=== PATIENT | male | born 1985 | race Caucasian/White ===

== ENCOUNTER 2020-08-07 00:49 | Emergency (ER) | payer OTHER, SELFPAY ==
[2020-08-07 00:51] VITALS: BP 209/116; PULSE 84; RESP 18; TEMP 36.6; O2SAT 99; BMI 42.1
--- NOTE | 2020-08-07 00:53 | EDS_ITS ---
ED.HPI.GONZALES History of Present Illness Chief Complaint: Headache Informant: patient Onset/Context/Timing Onset: Days (2) Context: Gradual Timing: Continuous Quality -Headache: Positive for Similar Prior Headaches, Sharp and Dull Location: Bilateral frontal Worsened by: Light Associated Symptoms/Injury Associated Symptoms: Positive for Nausea, Sinus Pressure, Blurred Vision and Photophobia; Negative for Fever, Vomiting, Sore Throat, Numbness, Tingling, Preceding Aura and Visual Loss Narrative Narrative: Patient presents with headache that has been getting worse over the p ast 2 days. Patient states the pain is over the frontal area and bilateral temporal area. Patient states the pain feels similar to prior headaches. Patient states the pain is sharp at times but aching at times. Patient admits to some photophobia. Patient admits to some mild sinus pressure. Patient admits to some nausea but denies any vomiting. Patient admits to some blurred vision but denies any scotoma. [facility] Medical History Gastroparesis Hypertension Migraines Home Medications amlodipine 10 mg PO DAILY 08/07/20 [History Last Taken Unknown] cholecalciferol (vitamin D3) [Vitamin D3] 10 mcg PO DAILY 08/07/20 [History Last Taken Unknown] coenzyme Q10 [CoQ-10] 100 mg PO DAILY 08/07/20 [History Last Taken Unknown] garlic extract 1,000 mg PO DAILY 08/07/20 [History Last Taken Unknown] levocarnitine tartrate [L-Carnitine] 500 mg PO DAILY 08/07/20 [History Last Taken Unknown] lisinopril 40 mg PO DAILY 08/07/20 [History Last Taken Unknown] Allergy/AdvReac Type Severity Reaction Status Date / Time Penicillins Allergy Hives Verified 08/07/20 00:54 Surgical History History of tonsillectomy Social History Smoking Status: Never smoker ROS ROS ED Constitutional Constitutional ED: Denies chills or fever(s) Eyes Eyes: Reports blurry vision; Denies diplopia ENT ENT ED: Denies rhinorrhea or sore throat Cardiovascular Cardiovascular: Denies chest pain or palpitations Respiratory/Chest Respiratory/Chest: Denies cough or dyspnea Gastrointestinal Gastrointestinal: Reports nausea; Denies vomiting Genitourinary Genitourinary ED: Denies dysuria or hematuria Musculoskeletal Musculoskeletal: Reports back pain; Denies neck pain Integumentary Denies abscess or rash Neurologic Neurologic: Reports headache(s); Denies paresthesias or weakness Allergic/Immunologic Allergic/Immunologic ED: Denies mouth swelling or urticaria EXAM Physical Exam Const Vital Signs: 08/07/20 00:51 08/07/20 00:54 08/07/20 01:35 Temperature 97.8 F Temperature Source Oral Pulse Rate 84 72 Respiratory Rate 18 16 Blood Pressure 209/116 H 186/100 H 171/99 H Blood Pressure Mean 147 128 123 Pulse Ox 99 98 Oxygen Delivery Method Room Air Room Air Positive well nourished, well developed and obese General Appearance ED: well developed Nutritional Appearance: obese HEENT Reports normocephalic atraumatic Neck supple and no JVD Resp normal respiratory effort and clear to auscultation bilaterally Cardio regular rate and regular rhythm GI non-tender and non-distended Auscultation: normoactive bowel sounds Palpation: soft Neuro oriented x3 and CN's II-XII intact bilaterally Sensorium / Orientation: awake and alert Speech: speech normal Motor Exam: strength 5/5 throughout Psych mental status grossly normal MDM MDM MDM Narrative Medical decision making narrative: Patient was given IV fluids, Reglan, Benadryl, and Toradol. Patient was feeling better on reevaluation. Patient states he feels well enough to go home. Patient was instructed to rest in a dark quiet room. Patient was instructed to follow-up with his primary care physician in 5 to 7 days. Patient understood and was agreeable with the plan. All questions were answered. Discharge Plan Triage Chief Complaint: Headache ED Provider: Cosmo Cotton Dx/Rx/DC Orders Clinical Impression: Migraine headache Instructions: ED, Migraine (Classical) Prescriptions: No Action amlodipine 10 mg Tablet 10 mg PO DAILY RF: 0 lisinopril 40 mg Tablet 40 mg PO DAILY RF: 0 cholecalciferol (vitamin D3) [Vitamin D3] 10 mcg (400 unit) Capsule 10 mcg PO DAILY RF: 0 coenzyme Q10 [CoQ-10] 100 mg Capsule 100 mg PO DAILY RF: 0 garlic extract 500 mg Capsule 1,000 mg PO DAILY RF: 0 levocarnitine tartrate [L-Carnitine] 500 mg Capsule 500 mg PO DAILY RF: 0 Primary Care Provider: Care Physician,No Primary Referrals: Kenia Foy MD [STAFF PHYSICIAN] - 5-7 Days Care Physician,No Primary [Primary Care Provider] - Disposition Disposition: Home, self care
[2020-08-07 00:54] VITALS: BP 186/100
[2020-08-07] MEDS: 0.9% Normal Saline 1,000 ML 999 ML IV (01:14)
[2020-08-07] MEDS: Ketorolac 30 MG/ML Syringe IV (01:15)
[2020-08-07] MEDS: DiphenhydrAMINE 50 MG/ML Syringe 25 MG IV (01:15)
[2020-08-07] MEDS: Metoclopramide 10 MG/2 ML Vial IV (01:15)
[2020-08-07 01:35] VITALS: BP 171/99; PULSE 72; RESP 16; O2SAT 98
[2020-08-07 02:30] VITALS: BP 161/103; PULSE 67; RESP 16; TEMP 36.6; O2SAT 93
[2020-08-07 03:01] VITALS: BP 180/101; PULSE 62; RESP 16; O2SAT 96
--- NOTE | 2020-08-07 03:07 | ED.RN ---
Bp still high and is aware Dr Cotton will look at it and still waiting orders/plan
[2020-08-07] MEDS: cloNIDine HCl 0.1 MG Tablet PO (03:24)
--- NOTE | 2020-08-07 03:26 | ED.RN ---
patient states headache better than has been in two days. Took catapres/clonidine and aware will recheck blood pressure shortly and aware to give time for med to work and monitor at home, return if stays high
[2020-08-07 04:01] VITALS: BP 168/94; PULSE 69; RESP 16; TEMP 36.6; O2SAT 96
== END 2020-08-07 04:07 | disposition home or self-care (01) ==
PROVIDERS: Emergency Provider Emergency Medicine
DX: G43.909 Migraine, unspecified, not intractable, without status migrainosus (principal); I10 Essential (primary) hypertension; E66.9 Obesity, unspecified; Z68.41 Body mass index [BMI] 40.0-44.9, adult; Z79.899 Other long term (current) drug therapy
CPT/HCPCS: 96361; 96374; 96375; 99283; J7030; A4216

== ENCOUNTER → 2022-09-09 | Outpatient (CLI) | payer OTHER, SELFPAY ==
--- NOTE | 2022-09-09 14:30 | PR.ITP_ITS ---
General Information2 - General Information Admitting Diagnosis: Asthma, mild COPD Secondary Diagnosis: HTN, Type II DM, HLD, Obesity, CATHY Gold Classification:: GOLD 1: Mild - Personal Learning Style/Barriers Personal Learning Style:: Audio/Visual, Written Barriers to Learning: None Stage of change r/t lifestyle modifications: Action Educational Classes [place]: Breathing Retraining: Initial Assessment, Exercise: Initial Assessment, Energy Conservation: Initial Assessment, Emotion Social Well Being: Initial Assessment - Education/Goals Individual Counseling: Initial Assessment: Diabetes - Nutritional Services Consult, Overweight/Obesity - Nutritional Services Consult [place] Patient Goals: Increase muscle strength: Initial Assessment, Experience less dyspnea: Initial Assessment, Improve energy level: Initial Assessment, Improve knowledge of lung disease: Initial Assessment, Increase knowledge of oxygen use: Initial Assessment, Improve diet and nutrition: Initial Assessment, Improve my quality of life: Initial Assessment Exercise - Initial Assessment - Visit Date of Eval: 09/09/22 Session Number:: 0 - Pre-[place] Evaluation - Problem/Goals Problems: Deconditioning, No regular exercise Goals:: Aerobic exercise 30-60 mins x 12 weeks [36 sessions] - Physician Prescribed Exercise Modalities: Treadmill, Airdyne, NuStep Frequency (days/week): 3 Duration (Minutes):: 30-45 Intensity: 60-80% of age predicted maximum heart rate reserve Current METSs:: 3.0 Target HR:: 136 - THRR 118-136 Resting Blood Pressure: 140/90 - Elevated EKG Type: Sinus Rhythm - Plan Plan and Plan to Review:: Benefits of exercise, Core components of exercise, How to measure dyspnea level, How to monitor dyspnea level, Exercise intensity, Exercise safety guideline, Home exercise guidelines, Vidal: 3-4/11-13 Home Exercise Mode: Walking Nutrition/Wt Mgmt - Initial - Visit Date of Eval: 09/09/22 Session Number:: 0 - Pre-[place] Evaluation - Problems/Goals Problems: Overweight - Weight Management Knowledge Deficit Management of:: Overweight, Role of exercise in weight control Admit Height:: 6 ft 2 in Admit Weight:: 320 lb Admit BMI:: 41.1 - Intervention Referral to dietitian:: Yes Will attend diet classes:: Yes Intervention/Plan: Instruct on ideal BMI & set weight loss goal w/patient, Assist pt to ID & incorporate diet changes for weight loss by S9, Refer to Structured Weight Loss program as appropriate, Encourage goal of using 250- 300dcal per session for weight loss - Plan Nutrition Plan: Yes Review BMI or WC & identify target wt & strategies for wt control, Yes Nutrition education class:, Yes Weight control education class: Psychosocial - Initial Assess - Visit Date of Eval: 09/09/22 Session Number:: 0 - Pre-[place] Evaluation - Problems/Goals History of Emotional Disorders: Anxious - Psychosocial Test Tool Used:: Pulmonary QOL, PHQ-9 Questionnaire - Referral to Behavioral Health PS - Interventions: Yes Attend Stress Management Classes - Intervention/Plan: See List Interventions/Plan:: Assess stressors,coping strategies & signs of derpression on admission, Instruct/assist pt to develop coping & personal stress Mgt strategies, Instruct patient to recognize signs & symptoms of depression, Instruct patient to recog Oxygen & Oxygen Titration Init - Visit Date of Eval: 09/09/22 Session Number:: 0 - Pre-[place] Evaluation - Initial Assessment Oxygen on Admission: None - Plans Plan: Monitor SpO2 rest & with exercise Reviewed prescribed medications:: Purpose, Schedule, Importance of compliance Instruct correct technique/timing & care:: MDI, DPI, Nebulizer, Return demo use of inhaler Bronchial Hygiene Plan: Vibratory PEP device, Hydration Core Components - Initial - Visit Date of Eval: 09/09/22 Session Number:: 0 - PRe-[place] Evaluation - Hypertension Hypertension Diagnosis:: Hypertension ICD-10 I10 BP: 140/90 [place] [employer] Hypertension Guidelines: [place] [employer] Hypertension Guidelines. Normal BP Less than 120/80. Elevated BP 120/80. Hypertension Stage 1: BP 130-139/80-89. Hypertesnion Stage 2: BP 140 or higher/90 or higher. Hypertension Crisis: BP higher than 180/120 Blood Pressure: 140/90 Outcomes/Goals: Able to verbalize/achieve optimal blood pressure <130/80, Incorporates diet changes & exercise for blood pressure control by DC - Exacerbation Mgmt & Airway Clearance Problems:: No home O2 Hypoxemia Goals:: Hypoxemia managed Plan: Monitor SpO2 rest & with licensed practical nurse clinic nurse correct technique/timing & care:: MDI, DPI, Nebulizer, Return demo use of inhaler Bronchial Hygiene Plan: Vibratory PEP device, Hydration - Medication Interventions/plans: Instruct on medication effects & side effects, Review medication list w/patient every two weeks, Instruct importance of taking meds as ordered & assist problem solving Medication Goals: Adherence to prescribed medications, Correct technique/timing & care of MDI, DPI, nebulizer, and spacer. Does pt report taking home meds as prescribed?: Yes Medications: Yes MDI, Yes DPI, Yes NEB Reviewed prescribed medications:: Side effects, Importance of compliance - Diabetes Diabetes:: Yes Fasting blood glucose:: 0 - Labs unavailable Insulin: Yes Do you monitor your blood sugar at home?: Yes BMI:: 41 Refer to Nutritional Services: DSMNT & MNT Referral to dietitian:: Yes Referral to Diabetic Clinic:: Yes Will attend diet classes:: Yes Core Components - 30 DAYS Core Components - 60 DAYS Core Components - 90 DAYS Core Components - Final Patient Health Questionnaire Initial Assessment 1. Little interest or pleasure in doing things: More than half the days 2. Feeling down, depressed, or hopeless: More than half the days 3. Trouble falling or staying asleep, or sleeping too much: More than half the days 4. Feeling tired or having little energy: Nearly every day 5. Poor appetite or overeating: More than half the days 6. Feeling bad about yourself -- or that you are a failure or have let yourself or your family down: Several days 7. Trouble concentrating on things, such as reading the newspaper or watching television: Several days 8. Moving or speaking so slowly that other people could have noticed. Or the opposite - being so fidgety or restless that you have been moving around a lot more than usual: Several days 9. Thoughts that you would be better off , or of hurting yourself in some way: Not at all How difficult have these problems made it for you to do your work, take care of things at home, or get along with other people?: Somewhat difficult Total Score: 14 Knowledge Questionaire (BCKQ) - Information Information: [place] COPD Knowledge Questionnaire (BCKQ) This questionnaire is designed to find out what you know about your lung problem. It should be completed without help form anyone else. This usually takes between 10 and 20 minutes. Your answers will help us to find out what information you need to help you to understand and manage your lung condition. Sergey the [place] which you think is the correct answer. - Questions b. COPD can only be confirmed by breathing tests: False c. In COPD ther is usually gradual worsening over time: True d. In COPD oxygen levels in the blood are always low: Don't know e. COPD is usually in people less than 40 years old: Don't know Aubrie than 80% of COPD cases are caused by cigarette smoking: Don't know b. COPD can be caused by occupational dust exposure: Don't know c. Longstanding asthma can develop into COPD: Don't know d. COPD is commonly an inherited disease: Don't know e. Women are less vunerable to the effects of cigarette than men: False a. Swelling of the ankles is common in COPD:: Don't know b. Fatigue [tiredness] is common in COPD: True c. Wheezing is common in COPD: True d. Crushing chest pain is common in COPD: Don't know e. Rapid weight loss is common in COPD: Don't know a. Severe breathlessness prevents travel by air: Don't know b. Breathlessness can be worsened by eating large meals: True c. Breathlessness means that your oxygen levels are low: False d. Breathlessness is a normal response to exercise: True e. Breathlessness is primarily caused by a narrowing of the bronchial tubes: False a. Coughing phlegm is a common symptom in COPD: Don't know b. Clearing phlegm is more difficult if you get dehydrated: Don't know c. Bronchodilator inhalers can help clear phlegm: True d. Phlegm causes harm if swallowed: False e. Clearing phlegm can be assisted by breathing exercises: True a. Chest infections often cause coughing of blood: True b. Chest infection phlegm usually becomes coloured (ylw/grn): True cExerbations (episodes of worsening) can occur in the absence of chest infection: True d. Chest infections are always accompanied by a high temperature: False e. Steroid tablets should be taken whenever there is an exacerbation: False aWalking excercises better than breathing to improve fitness: Don't know b. Exercise should be avoided as it strains the lungs: False c. Exercise can help maintain your bone density: Don't know d. Exercise helps relieve depression: True e. Exercise should be stopped if it makes you breathless: True a. Stopping smoking will reduce the risk of heart disease: True b. Stopping smoking will slow down further lung damage: True c. Stopping smoking is pointless as the damage is done: False d.Stopping smoking usually results in improved lung function: True eNicotine replacement therapy only available on prescription: False a. A flu jab is recommended every year: True b. You can get flu from having a flu jab: False c. You can only have a flu jab if you are 65 or over: False d. A pneumonia jab protects against all forms of pneumonia: False e.You can have a pneumonia jab and a flu job on the same day: Don't know a. Bronchodilators act quickly (within 10 minutes): False b. Both short & long acting bronchodilators can be taken on the same day: True c. Spacers (volumatic,nebuhaler,serochamber)should be dried w/atowel after washing: True d. A spacer device increases the medication to the lungs: True e. Tremor may be a side effect of bronchodilators: True a. To be effective, the course should last at least 10 days: False b. Excessive use of antibiotics can cause resistant bacteria (germs): True c. Antibiotics will clear all chest infections: True d. Antibiotic treatment is necessary for an exacerbation (worsening) however mild: False e. Seek advice if antibiotics cause severe diarrhoea: True a. Steroid tablets help strengthen muscles: False b. Steroid tablets should be avoided if there is a chest infection: False c. The risk of long-term side effects due to steroids is less w/short courses then w/continous treatment: True dIndigestion is common side effect from using steroid tablet: True e. Steroid tablets can increase your appetite: True a. Inhaled steroids should be stopped if you are given steroid tablets: Don't know bSteroid inhalers can be used for rapid relief breathlessnes: True c. Spacer devices reduce the risk of getting thrush in the mouth: Don't know d.Steroid inhaler should be taken before your bronchodilator: Don't know e. Inhaled steroids improve lung function in COPD: Don't know COPD Assessment Test [CAT] - Questions Never cough = 0, Cough all the time = 5: 2 No phlegm = 0, Chest full of phlegm = 5: 1 No chest tightness = 0, Chest very tight = 5: 4 No breathless w/exertion = 0, Very breathless w/exertion = 5: 5 No limitations w/activity = 0, Very limited w/activity = 5: 4 Confident leaving home = 0, Not at all confident = 5: 1 Sleep soundly = 0, Don't sleep soundly = 5: 3 Lots of energy = 0, No energy at all = 5: 3 Total CAT score:: 23 Self-Efficacy Initial Assessment We would like to know how confident you are in doing certain activities. Please select your confidence level for:: Select your confidence level for the following using the scale 1-10 where 1 is not at all confident and 10 is totally confident. Your score is the average of all 6 responses. Fatigue: How confident are you that you can keep the fatigue caused by your disease from interfering with the things you want to do? Select Number: 3 Physical Discomfort or Pain: How confident are you that you can keep the physical discomfort or pain of your disease from interfering with the things you want to do? Select Number: 2 Emotional Distress: How confident are you that you can keep the emotional distress caused by your disease from interfering with the things you want to do? Select Number: 3 Other Symptoms or Health Problems: How confident are you that you can keep other symptoms or health problems from interfering with the things you want to do? Select Number: 5 Different Tasks and Activities: How confident are you that you can do the different tasks and activities needed to manage your health condition so as to reduce your need to see a doctor? Select Number: 4 Medication: How confident are you that you can do things other than just taking medication to reduce how much your illness affects your everyday life? Select Number: 6 Total Score:: 3 Nutrition Survey - Nutrition Survey Initial Have you lost >10 lbs over the past 2 months without trying?: No Are you following a special diet at home for diabetes, low fat, or low salt?: No Are you interested in meeting with a dietitian for help understanding your diet?: Yes Do you eat less than 3 meals a day?: Yes Do you eat fatty meats ([place], sausage, ribs, etc), fried foods, desserts, large amounts of salad dressings, margarine, butter, or cheese most days?: Yes Do you have food allergies? [Enter types in comment field]: Yes Do you eat in restaurants more than 3 times a week?: No Do you season food with salt, seasoning salt, or garlic salt?: Yes Do you used canned, boxed, frozen meals, or soups, seasoning packets?: Yes Total Score:: 6
--- NOTE | 2022-09-09 14:30 | PCM.PR.HP ---
History of Present Illness Arrival date:: 09/09/22 Arrival time:: 14:15 Date of Referral:: 09/02/22 Date of Evaluation: 09/09/22 Referring Physician: Dr. Rankin @ [facility] Primary Diagnosis: [place] mMR Breathless Scale: When is the patient short of breath? Y/N Grade: Description of Breathlessness: 0 I only get breathless with strenuous exercise. 1 I get short of breath when hurrying on level ground or walking up a slight hill. 2 On level ground, I walk slower than people of the same age because of breathless, or have to stop for breath when walking at my own pace. 3 I stop for breath after walking 100 yards or after a few minutes on level ground. 4 I am too breathless to leave the house or I am breathless when dressing. Respiratory Problems: Yes: Retain Secretions, Fatigue, Wheezing, Able to Speak in Full Sentences, Dizziness, Anxiety, Panic, Dyspnea with Activity, Dyspnea Lying Down Flat No: Cough with Secretions Hx of Sleep Apnea: Yes Do you snore loudly (louder than talking or can be heard through closed doors)?: Yes Do you often feel tired/ fatigued/ sleepy during daytime?: Yes Has anyone observed you stop breathing during sleep?: Yes History of Hypertension (for STOP score): Yes - Difficult time readjusting to CPAP machine; going back to sleep lab for refitting STOP Results: Positive Home Medications: Home Medications amlodipine 10 mg tablet 10 mg PO DAILY 08/07/20 cholecalciferol (vitamin D3) 10 mcg (400 unit) capsule (Vitamin D3) 10 mcg PO DAILY 08/07/20 coenzyme Q10 100 mg capsule (CoQ-10) 100 mg PO DAILY 08/07/20 garlic extract 500 mg capsule 1,000 mg PO DAILY 08/07/20 levocarnitine tartrate 500 mg capsule 500 mg PO DAILY 08/07/20 lisinopril 40 mg tablet 40 mg PO DAILY 08/07/20 Lactobacillus acidophilus-Bifidobac.animalis 2.5 billion cell capsule (Daily Probiotic) cap PO 09/09/22 albuterol sulfate 2.5 mg/3 mL (0.083 %) solution for nebulization 2.5 mg inhalation Q4H PRN Shortness Of Breath Or Wheezing 09/09/22 albuterol sulfate 90 mcg/actuation aerosol inhaler 2 puff inhalation Q2H PRN Shortness Of Breath Or Wheezing 09/09/22 atorvastatin 20 mg tablet (Lipitor) 20 mg PO DAILY 09/09/22 fluticasone fur. 100 mcg-umeclid 62.5 mcg-vilant 25 mcg inhalat.powder (Trelegy Ellipta) 1 inh inhalation Q24H 09/09/22 krill 500 mg-omega-3 150 mg-dha 45 mg-epa 75 [id number] capsule (krill oil) 1 cap PO DAILY 09/09/22 loperamide 2 mg capsule 2 mg PO DAILY 09/09/22 metoprolol succinate 50 mg tablet,extended release 24 hr 50 mg PO DAILY 09/09/22 ondansetron HCl 4 mg tablet 4 mg PO Q8H PRN Nausea 09/09/22 sitagliptin phosphate 50 mg tablet (Januvia) 50 mg PO DAILY 09/09/22 Allergies/Adverse Reactions: Allergies mustard Allergy (Verified 09/09/22 14:42) Other Penicillins Allergy (Verified 08/07/20 00:54) Hives Medical Utilization Do you use a peak flow meter at home?: No Do you use a spacer device with your inhalers?: No Number of hospital visits in the last year?: 1 Number of emergency room visits in the last year?: 5 - 3-4 since May Do you see your physician on a regular schedule?: Yes How often?: Pulmonanry [id number]; PCP Q 3months Advanced Directives - Advanced Directives 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 Living Will: No Advance Directives Information Provided: Yes Advance Directives on File: No DNR Order?:: No - MOLST See MOLST form: No Past Medical History - Covid-19 Screening Fever: No Unexplained muscle aches: No Current respiratory symptoms: Yes - Chronic Rhinitis Upper respiratory infections symptoms: No Gastro-intestinal symptoms: Yes - Gastroparesis Gvq-Zvxx-Qvzhcr symptoms: No Has tested positive for COVID-19 in last 30 days: No Date of testin09/09/22 - not vaccinated Had contact w/person w/symptoms or Covid-19 (+) last 14 days: No Has High Risk Exposures ID'd by Health dept/Inf Control team: No 65 years or older:: No Lives in Assisted Living facility:: No Has a chronic lung disease or moderate to severe asthma:: Yes Has a serious heart condition:: No Immunocompromised:: No Severely obese (Body Mass Index of 40 or higher):: Yes Diabetic:: Yes Has chronic kidney disease undergoing dialysis:: No Has liver disease:: No Medical History: Past Medical History (Last Updated 09/09/22 @ 14:57 by Omar Reese, MARY, WAREHOUSE PACKER, BS) Allergic rhinitis J30.9 Anxiety F41.9 Asthma J45.909 COPD mixed type J44.9 COVID-19 long hauler manifesting chronic decreased mobility and endurance Z74.09, U09.9 Gastroparesis K31.84 H/O nasal polyp Z87.09 Hypertension I10 Migraines G43.909 Mixed hyperlipidemia E78.2 Morbid obesity with BMI of 40.0-44.9, adult E66.01, Z68.41 Obstructive sleep apnea of adult G47.33 Type 2 diabetes mellitus without complications E11.9 Surgical History: Past Surgical History (Last Updated 09/09/22 @ 14:57 by Omar Reese, MARY, [employer]AREHOUSE P[employer]ER, BS) H/O colonoscopy Z98.890 H/O myringotomy Z98.890 H/O nasal septoplasty Z98.890 H/O tympanostomy Z98.890 History of cholecystectomy Z90.49 History of tonsillectomy Z90.89 Status post biopsy of skin Z98.890 - Current/ Previous Services Pulmonary Rehab:: No Social History - Smoking History Smoking Status: Never smoker Hx Tobacco Use: No Hx Smoking Exposure: No - Alcohol Use Alcohol Usage: Yes - socially special occasions - Substance Abuse Hx Substance Use: No - Occupation Occupation (List type of work in comments):: Employed, Unemployed - Short Term Disability w/employer - Hobbies, Recreation, Social Activities Hobbies: Sports - hunting/fishing, Other - camping/bird watching Recreational Activities: I am able to engage in a few activities Functioning ADL/IADL - Current Ability Current Ability: Independent Self-Care (e.g.,grooming, dressing, & bathing), Independent Ambulation, Independent Transfer, Independent Household tasks (e.g., light meal prep, laundry, shopping) - Pt Functioning Prior to Problem Prior Functioning: Self-Care (e.g.,grooming, dressing, & bathing): Independent, Ambulation: Independent, Transfer: Independent, Household tasks (e.g., light meal prep, laundry, shopping): Independent Social Environment - Status Marital Status: - Current Living Arrangements Living Environment:: Spouse - Children How many children do you have?: 0 Do any of your children live nearby?: No - Safety Do you feel safe in your surroundings?: Yes - Assistance Do you need any assistance at home?: no Review of Systems Review of Systems: Right click = Denies ([place]). Left click = Reports ([place]) Respiratory: Reports: SOB upon Exertion, Wheezing, Appetite, Normal, Dizziness/Lightheadedness, Fatigue, Sleep, Normal. Denies: Sputum production - Feels at times something is caught but unable to clear, Sexual changes Is Patient Pain Free?: No Pain Location: chest - midsternal Pain Level: 05/10 Risk Factor Assessment - Vital Signs Temperature: 98.7 F Pulse Rate: 86 Pulse Rhythm: Regular Respiratory Rate: 16 Pulse Ox: 96 Blood Pressure: 140/90 - Diabetes Diabetic History: Type II Nutrition Referral for Diabetes: Yes - Obesity Height: 6 ft 2 in Weight:: 320 lb Weight in Pounds: 320.0 lbs Weight Source: [facility] ([facility] Body Mass Index (BMI): 41.1 Nutritional Referral for Obesity: Yes - Risk Stratification Risk Guidelines: Lowest Risk: Risk Factor for Dyslipidemia, Risk Factor for Diabetes, Risk Factor for Obesity, Risk Factor for Hypertension Motivation - Motivation to Participate On a scale of 1 to 10, how prepared are you to commit to attending program?: 10 What do you see as barriers to successfully being able to complete the program?: cost with insurance What do you see as the benefits of succesfully completing the program? In other words, what do you hope to get out of participating in the program?: Being able to rteturn to work, enjoy life again Are there issues you are dealing with that will interfere with completing the program?: no Do you have a spouse or signficant other, family or friends who will help support you to complete the program?: Yes Diagnostic Data Review - Pulmonary Function Test FEV1:: 3.42 - 71% FVC:: 4.33 - 72% FEV1/FVC%:: 79 - 99%
[2022-09-09 15:12] VITALS: BP 140/90; PULSE 86; RESP 16; TEMP 37.1; O2SAT 96; BMI 41.1
[2022-09-09 15:43] VITALS: BP 140/90; BMI 41.0; BMI 41.1
== END | disposition home or self-care (01) ==
DX: K31.84 Gastroparesis (principal); E66.01 Morbid (severe) obesity due to excess calories; E11.9 Type 2 diabetes mellitus without complications; I10 Essential (primary) hypertension

== ENCOUNTER 2022-09-27 13:00 | Outpatient (RCR) | payer OTHER, SELFPAY | END 2022-09-27 23:59 | LOC: PR 13:00 | PROVIDERS: Referring Provider Family Medicine; Visit Provider Family Medicine | DX: R06.02 Shortness of breath (principal); R53.81 Other malaise; J45.40 Moderate persistent asthma, uncomplicated | CPT/HCPCS: 97150; 94626 ==

== ENCOUNTER 2022-10-28 13:00 | Outpatient (RCR) | payer OTHER, SELFPAY | END 2022-10-28 23:59 | LOC: PR 13:00 | PROVIDERS: Referring Provider Family Medicine; Visit Provider Family Medicine | DX: R06.02 Shortness of breath (principal); R53.81 Other malaise; J45.40 Moderate persistent asthma, uncomplicated | CPT/HCPCS: 97150; 94626 ==

== ENCOUNTER 2022-10-30 09:22 | Outpatient (RCR) | payer OTHER, SELFPAY ==
--- NOTE | 2022-11-08 08:24 | PR.ITP_ITS ---
Exercise - Initial Assessment Visit Session Number:: 20 Physician Prescribed Exercise Current RPD:: 13-14 Maximum Exercise HR:: 122 Resting Blood Pressure: 130/72 Maximum Exercise Blood Pressure: 156/88 EKG Type: NSR to ST Nutrition/Wt Mgmt - Initial Visit Session Number:: 20 Weight Management Admit Height:: 6 ft 2 in Admit Weight:: 316 lb 8 oz Admit BMI:: 40.6 Nutrition/Wt Mgmt - 30-Day Visit Date of Eval: 11/08/22 Session Number:: 20 Weight Management Height: 6 ft 2 in Weight:: 316 lb 8 oz BMI: 40.6 Nutrition/Wt Mgmt - 60-Day Visit Date of Eval: 11/08/22 Session Number:: 20 Weight Management Height: 6 ft 2 in Weight:: 316 lb 8 oz BMI: 40.6 Nutrition/Wt Mgmt - 90-Day Visit Session Number:: 20 Weight Management Height: 6 ft 2 in Weight:: 316 lb 8 oz BMI: 40.6 Nutrition/Wt Mgmt - Final Visit Session Number:: 20 Weight Management Height: 6 ft 2 in Weight:: 316 lb 8 oz BMI: 40.6 Psychosocial - Initial Assess Visit Session Number:: 20 Psychosocial - 30-Day Visit Date of Eval: 11/08/22 Session Number:: 20 Psychosocial - 60-Day Visit Date of Eval: 11/08/22 Session Number:: 20 Psychosocial - 90-Day Visit Session Number:: 20 Psychosocial - Final Assess Visit Session Number:: 20 Oxygen & Oxygen Titration Init Visit Session Number:: 20 Oxygen & Oxygen Titration 30D Visit Date of Eval: 11/08/22 Session Number:: 20 Oxygen & Oxygen Titration 60D Visit Date of Eval: 11/08/22 Session Number:: 20 Oxygen & Oxygen Titration 90D Visit Date of Eval: 11/08/22 Session Number:: 20 Oxygen & Oxygen Titration ELDON Visit Date of Eval: 11/08/22 Session Number:: 20 Core Components - Initial Visit Session Number:: 20 Hypertension Hypertension Diagnosis:: Hypertension ICD-10 I10 BP: 130/72 [place] [employer] Hypertension Guidelines Blood Pressure: 156/88 Core Components - 30 DAYS Visit Date of Eval: 11/08/22 Session Number:: 20 Hypertension Hypertension Diagnosis:: Hypertension ICD-10 I10 Resting Blood Pressure:: 130/72 [place] [employer] Hypertension Guidelines Peak Exercise Blood Pressure:: 156/88 Core Components - 60 DAYS Visit Date of Eval: 11/08/22 Session Number:: 20 Hypertension Hypertension Diagnosis:: Hypertension ICD-10 I10 Resting Blood Pressure:: 130/72 [place] [employer] Hypertension Guidelines Peak Exercise Blood Pressure:: 156/88 Core Components - 90 DAYS Visit Session Number:: 20 Hypertension Hypertension Diagnosis:: Hypertension ICD-10 I10 Resting Blood Pressure:: 130/72 [place] [employer] Hypertension Guidelines Peak Exercise Blood Pressure:: 156/88 Core Components - Final Visit Session Number:: 20 Hypertension Hypertension Diagnosis:: Hypertension ICD-10 I10 Resting Blood Pressure:: 130/72 [place] [employer] Hypertension Guidelines Peak Exercise Blood Pressure:: 156/88 Patient Health Questionnaire PHQ-9 Screening 60-Day Re-eval Assessment: 1. Little interest or pleasure in doing things: More than half the days 2. Feeling down, depressed, or hopeless: More than half the days 3. Trouble falling or staying asleep, or sleeping too much: More than half the days 4. Feeling tired or having little energy: Nearly every day 5. Poor appetite or overeating: More than half the days 6. Feeling bad about yourself -- or that you are a failure or have let yourself or your family down: Several days 7. Trouble concentrating on things, such as reading the newspaper or watching television: Several days 8. Moving or speaking so slowly that other people could have noticed. Or the opposite - being so fidgety or restless that you have been moving around a lot more than usual: Several days 9. Thoughts that you would be better off , or of hurting yourself in some way: Not at all How difficult have these problems made it for you to do your work, take care of things at home, or get along with other people?: Somewhat difficult Total Score: 14 Knowledge Questionaire (BCKQ) Information Information: [place] COPD Knowledge Questionnaire (BCKQ) This questionnaire is designed to find out what you know about your lung problem. It should be completed without help form anyone else. This usually takes between 10 and 20 minutes. Your answers will help us to find out what information you need to help you to understand and manage your lung condition. [place] which you think is the correct answer. Self-Efficacy 6-Item Scale 60-Day Re-eval Assessment: We would like to know how confident you are in doing certain activities. Please select your confidence level for: Fatigue Select Number: 3 Physical Discomfort or Pain Select Number: 2 Emotional Distress Select Number: 3 Other Symptoms or Health Problems Select Number: 5 Different Tasks and Activities Select Number: 4 Medication Select Number: 6 Total Score:: 3 Nutrition Survey Nutrition Survey Instructions Scoring Instructions
[2022-11-08 08:32] VITALS: BP 130/72; BP 156/88; BMI 40.6
== END 2022-11-28 23:59 ==
LOC: PR 09:22
PROVIDERS: Referring Provider Family Medicine; Visit Provider Family Medicine
DX: R06.02 Shortness of breath (principal); R53.81 Other malaise; J45.40 Moderate persistent asthma, uncomplicated
CPT/HCPCS: 97150; 94626

== ENCOUNTER 2023-05-05 19:12 | Emergency (ER) | payer SELFPAY ==
[2022-11-08 08:32] VITALS: BMI 40.6
[2023-05-05 19:15] VITALS: BP 140/97; PULSE 93; RESP 18; TEMP 36.4; O2SAT 98; BMI 40.9
--- OUTSIDE RECORDS SUMMARY | 2023-05-05 20:33 | XMS RPT_ITS | CCD ---
Author Name Unknown Address [address] [place] [address] Organization [facility] Care Team Providers Care Manual Winder Name Role Phone Leonides Sibley DO Primary Care Provider Unavailable Primary Care Provider UnavailLeonides Guillory DO Primary Care Provider RENE TENORIO Attending Unavailable Leonides Sibley Attending Unavailable PROVIDER, UNKNOWN Referring Unavailable Leonides Sibley Primary Care Unavailable Leonides Sibley Attending Unavailable PROVIDER, UNKNOWN Referring Unavailable Leonides Sibley Primary Care Unavailable Leonides Sibley DO Primary Care Provider Leonides Sibley DO Primary Care Provider Enedina Truong PA-C Primary Care Provider Tereso Hernadez DO Primary Care Provider Tereso Hernadez DO Primary Care Provider [phone] Maricarmen LUTZ [facility] LEONIDES SIBLEY Primary Care Unavailable LUZ JENKINS Attending Unavailable YOUNG ROBBINS Attending Unavailable TERESO HERNADEZ Primary Care Unavailable CARLOS VILLAR Attending Unavailable LEONIDES SIBLEY Primary Care Unavailable ENEDINA TRUONG Referring Unavailable LEONIDES SIBLEY Primary Care Unavailable ENEDINA TRUONG Attending Unavailable LEONIDES SIBLEY Primary Care Unavailable AMI STANTON Attending Unavailable AMI STANTON Admitting Unavailable BOB SHETH Consulting Unavailable LEONIDES SIBLEY Primary Care Unavailable GRETEL RETANA Attending Unavailable ANGELA JUDGE Attending Unavailable LEONIDES SIBLEY Primary Care Unavailable FRACASSO, LEONIDES Primary Care Unavailable BULLOCK, SHANICE Attending Unavailable SAMAD, CARLOS Attending Unavailable BULLOCK, SHANICE Referring Unavailable PETRILLA, TERESO Primary Care Unavailable SAMAD, CARLOS Referring Unavailable TRUONG, ENEDINA Primary Care Unavailable YOUNG ROBBINS Attending Unavailable NICOLASA PERERA Referring Unavailable FRACASSO, LEONIDES Primary Care Unavailable FRACASSO, LEONIDES Primary Care Unavailable ALLIE REEDER Referring Unavailable SAMAD, CARLOS Referring Unavailable SAMAD, CARLOS Attending Unavailable TRUONG, ENEDINA Primary Care Unavailable JAMIL CUMMINS Attending Unavailable CUMMINSJAMIL Referring Unavailable PETRILLA, TERESO Primary Care Unavailable OCHOAPELON Referring Unavailable PETRILLA, TERESO Primary Care Unavailable PELON OCHOA Attending Unavailable FRACASSO, LEONIDES Primary Care Unavailable TRUONG, ENEDINA Referring Unavailable TRUONG, ENEDINA Primary Care Unavailable TRUONG, ENEDINA Attending Unavailable PETRILLA, TERESO Primary Care Unavailable KATIUSKA GUERRIER Attending Unavailable ROBBINS, YOUNG Attending Unavailable PETRILLA, TERESO Primary Care Unavailable CHENOWITH, LEONIDES Referring Unavailable FRACASSO, LEONIDES Primary Care Unavailable PETRILLA, TERESO Primary Care Unavailable EB CORREA Attending Unavailable FRACASSO, LEONIDES Primary Care Unavailable JAVIER MARION Attending Unavailable RAMON ELIZALDE Attending Unavailable PETRILLA, TERESO Primary Care Unavailable CUMMINSJAMIL Attending Unavailable PETRILLA, TERESO Primary Care Unavailable PETRILLA, TERESO Primary Care Unavailable MARLENEAD, CARLOS Attending Unavailable ABEL CONTRERAS Attending Unavailable FRACASSO, LEONIDES Primary Care Unavailable ENEDINA TRUONG Attending Unavailable PETRILLA, TERESO Primary Care Unavailable SAMADCARLOS Attending Unavailable PETRILLA, TERESO Primary Care Unavailable PETRILLA, TERESO Primary Care Unavailable ZORAN VALDOVINOS Attending Unavailable ENEDINA TRUONG Attending Unavailable FRACASSO, LEONIDES Primary Care Unavailable FRACASSO, LEONIDES Primary Care Unavailable NIRAJ, LEONIDES Attending Unavailable ENEDINA TRUONG Attending Unavailable FRACASSO, LEONIDES Primary Care Unavailable ENEDINA TRUONG Attending Unavailable PETRILLA, TERESO Primary Care Unavailable ABEL CONTRERAS Attending Unavailable PETRILLA, TERESO Primary Care Unavailable ABEL CONTRERAS Admitting Unavailable Allergies Allergy Classification Reported Allergen(s) Allergy Type Date of Onset Reaction(s) Facility Penicillins (antibiotic) (2 sources) Penicillins Drug Allergy 06-09-2012 formerly [facility] (3 sources) mustard seed allergenic extract Drug Allergy 07-16-2021 Anaphylaxis [facility] (20 sources) Penicillins Propensity to adverse reactions to drug 06-09-2012 Hives [facility] Work Phone: (20 sources) Mustard seed Propensity to adverse reactions 07-16-2021 Anaphylaxis [facility] Medications Current Medications Medication Drug Class(es) Dates Sig (Normalized) Sig (Original) acetaminophen 325 mg / oxyCODONE hydrochloride 5 mg oral tablet (1 source) Opioid Agonist Start: 08-14-2021 End: 08-19-2021 take 1 tablet by mouth every six hours as needed for pain oxyCODONE-acetami nophen (PERCOCET) 5-325 MG per tablet Indications: Biliary colic Take 1 tablet by mouth every 6 hours as needed for Pain for up to 5 days. 10 tablet 0 08/14/2021 08/19/2021 Active [id number] 200 actuat albuterol 0.09 mg/actuat metered dose inhaler (20 sources) beta2-Adrenergic Agonist Start: 04-23-2023 take 2 puff(s) by inhalation every six hours as needed albuterol 108 (90 Base) MCG/ACT inhaler Indications: COVID Inhale 2 puffs every 6 hours as needed for shortness of breath. 18 g 3 04/23/2023 Active Completed/Discontinued Medications Medication Drug Class(es) Dates Sig (Normalized) Sig (Original) acetaminophen 500 mg oral tablet (2 sources) Start: 06-20-2022 End: 06-20-2022 acetaminophen (Tylenol) tablet 1,000 mg Problems Active Problems Problem Classification Problem Date Documented Date Episodic/Chronic Abdominal pain (1 source) Abdominal pain; Translations: [Unspecified abdominal pain] Episodic Anxiety disorders (20 sources) Anxiety; Translations: [Anxiety disorder, unspecified] Onset: 3 Chronic Asthma (20 sources) Exacerbation of asthma; Translations: [Unspecified asthma with (acute) exacerbation] Onset: 4 Chronic Biliary tract disease (1 source) Biliary sludge; Translations: [Other specified diseases of biliary tract] Chronic Diabetes mellitus with complications (20 sources) Type 2 diabetes mellitus; Translations: [Type 2 diabetes mellitus with hyperglycemia] Onset: 1 08-22-2020 Chronic Diabetes mellitus without complication (20 sources) Type 2 diabetes mellitus without complication; Translations: [Type 2 diabetes mellitus without complications] Onset: 1 Chronic Diabetes mellitus without complication (4 sources) Steroid-induced hyperglycemia; Translations: [Hyperglycemia, unspecified] Onset: 4 04-27-2023 Episodic Disorders of lipid metabolism (20 sources) Mixed hyperlipidemia; Translations: [Mixed hyperlipidemia] Onset: 1 08-22-2020 Chronic E Codes: Adverse effects of medical drugs (2 sources) Adverse effect of glucocorticoids and synthetic analogues, initial encounter; Translations: [Adverse effect of glucocorticoids and synthetic analogues, initial encounter] Onset: 4 Episodic Essential hypertension (20 sources) Essential hypertension; Translations: [Essential (primary) hypertension] Onset: 1 Chronic Fluid and electrolyte disorders (2 sources) Dehydration; Translations: [Dehydration] Onset: 4 Episodic Headache; including migraine (3 sources) Refractory migraine; Translations: [Other migraine, intractable, without status migrainosus] Onset: 3 Chronic Headache; including migraine (1 source) Headache; Translations: [Blinding headache] Episodic Mood disorders (1 source) Depressive disorder; Translations: [Depression] Onset: 3 04-29-2023 Chronic Nausea and vomiting (6 sources) Nausea; Translations: [Nausea] Onset: 4 04-29-2023 Episodic Noninfectious gastroenteritis (1 source) Lymphocytic colitis; Translations: [Other and unspecified noninfectious gastroenteritis and colitis] Onset: 4 04-29-2023 Chronic Other and ill-defined heart disease (2 sources) Cardiomegaly; Translations: [Cardiomegaly] Onset: 2 Chronic Other lower respiratory disease (3 sources) Shortness of breath; Translations: [Shortness of breath] Onset: 3 Episodic Other nutritional; endocrine; and metabolic disorders (20 sources) Body mass index 40+ - severely obese; Translations: [Morbid (severe) obesity due to excess calories] Onset: 3 Chronic Other nutritional; endocrine; and metabolic disorders (2 sources) Morbid (severe) obesity due to excess calories; Translations: [Morbid (severe) obesity due to excess calories (HCC)] Onset: 3 Chronic Other nutritional; endocrine; and metabolic disorders (2 sources) Body mass index (BMI) 40.0-44.9, adult; Translations: [Body mass index (BMI) 40.0-44.9, adult ([facility])] Onset: 3 Chronic Other screening for suspected conditions (not mental disorders or infectious disease) (2 sources) Abnormal electrocardiogram [ECG] [EKG]; Translations: [Abnormal electrocardiogram [ECG] [EKG]] Onset: 2 Episodic Residual codes; unclassified (20 sources) Obstructive sleep apnea syndrome; Translations: [Obstructive sleep apnea (adult) (pediatric)] Onset: 3 Chronic Residual codes; unclassified (2 sources) Obstructive sleep apnea (adult) (pediatric); Translations: [Obstructive sleep apnea (adult) (pediatric)] Onset: 3 Chronic Residual codes; unclassified (1 source) Transient alteration of awareness; Translations: [Transient alteration of awareness] 04-29-2023 Episodic Viral infection (20 sources) Disease caused by 2019-nCoV; Translations: [COVID-19] Onset: 3 05-29-2022 Episodic Viral infection (2 sources) COVID-19; Translations: [COVID-19] Onset: 3 Past or Other Problems Problem Classification Problem Date Documented Da te Episodic/Chronic Allergic reactions (3 sources) Inflammatory dermatosis; Translations: [Dermatitis, unspecified] Onset: 09-26-2022 09-26-2022 Episodic Bacterial infection; unspecified site (2 sources) Other specified bacterial agents as the cause of diseases classified elsewhere; Translations: [Other specified bacterial agents as the cause of diseases classified elsewhere] Onset: 06-27-2022 Episodic Biliary tract disease (20 sources) Biliary colic; Translations: [Calculus of bile duct without cholangitis or cholecystitis without obstruction] Onset: 08-06-2021 08-06-2021 Episodic Cardiac dysrhythmias (20 sources) Palpitations; Translations: [Palpitations] Onset: 10-14-2022 10-14-2022 Episodic Chronic obstructive pulmonary disease and bronchiectasis (3 sources) Bronchitis; Translations: [Bronchitis, not specified as acute or chronic] Onset: 06-27-2022 Episodic Malaise and fatigue (2 sources) Other malaise; Translations: [Other malaise] Onset: 08-19-2022 Episodic Nonspecific chest pain (8 sources) Chest pain; Translations: [Chest pain, unspecified] Onset: 06-20-2022 Episodic Other connective tissue disease (1 source) Paraparesis; Translations: [Other symptoms and signs involving the musculoskeletal system] Onset: 10-08-2018 04-29-2023 Episodic Other disorders of stomach and duodenum (1 source) Gastroparesis syndrome; Translations: [Gastroparesis] Onset: 03-02-2014 04-29-2023 Episodic Other gastrointestinal disorders (4 sources) Altered bowel function; Translations: [Change in bowel habit] Onset: 07-22-2022 Episodic Other gastrointestinal disorders (4 sources) Diarrhea; Translations: [Diarrhea, unspecified] Onset: 07-22-2022 Episodic Other gastrointestinal disorders (1 source) Change in bowel habit; Translations: [Change in bowel habit] Onset: 07-22-2022 Episodic Other gastrointestinal disorders (1 source) Diarrhea, unspecified; Translations: [Diarrhea, unspecified] Onset: 07-22-2022 Episodic Other lower respiratory disease (20 sources) Dyspnea; Translations: [Dyspnea, unspecified] Onset: 08-06-2022 Resolved: 09-26-2022 Episodic Other lower respiratory disease (1 source) Shortness of breath; Translations: [Shortness of breath] Onset: 08-19-2022 Episodic Other lower respiratory disease (2 sources) Dyspnea, unspecified; Translations: [Dyspnea, unspecified] Onset: 07-07-2022 Episodic Other skin disorders (1 source) Skin finding; Translations: [Unspecified skin changes] Onset: 01-07-2020 04-29-2023 Episodic Other upper respiratory infections (9 sources) Acute bacterial sinusitis; Translations: [Acute sinusitis, unspecified] Onset: 05-27-2022 Episodic Residual codes; unclassified (2 sources) Pain, unspecified; Translations: [Pain, unspecified] Onset: 05-27-2022 Episodic Spondylosis; intervertebral disc disorders; other back problems (1 source) Chronic low back pain; Translations: [Lumbago with sciatica, left side] Onset: 10-08-2018 04-29-2023 Episodic Syncope (4 sources) Near syncope; Translations: [Syncope and collapse] Onset: 09-04-2022 09-04-2022 Episodic Unclassified (1 source) PREEMPLOYMENT PX AND UDS [employer] Onset: 12-11-2021 Results Test Name Value Interpretation Reference Range Facil ity Vital Signs Date Time Vital Sign Value Performing Clinician Faci lity 04-29-2023 11:11-0500 Diastolic blood pressure 88 mm[Hg] Zoran Valdovinos MD Work Phone: [facility] 04-29-2023 11:11-0500 Heart rate 72 /min Zoran Valdovinos MD Work Phone: [facility] 04-29-2023 11:11-0500 Systolic blood pressure 129 mm[Hg] Zoran Valdovinos MD Work Phone: [facility] 04-29-2023 10:51-0500 Body height 188 cm Zoran Valdovinos MD Work Phone: [facility] 04-29-2023 10:51-0500 Body mass index (BMI) [Ratio] 41.73 kg/m2 Zoran Valdovinos MD Work Phone: [facility] 04-29-2023 10:51-0500 Body temperature 97.11 [degF] Zoran Valdovinos MD Work Phone: [facility] 04-29-2023 10:51-0500 Body weight 147.42 kg Zoran Valdovinos MD Work Phone: [facility] 04-29-2023 10:51-0500 Respiratory rate 18 /min Zoran Valdovinos MD Work Phone: [facility] 04-29-2023 10:51-0500 SaO2% (BldA) [Mass fraction] 97 % Zoran Valdovinos MD Work Phone: [facility] 04-27-2023 03:09-0500 Diastolic blood pressure 91 mm[Hg] Katiuska Nesheim DO Work Phone: [facility] 04-27-2023 03:09-0500 Heart rate 73 /min Katiuska Nesheim DO Work Phone: [facility] 04-27-2023 03:09-0500 Respiratory rate 24 /min Katiuska Nesheim DO Work Phone: [facility] 04-27-2023 03:09-0500 SaO2% (BldA) [Mass fraction] 97 % Katiuska Nesheim DO Work Phone: [facility] 04-27-2023 03:09-0500 Systolic blood pressure 152 mm[Hg] Katiuska Nesheim DO Work Phone: [facility] 04-27-2023 00:17-0500 Body temperature 97.2 [degF] Katiuska Nesheim DO Work Phone: [facility] 04-27-2023 00:12-0500 Body height 188 cm Katiuska Nesheim DO Work Phone: [facility] 04-27-2023 00:12-0500 Body mass index (BMI) [Ratio] 41.73 kg/m2 Katiuska Nesheim DO Work Phone: [facility] 04-27-2023 00:12-0500 Body weight 147.42 kg Katiuska Nesheim DO Work Phone: [facility] 11-20-2022 08:09-0400 Diastolic blood pressure 77 mm[Hg] Abel Contreras MD Work Phone: [facility] 11-20-2022 08:09-0400 Heart rate 99 /min Abel Contreras MD Work Phone: [facility] 11-20-2022 08:09-0400 Respiratory rate 16 /min Abel Contreras MD Work Phone: [facility] 11-20-2022 08:09-0400 SaO2% (BldA) [Mass fraction] 96 % Abel Contreras MD Work Phone: [facility] 11-20-2022 08:09-0400 Systolic blood pressure 129 mm[Hg] Abel Contreras MD Work Phone: [facility] 11-20-2022 07:48-0400 Body temperature 97 [degF] Abel Contreras MD Work Phone: [facility] 11-20-2022 07:02-0400 Body height 188 cm Abel Contreras MD Work Phone: [facility] 11-20-2022 07:02-0400 Body mass index (BMI) [Ratio] 40.44 kg/m2 Abel Contreras MD Work Phone: [facility] 11-20-2022 07:02-0400 Body weight 142.88 kg Abel Contreras MD Work Phone: [facility] 10-17-2022 12:04-0400 Body height 188 cm Young Robbins MD Work Phone: [facility] 10-17-2022 12:04-0400 Body mass index (BMI) [Ratio] 39.98 kg/m2 Young Robbins MD Work Phone: [facility] 10-17-2022 12:04-0400 Body temperature 97.81 [degF] Young Robbins MD Work Phone: [facility] 10-17-2022 12:04-0400 Body weight 141.25 kg Young Robbins MD Work Phone: [facility] 10-17-2022 12:04-0400 Diastolic blood pressure 82 mm[Hg] Young Robbins MD Work Phone: [facility] 10-17-2022 12:04-0400 Heart rate 74 /min Young Robbins MD Work Phone: [facility] 10-17-2022 12:04-0400 SaO2% (BldA) [Mass fraction] 94 % Young Robbins MD Work Phone: [facility] 10-17-2022 12:04-0400 Systolic blood pressure 122 mm[Hg] Young Robbins MD Work Phone: [facility] 10-14-2022 15:04-0400 Body height 188 cm Eb Oquendo CNP Work Phone: [facility] 10-14-2022 15:04-0400 Body mass index (BMI) [Ratio] 40.47 kg/m2 Eb Correa PLATFORM ENGINEER - SAFETY ADMINISTRATOR Work Phone: [facility] 10-14-2022 15:04-0400 Body weight 142.97 kg Eb Correa PLATFORM ENGINEER - SAFETY ADMINISTRATOR Work Phone: [facility] 10-14-2022 15:04-0400 Diastolic blood pressure 82 mm[Hg] Eb Correa PLATFORM ENGINEER - SAFETY ADMINISTRATOR Work Phone: [facility] 10-14-2022 15:04-0400 Heart rate 90 /min Eb Agrawalick PLATFORM ENGINEER - SAFETY ADMINISTRATOR Work Phone: [facility] 10-14-2022 15:04-0400 SaO2% (BldA) [Mass fraction] 98 % Eb Correa PLATFORM ENGINEER - SAFETY ADMINISTRATOR Work Phone: [facility] 10-14-2022 15:04-0400 Systolic blood pressure 116 mm[Hg] Eb Correa PLATFORM ENGINEER - SAFETY ADMINISTRATOR Work Phone: [facility] 10-02-2022 14:56-0400 Diastolic blood pressure 100 mm[Hg] Carlos Villar MD Work Phone: [facility] 10-02-2022 14:56-0400 Systolic blood pressure 210 mm[Hg] Carlos Villar MD Work Phone: [facility] 10-02-2022 14:51-0400 Body height 188 cm Carlos Villar MD Work Phone: [facility] 10-02-2022 14:51-0400 Body mass index (BMI) [Ratio] 40.32 kg/m2 Carlos Villar MD Work Phone: [facility] 10-02-2022 14:51-0400 Body weight 142.43 kg Carlos Villar MD Work Phone: [facility] 10-02-2022 14:51-0400 Heart rate 72 /min Carlos Villar MD Work Phone: [facility] 10-02-2022 14:51-0400 Respiratory rate 16 /min Carlos Villar MD Work Phone: [facility] 09-26-2022 07:55-0400 Body height 188 cm Enedina Truong PA-C Work Phone: [facility] 09-26-2022 07:55-0400 Body mass index (BMI) [Ratio] 40.83 kg/m2 Enedina Truong PA-C Work Phone: [facility] 09-26-2022 07:55-0400 Body temperature 98.2 [degF] Enedina Truong PA-C Work Phone: [facility] 09-26-2022 07:55-0400 Body weight 144.24 kg Enedina Truong PA-C Work Phone: [facility] 09-26-2022 07:55-0400 Diastolic blood pressure 84 mm[Hg] Enedina Truong PA-C Work Phone: [facility] 09-26-2022 07:55-0400 Heart rate 76 /min Enedina Truong PA-C Work Phone: [facility] 09-26-2022 07:55-0400 SaO2% (BldA) [Mass fraction] 97 % Enedina Truong PA-C Work Phone: [facility] 09-26-2022 07:55-0400 Systolic blood pressure 138 mm[Hg] Enedina Truong PA-C Work Phone: [facility] 09-05-2022 10:13-0400 Body height 188 cm Young Robbins MD Work Phone: [facility] 09-05-2022 10:13-0400 Body mass index (BMI) [Ratio] 40.96 kg/m2 Young Robbins MD Work Phone: [facility] 09-05-2022 10:13-0400 Body temperature 97.81 [degF] Young Robbins MD Work Phone: [facility] 09-05-2022 10:13-0400 Body weight 144.7 kg Young Robbins MD Work Phone: [facility] 09-05-2022 10:13-0400 Diastolic blood pressure 87 mm[Hg] Young Robbins MD Work Phone: [facility] 09-05-2022 10:13-0400 Heart rate 75 /min Young Robbins MD Work Phone: [facility] 09-05-2022 10:13-0400 SaO2% (BldA) [Mass fraction] 95 % Young Robbins MD Work Phone: [facility] 09-05-2022 10:13-0400 Systolic blood pressure 131 mm[Hg] Young Robbins MD Work Phone: [facility] 08-29-2022 10:51-0400 Diastolic blood pressure 90 mm[Hg] Enedina Rojaso PA-C Work Phone: [facility] 08-29-2022 10:51-0400 Systolic blood pressure 140 mm[Hg] Enedina Truong PA-C Work Phone: [facility] 08-29-2022 09:58-0400 Body height 188 cm Enedina Truong PA-C Work Phone: [facility] 08-29-2022 09:58-0400 Body mass index (BMI) [Ratio] 41.09 kg/m2 Enedina Truong PA-C Work Phone: [facility] 08-29-2022 09:58-0400 Body temperature 98.71 [degF] Enedina Rojaso PA-C Work Phone: [facility] 08-29-2022 09:58-0400 Body weight 145.15 kg Enedina Rojaso PA-C Work Phone: [facility] 08-29-2022 09:58-0400 Heart rate 86 /min Enedina Rojaso PA-C Work Phone: [facility] 08-29-2022 09:58-0400 SaO2% (BldA) [Mass fraction] 96 % Enedina Truong PA-C Work Phone: [facility] 08-09-2022 11:41-0400 Body height 188 cm Enedina Truong PA-C Work Phone: [facility] 08-09-2022 11:41-0400 Body mass index (BMI) [Ratio] 40.44 kg/m2 Enedina Truong PA-C Work Phone: [facility] 08-09-2022 11:41-0400 Body temperature 97.3 [degF] Enedina Truong PA-C Work Phone: [facility] 08-09-2022 11:41-0400 Body weight 142.88 kg Enedina Truong PA-C Work Phone: [facility] 08-09-2022 11:41-0400 Diastolic blood pressure 78 mm[Hg] Enedina Truong PA-C Work Phone: [facility] 08-09-2022 11:41-0400 Heart rate 80 /min Enedina Truong PA-C Work Phone: [facility] 08-09-2022 11:41-0400 SaO2% (BldA) [Mass fraction] 97 % Enedina Truong PA-C Work Phone: [facility] 08-09-2022 11:41-0400 Systolic blood pressure 122 mm[Hg] Enedina Truong PA-C Work Phone: [facility] 08-08-2022 16:19-0400 Body height 188 cm Carlos Villar MD Work Phone: [facility] 08-08-2022 16:19-0400 Body mass index (BMI) [Ratio] 40.96 kg/m2 Carlos Villar MD Work Phone: [facility] 08-08-2022 16:19-0400 Body weight 144.7 kg Carlos Villar MD Work Phone: [facility] 08-06-2022 10:19-0400 Body height 188 cm Young Robbins MD Work Phone: [facility] 08-06-2022 10:19-0400 Body mass index (BMI) [Ratio] 41.01 kg/m2 Young Robbins MD Work Phone: [facility] 08-06-2022 10:19-0400 Body temperature 97.7 [degF] Young Robbins MD Work Phone: [facility] 08-06-2022 10:19-0400 Body weight 144.88 kg Young Robbins MD Work Phone: [facility] 08-06-2022 10:19-0400 Diastolic blood pressure 91 mm[Hg] Young Robbins MD Work Phone: [facility] 08-06-2022 10:19-0400 Heart rate 82 /min Young Robbins MD Work Phone: [facility] 08-06-2022 10:19-0400 SaO2% (BldA) [Mass fraction] 95 % Young Robbins MD Work Phone: [facility] 08-06-2022 10:19-0400 Systolic blood pressure 140 mm[Hg] Young Robbins MD Work Phone: [facility] 07-25-2022 12:40-0400 Body height 188 cm Enedina Truong PA-C Work Phone: [facility] 07-25-2022 12:40-0400 Body mass index (BMI) [Ratio] 40.44 kg/m2 Enedina Truong PA-C Work Phone: [facility] 07-25-2022 12:40-0400 Body temperature 98.2 [degF] Enedina Truong PA-C Work Phone: [facility] 07-25-2022 12:40-0400 Body weight 142.88 kg Enedina Truong PA-C Work Phone: [facility] 07-25-2022 12:40-0400 Diastolic blood pressure 80 mm[Hg] Enedina Truong PA-C Work Phone: [facility] 07-25-2022 12:40-0400 Heart rate 72 /min Enedina Truong PA-C Work Phone: [facility] 07-25-2022 12:40-0400 SaO2% (BldA) [Mass fraction] 96 % Enedina Truong PA-C Work Phone: [facility] 07-25-2022 12:40-0400 Systolic blood pressure 128 mm[Hg] Enedina Truong PA-C Work Phone: [facility] 07-11-2022 07:52-0400 Body height 188 cm Enedina Truong PA-C Work Phone: [facility] 07-11-2022 07:52-0400 Body mass index (BMI) [Ratio] 40.19 kg/m2 Enedina Truong PA-C Work Phone: [facility] 07-11-2022 07:52-0400 Body temperature 98.29 [degF] Enedina Truong PA-C Work Phone: [facility] 07-11-2022 07:52-0400 Body weight 141.98 kg Enedina Truong PA-C Work Phone: [facility] 07-11-2022 07:52-0400 Diastolic blood pressure 91 mm[Hg] Enedina Truong PA-C Work Phone: [facility] 07-11-2022 07:52-0400 Heart rate 80 /min Enedina Truong PA-C Work Phone: [facility] [facility] 07-11-2022 07:52-0400 SaO2% (BldA) [Mass fraction] 97 % Enedina Truong PA-C Work Phone: [facility] 07-11-2022 07:52-0400 Systolic blood pressure 145 mm[Hg] Enedina Truong PA-C Work Phone: [facility] 07-10-2022 13:03-0400 Diastolic blood pressure 73 mm[Hg] Javier Gombash DO Work Phone: [facility] 07-10-2022 13:03-0400 Heart rate 76 /min Javier Gombash DO Work Phone: [facility] 07-10-2022 13:03-0400 Respiratory rate 16 /min Javier Goshante DO Work Phone: [facility] 07-10-2022 13:03-0400 SaO2% (BldA) [Mass fraction] 98 % Javier Goshante DO Work Phone: [facility] 07-10-2022 13:03-0400 Systolic blood pressure 134 mm[Hg] Javier Gombbandar DO Work Phone: [facility] 07-10-2022 10:25-0400 Body temperature 97.11 [degF] Javier Marion DO Work Phone: [facility] 07-07-2022 13:24-0400 Body height 188 cm Leonides Bloom DO Work Phone: [facility] 07-07-2022 13:24-0400 Body mass index (BMI) [Ratio] 41.09 kg/m2 Leonides Jose Danielkarina DO Work Phone: [facility] 07-07-2022 13:24-0400 Body temperature 97.81 [degF] Leonides Bloom DO Work Phone: [facility] 07-07-2022 13:24-0400 Body weight 145.15 kg Leonides Bloom DO Work Phone: [facility] 07-07-2022 13:24-0400 Diastolic blood pressure 83 mm[Hg] Leonides Bloom DO Work Phone: [facility] 07-07-2022 13:24-0400 Heart rate 83 /min Leonides Bloom DO Work Phone: [facility] 07-07-2022 13:24-0400 SaO2% (BldA) [Mass fraction] 97 % Leonides Bloom DO Work Phone: [facility] 07-07-2022 13:24-0400 Systolic blood pressure 146 mm[Hg] Leonides Bloom DO Work Phone: [facility] 06-27-2022 18:42-0400 Diastolic blood pressure 85 mm[Hg] Gretel Evans DO Work Phone: [facility] 06-27-2022 18:42-0400 Systolic blood pressure 146 mm[Hg] Gretel Evans DO Work Phone: [facility] 06-27-2022 18:36-0400 Body height 188 cm Gretel Evans DO Work Phone: [facility] 06-27-2022 18:36-0400 Body mass index (BMI) [Ratio] 40.44 kg/m2 Gretel Evans DO Work Phone: [facility] 06-27-2022 18:36-0400 Body temperature 98.6 [degF] Gretel Evans DO Work Phone: [facility] 06-27-2022 18:36-0400 Body weight 142.88 kg Gretel Evans DO Work Phone: [facility] 06-27-2022 18:36-0400 Heart rate 77 /min Gretel Evans DO Work Phone: [facility] 06-27-2022 18:36-0400 SaO2% (BldA) [Mass fraction] 97 % Gretel Evans DO Work Phone: [facility] 06-20-2022 09:16-0400 Diastolic blood pressure 64 mm[Hg] Shanice Bullock MD Work Phone: [facility] 06-20-2022 09:16-0400 Heart rate 69 /min Shanice Bullock MD Work Phone: [facility] 06-20-2022 09:16-0400 Respiratory rate 16 /min Shanice Bullock MD Work Phone: [facility] 06-20-2022 09:16-0400 SaO2% (BldA) [Mass fraction] 99 % Shanice Bullock MD Work Phone: [facility] 06-20-2022 09:16-0400 Systolic blood pressure 100 mm[Hg] Shanice Bullock MD Work Phone: [facility] 06-20-2022 06:58-0400 Body mass index (BMI) [Ratio] 41.73 kg/m2 Shanice Bullock MD Work Phone: [facility] 06-20-2022 06:58-0400 Body temperature 98.4 [degF] Shanice Bullock MD Work Phone: [facility] 06-20-2022 06:58-0400 Body weight 147.42 kg Shanice Bullock MD Work Phone: [facility] 08-14-2021 12:45-0400 Body temperature 98.2 [degF] Justo Davis MD Work Phone: [facility] 08-14-2021 12:45-0400 Diastolic blood pressure 60 mm[Hg] Justo Davis MD Work Phone: [facility] 08-14-2021 12:45-0400 Heart rate 73 /min Justo Davis MD Work Phone: [facility] 08-14-2021 12:45-0400 Respiratory rate 18 /min Justo Davis MD Work Phone: [facility] 08-14-2021 12:45-0400 SaO2% (BldA) [Mass fraction] 97 % Justo Davis MD Work Phone: [facility] 08-14-2021 12:45-0400 Systolic blood pressure 139 mm[Hg] Justo Davis MD Work Phone: [facility] 08-10-2021 14:36-0400 Diastolic blood pressure 87 mm[Hg] Justo Davis MD Work Phone: [facility] 08-10-2021 14:36-0400 Systolic blood pressure 144 mm[Hg] Justo Davis MD Work Phone: [facility] 08-10-2021 13:55-0400 Body height 188 cm Justo Davis MD Work Phone: [facility] 08-10-2021 13:55-0400 Body mass index (BMI) [Ratio] 42.22 kg/m2 Justo Davis MD Work Phone: [facility] 08-10-2021 13:55-0400 Body temperature 97.59 [degF] Justo Davis MD Work Phone: [facility] 08-10-2021 13:55-0400 Body weight 149.14 kg Justo Davis MD Work Phone: [facility] 08-10-2021 13:55-0400 Heart rate 73 /min Justo Davis MD Work Phone: [facility] 08-10-2021 13:55-0400 Respiratory rate 16 /min Justo Davis MD Work Phone: [facility] 08-10-2021 13:55-0400 SaO2% (BldA) [Mass fraction] 97 % Justo Davis MD Work Phone: [facility] 07-26-2021 13:48-0400 Diastolic blood pressure 78 mm[Hg] Katiuska Nesheim DO Work Phone: [facility] 07-26-2021 13:48-0400 Heart rate 63 /min Aktiuska Nesheim DO Work Phone: [facility] 07-26-2021 13:48-0400 Respiratory rate 18 /min Katiuska Nesheim DO Work Phone: [facility] 07-26-2021 13:48-0400 Systolic blood pressure 128 mm[Hg] Katiuska Nesheim DO Work Phone: [facility] 07-26-2021 09:04-0400 SaO2% (BldA) [Mass fraction] 95 % Katiuska Nesheim DO Work Phone: [facility] 07-26-2021 08:41-0400 Body mass index (BMI) [Ratio] 41.21 kg/m2 Katiuska Nesheim DO Work Phone: [facility] 07-26-2021 08:41-0400 Body temperature 98.29 [degF] Katiuska Nesheim DO Work Phone: [facility] 07-26-2021 08:41-0400 Body weight 145.6 kg Katiuska Nesheim DO Work Phone: [facility] 08-23-2020 14:27-0400 Body mass index (BMI) [Ratio] 41.73 kg/m2 Lonnie Ni MD Work Phone: [facility] Work Phone: 08-23-2020 14:27-0400 Body temperature 97.7 [degF] Lonnie Ni MD Work Phone: [facility] Work Phone: 08-23-2020 14:27-0400 Body weight 147.42 kg Lonnie Ni MD Work Phone: [facility] Work Phone: 08-23-2020 14:27-0400 Diastolic blood pressure 82 mm[Hg] Lonnie Ni MD Work Phone: [facility] Work Phone: 08-23-2020 14:27-0400 Heart rate 71 /min Lonnie Ni MD Work Phone: [facility] Work Phone: 08-23-2020 14:27-0400 Respiratory rate 16 /min Lonnie Ni MD Work Phone: [facility] Work Phone: 08-23-2020 14:27-0400 SaO2% (BldA) [Mass fraction] 98 % Lonnie Ni MD Work Phone: [facility] Work Phone: 08-23-2020 14:27-0400 Systolic blood pressure 138 mm[Hg] Lonnie Ni MD Work Phone: [facility] Work Phone: Encounters Encounter Date Encounter Type Care Provider Facility Start: 04-29-2023 End: 04-29-2023 Emergency department patient visit [facility] Start: 04-29-2023 End: 04-29-2023 ambulatory TERESO MARICARM[facility] Start: 04-29-2023 End: 04-29-2023 Office outpatient visit 25 minutes Zoran Valdovinos MD Work Phone: [facility] Procedures Date Procedure Procedure Detail Performing Clinician Start: 04-29-2023 Glucose post glucose dose Zoran Valdovinos MD Work Phone: Start: 04-27-2023 Urnls dip stick/tablet reagent auto microscopy Katiuska Guerrier DO Work Phone: Start: 04-27-2023 Blood gases any combination ph pco2 po2 co2 hco3 Katiuska Dannielle Guerrier DO Work Phone: Start: 04-27-2023 Comprehensive metabolic panel Katiuska Guerrier DO Work Phone: Start: 11-01-2022 Comprehensive metabolic panel Jamil Cummins MD Work Phone: Start: 10-29-2022 Dup-scan artl bubba abdl/pel/scrot&/rpr orgn com Jamil Cummins MD Work Phone: Start: 10-02-2022 Basic metabolic panel calcium total Carlos Villar MD Work Phone: Start: 08-20-2022 Lipid 1996 panel - Serum or Plasma Enedina Truong PA-C Work Phone: Start: 08-08-2022 TTE w or w/o contr, cont ECG Carlos Villar MD Work Phone: Start: 07-25-2022 Ct angiography chest w/contrast/noncontrast Enedina Truong PA-C Work Phone: Start: 07-10-2022 Radiologic exam chest single view Javier Marion DO Work Phone: Start: 07-10-2022 SARS-COV-2, FLU A/B, AND RSV COMBO Javier A Gombash DO Work Phone: Start: 07-10-2022 Basic metabolic panel calcium total Javier Horan Gombash DO Work Phone: Start: 07-10-2022 Ecg routine ecg w/least 12 lds trcg only w/o i&r Javier Hitchcockash DO Work Phone: Start: 07-07-2022 Radiologic exam chest 2 views Leonides Bloom DO Work Phone: Start: 06-20-2022 Radiologic exam chest 2 views Shanice Bullock MD Work Phone: Start: 06-20-2022 End: 06-20-2022 Basic metabolic panel calcium total Shanice Bullock MD Work Phone: Start: 06-20-2022 End: 06-20-2022 Ecg routine ecg w/least 12 lds trcg only w/o i&r Shanice Bullock MD Work Phone: Start: 03-29-2022 Comprehensive metabolic panel Leonides Sibley DO Work Phone: Start: 08-31-2021 History of cholecystectomy S/P laparoscopic cholecystectomy Shanice Bullock MD Work Phone: Start: 08-14-2021 OPERATIVE REPORT Physician Generic Start: 08-14-2021 Gluc bld gluc mntr dev cleared fda spec home use Justo Davis MD Work Phone: Start: 08-14-2021 Gluc bld gluc mntr dev cleared fda spec home use Justo Davis MD Work Phone: Start: 07-26-2021 Computed tomography of abdomen and pelvis with contrast Katiuska G Nesheim DO Work Phone: Start: 07-26-2021 Radiologic exam chest single view Katiuska G Nesheim DO Work Phone: Start: 07-26-2021 COVID-19, FLU A/B, AND RSV COMBO Katiuska G Nesheim DO Work Phone: Start: 07-26-2021 Us abdominal real time w/image limited Katiuska Guerrier DO Work Phone: Start: 07-26-2021 Ecg routine ecg w/least 12 lds w/i&r Katiuska Guerrier DO Work Phone: Start: 07-26-2021 Comprehensive metabolic panel Katiuska Guerrier DO Work Phone: Start: 07-14-2021 Lipid 1996 panel - Serum or Plasma Shanice Bullock MD Work Phone: Start: 08-29-2020 Mri brain brain stem w/o contrast material Luz Wise Maddie [employer]ATFORM ENGINE[employer] - [employer] Work Phone: Start: 08-23-2020 Ct head/brain w/o contrast material Lonnie Ni MD Work Phone: Plan of Treatment Date Care Activity Detail Author Start: 2043 RSV Immunization aged 60 or older (1 - 1-dose 60+ series) RSV Immunization aged 60 or older (1 - 1-dose 60+ series) [facility] Start: 2033 Zoster Vaccines (1 of 2) Zoster Vaccines (1 of 2) [facility] Start: 09-27-2023 Hemoglobin A1c measurement Diabetes: Hemoglobin A1C [facility] Start: 08-21-2023 Lipid panel Lipid Panel [facility] Start: 05-26-2023 End: 05-26-2023 Patient encounter procedure 05/26/2023 11:40 AM EST Office Visit [facility] Card[facility] [address] [place] [address] Carlos Villar MD [address] [place] [address] [address] [place], [place] [id number] [facility] Start: 04-05-2023 Diabetic foot examination Diabetes: Foot Exam [facility] Start: 01-23-2023 End: 01-23-2023 Patient encounter procedure 01/23/2023 2:15 PM EDT Office Visit [facility] [address] [place] [address] Yonug Robbins MD [address] [place] [address] [facility] Start: 12-27-2022 End: 12-27-2022 Patient encounter procedure 12/27/2022 8:00 AM EDT Office Visit [facility] Family Medicine [address] [place] [address] Enedina Truong PA-C [address] [place] [address] [facility] Start: 12-06-2022 End: 12-06-[address] [facility] Start: 11-29-2022 Influenza vaccination [facility] Start: 11-20-2022 End: 11-20-2022 Admission to same day surgery center 11/20/2022 7:30 AM EDT - 11/20/2022 8:15 AM EDT Surgery [facility] Endoscopy [address] [place] [id number] Abel Contreras MD [address] [place] [address] [address] [place] [address] COLONOSCOPY, EGD [[id number] (CPT )] [facility] Endoscopy Payers Date Payer Category Payer Unknown [id number] 2021 Unknown [id number] 2021 Unknown [facility] [id number] 2021-Present [address] [place] [address] [id number] 2020 Private Health Insurance [employer] [facility] [id number] 2020-Present [phone] [address] [place] [address] [id number] 1983 Unknown [id number] 1983 Unknown [id number] Social History Date Type Detail Facility Start: 08-18-2020 End: 08-23-2020 Tobacco smoking status IDIS Never smoker [employer] Work Phone: Start: 08-18-2020 End: 08-23-2020 Tobacco use and exposure Never used [facility] Start: 08-23-2020 End: 03-19-2022 Alcohol intake Current drinker of alcohol (finding) [employer] Work Phone: Start: 08-23-2020 End: 08-20-2022 Alcohol intake [facility] Start: 08-18-2020 History SDOH Financial 5 [employer] Work Phone: Start: 08-18-2020 End: 08-20-2022 History SDOH Food Worry 1 [employer] Work Phone: Start: 1985 Sex Assigned At Not on file [employer] Work Phone: Start: 07-16-2021 End: 11-20-2022 Exposure to SARS-CoV-2 (event) Not sure [facility] Tobacco smoking stat [facility] Tobacco smoking consumption unknown [facility] Start: 1985 Sex Assigned At Male [facility] Start: 08-10-2021 History SDOH Alcohol Comment occ [employer] Work Phone: Start: 06-27-2022 End: 04-29-2023 Alcohol intake Ex-drinker (finding) [facility] Start: 08-20-2022 History SDOH Alcohol Std Drinks 0 [facility] Start: 08-20-2022 History SDOH Social Connections Living 3 [facility] Start: 08-20-2022 History SDOH IPV Fear 2 [facility] Start: 08-20-2022 End: 04-29-2023 Humiliation, Afraid, Rape, and Kick questionnaire [HARK] [facility] Within the last year , have you been afraid of your partner or ex-partner? No [facility] Active Member of [facility] or Organizations Not on file [facility] Are you now , , , , never or living with a partner? [facility] How often to you hav e a drink containing alcohol? Never [facility] Do you feel stress - tense, restless, nervous, or anxious, or unable to sleep at night because your mind is troubled all the time - these days [OSQ] Not at all [facility] (I/We) worried wheth er (my/our) food would run out before (I/we) got money to buy more. Never true [facility] Start: 01-17-2022 Sexual orientation Heterosexual (finding) [facility] How often to you hav e a drink containing alcohol? Monthly or less [facility] How many standard dr inks containing alcohol do you have on a typical day? 1 or 2 [facility] Medical Equipment Procedure Code Equipment Code Equipment Origin al Text Equipment Identifier Dates Dispense suffici ent amount for indicated testing frequency plus additional to accommodate PRN testing needs. Dispense all needed supplies to include: monitor, strips, lancing device, lancets, control solutions, alcohol swabs. [id number] Start: 10-23-2020 Test 3 x times a day & as needed for symptoms of irregular blood glucose. Dispense sufficient amount for indicated testing frequency plus additional to accommodate PRN testing needs. [id number] Start: 10-23-2020 Test 3 x times a day & as needed for symptoms of irregular blood glucose. Dispense sufficient amount for indicated testing frequency plus additional to accommodate PRN testing needs. [id number] Start: 10-23-2020 Clinical Notes 08-23-2020 to 04-29-2023 Zoran Valdovinos MD - 04/29/2023 10:50 AM ESTTelephone Encounter - Akanksha Gibson MA - 04/28/2023 8:41 AM ESTTelephone Encounter - Akanksha Gibson MA - 04/28/2023 8:41 AM ESTDischarge Instructions Note Date & Type Note Facility 04-29-2023 Note IMPRESSION: Sinus rhythm Borderline left axis deviation Abnormal R-wave progression, late transition No acute change compared to first previous EKG. Electronically Signed On 04-29-2023 13:10:03 EST by Ramon Elizal[facility] 04-29-2023 History of Presen t illness Narrative Patient presents to with (Zenaida) for on-going respiratory illness. Urgently notified per rooming staff as to change in patient's clinical condition - this alexander's not looking good, pale, says he feels like he might pass out Upon entering room patient found unresponsive, slumped slightly forward in chair - moving air as audible snoring Pale, diaphoretic Immediately instructed to staff to call 911 (phone call at [phone] [address] Manifiesto) Vitals taken - BP 129/88, 123/70; HR 70 Fingerstick gluc - 215 Maintained patient's position in chair, facilitated airway with neck positioning Patient ultimately regained consciousness with improved color LOC < 2 minutes Oriented x4 (person, place, time, situation) and able to answer questions appropriately - primarily complaining of nausea EMS arrived - patient taken in stable condition to ambulance; likely to be transported to [facility] or [facility] HPI: Diagnosed with COVID last week - treated with paxlovid; course of steroids due to asthma history; steroid resulted in elevated blood sugar; known DM history on metformin only; seen at ER for this 2 days ago Per , prior fainting episode with vagovagal response to blood draw PMHx: COVID last year - fairly extensive cardiac and pulmonary workup Disposition: ER, stable condition Zorna Valdovinos MD documented in this encounter [facility] 04-28-2023 Telephone encounter Note Triage message reviewed with clinical staff. [facility] 04-28-2023 Miscellaneous Notes Triage message reviewed with clinical staff. S: Patient spoke with [facility] nurse regarding urinating frequently and increase in blood sugar. B: Onset of symptoms/concern: Increase tonight. HX: COVID : Paxlovid and Steroids pt has two more days left of medication. TYPE 2 DM : Oral Medication. A: C/O of urinating every 5 min's today and now Blood glucose 493 at 23:05. Pt denies weakness ,difficulty breathing,fever nausea and vomiting. R: Pt will have family take him to [facility], Patient understands care advice. No further needs at this time. Patient instructed to call back with new or worsening symptoms. Reason for Disposition Patient sounds very sick or weak to the triager Answer Assessment - Initial Assessment Questions 1. BLOOD GLUCOSE: What is your blood glucose level? 493 2. ONSET: When did you check the blood glucose? 23:05 3. USUAL RANGE: What is your glucose level usually? (e.g., usual fasting morning value, usual evening value) Does not check it 4. KETONES: Do you check for ketones (urine or blood test strips)? If yes, ask: What does the test show now? Denies 5. TYPE 1 or 2: Do you know what type of diabetes you have? (e.g., Type 1, Type 2, Gestational; doesn't know) Type DM 6. INSULIN: Do you take insulin? What type of insulin(s) do you use? What is the mode of delivery? (syringe, pen; injection or pump)? Denies 7. DIABETES PILLS: Do you take any pills for your diabetes? If yes, ask: Have you missed taking any pills recently? Metformin 850 mg 1 tablet twice a day 8. OTHER SYMPTOMS: Do you have any symptoms? (e.g., fever, frequent urination, difficulty breathing, dizziness, weakness, vomiting) Frequent urination 9. : Is there any chance you are ? When was your last menstrual period? NA Protocols used: Diabetes - High Blood Nuver-[id number] documented in this encounter [facility] 04-27-2023 Hospital Discharg e helga Guerrier, - 04/27/2023 2:56 AM EST Please watch your sugars closely while taking steroids. You may consider stopping the steroids altogether if your symptoms have not improved from a respiratory standpoint. I be careful with your diet over the next few days until your sugar stabilized. Resume your metformin and speak with your doctor at follow-up within the next few days. The following attachments cannot be sent through Care Everywhere.High Blood Sugar, Adult ED (Japanese)documented in this encounter [facility] 04-27-2023 Emergency department Note Pt presents to the ER with complaints of high blood sugar, reading 493 at home. Pts checked sugar after pt was having urinary frequency. Pt typically runs around 130s. Pt currently on Paxlovid and a steroid for covid. Pt tested positive on Friday. documented in this encounter [facility] 04-27-2023 Emergency department Triage note Pt presents to the ER with complaints of high blood sugar, reading 493 at home. Pts checked sugar after pt was having urinary frequency. Pt typically runs around 130s. Pt currently on Paxlovid and a steroid for covid. Pt tested positive on Friday. [facility] 04-26-2023 Telephone encounter Note S: Patient spoke with [facility] nurse regarding urinating frequently and increase in blood sugar. B: Onset of symptoms/concern: Increase tonight. HX: COVID : Paxlovid and Steroids pt has two more days left of medication. TYPE 2 DM : Oral Medication. A: C/O of urinating every 5 min's today and now Blood glucose 493 at 23:05. Pt denies weakness ,difficulty breathing,fever nausea and vomiting. R: Pt will have family take him to [facility], Patient understands care advice. No further needs at this time. Patient instructed to call back with new or worsening symptoms. Reason for Disposition Patient sounds very sick or weak to the triager Answer Assessment - Initial Assessment Questions 1. BLOOD GLUCOSE: What is your blood glucose level? 493 2. ONSET: When did you check the blood glucose? 23:05 3. USUAL RANGE: What is your glucose level usually? (e.g., usual fasting morning value, usual evening value) Does not check it 4. KETONES: Do you check for ketones (urine or blood test strips)? If yes, ask: What does the test show now? Denies 5. TYPE 1 or 2: Do you know what type of diabetes you have? (e.g., Type 1, Type 2, Gestational; doesn't know) Type DM 6. INSULIN: Do you take insulin? What type of insulin(s) do you use? What is the mode of delivery? (syringe, pen; injection or pump)? Denies 7. DIABETES PILLS: Do you take any pills for your diabetes? If yes, ask: Have you missed taking any pills recently? Metformin 850 mg 1 tablet twice a day 8. OTHER SYMPTOMS: Do you have any symptoms? (e.g., fever, frequent urination, difficulty breathing, dizziness, weakness, vomiting) Frequent urination 9. : Is there any chance you are ? When was your last menstrual period? NA Protocols used: Diabetes - High Blood Reuvx-[id number] [facility] 04-26-2023 Miscellaneous Notes S: Patient spoke with [facility] nurse regarding urinating frequently and increase in blood sugar. B: Onset of symptoms/concern: Increase tonight. HX: COVID : Paxlovid and Steroids pt has two more days left of medication. TYPE 2 DM : Oral Medication. A: C/O of urinating every 5 min's today and now Blood glucose 493 at 23:05. Pt denies weakness ,difficulty breathing,fever nausea and vomiting. R: Pt will have family take him to [facility], Patient understands care advice. No further needs at this time. Patient instructed to call back with new or worsening symptoms. Reason for Disposition Patient sounds very sick or weak to the triager Answer Assessment - Initial Assessment Questions 1. BLOOD GLUCOSE: What is your blood glucose level? 493 2. ONSET: When did you check the blood glucose? 23:05 3. USUAL RANGE: What is your glucose level usually? (e.g., usual fasting morning value, usual evening value) Does not check it 4. KETONES: Do you check for ketones (urine or blood test strips)? If yes, ask: What does the test show now? Denies 5. TYPE 1 or 2: Do you know what type of diabetes you have? (e.g., Type 1, Type 2, Gestational; doesn't know) Type DM 6. INSULIN: Do you take insulin? What type of insulin(s) do you use? What is the mode of delivery? (syringe, pen; injection or pump)? Denies 7. DIABETES PILLS: Do you take any pills for your diabetes? If yes, ask: Have you missed taking any pills recently? Metformin 850 mg 1 tablet twice a day 8. OTHER SYMPTOMS: Do you have any symptoms? (e.g., fever, frequent urination, difficulty breathing, dizziness, weakness, vomiting) Frequent urination 9. : Is there any chance you are ? When was your last menstrual period? NA Protocols used: Diabetes - High Blood [id number] documented in this encounter [facility] 04-23-2023 History of Presen t illness Narrative Images from the original note were not included. [facility] [address] [place] [address] [address] [facility] [address] Dept: [phone] Dept Loc: [phone] Patient was identified and seen today via Telehealth by agreement and consent. I used the following Telehealth technology: Audio and video capabilities. Patient location: Patient Location: Home. This patient encounter is appropriate and reasonable under the circumstances: too sick to leave home . The patient has been advised of the potential risks and limitations of this mode of treatment (including but not limited to the absence of in-person examination) and has agreed to be treated in a remote fashion in spite of them. Any and all of the patient's/patient's family's questions on this issue have been answered and I have made no promises or guarantees to the patient. The patient has also been advised to contact this office for worsening conditions or problems, and seek emergency medical treatment and/or call 911 if the patient deems either necessary. The patient stated that they are currently in the state [facility]. If the patient is a minor, permission has been obtained by the parent or guardian for the patient to receive medical care at this visit. Assessment/Plan 1. COVID - albuterol 108 (90 Base) MCG/ACT inhaler; Inhale 2 puffs every 6 hours as needed for shortness of breath., Starting Fri04/23/2023, Normal - predniSONE (Deltasone) 20 MG tablet; Take 2 tablets (40 mg) by mouth daily for 5 days., Starting Fri04/23/2023, Until 04/28/2023, Normal - Nirmatrelvir&Ritonavir 300/100 (Paxlovid, 300/100,) 20 x 150 MG & 10 x 100MG tablet therapy pack; Take 3 tablets by mouth in the morning and 3 tablets in the evening., Starting Fri04/23/2023, Normal - guaiFENesin-dextromethorphan (Robitussin DM) 100-10 MG/5ML syrup; Take 5 mL by mouth in the morning and 5 mL at noon and 5 mL in the evening and 5 mL before bedtime. Do all this for 10 days., Starting Fri04/23/2023, Until 05/03/2023, Normal 2. Type 2 diabetes mellitus without complication, without long-term current use of insulin ([facility]/HCC) ([facility]) - metFORMIN (Glucophage) 850 MG tablet; TAKE 1 TABLET BY MOUTH IN THE MORNING AND 1 IN THE EVENING WITH MEALS, Normal Follow up if symptoms worsen or fail to improve, for Next scheduled follow-up. Patient tested positive for COVID but through the virtual visit he does not appear to be septic or toxic in any acute distress he is conversant throughout the entire interaction is also on the conversation feels comfortable with this plan encourage plenty rest plenty fluids hold the statin medication as previously directed for 10 days and follow-up with us as needed. Subjective Evin Cardoza is a 38 y.o. who presents for VV for complaints of: Chief complaint: Chief Complaint Patient presents with Shortness of Breath Tested positive for covid HPI This is a 38-year-old male with underlying history of CATHY, asthma, hypertension, obesity and type 2 diabetes and hyperlipidemia contacted the [facility] yesterday concerned that both his and his mother have COVID currently he started having cough body aches congestion and generalized clear sputum with tightness in his chest feels little bit better using his nebulizer treatment ultimately states that he had to go through pulmonary rehab in the past due to COVID. He is concerned that he has COVID again given that his and mother have COVID. He ran out of test studies been unable to check he does take atorvastatin for his cholesterol he has been on Paxil bid in the past and is requesting to be seen and possibly get started on Paxlovid again. Patient presents by virtual visit today stating that he finally tested positive for COVID this morning. He has had problems in the past with long-haul COVID he is requesting the Paxlovid. He also needs refills of his albuterol inhaler diabetes is well-controlled we did discuss the use of prednisone given his history in conjunction with the antiviral medication to help resolve his symptoms much more quickly patient was comfortable this plan as well Review of Systems Constitutional: Negative for chills and fever. HENT: Positive for congestion, postnasal drip, rhinorrhea and sore throat. Negative for sinus pressure and trouble swallowing. Respiratory: Positive for cough, shortness of breath and wheezing. Cardiovascular: Negative for chest pain. Gastrointestinal: Negative for diarrhea, nausea and vomiting. Musculoskeletal: Positive for arthralgias and myalgias. Neurological: Positive for headaches. All other systems reviewed and are negative. Physical exam is extremely limited based on the nature of the encounter as this is a virtual encounter. Patient through the use of virtual technology does not appear septic or toxic or in acute distress conversant without difficulty. No appreciable signs of respiratory distress or cyanosis. Conversant throughout the entire and encounter. Vital signs not immediately available. Patient understands the nature of the virtual visit and that the examination is limited at this time. Allergies Allergen Reactions Mustard Seed Anaphylaxis Penicillins Hives [x] PMH, allergies, and social history reviewed and updated as appropriate [x] Medication list reviewed/updated [x] Allergies reviewed/updated [] Problem list reviewed/updated [] Patient requests medication refills, see below for orders. Enedina Truong PA-C 04/23/2023 12:53 PM documented in this encounter [facility] 11-20-2022 Telephone encounter Note Rx loaded LAST APT 09/26/22 [facility] 11-20-2022 Miscellaneous Notes Rx loaded LAST APT 09/26/22 documented in this encounter [facility] 11-20-2022 Note Addendum created 09 by ZARIA Dupree CRNA Attestation recorded in Intraprocedure, Intraprocedure Attestations filed [facility] 11-20-2022 Note Patient: Evin Britt rne Procedure Summary Date: 11/20/22 Room / Location: [place] [address] / [facility] Gastroenterology Anesthesia Start: 717 Anesthesia Stop: 743 Procedures: COLONOSCOPY, EGD EGD DIAGNOSTIC Diagnosis: Change in bowel habit Diarrhea, unspecified (Change in bowel habit [R19.4]) (Diarrhea, unspecified [R19.7]) Providers: Abel Contreras MD Responsible Provider: Piyush Elizalde MD Anesthesia Type: TIVA ASA Status: 3 Anesthesia Type: TIVA Vitals Value Taken Time BP 129/80 11/20/22 0744 Temp 36.3 ?C (97.3 ?F) 11/20/22 0744 Pulse 74 11/20/22 0744 Resp 18 11/20/22 0744 SpO2 99 % 11/20/22 0744 Anesthesia Post Evaluation Patient location during evaluation: PACU Patient participation: complete - patient participated Level of consciousness: awake and alert Pain management: satisfactory to patient Airway patency: patent Dental Injury: no Cardiovascular status: acceptable, blood pressure returned to baseline and hemodynamically stable Respiratory status: acceptable and spontaneous ventilation Hydration status: euvolemic Nausea/Vomiting: controlled No notable events documented. Patient can be discharged once all PACU criteria has been met. [facility] 11-20-2022 Note Patient: Evin Britt rne Procedure Summary Date: 11/20/22 Room / Location: [place] [address] / [facility] Gastroenterology Anesthesia Start: 717 Anesthesia Stop: 0744 Procedures: COLONOSCOPY, EGD EGD DIAGNOSTIC Diagnosis: Change in bowel habit Diarrhea, unspecified (Change in bowel habit [R19.4]) (Diarrhea, unspecified [R19.7]) Providers: Abel Contreras MD Responsible Provider: Piyush Elizalde MD Anesthesia Type: TIVA ASA Status: 3 Anesthesia Type: TIVA Vitals Value Taken Time BP 129/80 11/20/22 0744 Temp 36.3 ?C (97.3 ?F) 11/20/22 0744 Pulse 74 11/20/22 0744 Resp 18 11/20/22 0744 SpO2 99 % 11/20/22 0744 Anesthesia Post Evaluation Patient location during evaluation: PACU Patient participation: complete - patient participated Level of consciousness: awake and alert Pain management: satisfactory to patient Airway patency: patent Two or more strategies used to mitigate risk of obstructive sleep apnea Cardiovascular status: acceptable and hemodynamically stable Respiratory status: acceptable Hydration status: acceptable No notable events documented. MIPS #430 PONV Patient did not receive an inhalational anesthetic (XX430) MIPS # 424 Perioperative Temperature Management Anesthesia time was less than 60 minutes (4256F) MIPS #477 Multimodal Pain Management Not emergent case Patient was not administered multimodal pain management (G2149) Patient reports no pain in PACU (G2149) MIPS #404 Anesthesiology Smoking Abstinence The patient is not a current smoker (e.g. cigarette, cigar, pipe, e-cigarette/vaping/marijuana) If no stop here (G9644) I completed my handoff to the receiving clinician during which we: 1. Identified the patient 2. Identified the responsible provider 3. Reviewed the pertinent medical history 4. Discussed the surgical course 5. Reviewed intra-op anesthesia management and issues during anesthesia 6. Set expectations for post-procedure period 7. Allowed opportunity for questions and acknowledgement of understanding. [facility] 11-20-2022 Note Endoscopy Center- [facility] Patient Name: Evin Cardoza Procedure Date: 11/20/2022 7:25 AM Gender: Male Date of : 1985 Age: 37 Admit Type: Outpatient Note Status: Finalized Endoscopist: Abel Contreras MD, [id number] Procedure: Upper GI endoscopy Indications: Diarrhea Findings: The esophagus was normal. The examined duodenum was normal. Biopsies for histology were taken with a cold forceps for evaluation of celiac disease. Diffuse moderate inflammation with hemorrhage characterized by congestion (edema), erythema and friability was found in the entire examined stomach. Biopsies were taken with a cold forceps for histology. Impression: - Normal esophagus. - Normal examined duodenum. Biopsied. - Chronic gastritis with hemorrhage. Biopsied. Recommendation: - Patient has a contact number available for emergencies. The signs and symptoms of potential delayed complications were discussed with the patient. Return to normal activities tomorrow. Written discharge instructions were provided to the patient. - Await pathology results. - Perform a colonoscopy today. Referring MD: Tereso Hernadez DO Medicines: Monitored Anesthesia Care Procedure: Pre-Anesthesia Assessment: - Prior to the procedure, a History and Physical was performed, and patient medications and allergies were reviewed. The patient's tolerance of previous anesthesia was also reviewed. The risks and benefits of the procedure and the sedation options and risks were discussed with the patient. All questions were answered, and informed consent was obtained. Prior Anticoagulants: The patient has taken no anticoagulant or antiplatelet agents. ASA Grade Assessment: III - A patient with severe systemic disease. After reviewing the risks and benefits, the patient was deemed in satisfactory condition to undergo the procedure. - The anesthesia plan was to use moderate sedation/analgesia (conscious sedation). After obtaining informed consent, the endoscope was passed under direct vision. Throughout the procedure, the patient's blood pressure, pulse, and oxygen saturations were monitored continuously. The Endoscope was introduced through the mouth, and advanced to the second part of duodenum. The upper GI endoscopy was accomplished without difficulty. The patient tolerated the procedure well. Complications: No immediate complications. Procedure Code(s): --- Professional --- 72547, Esophagogastroduodenoscopy, flexible, transoral; with biopsy, single or multiple --- Technical --- 02113, Esophagogastroduodenoscopy, flexible, transoral; with biopsy, single or multiple Diagnosis Code(s): --- Professional --- R19.7, Diarrhea, unspecified K29.51, Unspecified chronic gastritis with bleeding --- Technical --- R19.7, Diarrhea, unspecified K29.51, Unspecified chronic gastritis with bleeding CPT copyright 2021 [employer]. All rights reserved. The codes documented in this report are preliminary and upon poultry hatchery supervisor review may be revised to meet current compliance requirements. Abel Contreras MD 11/20/2022 7:48:19 AM This report has been signed electronically. Number of Addenda: 0 Note Initiated On: 11/20/2022 7:25 AM [facility] Evin Cardoza Procedure Date: 11/20/2022 7:24 AM Gender: Male Date of : 1985 Age: 37 Admit Type: Outpatient Note Status: Finalized Endoscopist: Abel Contreras MD, [id number] Procedure: Colonoscopy Indications: Chronic diarrhea Findings: The entire examined colon appeared normal. Biopsies for histology were taken with a cold forceps from the entire colon for evaluation of microscopic colitis. Impression: - The entire examined colon is normal. Biopsied. Recommendation: - Repeat colonoscopy in 10 years for screening purposes. - Resume previous diet. - Continue present medications. Medicines: Monitored Anesthesia Care Procedure: Pre-Anesthesia Assessment: - ASA Grade Assessment: III - A patient with severe systemic disease. - The anesthesia plan was to use moderate sedation/analgesia (conscious sedation). After I obtained informed consent, the scope was passed under direct vision. Throughout the procedure, the patient's blood pressure, pulse, and oxygen saturations were monitored continuously. The Colonoscope was introduced through the anus and advanced to the terminal ileum. The colonoscopy was performed without difficulty. The patient tolerated the procedure well. The quality of the bowel preparation was good. Complications: No immediate complications. Estimated blood loss: None. Procedure Code(s): --- Professional --- 22251, Colonoscopy, flexible; with biopsy, single or multiple --- Technical --- 32249, Colonoscopy, flexible; with biopsy, single or multiple Diagnosis Code(s): --- Professional --- K52.9, Noninfective gastroenteritis and colitis, unspecified --- Technical --- K52.9, Noninfective gastroenteritis and colitis, unspecified CPT copyright 2021 [employer]. All rights reserved. The codes documented in this report are preliminary and upon poultry hatchery supervisor review may be revised to meet current compliance requirements. Abel Contreras MD 11/20/2022 7:50:15 AM This report has been signed electronically. Number of Addenda: 0 Note Initiated On: 11/20/2022 7:24 AM [facility] Events Date Time Event Comment 11/20/2022 0650 0654 AN Preop Started 0718 An Start 0718 An Start Data 0718 In Room 0719 Start Auxiliary O2 0728 An Induction The patient was reevaluated immediately before moderate or deep sedation use and before anesthesia induction. 0743 an stop data 0744 An Stop 0747 Out of Room Meds * Agents No agents on file. * Blood No blood administrations on file. Lines, Drains, and Airways Type Details Placement Removal Peripheral IV Placement Date: 10/30 06/20; Placement Time: 705; Catheter Size: 22 G; Orientation: Posterior, Right; Location: Hand; Inserted by: Tbrookes; Insertion Attempts: 1; Removal Date: 11/20/22; Removal Time: 75011/20/22 07 by Rosario Davis RN 11/20/22 075 by Caterina Grace RN documented [facility] this [id number] NoteHistory Of Present Illness Evin Cardoza is a 37 y.o. male presenting with acute on chronic bowel irregularity with diarrhea predominant bowel habits. He was diagnosed with COVID at the end of 2021 and since then has experienced worsening fatigue and shortness of breath. Multiple ER/urgent care visits have resulted in rounds of antibiotics and prednisone (which have indeed helped his breathing and chest pain). Previous to his COVID infection he still had bowel irregularity, and a colonoscopy done years ago by another endoscopist suggested microsopic colitis. Options for workup were discussed with the patient and his SO at today's visit. Of concern is his cardiopulmonary status post COVID. We will initiate a referral to [facility]'s Post-COVID clinic while starting his GI workup with stool testing for malabsorption. Bidirectional endoscopies will be performed once he is cleared from a cardiopulmonary status. . Past Medical History He has a past medical history of Allergic rhinitis, Asthma, Balanced chromosomal translocation, COVID (02/2020), COVID (05/29/2022), DM (diabetes mellitus), type 2 (HCC), Gastroparesis, Hyperlipidemia, Hypertension, and Sleep apnea. He has no past medical history of PONV (postoperative nausea and vomiting). Surgical History He has a past surgical history that includes Skin biopsy; Septoplasty; Colonoscopy; Nasal polyp surgery; Colonoscopy; Cholecystectomy (08/14/2021); Myringotomy Tympanostomy Tube Placement (Bilateral); Tonsillectomy; and Colonoscopy (N/A, 11/20/2022). Social History He reports that he has never smoked. He has never used smokeless tobacco. He reports that he does not currently use alcohol after a past usage of about 2.0 standard drinks of alcohol per week. He reports that he does not use drugs. Allergies Mustard seed and Penicillins Medications Medications Prior to Admission Medication Sig Dispense Refill Last Dose albuterol 0.63 MG/3ML nebulizer solution Take 0.63 mg by nebulization every 6 hours as needed for wheezing. 11/19/2022 albuterol 108 (90 Base) MCG/ACT inhaler Inhale 2 puffs every 6 hours as needed. 11/19/2022 amLODIPine (Norvasc) 10 MG tablet Take 1 tablet (10 mg) by mouth every morning. 90 tablet 1 11/19/2022 atorvastatin (Lipitor) 20 MG tablet Take 1 tablet (20 mg) by mouth Nightly. 90 tablet 1 11/19/2022 benzoyl peroxide 5 % external wash Apply topically to cleanse the skin once per day. Rinse well after cleansing. 11/19/2022 carvedilol (Coreg) 12.5 MG tablet Take 1 tablet (12.5 mg) by mouth in the morning and 1 tablet (12.5 mg) in the evening. Take with meals. 60 tablet 11 11/19/2022 chlorthalidone (Hygroton) 25 MG tablet Take 1 tablet (25 mg) by mouth daily. 30 tablet 11 11/19/2022 co-enzyme Q-10 30 MG capsule Take 30 mg by mouth daily. 11/19/2022 escitalopram (Lexapro) 10 MG tablet Take 1 tablet (10 mg) by mouth daily. 30 tablet 5 11/19/2022 Glucose Blood (Blood Glucose Test) strip Test 3 x times a day & as needed for symptoms of irregular blood glucose. Dispense sufficient amount for indicated testing frequency plus additional to accommodate PRN testing needs. 11/19/2022 Januvia 50 MG tablet Take 1 tablet (50 mg) by mouth daily. 90 tablet 1 Past Week KRILL OIL PO Take by mouth. 11/19/2022 lisinopril 40 MG tablet Take 1 tablet (40 mg) by mouth every morning. 90 tablet 1 11/19/2022 loperamide (Imodium) 2 MG capsule Take 2 mg by mouth as needed for diarrhea. 11/19/2022 metFORMIN (Glucophage) 850 MG tablet TAKE 1 TABLET BY MOUTH IN THE MORNING AND 1 IN THE EVENING WITH MEALS 180 tablet 0 Past Week metoclopramide (Reglan) 5 MG tablet Take 5 mg by mouth every 8 hours as needed. 11/19/2022 Multiple Vitamins-Minerals (multivitamin with minerals) tablet Take 1 tablet by mouth daily. 11/19/2022 ondansetron (Zofran) 4 MG tablet Take 4 mg by mouth every 8 hours as needed. 11/19/2022 Probiotic Product (PROBIOTIC-10 PO) Take by mouth. 11/19/2022 triamcinolone (Kenalog) 0.1 % cream Apply to affected area 1-2 times daily as needed. Avoid face and groin. 30 g 0 11/19/2022 Nhkjvalnexw-Urdpppzdb-Bwyswk (Trelegy Ellipta) 200-62.5-25 MCG/ACT aerosol powder Inhale 1 puff daily for 28 days. 2 each 0 Respiratory Therapy Supplies (CareTouch CPAP & BIPAP Hose) [facility] Review of Systems Physical Exam AVSS HEENT: normocephalic/atraumatic CHEST: normal excursion ABD: soft/nontender EXT: no edema NEURO: nonfocal Last Recorded Vitals Blood pressure 131/82, pulse 69, temperature 36.3 ?C (97.3 ?F), temperature source Temporal, resp. rate 18, height 6' 2 (1.88 m), weight (!) 315 lb (143 kg), SpO2 94 %. Relevant Results Assessment/Plan Active Problems: There are no active Hospital Problems. Chronic diarrhea EGD and colonoscopy; patient meets clinical criteria to have procedures done at ambulatory surgery center with MAC sedation provided by FOOD SERVICE CASHIER assistance.[facility]08-23-[facility]23 Note* Addendum Note - ZARIA Dupree CRNA - 11/20/2022 9:02 AM EDT Addendum created 11/20/22901 by ZRAIA Dupree CRNA Attestation recorded in Intraprocedure, Intraprocedure Attestations filed [id number] Miscellaneous Notes* Addendum Note - ZARIA Dupree CRNA - 11/20/2022 9:02 AM EDT Addendum created 11/20/22 0902 by ZARIA Dupree CRNA Attestation recorded in Intraprocedure, Intraprocedure Attestations filed * Anesthesia Discharge Note - ZARIA Dupree CRNA - 11/20/2022 7:45 AM EDT Patient: Evin Cardoza Procedure Summary Date: 11/20/22 Room / Location: [place] [address] / [facility] Gastroenterology Anesthesia Start: 717 Anesthesia Stop: 743 Procedures: COLONOSCOPY, EGD EGD DIAGNOSTIC Diagnosis: Change in bowel habit Diarrhea, unspecified (Change in bowel habit [R19.4]) (Diarrhea, unspecified [R19.7]) Providers: Abel Contreras MD Responsible Provider: Piyush Elizalde MD Anesthesia Type: TIVA ASA Status: 3 Anesthesia Type: TIVA Vitals Value Taken Time BP 129/80 11/20/22 0744 Temp 36.3 C (97.3 F) 11/20/22 0744 Pulse 74 11/20/22 0744 Resp 18 11/20/22 0744 SpO2 99 % 11/20/22 07 Anesthesia Post Evaluation Patient location during evaluation: PACU Patient participation: complete - patient participated Level of consciousness: awake and alert Pain management: satisfactory to patient Airway patency: patent Dental Injury: no Cardiovascular status: acceptable, blood pressure returned to baseline and hemodynamically stable Respiratory status: acceptable and spontaneous ventilation Hydration status: euvolemic Nausea/Vomiting: controlled No notable events documented. Patient can be discharged once all PACU criteria has been met. documented in this [facility]08-23-2023 NotePatient: Evin Cardoza Procedure Information Date/Time: 11/20/22729 Procedures: COLONOSCOPY, EGD EGD DIAGNOSTIC Location: [place] [address] / [facility] Gastroenterology Providers: Abel Contreras MD Relevant Problems Anesthesia (+) CATHY (obstructive sleep apnea) Cardio (+) Essential hypertension (+) Hypercholesterolemia (+) Mixed hyperlipidemia Endo (+) Type 2 diabetes mellitus without complication, without long-term current use of insulin (CMS/HCC) (HCC) Neuro/Psych (+) Anxiety Pulmonary (+) Moderate persistent asthma without complication (+) CATHY (obstructive sleep apnea) Past Medical History: Past Medical History: No date: Allergic rhinitis No date: Asthma 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: COVID 05/29/2022: COVID No date: DM (diabetes mellitus), type 2 (HCC) No date: Gastroparesis No date: Hyperlipidemia No date: Hypertension No date: Sleep apnea Comment: needs new cpap Past Surgical History: Past Surgical History: 08/14/2021: CHOLECYSTECTOMY No date: COLONOSCOPY No date: COLONOSCOPY No date: MYRINGOTOMY AND TYMPANOSTOMY TUBE PLACEMENT (HISTORICAL); Bilateral No date: NASAL POLYP SURGERY Comment: DVT No date: SEPTOPLASTY No date: SKIN BIOPSY Comment: scalp- benign No date: TONSILLECTOMY (HISTORICAL) Social History: TOBACCO: reports that he has never smoked. He has never used smokeless tobacco. ETOH: reports that he does not currently use alcohol after a past usage of about 2.0 standard drinks of alcohol per week. Social History Substance and Sexual Activity Drug Use Never Comment: Caffeine: maybe 1 soda/week Family History: Family History Problem Relation Name Age of Onset ? Arthritis Mother psoriatic ? Asthma Mother ? Thyroid disease Mother ? Diabetes Mother ? Hypertension Father ? Diabetes Father ? Cancer Mother's Sister skin cancer- NMSC ? Cancer Maternal Grandmother skin cancer NMSC ? Asthma Maternal Grandmother ? Lung disease Maternal Grandmother ? Heart attack Maternal Grandmother ? Other ([id number]) Maternal Grandfather Screening: unknown Clinical information reviewed: Physical Exam Airway Mallampati: III TM distance: >3 FB Neck ROM: full Mouth Open: normal Cardiovascular Dental dentition normal Pulmonary Abdominal Anesthesia Plan patient is NPO appropriate Any family history or previous problems with anesthesia no ASA 3 TIVA Any family history or previous problems with anesthesia no The patient is not a current smoker. Anesthetic plan and risks discussed with patient. CATHY Screening Labs: Lab Results Component Value Date WBC 7.4 08/21/2022 HGB 14.3 08/21/2022 HCT 42.6 08/21/2022 MCV 87.2 08/21/2022 PLT 191 08/21/2022 Lab Results Component Value Date NA 135 11/01/2022 K 3.8 11/01/2022 CL 101 11/01/2022 CO2 28 11/01/2022 BUN 21 (H) 11/01/2022 CREATININE 0.86 11/01/2022 GLUCOSE 144 (H) 11/01/2022 CALCIUM 9.5 11/01/2022 PROT 7.4 11/01/2022 ALKPHOS 63 11/01/2022 AST 33 11/01/2022 ALT 59 (H) 11/01/2022 EGFR >90.0 11/01/2022 No echocardiogram results found for the past 14 days 08/19/22 ECG 12-LEAD 08/21/2022 10:16 AM (Final) Impression Sinus rhythm Otherwise Normal ECG Electronically Signed On 08-21-2022 10:16:51 EDT by Bob Kwok Signed by: Bob Kwok MD on 08/21/2022 10:16 [facility] 11-20-2022 Note* Anesthesia Discharge Note - OusmaneJohnrandy Junior APRN - FOOD SERVICE CASHIER - 11/20/2022 7:45 AM EDT Patient: Evin Cardoza Procedure Summary Date: 11/20/22 Room / Location: [place] [address] / [facility] Gastroenterology Anesthesia Start: 717 Anesthesia Stop: 743 Procedures: COLONOSCOPY, EGD EGD DIAGNOSTIC Diagnosis: Change in bowel habit Diarrhea, unspecified (Change in bowel habit [R19.4]) (Diarrhea, unspecified [R19.7]) Providers: Abel Contreras MD Responsible Provider: Piyush Elizalde MD Anesthesia Type: TIVA ASA Status: 3 Anesthesia Type: TIVA Vitals Value Taken Time BP 129/80 11/20/22 0744 Temp 36.3 C (97.3 F) 08/23/23 0744 Pulse 74 11/20/22 0744 Resp 18 11/20/22 0744 SpO2 99 % 11/20/22 0744 Anesthesia Post Evaluation Patient location during evaluation: PACU Patient participation: complete - patient participated Level of consciousness: awake and alert Pain management: satisfactory to patient Airway patency: patent Dental Injury: no Cardiovascular status: acceptable, blood pressure returned to baseline and hemodynamically stable Respiratory status: acceptable and spontaneous ventilation Hydration status: euvolemic Nausea/Vomiting: controlled No notable events documented. Patient can be discharged once all PACU criteria has been met. [id number] Anesthesiology Postoperative evaluation and management note* Anesthesia Postprocedure Evaluation - ZARIA Dupree CRNA - 11/20/2022 7:45 AM EDT Patient: Evin Cardoza Procedure Summary Date: 11/20/22 Room / Location: [place] [address] / [facility] Gastroenterology Anesthesia Start: 717 Anesthesia Stop: 743 Procedures: COLONOSCOPY, EGD EGD DIAGNOSTIC Diagnosis: Change in bowel habit Diarrhea, unspecified (Change in bowel habit [R19.4]) (Diarrhea, unspecified [R19.7]) Providers: Abel Contreras MD Responsible Provider: Piyush Elizalde MD Anesthesia Type: TIVA ASA Status: 3 Anesthesia Type: TIVA Vitals Value Taken Time BP 129/80 11/20/22 0744 Temp 36.3 C (97.3 F) 11/20/22 0744 Pulse 74 11/20/22 0744 Resp 18 11/20/22 0744 SpO2 99 % 11/20/22 0744 Anesthesia Post Evaluation Patient location during evaluation: PACU Patient participation: complete - patient participated Level of consciousness: awake and alert Pain management: satisfactory to patient Airway patency: patent Two or more strategies used to mitigate risk of obstructive sleep apnea Cardiovascular status: acceptable and hemodynamically stable Respiratory status: acceptable Hydration status: acceptable No notable events documented. MIPS #430 PONV Patient did not receive an inhalational anesthetic (XX430) MIPS # 424 Perioperative Temperature Management Anesthesia time was less than 60 minutes (4256F) MIPS #477 Multimodal Pain Management Not emergent case Patient was not administered multimodal pain management (G2149) Patient reports no pain in PACU (G2149) MIPS #404 Anesthesiology Smoking Abstinence The patient is not a current smoker (e.g. cigarette, cigar, pipe, e- cigarette/vaping/marijuana) If no stop here (G9644) I completed my handoff to the receiving clinician during which we: 1. Identified the patient 2. Identified the responsible provider 3. Reviewed the pertinent medical history 4. Discussed the surgical course 5. Reviewed intra-op anesthesia management and issues during anesthesia 6. Set expectations for post-procedure period 7. Allowed opportunity for questions and acknowledgement of understanding. [id number] Surgical operation note* Anesthesia Postprocedure Evaluation - ZARIA Dupree CRNA - 11/20/2022 7:45 AM EDT Patient: Evin Cardoza Procedure Summary Date: 11/20/22 Room / Location: [facility] / [facility] Gastroenterology Anesthesia Start: 717 Anesthesia Stop: 743 Procedures: COLONOSCOPY, EGD EGD DIAGNOSTIC Diagnosis: Change in bowel habit Diarrhea, unspecified (Change in bowel habit [R19.4]) (Diarrhea, unspecified [R19.7]) Providers: Abel Contreras MD Responsible Provider: Piyush Elizalde MD Anesthesia Type: TIVA ASA Status: 3 Anesthesia Type: TIVA Vitals Value Taken Time BP 129/80 11/20/22 0744 Temp 36.3 C (97.3 F) 11/20/22 0744 Pulse 74 11/20/22 0744 Resp 18 11/20/22 0744 SpO2 99 % 11/20/22 0744 Anesthesia Post Evaluation Patient location during evaluation: PACU Patient participation: complete - patient participated Level of consciousness: awake and alert Pain management: satisfactory to patient Airway patency: patent Two or more strategies used to mitigate risk of obstructive sleep apnea Cardiovascular status: acceptable and hemodynamically stable Respiratory status: acceptable Hydration status: acceptable No notable events documented. MIPS #430 PONV Patient did not receive an inhalational anesthetic (XX430) MIPS # 424 Perioperative Temperature Management Anesthesia time was less than 60 minutes (4256F) MIPS #477 Multimodal Pain Management Not emergent case Patient was not administered multimodal pain management (G2149) Patient reports no pain in PACU (G2149) MIPS #404 Anesthesiology Smoking Abstinence The patient is not a current smoker (e.g. cigarette, cigar, pipe, e- cigarette/vaping/marijuana) If no stop here (G9644) I completed my handoff to the receiving clinician during which we: 1. Identified the patient 2. Identified the responsible provider 3. Reviewed the pertinent medical history 4. Discussed the surgical course 5. Reviewed intra-op anesthesia management and issues during anesthesia 6. Set expectations for post-procedure period 7. Allowed opportunity for questions and acknowledgement of understanding. * Anesthesia Preprocedure Evaluation - ZARIA Dupree CRNA - 11/20/2022 6:50 AM EDT Patient: Evin Cardoza Procedure Information Date/Time: 11/20/22729 Procedures: COLONOSCOPY, EGD EGD DIAGNOSTIC Location: [place] [address] / [facility] Gastroenterology Providers: Abel Contreras MD Relevant Problems Anesthesia (+) CATHY (obstructive sleep apnea) Cardio (+) Essential hypertension (+) Hypercholesterolemia (+) Mixed hyperlipidemia Endo (+) Type 2 diabetes mellitus without complication, without long-term current use of insulin ([facility]) (HCC) Neuro/Psych (+) Anxiety Pulmonary (+) Moderate persistent asthma without complication (+) CATHY (obstructive sleep apnea) Past Medical History: Past Medical History: No date: Allergic rhinitis No date: Asthma 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: COVID 05/29/2022: COVID No date: DM (diabetes mellitus), type 2 ([facility]) No date: Gastroparesis No date: Hyperlipidemia No date: Hypertension No date: Sleep apnea Comment: needs new cpap Past Surgical History: Past Surgical History: 08/14/2021: CHOLECYSTECTOMY No date: COLONOSCOPY No date: COLONOSCOPY No date: MYRINGOTOMY AND TYMPANOSTOMY TUBE PLACEMENT (HISTORICAL); Bilateral No date: NASAL POLYP SURGERY Comment: DVT No date: SEPTOPLASTY No date: SKIN BIOPSY Comment: scalp- benign No date: TONSILLECTOMY (HISTORICAL) Social History: TOBACCO: reports that he has never smoked. He has never used smokeless tobacco. ETOH: reports that he does not currently use alcohol after a past usage of about 2.0 standard drinks of alcohol per week. Social History Substance and Sexual Activity Drug Use Never Comment: Caffeine: maybe 1 soda/week Family History: Family History Problem Relation Name Age of Onset Arthritis Mother psoriatic Asthma Mother Thyroid disease Mother Diabetes Mother Hypertension Father Diabetes Father Cancer Mother's Sister skin cancer- NMSC Cancer Maternal Grandmother skin cancer NMSC Asthma Maternal Grandmother Lung disease Maternal Grandmother Heart attack Maternal Grandmother Other ([id number]) Maternal Grandfather Screening: unknown Clinical information reviewed: Physical Exam Airway Mallampati: III TM distance: >3 FB Neck ROM: full Mouth Open: normal Cardiovascular Dental dentition normal Pulmonary Abdominal Anesthesia Plan patient is NPO appropriate Any family history or previous problems with anesthesia no ASA 3 TIVA Any family history or previous problems with anesthesia no The patient is not a current smoker. Anesthetic plan and risks discussed with patient. CATHY Screening Labs: Lab Results Component Value Date WBC 7.4 08/21/2022 HGB 14.3 08/21/2022 HCT 42.6 08/21/2022 MCV 87.2 08/21/2022 PLT 191 08/21/2022 Lab Results Component Value Date NA 135 11/01/2022 K 3.8 11/01/2022 CL 101 11/01/2022 CO2 28 11/01/2022 BUN 21 (H) 11/01/2022 CREATININE 0.86 11/01/2022 GLUCOSE 144 (H) 11/01/2022 CALCIUM 9.5 11/01/2022 PROT 7.4 11/01/2022 ALKPHOS 63 11/01/2022 AST 33 11/01/2022 ALT 59 (H) 11/01/2022 EGFR >90.0 11/01/2022 No echocardiogram results found for the past 14 days 08/19/22 ECG 12-LEAD 08/21/2022 10:16 AM (Final) Impression Sinus rhythm Otherwise Normal ECG Electronically Signed On 08-21-2022 10:16:51 EDT by Bob Kwok Signed by: Bob Kwok MD on 08/21/2022 10:16 AM documented in this [facility]08-23-2023 Note* Op Note - Abel Contreras MD - 11/20/2022 7:25 AM EDT [facility] Name: Evin Cardoza Procedure Date: 11/20/2022 7:25 AM Gender: Male Date of : 1985 Age: 37 Admit Type: Outpatient Note Status: Finalized Endoscopist: Abel Contreras MD, [id number] Procedure: Upper GI endoscopy Indications: Diarrhea Findings: The esophagus was normal. The examined duodenum was normal. Biopsies for histology were taken with a cold forceps for evaluation of celiac disease. Diffuse moderate inflammation with hemorrhage characterized by congestion (edema), erythema and friability was found in the entire examined stomach. Biopsies were taken with a cold forceps for histology. Impression: - Normal esophagus. - Normal examined duodenum. Biopsied. - Chronic gastritis with hemorrhage. Biopsied. Recommendation: - Patient has a contact number available for emergencies. The signs and symptoms of potential delayed complications were discussed with the patient. Return to normal activities tomorrow. Written discharge instructions were provided to the patient. - Await pathology results. - Perform a colonoscopy today. Referring MD: Tereso Hernadez DO Medicines: Monitored Anesthesia Care Procedure: Pre-Anesthesia Assessment: - Prior to the procedure, a History and Physical was performed, and patient medications and allergies were reviewed. The patient's tolerance of previous anesthesia was also reviewed. The risks and benefits of the procedure and the sedation options and risks were discussed with the patient. All questions were answered, and informed consent was obtained. Prior Anticoagulants: The patient has taken no anticoagulant or antiplatelet agents. ASA Grade Assessment: III - A patient with severe systemic disease. After reviewing the risks and benefits, the patient was deemed in satisfactory condition to undergo the procedure. - The anesthesia plan was to use moderate sedation/analgesia (conscious sedation). After obtaining informed consent, the endoscope was passed under direct vision. Throughout the procedure, the patient's blood pressure, pulse, and oxygen saturations were monitored continuously. The Endoscope was introduced through the mouth, and advanced to the second part of duodenum. The upper GI endoscopy was accomplished without difficulty. The patient tolerated the procedure well. Complications: No immediate complications. Procedure Code(s): --- Professional --- 02050, Esophagogastroduodenoscopy, flexible, transoral; with biopsy, single or multiple --- Technical --- 86622, Esophagogastroduodenoscopy, flexible, transoral; with biopsy, single or multiple Diagnosis Code(s): --- Professional --- R19.7, Diarrhea, unspecified K29.51, Unspecified chronic gastritis with bleeding --- Technical --- R19.7, Diarrhea, unspecified K29.51, Unspecified chronic gastritis with bleeding CPT copyright 2021 [employer]. All rights reserved. The codes documented in this report are preliminary and upon poultry hatchery supervisor review may be revised to meet current compliance requirements. Abel Contreras MD 11/20/2022 7:48:19 AM This report has been signed electronically. Number of Addenda: 0 Note Initiated On: 11/20/2022 7:25 AM [facility] [id number] Note* Op Note - Abel Contreras MD - 11/20/2022 7:25 AM EDT [facility] Name: Evin Cardoza Procedure Date: 11/20/2022 7:25 AM Gender: Male Date of : 1985 Age: 37 Admit Type: Outpatient Note Status: Finalized Endoscopist: Abel Contreras MD, [id number] Procedure: Upper GI endoscopy Indications: Diarrhea Findings: The esophagus was normal. The examined duodenum was normal. Biopsies for histology were taken with a cold forceps for evaluation of celiac disease. Diffuse moderate inflammation with hemorrhage characterized by congestion (edema), erythema and friability was found in the entire examined stomach. Biopsies were taken with a cold forceps for histology. Impression: - Normal esophagus. - Normal examined duodenum. Biopsied. - Chronic gastritis with hemorrhage. Biopsied. Recommendation: - Patient has a contact number available for emergencies. The signs and symptoms of potential delayed complications were discussed with the patient. Return to normal activities tomorrow. Written discharge instructions were provided to the patient. - Await pathology results. - Perform a colonoscopy today. Referring MD: Tereso Hernadez DO Medicines: Monitored Anesthesia Care Procedure: Pre-Anesthesia Assessment: - Prior to the procedure, a History and Physical was performed, and patient medications and allergies were reviewed. The patient's tolerance of previous anesthesia was also reviewed. The risks and benefits of the procedure and the sedation options and risks were discussed with the patient. All questions were answered, and informed consent was obtained. Prior Anticoagulants: The patient has taken no anticoagulant or antiplatelet agents. ASA Grade Assessment: III - A patient with severe systemic disease. After reviewing the risks and benefits, the patient was deemed in satisfactory condition to undergo the procedure. - The anesthesia plan was to use moderate sedation/analgesia (conscious sedation). After obtaining informed consent, the endoscope was passed under direct vision. Throughout the procedure, the patient's blood pressure, pulse, and oxygen saturations were monitored continuously. The Endoscope was introduced through the mouth, and advanced to the second part of duodenum. The upper GI endoscopy was accomplished without difficulty. The patient tolerated the procedure well. Complications: No immediate complications. Procedure Code(s): --- Professional --- 36222, Esophagogastroduodenoscopy, flexible, transoral; with biopsy, single or multiple --- Technical --- 23065, Esophagogastroduodenoscopy, flexible, transoral; with biopsy, single or multiple Diagnosis Code(s): --- Professional --- R19.7, Diarrhea, unspecified K29.51, Unspecified chronic gastritis with bleeding --- Technical --- R19.7, Diarrhea, unspecified K29.51, Unspecified chronic gastritis with bleeding CPT copyright 2021 [employer]. All rights reserved. The codes documented in this report are preliminary and upon poultry hatchery supervisor review may be revised to meet current compliance requirements. Abel Contreras MD 11/20/2022 7:48:19 AM This report has been signed electronically. Number of Addenda: 0 Note Initiated On: 11/20/2022 7:25 AM [id number] Miscellaneous Notes* Op Note - Abel Contreras MD - 11/20/2022 7:25 AM EDT [facility] Patient Name: Evin Cardoza Procedure Date: 11/20/2022 7:25 AM Gender: Male Date of : 1985 Age: 37 Admit Type: Outpatient Note Status: Finalized Endoscopist: Abel Contreras MD, [id number] Procedure: Upper GI endoscopy Indications: Diarrhea Findings: The esophagus was normal. The examined duodenum was normal. Biopsies for histology were taken with a cold forceps for evaluation of celiac disease. Diffuse moderate inflammation with hemorrhage characterized by congestion (edema), erythema and friability was found in the entire examined stomach. Biopsies were taken with a cold forceps for histology. Impression: - Normal esophagus. - Normal examined duodenum. Biopsied. - Chronic gastritis with hemorrhage. Biopsied. Recommendation: - Patient has a contact number available for emergencies. The signs and symptoms of potential delayed complications were discussed with the patient. Return to normal activities tomorrow. Written discharge instructions were provided to the patient. - Await pathology results. - Perform a colonoscopy today. Referring MD: Tereso Hernadez DO Medicines: Monitored Anesthesia Care Procedure: Pre-Anesthesia Assessment: - Prior to the procedure, a History and Physical was performed, and patient medications and allergies were reviewed. The patient's tolerance of previous anesthesia was also reviewed. The risks and benefits of the procedure and the sedation options and risks were discussed with the patient. All questions were answered, and informed consent was obtained. Prior Anticoagulants: The patient has taken no anticoagulant or antiplatelet agents. ASA Grade Assessment: III - A patient with severe systemic disease. After reviewing the risks and benefits, the patient was deemed in satisfactory condition to undergo the procedure. - The anesthesia plan was to use moderate sedation/analgesia (conscious sedation). After obtaining informed consent, the endoscope was passed under direct vision. Throughout the procedure, the patient's blood pressure, pulse, and oxygen saturations were monitored continuously. The Endoscope was introduced through the mouth, and advanced to the second part of duodenum. The upper GI endoscopy was accomplished without difficulty. The patient tolerated the procedure well. Complications: No immediate complications. Procedure Code(s): --- Professional --- 54180, Esophagogastroduodenoscopy, flexible, transoral; with biopsy, single or multiple --- Technical --- 69927, Esophagogastroduodenoscopy, flexible, transoral; with biopsy, single or multiple Diagnosis Code(s): --- Professional --- R19.7, Diarrhea, unspecified K29.51, Unspecified chronic gastritis with bleeding --- Technical --- R19.7, Diarrhea, unspecified K29.51, Unspecified chronic gastritis with bleeding CPT copyright 2021 [employer]. All rights reserved. The codes documented in this report are preliminary and upon poultry hatchery supervisor review may be revised to meet current compliance requirements. Abel Contreras MD 11/20/2022 7:48:19 AM This report has been signed electronically. Number of Addenda: 0 Note Initiated On: 11/20/2022 7:25 AM * Op Note - Abel Contreras MD - 11/20/2022 7:24 AM EDT [facility] Name: Evin Cardoza Procedure Date: 11/20/2022 7:24 AM Gender: Male Date of : 1985 Age: 37 Admit Type: Outpatient Note Status: Finalized Endoscopist: Abel Contreras MD, [id number] Procedure: Colonoscopy Indications: Chronic diarrhea Findings: The entire examined colon appeared normal. Biopsies for histology were taken with a cold forceps from the entire colon for evaluation of microscopic colitis. Impression: - The entire examined colon is normal. Biopsied. Recommendation: - Repeat colonoscopy in 10 years for screening purposes. - Resume previous diet. - Continue present medications. Medicines: Monitored Anesthesia Care Procedure: Pre-Anesthesia Assessment: - ASA Grade Assessment: III - A patient with severe systemic disease. - The anesthesia plan was to use moderate sedation/analgesia (conscious sedation). After I obtained informed consent, the scope was passed under direct vision. Throughout the procedure, the patient's blood pressure, pulse, and oxygen saturations were monitored continuously. The Colonoscope was introduced through the anus and advanced to the terminal ileum. The colonoscopy was performed without difficulty. The patient tolerated the procedure well. The quality of the bowel preparation was good. Complications: No immediate complications. Estimated blood loss: None. Procedure Code(s): --- Professional --- 63333, Colonoscopy, flexible; with biopsy, single or multiple --- Technical --- 04304, Colonoscopy, flexible; with biopsy, single or multiple Diagnosis Code(s): --- Professional --- K52.9, Noninfective gastroenteritis and colitis, unspecified --- Technical --- K52.9, Noninfective gastroenteritis and colitis, unspecified CPT copyright 2021 [employer]. All rights reserved. The codes documented in this report are preliminary and upon poultry hatchery supervisor review may be revised to meet current compliance requirements. Abel Contreras MD 11/20/2022 7:50:15 AM This report has been signed electronically. Number of Addenda: 0 Note Initiated On: 11/20/2022 7:24 AM documented in this [facility]08-23-2023 Note* Op Note - Abel Contreras MD - 11/20/2022 7:24 AM EDT [facility] Name: Evin Cardoza Procedure Date: 11/20/2022 7:24 AM Gender: Male Date of : 1985 Age: 37 Admit Type: Outpatient Note Status: Finalized Endoscopist: Abel Contreras MD, [id number] Procedure: Colonoscopy Indications: Chronic diarrhea Findings: The entire examined colon appeared normal. Biopsies for histology were taken with a cold forceps from the entire colon for evaluation of microscopic colitis. Impression: - The entire examined colon is normal. Biopsied. Recommendation: - Repeat colonoscopy in 10 years for screening purposes. - Resume previous diet. - Continue present medications. Medicines: Monitored Anesthesia Care Procedure: Pre-Anesthesia Assessment: - ASA Grade Assessment: III - A patient with severe systemic disease. - The anesthesia plan was to use moderate sedation/analgesia (conscious sedation). After I obtained informed consent, the scope was passed under direct vision. Throughout the procedure, the patient's blood pressure, pulse, and oxygen saturations were monitored continuously. The Colonoscope was introduced through the anus and advanced to the terminal ileum. The colonoscopy was performed without difficulty. The patient tolerated the procedure well. The quality of the bowel preparation was good. Complications: No immediate complications. Estimated blood loss: None. Procedure Code(s): --- Professional --- 50194, Colonoscopy, flexible; with biopsy, single or multiple --- Technical --- 76318, Colonoscopy, flexible; with biopsy, single or multiple Diagnosis Code(s): --- Professional --- K52.9, Noninfective gastroenteritis and colitis, unspecified --- Technical --- K52.9, Noninfective gastroenteritis and colitis, unspecified CPT copyright 2021 [employer]. All rights reserved. The codes documented in this report are preliminary and upon poultry hatchery supervisor review may be revised to meet current compliance requirements. Abel Contreras MD 11/20/2022 7:50:15 AM This report has been signed electronically. Number of Addenda: 0 Note Initiated On: 11/20/2022 7:24 AM [id number]* Op Note - Abel Contreras MD - 11/20/2022 7:24 AM EDT [facility] Name: Evin Cardoza Procedure Date: 11/20/2022 7:24 AM Gender: Male Date of : 1985 Age: 37 Admit Type: Outpatient Note Status: Finalized Endoscopist: Abel Contreras MD, [id number] Procedure: Colonoscopy Indications: Chronic diarrhea Findings: The entire examined colon appeared normal. Biopsies for histology were taken with a cold forceps from the entire colon for evaluation of microscopic colitis. Impression: - The entire examined colon is normal. Biopsied. Recommendation: - Repeat colonoscopy in 10 years for screening purposes. - Resume previous diet. - Continue present medications. Medicines: Monitored Anesthesia Care Procedure: Pre-Anesthesia Assessment: - ASA Grade Assessment: III - A patient with severe systemic disease. - The anesthesia plan was to use moderate sedation/analgesia (conscious sedation). After I obtained informed consent, the scope was passed under direct vision. Throughout the procedure, the patient's blood pressure, pulse, and oxygen saturations were monitored continuously. The Colonoscope was introduced through the anus and advanced to the terminal ileum. The colonoscopy was performed without difficulty. The patient tolerated the procedure well. The quality of the bowel preparation was good. Complications: No immediate complications. Estimated blood loss: None. Procedure Code(s): --- Professional --- 67618, Colonoscopy, flexible; with biopsy, single or multiple --- Technical --- 24717, Colonoscopy, flexible; with biopsy, single or multiple Diagnosis Code(s): --- Professional --- K52.9, Noninfective gastroenteritis and colitis, unspecified --- Technical --- K52.9, Noninfective gastroenteritis and colitis, unspecified CPT copyright 2021 [employer]. All rights reserved. The codes documented in this report are preliminary and upon poultry hatchery supervisor review may be revised to meet current compliance requirements. Abel Contreras MD 11/20/2022 7:50:15 AM This report has been signed electronically. Number of Addenda: 0 Note Initiated On: 11/20/2022 7:24 AM [id number] History and physical note* Abel Contreras MD - 11/20/2022 7:16 AM EDT History Of Present Illness Evin Cardoza is a 37 y.o. male presenting with acute on chronic bowel irregularity with diarrhea predominant bowel habits. He was diagnosed with COVID at the end of 2021 and since then has experienced worsening fatigue and shortness of breath. Multiple ER/urgent care visits have resulted in rounds of antibiotics and prednisone (which have indeed helped his breathing and chest pain). Previous tohis COVID infection he still had bowel irregularity, and a colonoscopy done years ago by another endoscopist suggested microsopic colitis. Options for workup were discussed with the patient and his SO at today's visit. Of concern is his cardiopulmonary status post COVID. We will initiate a referral to [facility] Post-COVID clinic while starting his GI workup with stool testing for malabsorption. Bidirectional endoscopies will be performed once he is cleared from a cardiopulmonary status. . Past Medical History He has a past medical history of Allergic rhinitis, Asthma, Balanced chromosomal translocation, COVID (02/2020), COVID (05/29/2022), DM (diabetes mellitus), type 2 (HCC), Gastroparesis, Hyperlipidemia, Hypertension, and Sleep apnea. He has no past medical history of PONV (postoperative nausea and vomiting). Surgical History He has a past surgical history that includes Skin biopsy; Septoplasty; Colonoscopy; Nasal polyp surgery; Colonoscopy; Cholecystectomy (08/14/2021); Myringotomy Tympanostomy Tube Placement (Bilateral); Tonsillectomy; and Colonoscopy (N/A, 11/20/2022). Social History He reports that he has never smoked. He has never used smokeless tobacco. He reports that he does not currently use alcohol after a past usage of about 2.0 standard drinks of alcohol per week. He reports that he does not use drugs. Allergies Mustard seed and Penicillins Medications Medications Prior to Admission Medication Sig Dispense Refill Last Dose albuterol 0.63 MG/3ML nebulizer solution Take 0.63 mg by nebulization every 6 hours as needed for wheezing. 11/19/2022 albuterol 108 (90 Base) MCG/ACT inhaler Inhale 2 puffs every 6 hours as needed. 11/19/2022 amLODIPine (Norvasc) 10 MG tablet Take 1 tablet (10 mg) by mouth every morning. 90 tablet 1 11/19/2022 atorvastatin (Lipitor) 20 MG tablet Take 1 tablet (20 mg) by mouth Nightly. 90 tablet 1 11/19/2022 benzoyl peroxide 5 % external wash Apply topically to cleanse the skin once per day. Rinse well after cleansing. 11/19/2022 carvedilol (Coreg) 12.5 MG tablet Take 1 tablet (12.5 mg) by mouth in the morning and 1 tablet (12.5 mg) in the evening. Take with meals. 60 tablet 11 11/19/2022 chlorthalidone (Hygroton) 25 MG tablet Take 1 tablet (25 mg) by mouth daily. 30 tablet 11 11/19/2022 co-enzyme Q-10 30 MG capsule Take 30 mg by mouth daily. 11/19/2022 escitalopram (Lexapro) 10 MG tablet Take 1 tablet (10 mg) by mouth daily. 30 tablet 5 11/19/2022 Glucose Blood (Blood Glucose Test) strip Test 3 x times a day & as needed for symptoms of irregular blood glucose. Dispense sufficient amount for indicated testing frequency plus additional to accommodate PRN testing needs. 11/19/2022 Januvia 50 MG tablet Take 1 tablet (50 mg) by mouth daily. 90 tablet 1 Past Week KRILL OIL PO Take by mouth. 11/19/2022 lisinopril 40 MG tablet Take 1 tablet (40 mg) by mouth every morning. 90 tablet 1 11/19/2022 loperamide (Imodium) 2 MG capsule Take 2 mg by mouth as needed for diarrhea. 11/19/2022 metFORMIN (Glucophage) 850 MG tablet TAKE 1 TABLET BY MOUTH IN THE MORNING AND 1 IN THE EVENING WITH MEALS 180 tablet 0 Past Week metoclopramide (Reglan) 5 MG tablet Take 5 mg by mouth every 8 hours as needed. 11/19/2022 Multiple Vitamins-Minerals (multivitamin with minerals) tablet Take 1 tablet by mouth daily. 11/19/2022 ondansetron (Zofran) 4 MG tablet Take 4 mg by mouth every 8 hours as needed. 11/19/2022 Probiotic Product (PROBIOTIC-10 PO) Take by mouth. 11/19/2022 triamcinolone (Kenalog) 0.1 % cream Apply to affected area 1-2 times daily as needed. Avoid face and groin. 30 g 0 11/19/2022 Wviggksrzvw-Enlwvmywe-Qqxkus (Trelegy Ellipta) 200-62.5-25 MCG/ACT aerosol powder Inhale 1 puff daily for 28 days. 2 each 0 Respiratory Therapy Supplies (CareTouch CPAP & BIPAP Hose) misc Review of Systems Physical Exam AVSS HEENT: normocephalic/atraumatic CHEST: normal excursion ABD: soft/nontender EXT: no edema NEURO: nonfocal Last Recorded Vitals Blood pressure 131/82, pulse 69, temperature 36.3 C (97.3 F), temperature source Temporal, resp. rate 18, height 6' 2 (1.88 m), weight (!) 315 lb (143 kg), SpO2 94 %. Relevant Results Assessment/Plan Active Problems: There are no active Hospital Problems. Chronic diarrhea EGD and colonoscopy; patient meets clinical criteria to have procedures done at ambulatory surgery center with MAC sedation provided by FOOD SERVICE CASHIER assistance. [facility] Work Phone: [phone] 312-121308-23-2023 History and physical note* Abel Contreras MD - 11/20/2022 7:16 AM EDT History Of Present Illness Evin Cardoza is a 37 y.o. male presenting with acute on chronic bowel irregularity with diarrhea predominant bowel habits. He was diagnosed with COVID at the end of 2021 and since then has experienced worsening fatigue and shortness of breath. Multiple ER/urgent care visits have resulted in rounds of antibiotics and prednisone (which have indeed helped his breathing and chest pain). Previous tohis COVID infection he still had bowel irregularity, and a colonoscopy done years ago by another endoscopist suggested microsopic colitis. Options for workup were discussed with the patient and his SO at today's visit. Of concern is his cardiopulmonary status post COVID. We will initiate a referral to [facility] Post-COVID clinic while starting his GI workup with stool testing for malabsorption. Bidirectional endoscopies will be performed once he is cleared from a cardiopulmonary status. . Past Medical History He has a past medical history of Allergic rhinitis, Asthma, Balanced chromosomal translocation, COVID (02/2020), COVID (05/29/2022), DM (diabetes mellitus), type 2 (HCC), Gastroparesis, Hyperlipidemia, Hypertension, and Sleep apnea. He has no past medical history of PONV (postoperative nausea and vomiting). Surgical History He has a past surgical history that includes Skin biopsy; Septoplasty; Colonoscopy; Nasal polyp surgery; Colonoscopy; Cholecystectomy (08/14/2021); Myringotomy Tympanostomy Tube Placement (Bilateral); Tonsillectomy; and Colonoscopy (N/A, 11/20/2022). Social History He reports that he has never smoked. He has never used smokeless tobacco. He reports that he does not currently use alcohol after a past usage of about 2.0 standard drinks of alcohol per week. He reports that he does not use drugs. Allergies Mustard seed and Penicillins Medications Medications Prior to Admission Medication Sig Dispense Refill Last Dose albuterol 0.63 MG/3ML nebulizer solution Take 0.63 mg by nebulization every 6 hours as needed for wheezing. 11/19/2022 albuterol 108 (90 Base) MCG/ACT inhaler Inhale 2 puffs every 6 hours as needed. 11/19/2022 amLODIPine (Norvasc) 10 MG tablet Take 1 tablet (10 mg) by mouth every morning. 90 tablet 1 11/19/2022 atorvastatin (Lipitor) 20 MG tablet Take 1 tablet (20 mg) by mouth Nightly. 90 tablet 1 11/19/2022 benzoyl peroxide 5 % external wash Apply topically to cleanse the skin once per day. Rinse well after cleansing. 11/19/2022 carvedilol (Coreg) 12.5 MG tablet Take 1 tablet (12.5 mg) by mouth in the morning and 1 tablet (12.5 mg) in the evening. Take with meals. 60 tablet 11 11/19/2022 chlorthalidone (Hygroton) 25 MG tablet Take 1 tablet (25 mg) by mouth daily. 30 tablet 11 11/19/2022 co-enzyme Q-10 30 MG capsule Take 30 mg by mouth daily. 11/19/2022 escitalopram (Lexapro) 10 MG tablet Take 1 tablet (10 mg) by mouth daily. 30 tablet 5 11/19/2022 Glucose Blood (Blood Glucose Test) strip Test 3 x times a day & as needed for symptoms of irregular blood glucose. Dispense sufficient amount for indicated testing frequency plus additional to accommodate PRN testing needs. 11/19/2022 Januvia 50 MG tablet Take 1 tablet (50 mg) by mouth daily. 90 tablet 1 Past Week KRILL OIL PO Take by mouth. 11/19/2022 lisinopril 40 MG tablet Take 1 tablet (40 mg) by mouth every morning. 90 tablet 1 11/19/2022 loperamide (Imodium) 2 MG capsule Take 2 mg by mouth as needed for diarrhea. 11/19/2022 metFORMIN (Glucophage) 850 MG tablet TAKE 1 TABLET BY MOUTH IN THE MORNING AND 1 IN THE EVENING WITH MEALS 180 tablet 0 Past Week metoclopramide (Reglan) 5 MG tablet Take 5 mg by mouth every 8 hours as needed. 11/19/2022 Multiple Vitamins-Minerals (multivitamin with minerals) tablet Take 1 tablet by mouth daily. 11/19/2022 ondansetron (Zofran) 4 MG tablet Take 4 mg by mouth every 8 hours as needed. 11/19/2022 Probiotic Product (PROBIOTIC-10 PO) Take by mouth. 11/19/2022 triamcinolone (Kenalog) 0.1 % cream Apply to affected area 1-2 times daily as needed. Avoid face and groin. 30 g 0 11/19/2022 Rfqpdmhiwat-Esdiblcew-Qhrgqi (Trelegy Ellipta) 200-62.5-25 MCG/ACT aerosol powder Inhale 1 puff daily for 28 days. 2 each 0 Respiratory Therapy Supplies (CareTouch CPAP & BIPAP Hose) [facility] Review of Systems Physical Exam AVSS HEENT: normocephalic/atraumatic CHEST: normal excursion ABD: soft/nontender EXT: no edema NEURO: nonfocal Last Recorded Vitals Blood pressure 131/82, pulse 69, temperature 36.3 C (97.3 F), temperature source Temporal, resp. rate 18, height 6' 2 (1.88 m), weight (!) 315 lb (143 kg), SpO2 94 %. Relevant Results Assessment/Plan Active Problems: There are no active Hospital Problems. Chronic diarrhea EGD and colonoscopy; patient meets clinical criteria to have procedures done at ambulatory surgery center with MAC sedation provided by FOOD SERVICE CASHIER assistance. documented in this [facility]08-23-2023 Anesthesiology Preoperative evaluation and management note* Anesthesia Preprocedure Evaluation - Katy Junior APRN - REBEKAH - 11/20/2022 6:50 AM EDT Patient: Evin Cardoza Procedure Information Date/Time: 11/20/22729 Procedures: COLONOSCOPY, EGD EGD DIAGNOSTIC Location: [place] [address] / [facility] Gastroenterology Providers: Abel Contreras MD Relevant Problems Anesthesia (+) CATHY (obstructive sleep apnea) Cardio (+) Essential hypertension (+) Hypercholesterolemia (+) Mixed hyperlipidemia Endo (+) Type 2 diabetes mellitus without complication, without long-term current use of insulin ([facility]/HCC) (HCC) Neuro/Psych (+) Anxiety Pulmonary (+) Moderate persistent asthma without complication (+) CATHY (obstructive sleep apnea) Past Medical History: Past Medical History: No date: Allergic rhinitis No date: Asthma 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: COVID 05/29/2022: COVID No date: DM (diabetes mellitus), type 2 (HCC) No date: Gastroparesis No date: Hyperlipidemia No date: Hypertension No date: Sleep apnea Comment: needs new cpap Past Surgical History: Past Surgical History: 08/14/2021: CHOLECYSTECTOMY No date: COLONOSCOPY No date: COLONOSCOPY No date: MYRINGOTOMY AND TYMPANOSTOMY TUBE PLACEMENT (HISTORICAL); Bilateral No date: NASAL POLYP SURGERY Comment: DVT No date: SEPTOPLASTY No date: SKIN BIOPSY Comment: scalp- benign No date: TONSILLECTOMY (HISTORICAL) Social History: TOBACCO: reports that he has never smoked. He has never used smokeless tobacco. ETOH: reports that he does not currently use alcohol after a past usage of about 2.0 standard drinks of alcohol per week. Social History Substance and Sexual Activity Drug Use Never Comment: Caffeine: maybe 1 soda/week Family History: Family History Problem Relation Name Age of Onset Arthritis Mother psoriatic Asthma Mother Thyroid disease Mother Diabetes Mother Hypertension Father Diabetes Father Cancer Mother's Sister skin cancer- NMSC Cancer Maternal Grandmother skin cancer NMSC Asthma Maternal Grandmother Lung disease Maternal Grandmother Heart attack Maternal Grandmother Other ([id number]) Maternal Grandfather Screening: unknown Clinical information reviewed: Physical Exam Airway Mallampati: III TM distance: >3 FB Neck ROM: full Mouth Open: normal Cardiovascular Dental dentition normal Pulmonary Abdominal Anesthesia Plan patient is NPO appropriate Any family history or previous problems with anesthesia no ASA 3 TIVA Any family history or previous problems with anesthesia no The patient is not a current smoker. Anesthetic plan and risks discussed with patient. CATHY Screening Labs: Lab Results Component Value Date WBC 7.4 08/21/2022 HGB 14.3 08/21/2022 HCT 42.6 08/21/2022 MCV 87.2 08/21/2022 PLT 191 08/21/2022 Lab Results Component Value Date NA 135 11/01/2022 K 3.8 11/01/2022 CL 101 11/01/2022 CO2 28 11/01/2022 BUN 21 (H) 11/01/2022 CREATININE 0.86 11/01/2022 GLUCOSE 144 (H) 11/01/2022 CALCIUM 9.5 11/01/2022 PROT 7.4 11/01/2022 ALKPHOS 63 11/01/2022 AST 33 11/01/2022 ALT 59 (H) 11/01/2022 EGFR >90.0 11/01/2022 No echocardiogram results found for the past 14 days 08/19/22 ECG 12-LEAD 08/21/2022 10:16 AM (Final) Impression Sinus rhythm Otherwise Normal ECG Electronically Signed On 08-21-2022 10:16:51 EDT by Bob Kwok Signed by: Bob Kwok MD on 08/21/2022 10:16 AM [id number] Telephone encounter Note* Telephone Encounter - Carly Flowers MA - 10/17/2022 1:43 PM EDT PT REQUESTING REFILL ON TRELEGY 200 PULLED AND PENDED [id number] Miscellaneous Notes* Telephone Encounter - Carly Flowers MA - 10/17/2022 1:43 PM EDT PT REQUESTING REFILL ON TRELEGY 200 PULLED AND PENDED documented in this [facility]Ohio[facility] HospitalCkoqlp39-17-0157 History of Present illness Narrative* Young Robbins MD - 10/17/2022 12:15 PM EDT Images from the original note were not included. [facility] [place]- Pulmonary and Sleep Medicine [address] [place] [address] PH: [phone] Visit type: ESTABLISHED PATIENT 1985 10/17/2022 CHIEF COMPLAINT/REASON FOR REFERRAL: Chief Complaint Patient presents with Follow-up Asthma 2-MONTH APPT CATHY History of Present Illness Evin Cardoza is a 37 y.o. male with severe morbid obesity, moderately persistent asthma mild sleep apnea diagnosed on home sleep testing currently on PAP therapy having difficulty tolerating PAP presents for follow-up his pulmonary symptoms worsened after patient was diagnosed with COVID-19 infection in May 2022 patient currently undergoing rehab [facility] Dyspnea Scale: Grade Description of Breathlessness 0 I only get breathless with strenuous exercise. 1 I get short of breath when hurrying on level ground or walking up a slight hill. 2 On level ground, I walk slower than people of the same age because of breathlessness, or have to stop for breath when walking at my own pace. 3 I stop for breath after walking about 100 yards or after a few minutes on level ground. 4 I am too breathless to leave the house or I am breathless when dressing. PastMedical History Past Medical History: Diagnosis Date Allergic rhinitis Asthma Balanced chromosomal translocation COVID 02/2020 COVID 05/29/2022 DM (diabetes mellitus), type 2 (HCC) Gastroparesis Hyperlipidemia Hypertension Sleep apnea needs new cpap Past Surgical History Past Surgical History: Procedure Laterality Date CHOLECYSTECTOMY 08/14/2021 COLONOSCOPY COLONOSCOPY MYRINGOTOMY AND TYMPANOSTOMY TUBE PLACEMENT (HISTORICAL) Bilateral NASAL POLYP SURGERY DVT SEPTOPLASTY SKIN BIOPSY scalp- benign TONSILLECTOMY (HISTORICAL) Allergies Allergies Allergen Reactions Mustard Seed Anaphylaxis Penicillins Hives Medications Current Outpatient Medications: albuterol 0.63 MG/3ML nebulizer solution, Take 0.63 mg by nebulization every 6 hours as needed for wheezing., Disp: , Rfl: albuterol 108 (90 Base) MCG/ACT inhaler, Inhale 2 puffs every 6 hours as needed., Disp: , Rfl: amLODIPine (Norvasc) 10 MG tablet, Take 1 tablet (10 mg) by mouth every morning., Disp: 90 tablet, Rfl: 1 atorvastatin (Lipitor) 20 MG tablet, Take 1 tablet (20 mg) by mouth Nightly., Disp: 90 tablet, Rfl:1 benzoyl peroxide 5 % external wash, Apply topically to cleanse the skin once per day. Rinse well after cleansing., Disp: , Rfl: carvedilol (Coreg) 12.5 MG tablet, Take 1 tablet (12.5 mg) by mouth in the morning and 1 tablet (12.5 mg) in the evening. Take with meals., Disp: 60 tablet, Rfl: 11 chlorthalidone (Hygroton) 25 MG tablet, Take 1 tablet (25 mg) by mouth daily., Disp: 30 tablet, Rfl: 11 co-enzyme Q-10 30 MG capsule, Take 30 mg by mouth daily., Disp: , Rfl: escitalopram (Lexapro) 10 MG tablet, Take 1 tablet (10 mg) by mouth daily., Disp: 30 tablet, Rfl: 5 Glucose Blood (Blood Glucose Test) strip, Test 3 x times a day & as needed for symptoms of irregular blood glucose. Dispense sufficient amount for indicated testing frequency plus additional to accommodate PRN testing needs., Disp: , Rfl: Januvia 50 MG tablet, Take 1 tablet (50 mg) by mouth daily., Disp: 90 tablet, Rfl: 1 KRILL OIL PO, Take by mouth., Disp: , Rfl: lisinopril 40 MG tablet, Take 1 tablet (40 mg) by mouth every morning., Disp: 90 tablet, Rfl: 1 loperamide (Imodium) 2 MG capsule, Take 2 mg by mouth as needed for diarrhea., Disp: , Rfl: metFORMIN (Glucophage) 850 MG tablet, TAKE 1 TABLET BY MOUTH IN THE MORNING AND 1 IN THE EVENING WITH MEALS, Disp: 180 tablet, Rfl: 0 metoclopramide (Reglan) 5 MG tablet, Take 5 mg by mouth every 8 hours as needed., Disp: , Rfl: Multiple Vitamins-Minerals (multivitamin with minerals) tablet, Take 1 tablet by mouth daily., Disp: , Rfl: ondansetron (Zofran) 4 MG tablet, Take 4 mg by mouth every 8 hours as needed., Disp: , Rfl: Probiotic Product (PROBIOTIC-10 PO), Take by mouth., Disp: , Rfl: triamcinolone (Kenalog) 0.1 % cream, Apply to affected area 1-2 times daily as needed. Avoid face and groin., Disp: 30 g, Rfl: 0 Iddtahwpvkh-Iaolkldsh-Mlddly (Trelegy Ellipta) 200-62.5-25 MCG/ACT aerosol powder , Inhale 1 puff daily., Disp: 1 each, Rfl: 2 Social History Social History Tobacco Use Smoking status: Never Smokeless tobacco: Never Substance Use Topics Alcohol use: Not Currently Alcohol/week: 2.0 standard drinks of alcohol Types: 2 Standard drinks or equivalent per week FamilyHistory Family History Problem Relation Name Age of Onset Arthritis Mother psoriatic Asthma Mother Thyroid disease Mother Diabetes Mother Hypertension Father Diabetes Father Cancer Mother's Sister skin cancer- NMSC Cancer Maternal Grandmother skin cancer NMSC Asthma Maternal Grandmother Lung disease Maternal Grandmother Heart attack Maternal Grandmother Other ([id number]) Maternal Grandfather Review of Systems Review of Systems Constitutional: Negative. HENT: Negative. Eyes: Negative. Respiratory: Positive for cough (IMPROVED COUGH LITTLE MUCUS), chest tightness and shortness of breath. Cardiovascular: Positive for chest pain. Gastrointestinal: Negative. Endocrine: Negative. Genitourinary: Negative. Musculoskeletal: Negative. Skin: Negative. Allergic/Immunologic: Negative. Neurological: Negative. Hematological: Negative. Psychiatric/Behavioral: Negative. All other systems reviewed and are negative. Physical Exam Vitals: 10/17/22 1204 BP: 122/82 Pulse: 74 Temp: 36.6 C (97.8 F) TempSrc: Temporal SpO2: 94% Weight: (!) 311 lb 6.4 oz (141 kg) Height: 6' 2 (1.88 m) Physical Exam Vitals reviewed. Constitutional: General: He is not in acute distress. Appearance: He is obese. He is not ill-appearing, toxic-appearing or diaphoretic. HENT: Head: Normocephalic and atraumatic. Nose: No congestion or rhinorrhea. Mouth/Throat: Pharynx: No oropharyngeal exudate or posterior oropharyngeal erythema. Eyes: Extraocular Movements: Extraocular movements intact. Conjunctiva/sclera: Conjunctivae normal. Pupils: Pupils are equal, round, and reactive to light. Cardiovascular: Rate and Rhythm: Normal rate and regular rhythm. Pulses: Normal pulses. Heart sounds: Normal heart sounds. No murmur heard. No friction rub. No gallop. Pulmonary: Effort: No respiratory distress. Breath sounds: No stridor. Wheezing and rhonchi present. No rales. Chest: Chest wall: No tenderness. Abdominal: General: Bowel sounds are normal. Palpations: Abdomen is soft. Musculoskeletal: Right lower leg: No edema. Left lower leg: No edema. Neurological: Mental Status: He is alert. Psychiatric: Mood and Affect: Mood normal. Behavior: Behavior normal. Thought Content: Thought content normal. Judgment: Judgment normal. Data Reviewed and Summarized LABS and Studies: Available studies were personally reviewed. Salient findings summarized in HPI & A/P Imaging: Available studies were personally reviewed. Salient findings summarized in HPI & A/P Patient had a CT angiogram of the chest done on 25 July 2022 which did not show any evidence of pulmonary embolism, there were not significant intrapulmonary changes noted PFT's: Pulmonary Functions Testing Results: Done on 20 Aug 2022 interpreted by me FEV1/FVC ratio is normal FEV1 is 71% predicted without bronchodilator response. FVC is 72% predicted. Diffusion capacity is 81% predicted. Total lung capacity isreduced at 71% predicted suggesting mild restrictive defect. Assessment and Plan 1. Shortness of breath Prescription for Trelegy sent to the pharmacy Continue with pulmonary rehab 2. Moderate persistent asthma without complication As above 3. CATHY (obstructive sleep apnea) Encourage patient to use AutoPap 4. Morbid obesity with body mass index (BMI) of 40.0 to 44.9 in adult (HCC) Counseled on weight loss 5. Essential hypertension Stable blood pressure Young Robbins MD Pulmonary, Critical Care, & Sleep Medicine Portions of the information within this encounter were entered using an electronic dictation system. Best attempts were made to edit/proofread the information prior to note completion. Despite the review of information, some errors may remain. If there are questions related to the information contained within the note please contact the documented in this [facility]07-20-2023 Instructions* Patient Instructions* Yany Villareal - 10/17/2022 12:15 PM EDT YOUR APPOINTMENT TODAY WAS WITH THE [facility], COPD CLINIC, PULMONARY AND SLEEP MEDICINE OFFICE. PLEASE CALL OUR OFFICE AT [phone] for our [place] office location or [phone] for our [place] location, IF YOU HAVE NOT RECEIVED YOUR TEST RESULTS 7 DAYS AFTER TESTING IS COMPLETED. PLEASE REMEMBER TO REQUEST REFILLS AT YOUR OFFICE VISITS. PHONE/FAX REQUESTS REQUIRE 48-72 HOURS FOR RESPONSE. A FRIENDLY REMINDER COPAYS ARE DUE AT TIME OF SERVICE. THANK YOU. Our Patients Are Important! We want to improve and you can help. After your visit we want you to feel: Listened to, Respected and have your health care explained. You may receive a survey asking you about your visit. Please complete the survey. We will use your feedback to make improvements. COVID-19 VACCINATION INFORMATION: PH. [phone] [email or web address] [facility] Central Scheduling [phone] [facility] Sleep Scheduling [phone] documented in this [facility]07-17-2023 Evaluation + Plan note* Assessment & Plan Note - ZARIA Awad CNP - 10/14/2022 4:38 PM EDTAssociated Problem(s): Palpitations Event monitor with SR and no concerning arrhythmias. -No further work-up currently needed [place] [id number] Miscellaneous Notes* Assessment & Plan Note - ZARIA Awad CNP - 10/14/2022 4:38 PM EDTAssociated Problem(s): Palpitations Event monitor with SR and no concerning arrhythmias. -No further work-up currently needed * Assessment & Plan Note - ZARIA Awad CNP - 10/14/2022 4:36 PM EDTAssociated Problem(s): Essential hypertension Controlled. - continue Coreg, amlodipine, chlorthalidone, lisinopril documented in this [facility]07-17-2023 Evaluation + Plan note* Assessment & Plan Note - ZARIA Awad CNP - 10/14/2022 4:36 PM EDTAssociated Problem(s): Essential hypertension Controlled. - continue Coreg, amlodipine, chlorthalidone, lisinopril [place] [id number] History of Present illness Narrative* Eb Correa APRN - SAFETY ADMINISTRATOR - 10/14/2022 3:00 PM EDT Images from the original note were not included. [facility] [address] [place] [address] [address] [facility] [id number] Dept: [phone] Dept Visit type: Established : 1985 Reason for Visit: Hypertension Assessment and Plan 1. Essential hypertension Assessment & Plan: Controlled. - continue Coreg, amlodipine, chlorthalidone, lisinopril 2. Palpitations Assessment & Plan: Event monitor with SR and no concerning arrhythmias. -No further work-up currently needed Follow up in about 6 months (around 04/16/2023). Subjective Hx HTN, DM2, HLD, asthma, gastroparesis. He had COVID earlier this year with multiple symptoms including shortness of breath, palpitations and chest pain. Stress echo was negative for ischemia. He was evaluated by pulmonology and sent to pulmonary rehab. He was last seen by Dr. Villar approximately 2 weeks ago in follow-up and his blood pressure was extremely elevated. She changed his Toprol to carvedilol and added chlorthalidone. Follow-up lab work was stable. He had an event monitor which showed sinus rhythm with no concerning arrhythmias. He presents today for follow-up of his blood pressure. Today, his blood pressure is improved. He still has occasional headaches. His headaches do not correlate with his high blood pressure. His shortness of breath, chest pain and palpitations are improving. Evin Cardoza Review of Systems Constitutional: Positive for fatigue (chronic). Negative for activity change, chills, diaphoresis and fever. HENT: Negative for nosebleeds and trouble swallowing. Eyes: Negative for visual disturbance. Respiratory: Positive for apnea (CPAP) and shortness of breath (continues to improve with pulmonaryrehab). Negative for cough, chest tightness and wheezing. Cardiovascular: Positive for chest pain (improved) and palpitations (every couple days, pounding, improved). Negative for leg swelling. Gastrointestinal: Positive for nausea. Negative for abdominal distention, abdominal pain, blood in stool, diarrhea and vomiting. Genitourinary: Negative for hematuria. Musculoskeletal: Negative for gait problem and myalgias. Skin: Negative for color change and rash. Neurological: Positive for dizziness (sometimes) and headaches (occasional, not always related to high BP, also has lightsensitivity). Negative for syncope, weakness and light-headedness. Hematological: Does not bruise/bleed easily. Psychiatric/Behavioral: Negative for dysphoric mood. Allergies Allergen Reactions Mustard Seed Anaphylaxis Penicillins Hives Outpatient Medications Prior to Visit Medication Sig Dispense Refill albuterol 0.63 MG/3ML nebulizer solution Take 0.63 mg by nebulization every 6 hours as needed for wheezing. albuterol 108 (90 Base) MCG/ACT inhaler Inhale 2 puffs every 6 hours as needed. amLODIPine (Norvasc) 10 MG tablet Take 1 tablet (10 mg) by mouth every morning. 90 tablet 1 atorvastatin (Lipitor) 20 MG tablet Take 1 tablet (20 mg) by mouth Nightly. 90 tablet 1 benzoyl peroxide 5 % external wash Apply topically to cleanse the skin once per day. Rinse well after cleansing. carvedilol (Coreg) 12.5 MG tablet Take 1 tablet (12.5 mg) by mouth in the morning and 1 tablet (12.5 mg) in the evening. Take with meals. 60 tablet 11 chlorthalidone (Hygroton) 25 MG tablet Take 1 tablet (25 mg) by mouth daily. 30 tablet 11 co-enzyme Q-10 30 MG capsule Take 30 mg by mouth daily. escitalopram (Lexapro) 10 MG tablet Take 1 tablet (10 mg) by mouth daily. 30 tablet 5 Gyllyierwfk-Eneqgpyjp-Przpad (Trelegy Ellipta) 200-62.5-25 MCG/ACT aerosol powder Inhale 1 puff daily. 1 each 0 Glucose Blood (Blood Glucose Test) strip Test 3 x times a day & as needed for symptoms of irregular blood glucose. Dispense sufficient amount for indicated testing frequency plus additional to accommodate PRN testing needs. Januvia 50 MG tablet Take 1 tablet (50 mg) by mouth daily. 90 tablet 1 KRILL OIL PO Take by mouth. lisinopril 40 MG tablet Take 1 tablet (40 mg) by mouth every morning. 90 tablet 1 loperamide (Imodium) 2 MG capsule Take 2 mg by mouth as needed for diarrhea. metFORMIN (Glucophage) 850 MG tablet TAKE 1 TABLET BY MOUTH IN THE MORNING AND 1 IN THE EVENING WITH MEALS 180 tablet 0 metoclopramide (Reglan) 5 MG tablet Take 5 mg by mouth every 8 hours as needed. Multiple Vitamins-Minerals (multivitamin with minerals) tablet Take 1 tablet by mouth daily. ondansetron (Zofran) 4 MG tablet Take 4 mg by mouth every 8 hours as needed. Probiotic Product (PROBIOTIC-10 PO) Take by mouth. triamcinolone (Kenalog) 0.1 % cream Apply to affected area 1-2 times daily as needed. Avoid face and groin. 30 g 0 No facility-administered medications prior to visit. Past Medical History: Diagnosis Date Allergic rhinitis Asthma Balanced chromosomal translocation COVID 02/2020 COVID 05/29/2022 DM (diabetes mellitus), type 2 (HCC) Gastroparesis Hyperlipidemia Hypertension Sleep apnea needs new cpap Social History Tobacco Use Smoking status: Never Smokeless tobacco: Never Substance Use Topics Alcohol use: Not Currently Alcohol/week: 2.0 standard drinks of alcohol Types: 2 Standard drinks or equivalent per week Past Surgical History: Procedure Laterality Date CHOLECYSTECTOMY 08/14/2021 COLONOSCOPY COLONOSCOPY MYRINGOTOMY AND TYMPANOSTOMY TUBE PLACEMENT (HISTORICAL) Bilateral NASAL POLYP SURGERY DVT SEPTOPLASTY SKIN BIOPSY scalp- benign TONSILLECTOMY (HISTORICAL) Family History Problem Relation Name Age of Onset Arthritis Mother psoriatic Asthma Mother Thyroid disease Mother Diabetes Mother Hypertension Father Diabetes Father Cancer Mother's Sister skin cancer- NMSC Cancer Maternal Grandmother skin cancer NMSC Asthma Maternal Grandmother Lung disease Maternal Grandmother Heart attack Maternal Grandmother Other ([id number]) Maternal Grandfather Objective Vitals: 10/14/22 1504 BP: 116/82 BP Location: Left arm Patient Position: Sitting BP Cuff Size: Large adult Pulse: 90 SpO2: 98% Weight: (!) 315 lb 3.2 oz (143 kg) Height: 6' 2 (1.88 m) Physical Exam Constitutional: Appearance: Normal appearance. He is obese. HENT: Head: Normocephalic. Mouth/Throat: Pharynx: No oropharyngeal exudate. Eyes: General: No scleral icterus. Right eye: No discharge. Left eye: No discharge. Neck: Vascular: No carotid bruit, hepatojugular reflux or JVD. Cardiovascular: Rate and Rhythm: Normal rate and regular rhythm. Pulses: Normal pulses. Heart sounds: Normal heart sounds. No murmur heard. No gallop. Pulmonary: Effort: No respiratory distress. Abdominal: General: There is no distension. Tenderness: There is no abdominal tenderness. Musculoskeletal: General: Normal range of motion. Cervical back: Normal range of motion. Right lower leg: No edema. Left lower leg: No edema. Skin: General: Skin is warm and dry. Neurological: Mental Status: He is alert and oriented to person, place, and time. Data Reviewed and Summarized No results found for: EFBP, PLVEF, LVEFPHYS, LVEF2D, EF Review of tests/labs done/ordered within my specialty: Review of tests/labs done/ordered outside my specialty: Independent interpretation of tests: ZARIA Awad CNP documented in this encounterSOhioHealth [facility] [id number] Telephone encounter Note* Telephone Encounter - Arti Mnedosa RN - 10/03/2022 11:29 AM EDT I called and spoke to Evin relaying note from Dr Villar. He reports BP when he woke up this AM [id number], but after he took his morning medications (with the newly added chlorthalidone and carvedilol), about an hour, hour and a half later his BP came down to 145/88. Symptom-villatoro he reports a mildheadache that has been lingering since middle of the night. Otherwise doing well. He knows to call if he gets elevated BP reading despite being on BP meds. He will keep appt with GAEL Padilla on 10/14/22 and get labs drawn that day as well. He was thankful for the call/checking in. [facility] [id number] Miscellaneous Notes* Telephone Encounter - Arti Mendosa RN - 10/03/2022 11:29 AM EDT I called and spoke to Evin relayjose note from Dr Villar. He reports BP when he woke up this AM [id number], but after he took his morning medications (with the newly added chlorthalidone and carvedilol), about an hour, hour and a half later his BP came down to 145/88. Symptom-villatoro he reports a mildheadache that has been lingering since middle of the night. Otherwise doing well. He knows to call if he gets elevated BP reading despite being on BP meds. He will keep appt with GAEL Padilla on 10/14/22 and get labs drawn that day as well. He was thankful for the call/checking in. * Telephone Encounter - Arti Mendosa RN - 10/03/2022 11:24 AM EDT ----- Message from Carlos Villar MD sent at 10/03/2022 8:55 AM EDT ----- Please let him know that his Cr and K are good. Please followup on him and see how his BP is doing today after adding chorthalidone and swtiching to coreg. He will need repeat BMP in 2 weeks. Probably can get that when he goes to see DEISY at next appointment. documented in this encounterSOhioHealth Shelby [id number] Telephone encounter Note* Telephone Encounter - Arti Mendosa RN - 10/03/2022 11:24 AM EDT ----- Message from Carlos Villar MD sent at 10/03/2022 8:55 AM EDT ----- Please let him know that his Cr and K are good. Please followup on him and see how his BP is doing today after adding chorthalidone and swtiching to coreg. He will need repeat BMP in 2 weeks. Probably can get that when he goes to see DEISY at next appointment. [facility] [id number] History of Present illness Narrative* Carlos Villar MD - 10/02/2022 3:00 PM EDT [facility] Cardiology [facility] [address] [place] [address] [address] [facility] [address] Dept: [phone] Dept Loc: [phone] Visit type: New : 1985 Chief Complaint: Chief Complaint Patient presents with 3 Month Follow Up Shortness of Breath Hypertension History of Present Illness: Evin Cardoza is a 37 y.o. male with a hx of hypertension, DM II, HL, asthma, gastroparesis. Post COVID he was having muiltiple symptoms- sob, palpitations and chest pain. He had a stress echo whichwas negative for ischemia. He has seen pulmonary since I last saw him. He is also in pulm rehab. Notes his symptoms are much improved. He really feels that his breathing is coming back to his baseline, not there yet though. He denies chest pain,orthopnea or pnd. A lot of stressors at home for the past few weeks . BP has been runnin high since couple of weeks. At pulm rehab last week his BP went upto 200/100 and then down to 160s systolic. He is currently on toprol XL 50 mg daily, lisinopril 40 mg po daily, amlodipine 10 mg po daily. I will siwtch him to coreg 12.5 mg BID and add chorthalidone with baseline BMP. Today in the office his BP initially was 200/100, rechecked nearly an hour later it was 180/90. He is pretty asymptomatic with it. No severe head ache or weakness or chest pain. Past Medical History: Past Medical History: Diagnosis Date Allergic rhinitis Asthma Balanced chromosomal translocation COVID 02/2020 COVID 05/29/2022 DM (diabetes mellitus), type 2 (HCC) Gastroparesis Hyperlipidemia Hypertension Sleep apnea needs new cpap Past Surgical History Past Surgical History: Procedure Laterality Date CHOLECYSTECTOMY 08/14/2021 COLONOSCOPY COLONOSCOPY MYRINGOTOMY AND TYMPANOSTOMY TUBE PLACEMENT (HISTORICAL) Bilateral NASAL POLYP SURGERY DVT SEPTOPLASTY SKIN BIOPSY scalp- benign TONSILLECTOMY (HISTORICAL) Family History Family History Problem Relation Name Age of Onset Arthritis Mother psoriatic Asthma Mother Thyroid disease Mother Diabetes Mother Hypertension Father Diabetes Father Cancer Mother's Sister skin cancer- NMSC Cancer Maternal Grandmother skin cancer NMSC Asthma Maternal Grandmother Lung disease Maternal Grandmother Heart attack Maternal Grandmother Other ([id number]) Maternal Grandfather Social History Social History Tobacco Use Smoking status: Never Smokeless tobacco: Never Vaping Use Vaping Use: Never used Substance Use Topics Alcohol use: Not Currently Alcohol/week: 2.0 standard drinks of alcohol Types: 2 Standard drinks or equivalent per week Drug use: Never Comment: Caffeine: maybe 1 soda/week Allergies: Allergies Allergen Reactions Mustard Seed Anaphylaxis Penicillins Hives Medications: Current Outpatient Medications: albuterol 0.63 MG/3ML nebulizer solution, Take 0.63 mg by nebulization every 6 hours as needed for wheezing., Disp: , Rfl: albuterol 108 (90 Base) MCG/ACT inhaler, Inhale 2 puffs every 6 hours as needed., Disp: , Rfl: amLODIPine (Norvasc) 10 MG tablet, Take 1 tablet (10 mg) by mouth every morning., Disp: 90 tablet, Rfl: 1 atorvastatin (Lipitor) 20 MG tablet, Take 1 tablet (20 mg) by mouth Nightly., Disp: 90 tablet, Rfl:1 benzoyl peroxide 5 % external wash, Apply topically to cleanse the skin once per day. Rinse well after cleansing., Disp: , Rfl: co-enzyme Q-10 30 MG capsule, Take 30 mg by mouth daily., Disp: , Rfl: escitalopram (Lexapro) 10 MG tablet, Take 1 tablet (10 mg) by mouth daily., Disp: 30 tablet, Rfl: 5 Oeezufwauvp-Viplkieyd-Guekdj (Trelegy Ellipta) 200-62.5-25 MCG/ACT aerosol powder , Inhale 1 puff daily., Disp: 1 each, Rfl: 0 Glucose Blood (Blood Glucose Test) strip, Test 3 x times a day & as needed for symptoms of irregular blood glucose. Dispense sufficient amount for indicated testing frequency plus additional to accommodate PRN testing needs., Disp: , Rfl: Januvia 50 MG tablet, Take 1 tablet (50 mg) by mouth daily., Disp: 90 tablet, Rfl: 1 KRILL OIL PO, Take by mouth., Disp: , Rfl: lisinopril 40 MG tablet, Take 1 tablet (40 mg) by mouth every morning., Disp: 90 tablet, Rfl: 1 loperamide (Imodium) 2 MG capsule, Take 2 mg by mouth as needed for diarrhea., Disp: , Rfl: metFORMIN (Glucophage) 850 MG tablet, TAKE 1 TABLET BY MOUTH IN THE MORNING AND 1 IN THE EVENING WITH MEALS, Disp: 180 tablet, Rfl: 0 metoclopramide (Reglan) 5 MG tablet, Take 5 mg by mouth every 8 hours as needed., Disp: , Rfl: Multiple Vitamins-Minerals (multivitamin with minerals) tablet, Take 1 tablet by mouth daily., Disp: , Rfl: ondansetron (Zofran) 4 MG tablet, Take 4 mg by mouth every 8 hours as needed., Disp: , Rfl: Probiotic Product (PROBIOTIC-10 PO), Take by mouth., Disp: , Rfl: triamcinolone (Kenalog) 0.1 % cream, Apply to affected area 1-2 times daily as needed. Avoid face and groin., Disp: 30 g, Rfl: 0 carvedilol (Coreg) 12.5 MG tablet, Take 1 tablet (12.5 mg) by mouth in the morning and 1 tablet (12.5 mg) in the evening. Take with meals., Disp: 60 tablet, Rfl: 11 chlorthalidone (Hygroton) 25 MG tablet, Take 1 tablet (25 mg) by mouth daily., Disp: 30 tablet, Rfl: 11 Xxthwjjkcjv-Adewspalk-Rbtvfg (Trelegy Ellipta) 100-62.5-25 MCG/ACT aerosol powder , Inhale 1 puff daily. (Patient taking differently: Inhale 1 puff daily. Next dosage up), Disp: 1 each, Rfl: 0 Review of Systems: Review of Systems Constitutional: Positive for fatigue (better). Negative for activity change, chills, diaphoresis and fever. HENT: Negative for nosebleeds and trouble swallowing. Eyes: Negative for discharge and visual disturbance. Respiratory: Positive for apnea (CPAP), chest tightness (better) and shortness of breath (Better). Negative for cough (since COVID; pretty constant) and wheezing (since COVID). Cardiovascular: Positive for chest pain (better) and palpitations (every couple days). Negative forleg swelling. Gastrointestinal: Positive for nausea. Negative for abdominal distention, abdominal pain, blood in stool, diarrhea and vomiting. Endocrine: Negative for cold intolerance and heat intolerance. Genitourinary: Negative for hematuria. Musculoskeletal: Negative for gait problem and myalgias. Skin: Negative for color change and rash. Neurological: Positive for dizziness (sometimes) and headaches (occasional). Negative for seizures,syncope, facial asymmetry, speech difficulty, weakness, light-headedness and numbness. Hematological: Does not bruise/bleed easily. Psychiatric/Behavioral: Negative for dysphoric mood. Physical Examination: Vitals: Vitals: 10/02/22 1451 10/02/22 1456 BP: (!) 210/100 (!) 210/100 BP Location: Right arm Right arm Patient Position: Sitting Sitting BP Cuff Size: Adult Adult Pulse: 72 Resp: 16 Weight: (!) 314 lb (142 kg) Height: 6' 2 (1.88 m) Body mass index is 40.32 kg/m . Physical Exam Constitutional: Appearance: Normal appearance. He is obese. HENT: Head: Normocephalic. Mouth/Throat: Pharynx: No oropharyngeal exudate. Eyes: General: No scleral icterus. Right eye: No discharge. Left eye: No discharge. Neck: Vascular: No JVD. Cardiovascular: Rate and Rhythm: Normal rate and regular rhythm. Heart sounds: No murmur heard. No gallop. Pulmonary: Effort: No respiratory distress. Abdominal: General: There is no distension. Tenderness: There is no abdominal tenderness. Musculoskeletal: General: Normal range of motion. Cervical back: Normal range of motion. Right lower leg: No edema. Left lower leg: No edema. Skin: General: Skin is warm and dry. Neurological: Mental Status: He is alert and oriented to person, place, and time. Laboratory Tests: Lab Results Component Value Date WBC 7.4 08/21/2022 HGB 14.3 08/21/2022 HCT 42.6 08/21/2022 MCV 87.2 08/21/2022 PLT 191 08/21/2022 Lab Results Component Value Date GLUCOSE 115 (H) 08/21/2022 CALCIUM 8.5 08/21/2022 NA 135 08/21/2022 K 3.7 08/21/2022 CO2 26 08/21/2022 CL 105 08/21/2022 BUN 11 08/21/2022 CREATININE 0.64 (L) 08/21/2022 [facility] Lab Results Component Value Date CHOL 123 08/20/2022 CHOL 159 07/14/2021 CHOL 241 (A) 08/21/2020 Lab Results Component Value Date TRIG 103 08/20/2022 TRIG 128 07/14/2021 TRIG 151 (A) 08/21/2020 Lab Results Component Value Date HDL 42 08/20/2022 HDL 59 07/14/2021 HDL 57 08/21/2020 Lab Results Component Value Date LDLCALC 60 08/20/2022 NT PRO BNP Date Value Ref Range Status 08/21/2022 32 <20 - 100 pg/mL Final Cardiac Tests: ECG: NSR no ischemic changes. Last Echo 01/04/2022: SUMMARY: 1. Left ventricle: Average LV global longitudinal strain is -21. There is mild concentric hypertrophy. Systolic function is hyperdynamic. The estimated ejection fraction is 65-70%. 2. Aortic valve: The mean systolic gradient is 7 mm Hg. The peak systolic gradient is 11 mm Hg. The valve area index by the velocity-time integral method is 1 cm^2/m^2. Last Stress Echo 08/08/2022: Study Impression: Normal stress echocardiogram. No echocardiographic evidence of ischemia. Post-stress Echo: The post-stress echo showed no new wall motion abnormalities. Left Ventricle: Left ventricle size is normal. Mildly increased wall thickness. Normal left ventricular systolic function. The EF by visual approximation is 55%. Normal wall motion. Right Ventricle: Right ventricle size is normal. Normal systolic function. Stress ECG: Conclusion: The stress test had minor ST changes of no clinical significance. The stress test is normal. Stress Test: A Niko protocol stress test was performed. Overall, the patient's exercise capacity was average for their age. The patient exercised for 6 min and 34 sec. The patient experienced no angina during the test. Hemodynamics are adequate for diagnosis. Blood pressure demonstrated a normal response and heart rate demonstrated a normal response to stress. The patient reported fatigue and nochest pain during the stress test. Last Event Monitor: Assessment and Plan: Dyspnea on Exertion 2. Chest Pain 3. Palpitations (event monitor pending) Chronic symptoms,Much improved, saw pulmonary Dr Vidal - moderate asthma/inahler dose increase also in pulm rehab. Symptoms like pulmonary in etiology. Stress echo normal. 3. HTN Uncontrolled. A lot of stressors in life currently that maybe trigfering it. He is currently on toprol XL 50 mg daily, lisinopril 40 mg po daily, amlodipine 10 mg po daily. I will siwtch him to coreg 12.5 mg BID and add chorthalidone with baseline BMP. Today in the office his BP initially was 210/100, rechecked nearly an hour later it was 180/90. He is pretty asymptomatic with it. No acute symptoms of severe head ache or weakness or chest pain. Instruction were given to patient that if Any acute symptoms or despite medications SBP>200 [facility]. RTC in 1-2 weeks to re-evaluate BP. documented in this encounterSOhioHealth Shelby [id number] Evaluation + Plan note* Assessment & Plan Note - Enedina Truong PA-C - 09/26/2022 8:15 AM EDTAssociated Problem(s): Anxiety - Previously started on Lexapro 10 mg daily patient reports markedly feeling better mood seem to bebetter and he appears to be stable at this point time would prefer to continue staying on this medication at this time. [id number] Evaluation + Plan note* Assessment & Plan Note - Enedina Truong PA-C - 09/26/2022 8:15 AM EDTAssociated Problem(s): Type 2 diabetes mellitus without complication, without long-term current useof insulin ([facility]) - Previous A1c was 5.9 patient reports daily sugars 120-130 appears to be stable and well-controlled at this point time we will repeat A1c today and continue to monitor. [facility]mt[facility]21 Miscellaneous Notes* Assessment & Plan Note - Enedina Truong PA-C - 09/26/2022 8:15 AM EDTAssociated Problem(s): Anxiety - Previously started on Lexapro 10 mg daily patient reports markedly feeling better mood seem to bebetter and he appears to be stable at this point time would prefer to continue staying on this medication at this time. * Assessment & Plan Note - Enedina Truong PA-C - 09/26/2022 8:15 AM EDTAssociated Problem(s): Type 2 diabetes mellitus without complication, without long-term current useof insulin (CMS/HCC) (HCC) - Previous A1c was 5.9 patient reports daily sugars 120-130 appears to be stable and well-controlled at this point time we will repeat A1c today and continue to monitor. documented in this [facility]06-29-2023 History of Present illness Narrative* Enedina Truong PA-C - 09/26/2022 8:00 AM EDT Images from the original note were not included. [address] [address] Dept: [phone] Dept Loc: [phone] Visit type: Established Patient Reason for Visit: Follow-up (4 wk ) Assessment and Plan 1. Dermatitis Comments: Acute inflammatory dermatitis status post wearing a Holter monitor no signs of acute infection we will use trial steroid cream. Orders: - triamcinolone (Kenalog) 0.1 % cream; Apply to affected area 1-2 times daily as needed. Avoid faceand groin., Normal 2. Anxiety Comments: Acute and situational based on current events requesting medication we will do trial of Lexapro andfollow-up in 4 weeks. Assessment & Plan: - Previously started on Lexapro 10 mg daily patient reports markedly feeling better mood seem to bebetter and he appears to be stable at this point time would prefer to continue staying on this medication at this time. Orders: - escitalopram (Lexapro) 10 MG tablet; Take 1 tablet (10 mg) by mouth daily., Starting [place] 09/26/2022, Until Fri2023, Normal 3. Type 2 diabetes mellitus without complication, without long-term current use of insulin ([facility] ([facility]) Assessment & Plan: - Previous A1c was 5.9 patient reports daily sugars 120-130 appears to be stable and well-controlled at this point time we will repeat A1c today and continue to monitor. -Patient appears much better at this point time he appears much better spirits and does not appear to be in any acute distress. Medicine seem to be working for him and he does report that he is feeling much better after starting pulmonary rehab we will continue to do that through the middle of nextmonth. - Encouraged to report any new symptoms encourage watch his diet. We did discuss his diabetes he states he is trying to monitor as best as he can his sugars when he checks them periodically are 120-130. We will continue to monitor the patient and he is to report any new symptoms. But at this point time he states he is feels like he is doing markedly much better and appears much better at this time. Follow up follow up 3-6 months., for DM f/u. Subjective HPI this is a 37-year-old male with underlying history of hypertension DM 2, and hyperlipidemia with recent COVID infection in May of this year who also suffers from obesity who is had a rough yearin dealing with chest pain elevated blood pressure as well as shortness of breath that have all been persistent and ongoing. He is continue to follow-up with pulmonology as a suspect there is an underlying asthma component. He states all of these medical conditions of cause underlying anxiety he states that this is causing him difficulty coping and functioning on a daily basis for these reasons we discussed this and he request to be placed on medications. 4 weeks ago he was placed on Lexapro hereturns to the office today to discuss how he is doing on the medication. And then discussed any other acute concerns with blood pressure and shortness of breath. Patient feeling much better at this time doing pulm rehab at 3x a week. SOB is improving able to dosteps much more freely. Lexapro working well and trelegy was increased. Still not tolerating CPAP as well but doing a little better, still off work currently, until rehab is finished, which should bein September. Sugars been running 120-130, more in the evening. Dental and Eye exam have been years. 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 He also mentioned that he had a rash that developed on his chest he has been involved with cardiology they had him wearing a Holter monitor he states he is worn it most time for 3 weeks but he developed a rash where they shaved his chest hair as well as the adhesives on his left side of his chest he was concerned about that it just became more pruritic in the last few days he denies any associated fever chills it was just tearing in his skin with the adhesive. Review of Systems Constitutional: Negative for chills and fever. HENT: Negative for congestion and sore throat. Respiratory: Negative for cough and shortness of breath (continued but improving.). Cardiovascular: Negative for chest pain. Gastrointestinal: Negative for abdominal pain, diarrhea, nausea and vomiting. Genitourinary: Negative for difficulty urinating. Musculoskeletal: Negative for back pain and neck pain. Skin: Positive for rash. Neurological: Negative for dizziness and light-headedness. Psychiatric/Behavioral: The patient is nervous/anxious (improving with lexapro). All other systems reviewed and are negative. Allergies Allergen Reactions Mustard Seed Anaphylaxis Penicillins Hives Outpatient Medications Prior to Visit Medication Sig Dispense Refill albuterol 0.63 MG/3ML nebulizer solution Take 0.63 mg by nebulization every 6 hours as needed for wheezing. albuterol 108 (90 Base) MCG/ACT inhaler Inhale 2 puffs every 6 hours as needed. amLODIPine (Norvasc) 10 MG tablet Take 1 tablet (10 mg) by mouth every morning. 90 tablet 1 atorvastatin (Lipitor) 20 MG tablet Take 1 tablet (20 mg) by mouth Nightly. 90 tablet 1 benzoyl peroxide 5 % external wash Apply topically to cleanse the skin once per day. Rinse well after cleansing. co-enzyme Q-10 30 MG capsule Take 30 mg by mouth daily. Dhmgmpgfppo-Sjcntligj-Kvryyo (Trelegy Ellipta) 100-62.5-25 MCG/ACT aerosol powder Inhale 1 puff daily. (Patient taking differently: Inhale 1 puff daily. Next dosage up) 1 each 0 Januvia 50 MG tablet Take 1 tablet (50 mg) by mouth daily. 90 tablet 1 KRILL OIL PO Take by mouth. lisinopril 40 MG tablet Take 1 tablet (40 mg) by mouth every morning. 90 tablet 1 loperamide (Imodium) 2 MG capsule Take 2 mg by mouth as needed for diarrhea. metFORMIN (Glucophage) 850 MG tablet TAKE 1 TABLET BY MOUTH IN THE MORNING AND 1 IN THE EVENING WITH MEALS 180 tablet 0 metoclopramide (Reglan) 5 MG tablet Take 5 mg by mouth every 8 hours as needed. metoprolol succinate XL (Toprol-XL) 50 MG 24 hr tablet Take 1 tablet (50 mg) by mouth every morning. 90 tablet 0 Multiple Vitamins-Minerals (multivitamin with minerals) tablet Take 1 tablet by mouth daily. ondansetron (Zofran) 4 MG tablet Take 4 mg by mouth every 8 hours as needed. Probiotic Product (PROBIOTIC-10 PO) Take by mouth. escitalopram (Lexapro) 10 MG tablet Take 1 tablet (10 mg) by mouth daily. 30 tablet 1 Glucose Blood (Blood Glucose Test) strip Test 3 x times a day & as needed for symptoms of irregular blood glucose. Dispense sufficient amount for indicated testing frequency plus additional to accommodate PRN testing needs. No facility-administered medications prior to visit. Past Medical History: Diagnosis Date Allergic rhinitis Asthma Balanced chromosomal translocation COVID 02/2020 COVID 05/29/2022 DM (diabetes mellitus), type 2 (HCC) Gastroparesis Hyperlipidemia Hypertension Sleep apnea needs new cpap Social History Tobacco Use Smoking status: Never Smokeless tobacco: Never Substance Use Topics Alcohol use: Not Currently Alcohol/week: 2.0 standard drinks of alcohol Types: 2 Standard drinks or equivalent per week Past Surgical History: Procedure Laterality Date CHOLECYSTECTOMY 08/14/2021 COLONOSCOPY COLONOSCOPY MYRINGOTOMY AND TYMPANOSTOMY TUBE PLACEMENT (HISTORICAL) Bilateral NASAL POLYP SURGERY DVT SEPTOPLASTY SKIN BIOPSY scalp- benign TONSILLECTOMY (HISTORICAL) Family History Problem Relation Name Age of Onset Arthritis Mother psoriatic Asthma Mother Thyroid disease Mother Diabetes Mother Hypertension Father Diabetes Father Cancer Mother's Sister skin cancer- NMSC Cancer Maternal Grandmother skin cancer NMSC Asthma Maternal Grandmother Lung disease Maternal Grandmother Heart attack Maternal Grandmother Other ([id number]) Maternal Grandfather Objective BP 138/84 (BP Location: Left arm, Patient Position: Sitting, BP Cuff Size: Large adult) Pulse 76 Temp 36.8 C (98.2 F) (Temporal) Ht 6' 2 (1.88 m) Wt (!) 318 lb (144 kg) SpO2 97% BMI 40.83 kg/m Physical Exam Vitals reviewed. Constitutional: General: He is not in acute distress. Appearance: Normal appearance. He is not toxic-appearing. HENT: Right Ear: Tympanic membrane and ear canal normal. Left Ear: Tympanic membrane and ear canal normal. Nose: Nose normal. No congestion. Mouth/Throat: Mouth: Mucous membranes are moist. Pharynx: Oropharynx is clear. No oropharyngeal exudate or posterior oropharyngeal erythema. Eyes: General: No scleral icterus. Conjunctiva/sclera: Conjunctivae normal. Pupils: Pupils are equal, round, and reactive to light. Cardiovascular: Rate and Rhythm: Normal rate and regular rhythm. Heart sounds: Normal heart sounds. Pulmonary: Effort: Pulmonary effort is normal. No respiratory distress. Breath sounds: Normal breath sounds. No wheezing or rales. Musculoskeletal: Cervical back: Normal range of motion and neck supple. Right lower leg: No edema. Left lower leg: No edema. Skin: General: Skin is warm and dry. Findings: Rash present. Comments: There is an area of shaved hair on the left side of his chest as well as some mild local inflammation erythema to the left chest wall that appears to be more inflammatory in nature from theadhesive patches from the Holter monitor. There is no signs of cellulitis no signs of bleeding at this time or other acute abnormalities. Neurological: Mental Status: He is alert. Psychiatric: Mood and Affect: Mood normal. Data Reviewed and Summarized Labs: Imaging/Testing: Enedina Truong PA-C 09/26/2022 Please note that portions of this note may have been completed with voice recognition software. Documentation reviewed prior to signing but minor errors in engineer systems may have occurred. documented in this [facility]06-08-2023 History of Present illness Narrative* Young Robbins MD - 09/05/2022 10:15 AM EDT Images from the original note were not included. [facility]- Pulmonary and Sleep Medicine [address] [place] [address] PH: [phone] Visit type: An Established patient 09/05/2022 On this date, 09/05/22 I have spent 46 minutes reviewing previous notes, test results and face to face with the patient discussing the diagnosis and importance of compliance with the treatment plan as well as documenting on the day of the visit. CHIEF COMPLAINT/REASON FOR REFERRAL: Chief Complaint Patient presents with Asthma 2-MONTH APPT. CATHY. PFT RESULTS History of Present Illness Evin Cardoza is a 37 y.o. 1985 male with severe morbid obesity, moderately persistent asthma history of diabetes history of hyperlipidemia mild sleep apnea diagnosed on a home sleep test presents for follow-up after recent hospitalization at [facility] on 19 Aug 2022 where patient presented to the ER with complains of dyspnea on exertion chest tightness. Patient has had multiple ER visits since June 20, 2022 for shortness of breath. Patient's problem started after he had COVID-19 infection in May 2022, patient was treated with outpatient back fluid. Patient had a cardiac stress test done on June 2022 which did not show any evidence of reversible ischemia MMRC Dyspnea Scale: Grade Description of Breathlessness 0 I only get breathless with strenuous exercise. 1 I get short of breath when hurrying on level ground or walking up a slight hill. 2 On level ground, I walk slower than people of the same age because of breathlessness, or have to stop for breath when walking at my own pace. 3 I stop for breath after walking about 100 yards or after a few minutes on level ground. 4 I am too breathless to leave the house or I am breathless when dressing. PastMedical History Past Medical History: Diagnosis Date Allergic rhinitis Asthma Balanced chromosomal translocation COVID 02/2020 COVID 05/29/2022 DM (diabetes mellitus), type 2 (HCC) Gastroparesis Hyperlipidemia Hypertension Sleep apnea needs new cpap Past Surgical History Past Surgical History: Procedure Laterality Date CHOLECYSTECTOMY 08/14/2021 COLONOSCOPY COLONOSCOPY MYRINGOTOMY AND TYMPANOSTOMY TUBE PLACEMENT (HISTORICAL) Bilateral NASAL POLYP SURGERY DVT SEPTOPLASTY SKIN BIOPSY scalp- benign TONSILLECTOMY (HISTORICAL) Allergies Allergies Allergen Reactions Mustard Seed Anaphylaxis Penicillins Hives Medications Current Outpatient Medications: albuterol 0.63 MG/3ML nebulizer solution, Take 0.63 mg by nebulization every 6 hours as needed for wheezing., Disp: , Rfl: albuterol 108 (90 Base) MCG/ACT inhaler, Inhale 2 puffs every 6 hours as needed., Disp: , Rfl: amLODIPine (Norvasc) 10 MG tablet, Take 1 tablet (10 mg) by mouth every morning., Disp: 90 tablet, Rfl: 1 atorvastatin (Lipitor) 20 MG tablet, Take 1 tablet (20 mg) by mouth Nightly., Disp: 90 tablet, Rfl:1 benzoyl peroxide 5 % external wash, Apply topically to cleanse the skin once per day. Rinse well after cleansing., Disp: , Rfl: co-enzyme Q-10 30 MG capsule, Take 30 mg by mouth daily., Disp: , Rfl: escitalopram (Lexapro) 10 MG tablet, Take 1 tablet (10 mg) by mouth daily., Disp: 30 tablet, Rfl: 1 Efexadcqxuf-Fpknwkihd-Bgiubn (Trelegy Ellipta) 100-62.5-25 MCG/ACT aerosol powder , Inhale 1 puff daily., Disp: 1 each, Rfl: 0 Glucose Blood (Blood Glucose Test) strip, Test 3 x times a day & as needed for symptoms of irregular blood glucose. Dispense sufficient amount for indicated testing frequency plus additional to accommodate PRN testing needs., Disp: , Rfl: Januvia 50 MG tablet, Take 1 tablet (50 mg) by mouth daily., Disp: 90 tablet, Rfl: 1 KRILL OIL PO, Take by mouth., Disp: , Rfl: lisinopril 40 MG tablet, Take 1 tablet (40 mg) by mouth every morning., Disp: 90 tablet, Rfl: 1 loperamide (Imodium) 2 MG capsule, Take 2 mg by mouth as needed for diarrhea., Disp: , Rfl: metFORMIN (Glucophage) 850 MG tablet, TAKE 1 TABLET BY MOUTH IN THE MORNING AND 1 IN THE EVENING WITH MEALS, Disp: 180 tablet, Rfl: 0 metoclopramide (Reglan) 5 MG tablet, Take 5 mg by mouth every 8 hours as needed., Disp: , Rfl: metoprolol succinate XL (Toprol-XL) 50 MG 24 hr tablet, Take 1 tablet (50 mg) by mouth every morning., Disp: 90 tablet, Rfl: 0 Multiple Vitamins-Minerals (multivitamin with minerals) tablet, Take 1 tablet by mouth daily., Disp: , Rfl: ondansetron (Zofran) 4 MG tablet, Take 4 mg by mouth every 8 hours as needed., Disp: , Rfl: Probiotic Product (PROBIOTIC-10 PO), Take by mouth., Disp: , Rfl: Social History Social History Tobacco Use Smoking status: Never Smokeless tobacco: Never Substance Use Topics Alcohol use: Not Currently Alcohol/week: 2.0 standard drinks of alcohol Types: 2 Standard drinks or equivalent per week FamilyHistory Family History Problem Relation Name Age of Onset Arthritis Mother psoriatic Asthma Mother Thyroid disease Mother Diabetes Mother Hypertension Father Diabetes Father Cancer Mother's Sister skin cancer- NMSC Cancer Maternal Grandmother skin cancer NMSC Asthma Maternal Grandmother Lung disease Maternal Grandmother Heart attack Maternal Grandmother Other ([id number]) Maternal Grandfather Review of Systems Review of Systems Constitutional: Negative. HENT: Negative. Eyes: Negative. Respiratory: Positive for cough (Dry COUGH), chest tightness, shortness of breath and wheezing. Cardiovascular: Positive for chest pain (Heart Moniter consistent Pain On RT CHEST side). Gastrointestinal: Negative. Endocrine: Negative. Genitourinary: Negative. Musculoskeletal: Negative. Skin: Negative. Allergic/Immunologic: Negative. Neurological: Negative. Hematological: Negative. Psychiatric/Behavioral: Negative. All other systems reviewed and are negative. Physical Exam Vitals: 09/05/22 1013 BP: 131/87 Pulse: 75 Temp: 36.6 C (97.8 F) TempSrc: Temporal SpO2: 95% Weight: (!) 319 lb (145 kg) Height: 6' 2 (1.88 m) Physical Exam Vitals reviewed. Constitutional: General: He is not in acute distress. Appearance: He is obese. He is not ill-appearing, toxic-appearing or diaphoretic. HENT: Head: Normocephalic and atraumatic. Nose: No congestion or rhinorrhea. Mouth/Throat: Pharynx: No oropharyngeal exudate or posterior oropharyngeal erythema. Eyes: Extraocular Movements: Extraocular movements intact. Conjunctiva/sclera: Conjunctivae normal. Pupils: Pupils are equal, round, and reactive to light. Cardiovascular: Rate and Rhythm: Normal rate and regular rhythm. Pulses: Normal pulses. Heart sounds: Normal heart sounds. No murmur heard. No friction rub. No gallop. Pulmonary: Effort: No respiratory distress. Breath sounds: No stridor. Wheezing and rhonchi present. No rales. Chest: Chest wall: No tenderness. Abdominal: General: Bowel sounds are normal. Palpations: Abdomen is soft. Musculoskeletal: Right lower leg: No edema. Left lower leg: No edema. Neurological: Mental Status: He is alert. Psychiatric: Mood and Affect: Mood normal. Behavior: Behavior normal. Thought Content: Thought content normal. Judgment: Judgment normal. Data Reviewed and Summarized LABS and Studies: Available studies were personally reviewed. Salient findings summarized in HPI & A/P IgE level was within normal limits ABG done during the hospitalization pH was 7.42 PCO2 35.6 PO2 78.8, done on room air Imaging: Available studies were personally reviewed. Salient findings summarized in HPI & A/P Patient had a chest x-ray done on 19 Aug 2022 at [facility] interpreted by me showed hypoventilation did not show any acute infiltrates Patient had a CT angiogram of the chest done on 25 July 2022 which did not show any evidence of pulmonary embolism, there were not significant intrapulmonary changes noted PFT's: Pulmonary Functions Testing Results: Done on 20 Aug 2022 interpreted by me FEV1/FVC ratio is normal FEV1 is 71% predicted without bronchodilator response. FVC is 72% predicted. Diffusion capacity is 81% predicted. Total lung capacity isreduced at 71% predicted suggesting mild restrictive defect. Assessment and Plan 1. SOB (shortness of breath) Multifactorial, symptoms got worse after patient had COVID-19 infection on a background of moderately persistent asthma. 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 Patient provided with samples with higher dose Trelegy inhaler from the office. Patient to start pulmonary rehab next week Patient CRP and ESR were within normal limits, NABILA level is also normal. Records of recent hospitalization reviewed. Paperwork for short-term disability completed 2. Moderate persistent asthma without complication As above 3. CATHY (obstructive sleep apnea) Scheduled for CPAP titration study patient was started on AutoPap patient having difficulty tolerating AutoPap at times feels that the pressure is not enough 4. Morbid obesity with body mass index (BMI) of 40.0 to 44.9 in adult (HCC) Counseled on weight loss 5. COVID-19 Symptomatology progressively worse since COVID-19 infection in May 2022 Young Robbins MD Pulmonary, Critical Care, & Sleep Medicine Portions of the information within this encounter were entered using an electronic dictation system. Best attempts were made to edit/proofread the information prior to note completion. Despite the review of information, some errors may remain. If there are questions related to the information contained within the note please contact the documented in this [facility]06-08-2023 History of Present illness Narrative* Young Robbins MD - 09/05/2022 10:15 AM EDT Images from the original note were not included. [facility]- Pulmonary and Sleep Medicine [address] [place] [id number] PH: [phone] Visit type: An Established patient 09/05/2022 On this date, 09/05/22 I have spent 46 minutes reviewing previous notes, test results and face to face with the patient discussing the diagnosis and importance of compliance with the treatment plan as well as documenting on the day of the visit. CHIEF COMPLAINT/REASON FOR REFERRAL: Chief Complaint Patient presents with Asthma 2-MONTH APPT. CATHY. PFT RESULTS History of Present Illness Evin Cardoza is a 37 y.o. 1985 male with severe morbid obesity, moderately persistent asthma history of diabetes history of hyperlipidemia mild sleep apnea diagnosed on a home sleep test presents for follow-up after recent hospitalization at [facility] on 19 Aug 2022 where patient presented to the ER with complains of dyspnea on exertion chest tightness. Patient has had multiple ER visits since June 20, 2022 for shortness of breath. Patient's problem started after he had COVID-19 infection in May 2022, patient was treated with outpatient back fluid. Patient had a cardiac stress test done on June 2022 which did not show any evidence of reversible ischemia MMRC Dyspnea Scale: Grade Description of Breathlessness 0 I only get breathless with strenuous exercise. 1 I get short of breath when hurrying on level ground or walking up a slight hill. 2 On level ground, I walk slower than people of the same age because of breathlessness, or have to stop for breath when walking at my own pace. 3 I stop for breath after walking about 100 yards or after a few minutes on level ground. 4 I am too breathless to leave the house or I am breathless when dressing. PastMedical History Past Medical History: Diagnosis Date Allergic rhinitis Asthma Balanced chromosomal translocation COVID 02/2020 COVID 05/29/2022 DM (diabetes mellitus), type 2 (HCC) Gastroparesis Hyperlipidemia Hypertension Sleep apnea needs new cpap Past Surgical History Past Surgical History: Procedure Laterality Date CHOLECYSTECTOMY 08/14/2021 COLONOSCOPY COLONOSCOPY MYRINGOTOMY AND TYMPANOSTOMY TUBE PLACEMENT (HISTORICAL) Bilateral NASAL POLYP SURGERY DVT SEPTOPLASTY SKIN BIOPSY scalp- benign TONSILLECTOMY (HISTORICAL) Allergies Allergies Allergen Reactions Mustard Seed Anaphylaxis Penicillins Hives Medications Current Outpatient Medications: albuterol 0.63 MG/3ML nebulizer solution, Take 0.63 mg by nebulization every 6 hours as needed for wheezing., Disp: , Rfl: albuterol 108 (90 Base) MCG/ACT inhaler, Inhale 2 puffs every 6 hours as needed., Disp: , Rfl: amLODIPine (Norvasc) 10 MG tablet, Take 1 tablet (10 mg) by mouth every morning., Disp: 90 tablet, Rfl: 1 atorvastatin (Lipitor) 20 MG tablet, Take 1 tablet (20 mg) by mouth Nightly., Disp: 90 tablet, Rfl:1 benzoyl peroxide 5 % external wash, Apply topically to cleanse the skin once per day. Rinse well after cleansing., Disp: , Rfl: co-enzyme Q-10 30 MG capsule, Take 30 mg by mouth daily., Disp: , Rfl: escitalopram (Lexapro) 10 MG tablet, Take 1 tablet (10 mg) by mouth daily., Disp: 30 tablet, Rfl: 1 Enkfixbwpjp-Qtzrgdfge-Xhfayc (Trelegy Ellipta) 100-62.5-25 MCG/ACT aerosol powder , Inhale 1 puff daily., Disp: 1 each, Rfl: 0 Glucose Blood (Blood Glucose Test) strip, Test 3 x times a day & as needed for symptoms of irregular blood glucose. Dispense sufficient amount for indicated testing frequency plus additional to accommodate PRN testing needs., Disp: , Rfl: Januvia 50 MG tablet, Take 1 tablet (50 mg) by mouth daily., Disp: 90 tablet, Rfl: 1 KRILL OIL PO, Take by mouth., Disp: , Rfl: lisinopril 40 MG tablet, Take 1 tablet (40 mg) by mouth every morning., Disp: 90 tablet, Rfl: 1 loperamide (Imodium) 2 MG capsule, Take 2 mg by mouth as needed for diarrhea., Disp: , Rfl: metFORMIN (Glucophage) 850 MG tablet, TAKE 1 TABLET BY MOUTH IN THE MORNING AND 1 IN THE EVENING WITH MEALS, Disp: 180 tablet, Rfl: 0 metoclopramide (Reglan) 5 MG tablet, Take 5 mg by mouth every 8 hours as needed., Disp: , Rfl: metoprolol succinate XL (Toprol-XL) 50 MG 24 hr tablet, Take 1 tablet (50 mg) by mouth every morning., Disp: 90 tablet, Rfl: 0 Multiple Vitamins-Minerals (multivitamin with minerals) tablet, Take 1 tablet by mouth daily., Disp: , Rfl: ondansetron (Zofran) 4 MG tablet, Take 4 mg by mouth every 8 hours as needed., Disp: , Rfl: Probiotic Product (PROBIOTIC-10 PO), Take by mouth., Disp: , Rfl: Social History Social History Tobacco Use Smoking status: Never Smokeless tobacco: Never Substance Use Topics Alcohol use: Not Currently Alcohol/week: 2.0 standard drinks of alcohol Types: 2 Standard drinks or equivalent per week FamilyHistory Family History Problem Relation Name Age of Onset Arthritis Mother psoriatic Asthma Mother Thyroid disease Mother Diabetes Mother Hypertension Father Diabetes Father Cancer Mother's Sister skin cancer- NMSC Cancer Maternal Grandmother skin cancer NMSC Asthma Maternal Grandmother Lung disease Maternal Grandmother Heart attack Maternal Grandmother Other ([id number]) Maternal Grandfather Review of Systems Review of Systems Constitutional: Negative. HENT: Negative. Eyes: Negative. Respiratory: Positive for cough (Dry COUGH), chest tightness, shortness of breath and wheezing. Cardiovascular: Positive for chest pain (Heart Moniter consistent Pain On RT CHEST side). Gastrointestinal: Negative. Endocrine: Negative. Genitourinary: Negative. Musculoskeletal: Negative. Skin: Negative. Allergic/Immunologic: Negative. Neurological: Negative. Hematological: Negative. Psychiatric/Behavioral: Negative. All other systems reviewed and are negative. Physical Exam Vitals: 09/05/22 1013 BP: 131/87 Pulse: 75 Temp: 36.6 C (97.8 F) TempSrc: Temporal SpO2: 95% Weight: (!) 319 lb (145 kg) Height: 6' 2 (1.88 m) Physical Exam Vitals reviewed. Constitutional: General: He is not in acute distress. Appearance: He is obese. He is not ill-appearing, toxic-appearing or diaphoretic. HENT: Head: Normocephalic and atraumatic. Nose: No congestion or rhinorrhea. Mouth/Throat: Pharynx: No oropharyngeal exudate or posterior oropharyngeal erythema. Eyes: Extraocular Movements: Extraocular movements intact. Conjunctiva/sclera: Conjunctivae normal. Pupils: Pupils are equal, round, and reactive to light. Cardiovascular: Rate and Rhythm: Normal rate and regular rhythm. Pulses: Normal pulses. Heart sounds: Normal heart sounds. No murmur heard. No friction rub. No gallop. Pulmonary: Effort: No respiratory distress. Breath sounds: No stridor. Wheezing and rhonchi present. No rales. Chest: Chest wall: No tenderness. Abdominal: General: Bowel sounds are normal. Palpations: Abdomen is soft. Musculoskeletal: Right lower leg: No edema. Left lower leg: No edema. Neurological: Mental Status: He is alert. Psychiatric: Mood and Affect: Mood normal. Behavior: Behavior normal. Thought Content: Thought content normal. Judgment: Judgment normal. Data Reviewed and Summarized LABS and Studies: Available studies were personally reviewed. Salient findings summarized in HPI & A/P IgE level was within normal limits ABG done during the hospitalization pH was 7.42 PCO2 35.6 PO2 78.8, done on room air Imaging: Available studies were personally reviewed. Salient findings summarized in HPI & A/P Patient had a chest x-ray done on 19 Aug 2022 at [facility] interpreted by me showed hypoventilation did not show any acute infiltrates Patient had a CT angiogram of the chest done on 25 July 2022 which did not show any evidence of pulmonary embolism, there were not significant intrapulmonary changes noted PFT's: Pulmonary Functions Testing Results: Done on 20 Aug 2022 interpreted by me FEV1/FVC ratio is normal FEV1 is 71% predicted without bronchodilator response. FVC is 72% predicted. Diffusion capacity is 81% predicted. Total lung capacity isreduced at 71% predicted suggesting mild restrictive defect. Assessment and Plan 1. SOB (shortness of breath) Multifactorial, symptoms got worse after patient had COVID-19 infection on a background of moderately persistent asthma. 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 Patient provided with samples with higher dose Trelegy inhaler from the office. Patient to start pulmonary rehab next week Patient CRP and ESR were within normal limits, NABILA level is also normal. Records of recent hospitalization reviewed. Paperwork for short-term disability completed 2. Moderate persistent asthma without complication As above 3. CATHY (obstructive sleep apnea) Scheduled for CPAP titration study patient was started on AutoPap patient having difficulty tolerating AutoPap at times feels that the pressure is not enough 4. Morbid obesity with body mass index (BMI) of 40.0 to 44.9 in adult (HCC) Counseled on weight loss 5. COVID-19 Symptomatology progressively worse since COVID-19 infection in May 2022 Young Robbins MD Pulmonary, Critical Care, & Sleep Medicine Portions of the information within this encounter were entered using an electronic dictation system. Best attempts were made to edit/proofread the information prior to note completion. Despite the review of information, some errors may remain. If there are questions related to the information contained within the note please contact the documented in this [facility]06-08-2023 Instructions* Patient Instructions* Yany Villareal - 09/05/2022 10:15 AM EDT YOUR APPOINTMENT TODAY WAS WITH THE [facility], COPD CLINIC, PULMONARY AND SLEEP MEDICINE OFFICE. PLEASE CALL OUR OFFICE AT [phone] for our [place] office location or [phone] for our [place] location, IF YOU HAVE NOT RECEIVED YOUR TEST RESULTS 7 DAYS AFTER TESTING IS COMPLETED. PLEASE REMEMBER TO REQUEST REFILLS AT YOUR OFFICE VISITS. PHONE/FAX REQUESTS REQUIRE 48-72 HOURS FOR RESPONSE. A FRIENDLY REMINDER COPAYS ARE DUE AT TIME OF SERVICE. THANK YOU. Our Patients Are Important! We want to improve and you can help. After your visit we want you to feel: Listened to, Respected and have your health care explained. You may receive a survey asking you about your visit. Please complete the survey. We will use your feedback to make improvements. COVID-19 VACCINATION INFORMATION: PH. [phone] [facility]/CORONAVIRUS/VACCINE [facility] [phone] [facility] Scheduling [phone] documented in this [facility]06-08-2023 Instructions* Patient Instructions* Yany Villareal - 09/05/2022 10:15 AM EDT YOUR APPOINTMENT TODAY WAS WITH THE [facility], COPD CLINIC, PULMONARY AND SLEEP MEDICINE OFFICE. PLEASE CALL OUR OFFICE AT [phone] for our [place] office location or [phone] for our [place] location, IF YOU HAVE NOT RECEIVED YOUR TEST RESULTS 7 DAYS AFTER TESTING IS COMPLETED. PLEASE REMEMBER TO REQUEST REFILLS AT YOUR OFFICE VISITS. PHONE/FAX REQUESTS REQUIRE 48-72 HOURS FOR RESPONSE. A FRIENDLY REMINDER COPAYS ARE DUE AT TIME OF SERVICE. THANK YOU. Our Patients Are Important! We want to improve and you can help. After your visit we want you to feel: Listened to, Respected and have your health care explained. You may receive a survey asking you about your visit. Please complete the survey. We will use your feedback to make improvements. COVID-19 VACCINATION INFORMATION: . [phone] [facility]/CORONAVIRUS/VACCINE [facility] Sched[facility] [phone] [facility] Sleep Scheduling [phone] documented in this [facility]06-08-2023 Miscellaneous Notes* Addendum Note - Yany Villareal - 09/05/2022 10:15 AM EDTAddended by: YANY VILLAREAL on: 09/05/2022 02:34 PM Modules accepted: Orders documented in this [facility]06-08-2023 Miscellaneous Notes* Addendum Note - Yany Villareal - 09/05/2022 10:15 AM EDTAddended by: YANY VILLAREAL on: 09/05/2022 02:34 PM Modules accepted: Orders * Addendum Note - Young Robbins MD - 09/05/2022 10:15 AM EDTAddended by: YOUNG ROBBINS on: 09/26/2022 08:39 AM Modules accepted: Orders documented in this [facility]06-08-2023 Note* Addendum Note - Yany Villareal - 09/05/2022 10:15 AM EDTAddended by: YANY VILLAREAL on: 09/05/2022 02:34 PM Modules accepted: Orders [id number] Note* Addendum Note - Yany Villareal - 09/05/2022 10:15 AM EDTAddended by: YANY VILLAREAL on: 09/05/2022 02:34 PM Modules accepted: Orders [facility] [id number] Note* Addendum Note - Young Robbins MD - 09/05/2022 10:15 AM EDTAddended by: YOUNG ROBBINS on: 09/26/2022 08:39 AM Modules accepted: Orders [facility] [id number] Evaluation + Plan note* Assessment & Plan Note - Enedina Truong PA-C - 08/29/2022 11:56 AM EDTAssociated Problem(s): Morbid obesity with body mass index (BMI) of 40.0 to 44.9 in adult (HCC) - Continue to encourage exercise and activity as tolerated. - Encouraged short-term goals 10 to 15 pound weight loss over the next 3-6 months. [facility] [id number] Miscellaneous Notes* Assessment & Plan Note - Enedina Truong PA-C - 08/29/2022 11:56 AM EDTAssociated Problem(s): Morbid obesity with body mass index (BMI) of 40.0 to 44.9 in adult ([facility]) - Continue to encourage exercise and activity as tolerated. - Encouraged short-term goals 10 to 15 pound weight loss over the next 3-6 months. * Assessment & Plan Note - Enedina Truong PA-C - 08/29/2022 11:52 AM EDT Associated Problem(s): Essential hypertension - Continues to be uncontrolled and unstable still elevated we will continue to monitor - Encouraged healthy lifestyle weight loss to improve elevated blood pressure. * Assessment & Plan Note - Enedina Truong PA-C - 08/29/2022 11:52 AM EDT Associated Problem(s): Type 2 diabetes mellitus without complication, without long-term current useof insulin ([facility] ([facility]) - Chronic stable continue current regimen of Januvia 50 mg daily and metformin 850 mg twice a day documented in this [facility]06-01-2023 Evaluation + Plan note* Assessment & Plan Note - Enedina Truong PA-C - 08/29/2022 11:52 AM EDT Associated Problem(s): Essential hypertension - Continues to be uncontrolled and unstable still elevated we will continue to monitor - Encouraged healthy lifestyle weight loss to improve elevated blood pressure. [facility] [id number] Evaluation + Plan note* Assessment & Plan Note - Enedina Truong PA-C - 08/29/2022 11:52 AM EDTAssociated Problem(s): Type 2 diabetes mellitus without complication, without long-term current useof insulin ([facility] ([facility]) - Chronic stable continue current regimen of Januvia 50 mg daily and metformin 850 mg twice a day [facility] [id number] History of Present illness Narrative* Enedina Truong PA-C - 08/29/2022 10:00 AM EDT Images from the original note were not included. [facility] [address] [facility] [address] Dept: [phone] Dept Loc: [phone] Visit type: Established Patient Reason for Visit: Hospital Follow-up (Weak sob ) Assessment and Plan 1. Anxiety Comments: Acute and situational based on current events requesting medication we will do trial of Lexapro andfollow-up in 4 weeks. Orders: - escitalopram (Lexapro) 10 MG tablet; Take 1 tablet (10 mg) by mouth daily., Starting Marimar 08/29/2022, Until Fri10/28/2022, Normal 2. Essential hypertension Assessment & Plan: - Continues to be uncontrolled and unstable still elevated we will continue to monitor - Encouraged healthy lifestyle weight loss to improve elevated blood pressure. Orders: - lisinopril 40 MG tablet; Take 1 tablet (40 mg) by mouth every morning., Starting Marimar 08/29/2022, Normal - metoprolol succinate XL (Toprol-XL) 50 MG 24 hr tablet; Take 1 tablet (50 mg) by mouth every morning., Starting Marimar 08/29/2022, Normal - amLODIPine (Norvasc) 10 MG tablet; Take 1 tablet (10 mg) by mouth every morning., Starting Marimar 08/29/2022, Normal 3. Type 2 diabetes mellitus without complication, without long-term current use of insulin (CMS/HCC) ([facility]) Assessment & Plan: - Chronic stable continue current regimen of Januvia 50 mg daily and metformin 850 mg twice a day Orders: - Januvia 50 MG tablet; Take 1 tablet (50 mg) by mouth daily., Starting Marimar 08/29/2022, Normal 4. Mixed hyperlipidemia - atorvastatin (Lipitor) 20 MG tablet; Take 1 tablet (20 mg) by mouth Nightly., Starting Marimar 08/29/2022, Normal 5. Morbid obesity with body mass index (BMI) of 40.0 to 44.9 in adult (HCC) Assessment & Plan: - Continue to encourage exercise and activity as tolerated. - Encouraged short-term goals 10 to 15 pound weight loss over the next 3-6 months. Follow up in about 4 weeks (around 09/26/2022). Subjective HPI Patient was admitted on 08/19/2022 and subsequently discharged on 08/21/2022 due to shortness of breath with history of asthma and worsening symptoms since COVID-19 infection in the last 2 months. Cardiac work-up and chest x-ray in the emergency department were unremarkable. Patient with history of stress echocardiogram on 08/08/22 with no ischemic changes. Ejection fraction 55% with normal wallmotion and mild left ventricular hypertrophy. Patient has history of CATHY, mild CATHY on HST. Patient was evaluated by Dr. Cloud, pulmonology, and feel that dyspnea is likely multifactorial with no obvious pulmonary parenchymal pathology. Feel that shortness of breath is secondary to asthma, morbid obe sity/deconditioning, cardiac diastolic dysfunction. PFTs were obtained and revealed mild dysfunction. Patient presents to the office today for follow-up on ongoing chronic condition of shortness of breath pulmonology evaluated in the hospital and felt that he should continue the Trelegy but did not believe any further oral steroids were indicated. Called yesterday to arrange pulmonary rehab. Ongoing stress, financial as well as breathing. Patient reports stress associated with potentially losing his job and his short-term disability. He still having difficult time breathing although he readily admits he is reluctant to shave his wilson off and his CPAP device is not working well or not fitting well and he ends up turning it off in the middle the night. states he feels like he is gasping for air he claims that it secondary to the warm air rather than cooler that is being blown into his airway. He also states he is having difficult time with losing weight as he is just too short of breath any entertain and engage in any activity exercise they are trying to watch her weight but he also has some issues with dietary intolerances as well. Review of Systems Constitutional: Positive for fatigue. Negative for chills and fever. HENT: Negative for congestion and sore throat. Respiratory: Positive for chest tightness and shortness of breath. Negative for cough. Cardiovascular: Positive for chest pain. Negative for palpitations and leg swelling. Gastrointestinal: Negative for abdominal pain, diarrhea, nausea and vomiting. Genitourinary: Negative for difficulty urinating. Musculoskeletal: Negative for back pain and neck pain. Neurological: Negative for dizziness and light-headedness. Psychiatric/Behavioral: Positive for sleep disturbance. The patient is nervous/anxious. All other systems reviewed and are negative. Allergies Allergen Reactions Mustard Seed Anaphylaxis Penicillins Hives Outpatient Medications Prior to Visit Medication Sig Dispense Refill albuterol 0.63 MG/3ML nebulizer solution Take 0.63 mg by nebulization every 6 hours as needed for wheezing. albuterol 108 (90 Base) MCG/ACT inhaler Inhale 2 puffs every 6 hours as needed. benzoyl peroxide 5 % external wash Apply topically to cleanse the skin once per day. Rinse well after cleansing. co-enzyme Q-10 30 MG capsule Take 30 mg by mouth daily. Kzticcydidi-Vujdymbtg-Bzurzr (Trelegy Ellipta) 100-62.5-25 MCG/ACT aerosol powder Inhale 1 puff daily. 1 each 0 Glucose Blood (Blood Glucose Test) strip Test 3 x times a day & as needed for symptoms of irregular blood glucose. Dispense sufficient amount for indicated testing frequency plus additional to accommodate PRN testing needs. KRILL OIL PO Take by mouth. loperamide (Imodium) 2 MG capsule Take 2 mg by mouth as needed for diarrhea. metFORMIN (Glucophage) 850 MG tablet TAKE 1 TABLET BY MOUTH IN THE MORNING AND 1 IN THE EVENING WITH MEALS 180 tablet 0 metoclopramide (Reglan) 5 MG tablet Take 5 mg by mouth every 8 hours as needed. Multiple Vitamins-Minerals (multivitamin with minerals) tablet Take 1 tablet by mouth daily. ondansetron (Zofran) 4 MG tablet Take 4 mg by mouth every 8 hours as needed. Probiotic Product (PROBIOTIC-10 PO) Take by mouth. amLODIPine (Norvasc) 10 MG tablet Take 1 tablet (10 mg) by mouth every morning. 90 tablet 0 atorvastatin (Lipitor) 20 MG tablet Take 1 tablet (20 mg) by mouth Nightly. 90 tablet 0 Januvia 50 MG tablet Take 1 tablet (50 mg) by mouth daily. 90 tablet 0 lisinopril 40 MG tablet Take 1 tablet (40 mg) by mouth every morning. 90 tablet 0 metoprolol succinate XL (Toprol-XL) 50 MG 24 hr tablet Take 1 tablet (50 mg) by mouth every morning. 90 tablet 0 No facility-administered medications prior to visit. Past Medical History: Diagnosis Date Allergic rhinitis Asthma Balanced chromosomal translocation COVID 02/2020 COVID 05/29/2022 DM (diabetes mellitus), type 2 (HCC) Gastroparesis Hyperlipidemia Hypertension Sleep apnea needs new cpap Social History Tobacco Use Smoking status: Never Smokeless tobacco: Never Substance Use Topics Alcohol use: Not Currently Alcohol/week: 2.0 standard drinks Types: 2 Standard drinks or equivalent per week Past Surgical History: Procedure Laterality Date CHOLECYSTECTOMY 08/14/2021 COLONOSCOPY COLONOSCOPY MYRINGOTOMY AND TYMPANOSTOMY TUBE PLACEMENT (HISTORICAL) Bilateral NASAL POLYP SURGERY DVT SEPTOPLASTY SKIN BIOPSY scalp- benign TONSILLECTOMY (HISTORICAL) Family History Problem Relation Name Age of Onset Arthritis Mother psoriatic Asthma Mother Thyroid disease Mother Diabetes Mother Hypertension Father Diabetes Father Cancer Mother's Sister skin cancer- NMSC Cancer Maternal Grandmother skin cancer NMSC Asthma Maternal Grandmother Lung disease Maternal Grandmother Heart attack Maternal Grandmother Other ([id number]) Maternal Grandfather Objective BP (!) 140/90 (BP Location: Right arm, Patient Position: Sitting, BP Cuff Size: Adult) Pulse 86 Temp 37.1 C (98.7 F) (Temporal) Ht 6' 2 (1.88 m) Wt (!) 320 lb (145 kg) SpO2 96% BMI 41.09kg/m Physical Exam Vitals reviewed. Constitutional: General: He is not in acute distress. Appearance: Normal appearance. He is obese. He is not toxic-appearing. Comments: Pleasant with underlying flat affect Eyes: General: No scleral icterus. Conjunctiva/sclera: Conjunctivae normal. Pupils: Pupils are equal, round, and reactive to light. Cardiovascular: Rate and Rhythm: Normal rate and regular rhythm. Heart sounds: Normal heart sounds. Pulmonary: Effort: Pulmonary effort is normal. No respiratory distress. Breath sounds: Normal breath sounds. No wheezing or rales. Abdominal: General: Bowel sounds are normal. There is no distension. Palpations: Abdomen is soft. Tenderness: There is no abdominal tenderness. There is no guarding. Musculoskeletal: Cervical back: Normal range of motion and neck supple. Skin: General: Skin is warm and dry. Neurological: Mental Status: He is alert. Psychiatric: Comments: Makes direct eye contact but does have a generalized flat affect to them Data Reviewed and Summarized Labs: Imaging/Testing: Enedina Truong PA-C 08/29/2022 Please note that portions of this note may have been completed with voice recognition software. Documentation reviewed prior to signing but minor errors in engineer systems may have occurred. documented in this [facility]05-24-2023 NoteCDU Discharge Summary Evin Cardoza : 1985 Admit date: 08/19/2022 Discharge date: 08/21/2022 Admitting Physician: Ami Stanton MD Primary Care Physician: Leonides Sibley DO Code Status: Full Code Activity: activity as tolerated Diet: Adult diet Regular; 5 carb choices (75 gm/meal) Discharge Diagnoses: Principal Problem: Shortness of breath Hospital Course: Patient was admitted on 08/19/2022 due to shortness of breath with history of asthma and worsening symptoms since COVID-19 infection in the last 2 months. Cardiac work-up and chest x-ray in the emergency department were unremarkable. Patient with history of stress echocardiogram on 08/08/22 with no ischemic changes. Ejection fraction 55% with normal wall motion and mild left ventricular hypertrophy. Patient has history of CATHY, mild CATHY on HST. Patient was evaluated by Dr. Cloud, pulmonology, and feel that dyspnea is likely multifactorial with no obvious pulmonary parenchymal pathology. Feel that shortness of breath is secondary to asthma, morbid obesity/deconditioning, cardiac diastolic dysfunction. PFTs were obtained and revealed mild dysfunction. Consideration for autoimmune inflammatory conditions however ESR and CRP are within normal limits. NABILA is pending. ABG without hypercapnia. Weight loss is an important long-term goal and this was discussed with the patient. Patient will be given follow-up with pulmonology, Dr Robbins. Patient was also evaluated by cardiology who feels that this is unlikely obstructive coronary artery disease as patient had recent negative stress echo. Plan to set up outpatient event monitor to see if there is correlation of symptoms with arrhythmias. The patient was informed that although the workup on this visit is negative, they still need close outpatient follow up with their Primary Care Physician and specialist, cardiology, pulmonology, physical therapy for continued and further evaluation. The patient was also told that should new, worsening, or changing symptoms develop, they need to return to the ED for evaluation. The patient verbalizes understanding of our discussion and agrees with the discussed plan. Focused Physical Exam: Nursing Notes Reviewed BP (!) 145/87 Pulse 75 Temp 36.8 ?C (98.2 ?F) (Temporal) Resp 20 Ht 1.88 m (6' 2 ) Wt (!) 145 kg (319 lb 9.6 oz) SpO2 99% BMI 41.03 kg/m? General: Vitals noted. NAD, nontoxic, afebrile. Patient is able to speak in complete sentences in no acute respiratory distress. HEENT: Normocephalic, atraumatic, sclerae clear, moist mucous membranes, neck supple Cardiac: Regular rate and rhythm, no murmurs Lungs: Clear to auscultation bilaterally, no wheezing Abdomen: Obese, soft, nontender, normoactive bowel sounds, no rebound or guarding, no rigidity Extremities: No edema, Skin: Warm and dry Neuro: Alert and oriented ?3 Psych: Cooperative, normal mood and affect Labs: Results for orders placed or performed during the hospital encounter of 08/19/22 Comprehensive metabolic panel Result Value Ref Range SODIUM 138 135 - 145 mmol/L POTASSIUM 4.1 3.5 - 5.1 mmol/L CHLORIDE 105 98 - 107 mmol/L CARBON DIOXIDE 26 22 - 30 mmol/L ANION GAP 7 3 - 13 mmol/L UREA NITROGEN 15 9 - 20 mg/dL CREATININE 0.78 0.66 - 1.25 mg/dL GLUCOSE 144 (H) 70 - 100 mg/dL CALCIUM 9.7 8.4 - 10.4 mg/dL AST (SGOT) 41 15 - 46 U/L ALT 71 (H) 0 - 49 U/L ALKALINE PHOSPHATASE 60 38 - 126 U/L ALBUMIN 4.5 3.5 - 5.0 g/dL BILIRUBIN, TOTAL 0.7 0.2 - 1.3 mg/dL TOTAL PROTEIN 7.3 6.3 - 8.2 g/dL eGFR >90.0 >60.0 mL/min/1.73m*2 CBC auto differential Result Value Ref Range Auto WBC 8.3 3.6 - 10.7 10*3/uL RBC 5.26 4.40 - 5.90 10*6/uL Hemoglobin 15.7 13.0 - 18.0 g/dL Hematocrit 45.6 40.0 - 52.0 % MCV 86.7 80.0 - 98.0 fL MCH 29.9 26.0 - 34.0 pg MCHC 34.5 32.0 - 36.0 % RDW 14.7 (H) 11.5 - 14.5 % Platelets 239 140 - 440 10*3/uL MPV 8.1 7.4 - 12.4 fL nRBC 0.0 0.0 - 2.0 /100 WBCs Neutrophils Relative 68.3 40.0 - 80.0 % Lymphocytes Relative 21.9 20.0 - 40.0 % Monocytes Relative 7.4 2.0 - 10.0 % Eosinophils Relative 1.8 1.0 - 6.0 % Basophils Relative 0.6 0.0 - 2.0 % Neutrophils Absolute 5.7 1.8 - 7.0 10*3/uL Lymphocytes Absolute 1.8 1.0 - 4.3 10*3/uL Monocytes Absolute 0.6 0.0 - 0.8 10*3/uL Eosinophils Absolute 0.1 0.0 - 0.5 10*3/uL Basophils Absolute 0.1 0.0 - 0.2 10*3/uL Troponin I Result Value Ref Range TROPONIN I <0.012 0.000 - 0.034 ng/mL CBC auto differential Result Value Ref Range Auto WBC 8.7 3.6 - 10.7 10*3/uL RBC 5.10 4.40 - 5.90 10*6/uL Hemoglobin 15.0 13.0 - 18.0 g/dL Hematocrit 45.3 40.0 - 52.0 % MCV 88.8 80.0 - 98.0 fL MCH 29.3 26.0 - 34.0 pg MCHC 33.0 32.0 - 36.0 % RDW 14.7 (H) 11.5 - 14.5 % Platelets 213 140 - 440 10*3/uL MPV 7.9 7.4 - 12.4 fL nRBC 0.0 0.0 - 2.0 /100 WBCs Neutrophils Relative 58.5 40.0 - 80.0 % Lymphocytes Relative 31.6 20.0 - 40.0 % Monocytes Relative 7.4 2 (more content not included)...[facility] 08-21-2022 NotePULMONOLOGY CONSULT PROGRESS NOTE 08/21/2022 Hospital LOS: LOS: 0 days PULMONARY FOLLOW UP FOR: Shortness of breath Interval History/Event Changes: Reassessment after testing including PFT's. Remains HDS, on RA, no O2 needed on home O2 eval. Subjectively: feeling fine, still with same symptoms on exertion. Allergies Allergies Allergen Reactions Mustard Seed Anaphylaxis Penicillins Hives Review of Systems A pertinent review of systems was performed and was otherwise non-contributory. Vitals- BP (!) 141/85 Pulse 74 Temp 36.8 ?C (98.2 ?F) (Temporal) Resp 12 Ht 6' 2 (1.88 m) Wt (!) 319 lb 9.6 oz (145 kg) SpO2 93% BMI 41.03 kg/m? Tmax: Temp (24hrs), Av.4 ?C (97.6 ?F), Min:35.9 ?C (96.7 ?F), Max:36.8 ?C (98.2 ?F) Hemodynamics: Cuff: Systolic (24hrs), Av , Min:122 , Max:156 /Diastolic (24hrs), Av, Min:79, Max:90 Cuff MAP:MAP (mmHg) Av.1 Min: 97 Max: 112 P: Pulse Av.7 Min: 65 Max: 80 Observed RR: Resp Av.9 Min: 12 Max: 23 Observed O2 sats: SpO2 Av.6 % Min: 93 % Max: 98 % Intake/Output Summary (Last 24 hours) at 08/21/2022 1105 Last data filed at 08/20/2022 2306 Gross per 24 hour Intake 2086 ml Output -- Net 2086 ml Physical exam- Physical Exam Constitutional: General: He is not in acute distress. Appearance: He is obese. HENT: Head: Normocephalic and atraumatic. Nose: Nose normal. No rhinorrhea. Mouth/Throat: Pharynx: Oropharynx is clear. No oropharyngeal exudate. Eyes: General: No scleral icterus. Extraocular Movements: Extraocular movements intact. Conjunctiva/sclera: Conjunctivae normal. Cardiovascular: Rate and Rhythm: Normal rate and regular rhythm. Heart sounds: Normal heart sounds. No murmur heard. Pulmonary: Effort: Pulmonary effort is normal. No respiratory distress. Breath sounds: No stridor. Decreased breath sounds present. No wheezing, rhonchi or rales. Chest: Chest wall: No tenderness. Abdominal: General: There is no distension. Musculoskeletal: General: No swelling. Cervical back: Normal range of motion and neck supple. Right lower leg: No edema. Left lower leg: No edema. Skin: General: Skin is warm. Coloration: Skin is not jaundiced or pale. Findings: No rash. Neurological: General: No focal deficit present. Mental Status: He is alert. Mental status is at baseline. Gait: Gait normal. Psychiatric: Mood and Affect: Mood normal. Behavior: Behavior normal. Routine labs: Recent Labs 08/19/22 1627 08/20/22 0423 08/20/22 1329 08/21/22 0504 WBC 8.3 8.7 -- 7.4 HGB 15.7 15.0 16.1 14.3 HCT 45.6 45.3 -- 42.6 PLT 239 213 -- 191 Recent Labs 08/19/22 1627 08/20/22 0423 08/21/22 0504 NA 138 135 135 K 4.1 3.9 3.7 CL 105 105 105 CO2 26 27 26 BUN 15 15 11 CREATININE 0.78 0.63* 0.64* No results for input(s): GLU in the last 72 hours. Other Laboratory - Imaging Studies: Reviewed and as per electronic record. CxR/CT images reviewed by me when available. ASSESSMENT AND PLAN: #Dyspnea on exertion #Moderate persistent asthma #morbid obesity, mild CATHY #Mild LVH, possible diastolic dysfunction on echo. PFT's reviewed, mild restriction on azeb and lung vvolumes, and mildly reduced DLCO which corrects for alveolar volume. No BD response. Findings, in clinical context most consistent with Obesity. ESR, CRP normal. Overall, given testing, no singular cardiopulmonary cause for dyspnea on exertion identified. Dyspnea likely multifactorial, no obvious pulmonary parenchymal pathology on imaging. Asthma may be playing a role, as well as morbid obesity/deconditioning, cardiac diastolic dysfunction. - Continue Trelegy inhaler. No indication for further course of steroids. - Unclear if symptoms may be more fatigue in nature at times, and consideration for autoimmune inflammatory conditions may be on differential, but less likely given normal ESR, CRP. - Home O2 eval on discharge. - my recommendation is for graded exercise, and weight loss to improve exercise tolerance and conditioning. Continue follow up outpatient with Dr Robbins. If symptoms persist, CPET may be a consideration, but limited value. - Mild CATHY, unlikely to be a contributor to dyspnea, no skilled nursing data to suggest adverse health outcomes with untreated mild CATHY. I recommend treatment as outpatient due to poor sleep and fatigue. Can continue follow up towards this goal with Dr Robbins. Morro Cloud MD Physician Pulmonary, Critical Care and Sleep Medicine. 08/21/2022[facility]05[facility] NoteCDU Progress Note 08/20/2022 11:48 AM Subjective: Admit Date: 08/19/2022 PCP: Leonides Sibley DO Interval History: No overnight issues. Patient still endorsing shortness of breath and intermittent chest pain/tightness. Spoke extensively with him and his who explained what has been going on- hu/greenish physical appearance at times, persistent shortness of breath at rest and exertional, intermittent chest pain and tightness with radiation to left shoulder and across right chest. He has been on multiple steroids which help with his symptoms but he quickly worsens upon finishing the course. Patient had a vagal response today with bradycardia, no loss of consciousness, while getting his blood drawn. Vital signs stable at this time. Spoke with the pulmonary function lab who is able to get patient in today at 4:30 PM for PFT's. Will continue to monitor. Adult diet Regular; 5 carb choices (75 gm/meal) Intake/Output Summary (Last 24 hours) at 08/20/2022 1148 Last data filed at 08/20/2022 1139 Gross per 24 hour Intake 1000 ml Output -- Net 1000 ml Medications: sodium chloride, 100 mL/hr, Last Rate: 100 mL/hr (08/20/22 1139) amLODIPine, 10 mg, Oral, q AM atorvastatin, 20 mg, Oral, Nightly enoxaparin, 30 mg, SubCUTAneous, 2 times per day linaGLIPtin, 5 mg, Oral, Daily lisinopril, 40 mg, Oral, q AM melatonin, 3 mg, Oral, Nightly metFORMIN, 850 mg, Oral, BID WC metoprolol succinate XL, 50 mg, Oral, q AM mometasone-formoterol, 2 puff, Inhalation, BID sodium chloride 0.9%, 5-40 mL, IntraVENous, q12h tiotropium, 1 capsule, Inhalation, Daily LABS: Results for orders placed or performed during the hospital encounter of 08/19/22 Comprehensive metabolic panel Result Value Ref Range SODIUM 138 135 - 145 mmol/L POTASSIUM 4.1 3.5 - 5.1 mmol/L CHLORIDE 105 98 - 107 mmol/L CARBON DIOXIDE 26 22 - 30 mmol/L ANION GAP 7 3 - 13 mmol/L UREA NITROGEN 15 9 - 20 mg/dL CREATININE 0.78 0.66 - 1.25 mg/dL GLUCOSE 144 (H) 70 - 100 mg/dL CALCIUM 9.7 8.4 - 10.4 mg/dL AST (SGOT) 41 15 - 46 U/L ALT 71 (H) 0 - 49 U/L ALKALINE PHOSPHATASE 60 38 - 126 U/L ALBUMIN 4.5 3.5 - 5.0 g/dL BILIRUBIN, TOTAL 0.7 0.2 - 1.3 mg/dL TOTAL PROTEIN 7.3 6.3 - 8.2 g/dL eGFR >90.0 >60.0 mL/min/1.73m*2 CBC auto differential Result Value Ref Range Auto WBC 8.3 3.6 - 10.7 10*3/uL RBC 5.26 4.40 - 5.90 10*6/uL Hemoglobin 15.7 13.0 - 18.0 g/dL Hematocrit 45.6 40.0 - 52.0 % MCV 86.7 80.0 - 98.0 fL MCH 29.9 26.0 - 34.0 pg MCHC 34.5 32.0 - 36.0 % RDW 14.7 (H) 11.5 - 14.5 % Platelets 239 140 - 440 10*3/uL MPV 8.1 7.4 - 12.4 fL nRBC 0.0 0.0 - 2.0 /100 WBCs Neutrophils Relative 68.3 40.0 - 80.0 % Lymphocytes Relative 21.9 20.0 - 40.0 % Monocytes Relative 7.4 2.0 - 10.0 % Eosinophils Relative 1.8 1.0 - 6.0 % Basophils Relative 0.6 0.0 - 2.0 % Neutrophils Absolute 5.7 1.8 - 7.0 10*3/uL Lymphocytes Absolute 1.8 1.0 - 4.3 10*3/uL Monocytes Absolute 0.6 0.0 - 0.8 10*3/uL Eosinophils Absolute 0.1 0.0 - 0.5 10*3/uL Basophils Absolute 0.1 0.0 - 0.2 10*3/uL Troponin I Result Value Ref Range TROPONIN I <0.012 0.000 - 0.034 ng/mL CBC auto differential Result Value Ref Range Auto WBC 8.7 3.6 - 10.7 10*3/uL RBC 5.10 4.40 - 5.90 10*6/uL Hemoglobin 15.0 13.0 - 18.0 g/dL Hematocrit 45.3 40.0 - 52.0 % MCV 88.8 80.0 - 98.0 fL MCH 29.3 26.0 - 34.0 pg MCHC 33.0 32.0 - 36.0 % RDW 14.7 (H) 11.5 - 14.5 % Platelets 213 140 - 440 10*3/uL MPV 7.9 7.4 - 12.4 fL nRBC 0.0 0.0 - 2.0 /100 WBCs Neutrophils Relative 58.5 40.0 - 80.0 % Lymphocytes Relative 31.6 20.0 - 40.0 % Monocytes Relative 7.4 2.0 - 10.0 % Eosinophils Relative 1.9 1.0 - 6.0 % Basophils Relative 0.6 0.0 - 2.0 % Neutrophils Absolute 5.1 1.8 - 7.0 10*3/uL Lymphocytes Absolute 2.7 1.0 - 4.3 10*3/uL Monocytes Absolute 0.6 0.0 - 0.8 10*3/uL Eosinophils Absolute 0.2 0.0 - 0.5 10*3/uL Basophils Absolute 0.0 0.0 - 0.2 10*3/uL Basic metabolic panel Result Value Ref Range SODIUM 135 135 - 145 mmol/L POTASSIUM 3.9 3.5 - 5.1 mmol/L CHLORIDE 105 98 - 107 mmol/L CARBON DIOXIDE 27 22 - 30 mmol/L UREA NITROGEN 15 9 - 20 mg/dL CREATININE 0.63 (L) 0.66 - 1.25 mg/dL GLUCOSE 116 (H) 70 - 100 mg/dL CALCIUM 8.9 8.4 - 10.4 mg/dL ANION GAP 3 3 - 13 mmol/L eGFR >90.0 >60.0 mL/min/1.73m*2 Lipid panel Result Value Ref Range TRIGLYCERIDE 103 <150 mg/dL CHOLESTEROL 123 <200 mg/dL LOW DENSITY LIPOPROTEIN 60 0 - <100 mg/dL HDL CHOLESTEROL 42 40 - 60 mg/dL CHOL/HDL 3 ECG 12 lead Result Value Ref Range Heart Rate 76 bpm QRSD Interval 91 ms QT Interval 370 ms QTC Interval 416 ms P [place] 5 degrees QRS [place] -16 degrees T Wave [place] 61 degrees HI Interval 165 ms Urine Culture: No results found for this or any previous visit. Objective: Vitals: BP 138/88 (BP Location: Left arm, Patient Position: Lying) Pulse 71 Temp 36.6 ?C (97.8 ?F) (Temporal) Resp 22 Ht 6' 2 (1.88 m) Wt (!) 319 lb 9.6 oz (145 kg) SpO (more content not included)...[facility]05-22-2023 NoteCDU History and Physical Admit Date: 08/19/2022 PCP: Enedina Truong PA-C CHIEF COMPLAINT: Shortness of breath Limitations to history: None Outside historians: None HISTORY OF PRESENT ILLNESS: Evin is a 37 y.o. male with past medical history below who presents with complaints of shortness of breath and chest tightness. Patient had COVID-19 in May 2022 and has since had ongoing dyspnea on exertion and chest tightness. He reports that this is worsened by activity, when he exerts himself, feeling as though he is going to pass out. Patient reports that he saw cardiology in June, who obtained a stress echo, demonstrating EF of 55% with no acute abnormalities, recommending pulmonology evaluation. Patient did see pulmonology who obtained a CTA chest, which was negative for PE and recommended PFT's. Patient denies fever, chills, chest pain, abdominal pain, N/V/D/C, urinary symptoms, and GONZALES. REVIEW OF SYSTEMS A focused review of systems was performed and is negative except as stated in above HPI. Past Medical & Social History Past Medical History: Diagnosis Date Allergic rhinitis Asthma COVID 02/2020 COVID 05/29/2022 DM (diabetes mellitus), type 2 (HCC) Gastroparesis Hyperlipidemia Hypertension Sleep apnea needs new cpap Past Surgical History: Procedure Laterality Date CHOLECYSTECTOMY 08/14/2021 COLONOSCOPY COLONOSCOPY MYRINGOTOMY AND TYMPANOSTOMY TUBE PLACEMENT (HISTORICAL) Bilateral NASAL POLYP SURGERY DVT SEPTOPLASTY SKIN BIOPSY scalp- benign TONSILLECTOMY (HISTORICAL) Family History Problem Relation Name Age of Onset Arthritis Mother psoriatic Asthma Mother Thyroid disease Mother Diabetes Mother Hypertension Father Diabetes Father Cancer Mother's Sister skin cancer- NMSC Cancer Maternal Grandmother skin cancer NMSC Asthma Maternal Grandmother Lung disease Maternal Grandmother Heart attack Maternal Grandmother Other ([id number]) Maternal Grandfather Social History Socioeconomic History Marital status: Spouse name: Not on file Number of children: Not on file Years of education: Not on file Highest education level: Not on file Occupational History Not on file Tobacco Use Smoking status: Never Smokeless tobacco: Never Vaping Use Vaping Use: Never used Substance and Sexual Activity Alcohol use: Not Currently Alcohol/week: 2.0 standard drinks Types: 2 Standard drinks or equivalent per week Drug use: Never Comment: Caffeine: maybe 1 soda/week Sexual activity: Not on file Other Topics Concern Not on file Social History Narrative , 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 Ns, nd Social Determinants of Health Financial Resource Strain: Not on file Food Insecurity: Not on file Transportation Needs: Not on file Physical Activity: Not on file Stress: Not on file Social Connections: Not on file Intimate Partner Violence: Not on file Housing Stability: Not on file Current Facility-Administered Medications Medication Dose Route Frequency Provider Last Rate Last Admin sodium chloride 0.9 % bolus 1,000 mL 1,000 mL IntraVENous Once Nicolasa Perera MD Current Outpatient Medications Medication Sig Dispense Refill albuterol 0.63 MG/3ML nebulizer solution Take 0.63 mg by nebulization every 6 hours as needed for wheezing. albuterol 108 (90 Base) MCG/ACT inhaler Inhale 2 puffs every 6 hours as needed. amLODIPine (Norvasc) 10 MG tablet Take 1 tablet (10 mg) by mouth every morning. 90 tablet 0 atorvastatin (Lipitor) 20 MG tablet Take 1 tablet (20 mg) by mouth Nightly. 90 tablet 0 benzoyl peroxide 5 % external wash Apply topically to cleanse the skin once per day. Rinse well after cleansing. co-enzyme Q-10 30 MG capsule Take 30 mg by mouth daily. Wojhunlupiq-Usloepcpc-Zrkjrl (Trelegy Ellipta) 100-62.5-25 MCG/ACT aerosol powder Inhale 1 puff daily. 1 each 0 Glucose Blood (Blood Glucose Test) strip Test 3 x times a day & as needed for symptoms of irregular blood glucose. Dispense sufficient amount for indicated testing frequency plus additional to accommodate PRN testing needs. Januvia 50 MG tablet Take 1 tablet (50 mg) by mouth daily. 90 tablet 0 KRILL OIL PO Take by mouth. lisinopril 40 MG tablet Take 1 tablet (40 mg) by mouth every morning. 90 tablet 0 metFORMIN (Glucophage) 850 MG tablet TAKE 1 TABLET BY MOUTH IN THE MORNING AND 1 IN THE EVENING WITH MEALS 180 tablet 0 metoclopramide (Reglan) 5 MG tablet Take 5 mg by mouth every 8 hours as needed. metoprolol succinate XL (Toprol-XL) 50 MG 24 hr tablet Take 1 tablet (50 mg) by mouth every morning. 90 tablet 0 Multiple Vitamins-Minerals (multivitamin with minerals) tablet Take 1 tablet by mouth daily. ondansetron (Zofran) 4 MG tablet Take 4 mg by mouth every 8 hours as needed. Probiotic Product (PROBIOTIC-10 PO) Take by mouth. Allergies Allergen Reactions Mustard Seed Anaphylaxis Penicillins Hives PHYSICA (more content not included)...[facility]05-12-2023 Evaluation + Plan note* Assessment & Plan Note - Enedina Truong PA-C - 08/09/2022 12:24 PM EDTAssociated Problem(s): Morbid obesity with body mass index (BMI) of 40.0 to 44.9 in adult ([facility]) - Weight consistently stable - Obese discussed need to watch calories increase activity exercise discussed with weight loss and aerobic activity 150 minutes of exercise weekly. [id number] Miscellaneous Notes* Assessment & Plan Note - Enedina Truong PA-C - 08/09/2022 12:24 PM EDTAssociated Problem(s): Morbid obesity with body mass index (BMI) of 40.0 to 44.9 in adult ([facility]) - Weight consistently stable - Obese discussed need to watch calories increase activity exercise discussed with weight loss and aerobic activity 150 minutes of exercise weekly. * Assessment & Plan Note - Enedina Truong PA-C - 08/09/2022 12:23 PM EDT Associated Problem(s): Hypercholesterolemia - Stable and controlled atorvastatin 20 mg daily - We will recheck lipids for next visit when fasting. * Assessment & Plan Note - Enedina Truong PA-C - 08/09/2022 12:22 PM EDT Associated Problem(s): Type 2 diabetes mellitus without complication, without long-term current useof insulin ([facility]/HCC) (HCC) - Previously well controlled we will continue to follow. - Baseline labs were ordered on hold till next visit subsequent to being on continuous steroids. - Started on Trelegy by pulmonology * Assessment & Plan Note - Enedina Truong PA-C - 08/09/2022 12:22 PM EDT Associated Problem(s): SOB (shortness of breath) - Current work-up by pulmonology related to exacerbation of asthma. - Recently started on Trelegy secondary to asthma symptoms. - Recent echocardiogram shows EF of 55% -Disability paperwork filled out for the patient documented in this [facility]05-12-2023 Evaluation + Plan note* Assessment & Plan Note - Enedina Truong PA-C - 08/09/2022 12:23 PM EDT Associated Problem(s): Hypercholesterolemia - Stable and controlled atorvastatin 20 mg daily - We will recheck lipids for next visit when fasting. [id number] Evaluation + Plan note* Assessment & Plan Note - Enedina Truong PA-C - 08/09/2022 12:22 PM EDTAssociated Problem(s): Type 2 diabetes mellitus without complication, without long-term current useof insulin ([facility]) (HCC) - Previously well controlled we will continue to follow. - Baseline labs were ordered on hold till next visit subsequent to being on continuous steroids. - Started on Trelegy by pulmonology [id number] Evaluation + Plan note* Assessment & Plan Note - Enedina Truong PA-C - 08/09/2022 12:22 PM EDTAssociated Problem(s): SOB (shortness of breath) - Current work-up by pulmonology related to exacerbation of asthma. - Recently started on Trelegy secondary to asthma symptoms. - Recent echocardiogram shows EF of 55% -Disability paperwork filled out for the patient T [facility] [id number] History of Present illness Narrative* Enedina Truong PA-C - 08/09/2022 11:40 AM EDT Images from the original note were not included. [facility] [address] [place] [id number] Dept: [phone] Dept Loc: [phone] Visit type: Established Patient Reason for Visit: Follow-up (1 month) Assessment and Plan 1. SOB (shortness of breath) Assessment & Plan: - Current work-up by pulmonology related to exacerbation of asthma. - Recently started on Trelegy secondary to asthma symptoms. - Recent echocardiogram shows EF of 55% -Disability paperwork filled out for the patient 2. Hypercholesterolemia Assessment & Plan: - Stable and controlled atorvastatin 20 mg daily - We will recheck lipids for next visit when fasting. Orders: - Lipid panel 3. Type 2 diabetes mellitus without complication, without long-term current use of insulin ([facility]) ([facility]) Assessment & Plan: - Previously well controlled we will continue to follow. - Baseline labs were ordered on hold till next visit subsequent to being on continuous steroids. - Started on Trelegy by pulmonology Orders: - Hemoglobin A1c - AMB POC URINE, MICROALBUMIN 4. Morbid obesity with body mass index (BMI) of 40.0 to 44.9 in adult ([facility]) Assessment & Plan: - Weight consistently stable - Obese discussed need to watch calories increase activity exercise discussed with weight loss and aerobic activity 150 minutes of exercise weekly. Follow up in about 4 months (around 12/10/2022) for CPE. Subjective HPI this is a 37-year-old male with underlying history of hypertension DM 2, and hyperlipidemia with recent COVID infection in May of this year who also suffers from obesity who is presents with a cough congestion states he has persistent shortness of breath and wheezing and cough symptoms that he presented ever since he had COVID over 2month ago. Stress echo was done yesterday and appears relatively unremarkable EF was approximately 55%. There is no signs of dysrhythmias. He is also followedup with pulmonology who believes this to be sequelae of his asthma post COVID but no acute concerns. Recent started on trelegy. Patient followed up in the office today with generalized concerns to follow-up on all of his recentblood work and testing. He is also followed for some underlying disability due to the secondary dyspnea. A lot of this appears to be secondary to deconditioning asthma obesity. We did discuss weight loss. Blood pressure is adequately controlled cholesterols been adequately controlled in the past. He appears to be doing much better at this point time we will continue to follow. Review of Systems Constitutional: Negative for chills and fever. HENT: Negative for congestion and sore throat. Respiratory: Positive for shortness of breath. Negative for cough. Cardiovascular: Negative for chest pain. Gastrointestinal: Negative for abdominal pain, diarrhea, nausea and vomiting. Genitourinary: Negative for difficulty urinating. Musculoskeletal: Negative for back pain and neck pain. Neurological: Negative for dizziness and light-headedness. All other systems reviewed and are negative. Allergies Allergen Reactions Mustard Seed Anaphylaxis Penicillins Hives Outpatient Medications Prior to Visit Medication Sig Dispense Refill albuterol 0.63 MG/3ML nebulizer solution Take 0.63 mg by nebulization every 6 hours as needed for wheezing. albuterol 108 (90 Base) MCG/ACT inhaler Inhale 2 puffs every 6 hours as needed. amLODIPine (Norvasc) 10 MG tablet Take 1 tablet (10 mg) by mouth every morning. 90 tablet 0 atorvastatin (Lipitor) 20 MG tablet Take 1 tablet (20 mg) by mouth Nightly. 90 tablet 0 benzoyl peroxide 5 % external wash Apply topically to cleanse the skin once per day. Rinse well after cleansing. co-enzyme Q-10 30 MG capsule Take 30 mg by mouth daily. Glucose Blood (Blood Glucose Test) strip Test 3 x times a day & as needed for symptoms of irregular blood glucose. Dispense sufficient amount for indicated testing frequency plus additional to accommodate PRN testing needs. Januvia 50 MG tablet Take 1 tablet (50 mg) by mouth daily. 90 tablet 0 KRILL OIL PO Take by mouth. lisinopril 40 MG tablet Take 1 tablet (40 mg) by mouth every morning. 90 tablet 0 metFORMIN (Glucophage) 850 MG tablet TAKE 1 TABLET BY MOUTH IN THE MORNING AND 1 IN THE EVENING WITH MEALS 180 tablet 0 metoclopramide (Reglan) 5 MG tablet Take 5 mg by mouth every 8 hours as needed. metoprolol succinate XL (Toprol-XL) 50 MG 24 hr tablet Take 1 tablet (50 mg) by mouth every morning. 90 tablet 0 Multiple Vitamins-Minerals (multivitamin with minerals) tablet Take 1 tablet by mouth daily. ondansetron (Zofran) 4 MG tablet Take 4 mg by mouth every 8 hours as needed. predniSONE (Deltasone) 10 MG tablet Take 1 tablet (10 mg) by mouth daily for 10 days, THEN 0.5 tablets (5 mg) daily for 10 days. 15 tablet 0 Probiotic Product (PROBIOTIC-10 PO) Take by mouth. No facility-administered medications prior to visit. Past Medical History: Diagnosis Date Allergic rhinitis Asthma COVID 02/2020 COVID 05/29/2022 DM (diabetes mellitus), type 2 (HCC) Gastroparesis Hyperlipidemia Hypertension Sleep apnea needs new cpap Social History Tobacco Use Smoking status: Never Smokeless tobacco: Never Substance Use Topics Alcohol use: Not Currently Alcohol/week: 2.0 standard drinks Types: 2 Standard drinks or equivalent per week Past Surgical History: Procedure Laterality Date CHOLECYSTECTOMY 08/14/2021 COLONOSCOPY COLONOSCOPY MYRINGOTOMY AND TYMPANOSTOMY TUBE PLACEMENT (HISTORICAL) Bilateral NASAL POLYP SURGERY DVT SEPTOPLASTY SKIN BIOPSY scalp- benign TONSILLECTOMY (HISTORICAL) Family History Problem Relation Name Age of Onset Arthritis Mother psoriatic Asthma Mother Thyroid disease Mother Diabetes Mother Hypertension Father Diabetes Father Cancer Mother's Sister skin cancer- NMSC Cancer Maternal Grandmother skin cancer NMSC Asthma Maternal Grandmother Lung disease Maternal Grandmother Heart attack Maternal Grandmother Other ([id number]) Maternal Grandfather Objective BP 122/78 (BP Location: Left arm, Patient Position: Sitting, BP Cuff Size: Large adult) Pulse 80 Temp 36.3 C (97.3 F) (Temporal) Ht 6' 2 (1.88 m) Wt (!) 315 lb (143 kg) SpO2 97% BMI 40.44 kg/m Physical Exam Vitals reviewed. Constitutional: General: He is not in acute distress. Appearance: Normal appearance. He is obese. He is not ill-appearing or toxic-appearing. HENT: Right Ear: Tympanic membrane and ear canal normal. Left Ear: Tympanic membrane normal. Mouth/Throat: Pharynx: Oropharynx is clear. Eyes: General: No scleral icterus. Conjunctiva/sclera: Conjunctivae normal. Pupils: Pupils are equal, round, and reactive to light. Cardiovascular: Rate and Rhythm: Normal rate and regular rhythm. Heart sounds: Normal heart sounds. No murmur heard. Pulmonary: Effort: Pulmonary effort is normal. No respiratory distress. Breath sounds: Normal breath sounds. No wheezing or rales. Abdominal: General: There is no distension. Palpations: Abdomen is soft. Tenderness: There is no abdominal tenderness. There is no guarding. Musculoskeletal: Cervical back: Normal range of motion and neck supple. Right lower leg: No edema. Left lower leg: No edema. Skin: General: Skin is warm and dry. Neurological: Mental Status: He is alert. Psychiatric: Mood and Affect: Mood normal. Data Reviewed and Summarized Labs: Imaging/Testing: Stress echo 08/08/2022 Interpretation Summary Study Impression: Normal stress echocardiogram. No echocardiographic evidence of ischemia. Post-stress Echo: The post-stress echo showed no new wall motion abnormalities. Left Ventricle: Left ventricle size is normal. Mildly increased wall thickness. Normal left ventricular systolic function. The EF by visual approximation is 55%. Normal wall motion. Right Ventricle: Right ventricle size is normal. Normal systolic function. Stress ECG: Conclusion: The stress test had minor ST changes of no clinical significance. The stress test is normal. Stress Test: A Niko protocol stress test was performed. Overall, the patient's exercise capacity was average for their age. The patient exercised for 6 min and 34 sec. The patient experienced no angina during the test. Hemodynamics are adequate for diagnosis. Blood pressure demonstrated a normal response and heart rate demonstrated a normal response to stress. The patient reported fatigue and nochest pain during the stress test. Enedina Truong PA-C 08/09/2022 Please note that portions of this note may have been completed with voice recognition software. Documentation reviewed prior to signing but minor errors in engineer systems may have occurred. documented in this [facility]05-09-2023 History of Present illness Narrative* Young Robbins MD - 08/06/2022 10:15 AM EDT Images from the original note were not included. [facility]- Pulmonary and Sleep Medicine [address] [place] [id number] PH: [phone] Visit type: A New [id number] 1985 08/06/2022 CHIEF COMPLAINT/REASON FOR REFERRAL: Chief Complaint Patient presents with New Patient Shortness of Breath Asthma History of Present Illness Evin Cardoza is a 37 y.o. male with severe morbid obesity, BMI greater than 41 kg per metered square, history of asthma, diagnosis of mild sleep apnea on a home sleep test awaiting to be started onAutoPap presents for evaluation of shortness of breath shortness of breath has been worse since patient had COVID- 19 infection at the beginning of the year, patient did not require hospitalization but did take Paxlovid since then patient has had multiple episodes of shortness of breath most recent being on July 25 with patient was seen in the emergency room. Patient had a CT angiogram of the chest done during that visit CT angiogram of the chest interpreted by me did not show any evidence of pulmonary embolism, did not show any acute pulmonary infiltrates. Patient gets shortness MMRC Dyspnea Scale: Grade Description of Breathlessness 0 I only get breathless with strenuous exercise. 1 I get short of breath when hurrying on level ground or walking up a slight hill. 2 On level ground, I walk slower than people of the same age because of breathlessness, or have to stop for breath when walking at my own pace. 3 I stop for breath after walking about 100 yards or after a few minutes on level ground. 4 I am too breathless to leave the house or I am breathless when dressing. PastMedical History Past Medical History: Diagnosis Date Allergic rhinitis Asthma COVID 02/2020 COVID 05/29/2022 DM (diabetes mellitus), type 2 (HCC) Gastroparesis Hyperlipidemia Hypertension Sleep apnea needs new cpap Past Surgical History Past Surgical History: Procedure Laterality Date CHOLECYSTECTOMY 08/14/2021 COLONOSCOPY COLONOSCOPY MYRINGOTOMY AND TYMPANOSTOMY TUBE PLACEMENT (HISTORICAL) Bilateral NASAL POLYP SURGERY DVT SEPTOPLASTY SKIN BIOPSY scalp- benign TONSILLECTOMY (HISTORICAL) Allergies Allergies Allergen Reactions Mustard Seed Anaphylaxis Penicillins Hives Medications Current Outpatient Medications: albuterol 0.63 MG/3ML nebulizer solution, Take 0.63 mg by nebulization every 6 hours as needed for wheezing., Disp: , Rfl: albuterol 108 (90 Base) MCG/ACT inhaler, Inhale 2 puffs every 6 hours as needed., Disp: , Rfl: amLODIPine (Norvasc) 10 MG tablet, Take 1 tablet (10 mg) by mouth every morning., Disp: 90 tablet, Rfl: 0 atorvastatin (Lipitor) 20 MG tablet, Take 1 tablet (20 mg) by mouth Nightly., Disp: 90 tablet, Rfl:0 benzoyl peroxide 5 % external wash, Apply topically to cleanse the skin once per day. Rinse well after cleansing., Disp: , Rfl: co-enzyme Q-10 30 MG capsule, Take 30 mg by mouth daily., Disp: , Rfl: Glucose Blood (Blood Glucose Test) strip, Test 3 x times a day & as needed for symptoms of irregular blood glucose. Dispense sufficient amount for indicated testing frequency plus additional to accommodate PRN testing needs., Disp: , Rfl: Januvia 50 MG tablet, Take 1 tablet (50 mg) by mouth daily., Disp: 90 tablet, Rfl: 0 KRILL OIL PO, Take by mouth., Disp: , Rfl: lisinopril 40 MG tablet, Take 1 tablet (40 mg) by mouth every morning., Disp: 90 tablet, Rfl: 0 metFORMIN (Glucophage) 850 MG tablet, TAKE 1 TABLET BY MOUTH IN THE MORNING AND 1 IN THE EVENING WITH MEALS, Disp: 180 tablet, Rfl: 0 metoclopramide (Reglan) 5 MG tablet, Take 5 mg by mouth every 8 hours as needed., Disp: , Rfl: metoprolol succinate XL (Toprol-XL) 50 MG 24 hr tablet, Take 1 tablet (50 mg) by mouth every morning., Disp: 90 tablet, Rfl: 0 Multiple Vitamins-Minerals (multivitamin with minerals) tablet, Take 1 tablet by mouth daily., Disp: , Rfl: ondansetron (Zofran) 4 MG tablet, Take 4 mg by mouth every 8 hours as needed., Disp: , Rfl: predniSONE (Deltasone) 10 MG tablet, Take 1 tablet (10 mg) by mouth daily for 10 days, THEN 0.5 tablets (5 mg) daily for 10 days., Disp: 15 tablet, Rfl: 0 Probiotic Product (PROBIOTIC-10 PO), Take by mouth., Disp: , Rfl: Social History Social History Tobacco Use Smoking status: Never Smokeless tobacco: Never Substance Use Topics Alcohol use: Not Currently Alcohol/week: 2.0 standard drinks Types: 2 Standard drinks or equivalent per week FamilyHistory Family History Problem Relation Name Age of Onset Arthritis Mother psoriatic Asthma Mother Thyroid disease Mother Diabetes Mother Hypertension Father Diabetes Father Cancer Mother's Sister skin cancer- NMSC Cancer Maternal Grandmother skin cancer NMSC Asthma Maternal Grandmother Lung disease Maternal Grandmother Heart attack Maternal Grandmother Other ([id number]) Maternal Grandfather Review of Systems Review of Systems Constitutional: Negative. HENT: Negative. Eyes: Negative. Respiratory: Positive for cough (DRY HACKING COUGH NON-PRODUCTIVE), chest tightness, shortness of breath and wheezing. Cardiovascular: Positive for chest pain. Gastrointestinal: Negative. Endocrine: Negative. Genitourinary: Negative. Musculoskeletal: Negative. Skin: Negative. Allergic/Immunologic: Negative. Neurological: Negative. Hematological: Negative. Psychiatric/Behavioral: Negative. All other systems reviewed and are negative. Physical Exam Vitals: 08/06/22 1019 BP: (!) 140/91 Pulse: 82 Temp: 36.5 C (97.7 F) TempSrc: Temporal SpO2: 95% Weight: (!) 319 lb 6.4 oz (145 kg) Height: 6' 2 (1.88 m) Physical Exam Vitals reviewed. Constitutional: General: He is not in acute distress. Appearance: He is obese. He is not ill-appearing, toxic-appearing or diaphoretic. HENT: Head: Normocephalic and atraumatic. Nose: No congestion or rhinorrhea. Mouth/Throat: Pharynx: No oropharyngeal exudate or posterior oropharyngeal erythema. Eyes: Extraocular Movements: Extraocular movements intact. Conjunctiva/sclera: Conjunctivae normal. Pupils: Pupils are equal, round, and reactive to light. Cardiovascular: Rate and Rhythm: Normal rate and regular rhythm. Pulses: Normal pulses. Heart sounds: Normal heart sounds. No murmur heard. No friction rub. No gallop. Pulmonary: Effort: No respiratory distress. Breath sounds: No stridor. Wheezing and rhonchi present. No rales. Chest: Chest wall: No tenderness. Abdominal: General: Bowel sounds are normal. Palpations: Abdomen is soft. Musculoskeletal: Right lower leg: No edema. Left lower leg: No edema. Neurological: Mental Status: He is alert. Psychiatric: Mood and Affect: Mood normal. Behavior: Behavior normal. Thought Content: Thought content normal. Judgment: Judgment normal. Data Reviewed and Summarized LABS and Studies: Available studies were personally reviewed. Salient findings summarized in HPI & A/P Imaging: Available studies were personally reviewed. Salient findings summarized in HPI & A/P PFT's: Pulmonary Functions Testing Results: No results found for: FEV1, FVC, EQA2BVJ, TLC, DLCO Assessment and Plan 1. Shortness of breath Multifactorial patient has baseline history of asthma symptoms may have been aggravated by his mostrecent COVID-19 infection - [facility] Pulmonary/Pulmonology 2. COVID-19 With worsening pulmonary symptoms patient was treated with Paxlovid as an outpatient 3. Moderate persistent asthma without complication Patient has had multiple rounds of steroids, symptomatically patient improved with steroids Patient advised to get serum IgE levels and hypersensitivity panel done after he is done with his current steroid taper 4. SOB (shortness of breath) As above 5. CATHY (obstructive sleep apnea) Mild sleep apnea results of recent home sleep test reviewed. AutoPap has been ordered for the patient patient advised to start using AutoPap, discussed consequences of untreated sleep apnea 6. Morbid obesity with body mass index (BMI) of 40.0 to 44.9 in adult (HCC) Counseled on weight loss 7. Elevated systolic and diastolic blood pressures, patient advised to monitor blood pressure closely if persistently high follow-up with PCP to adjust medications Young Robbins MD Pulmonary, Critical Care, & Sleep Medicine Portions of the information within this encounter were entered using an electronic dictation system. Best attempts were made to edit/proofread the information prior to note completion. Despite the review of information, some errors may remain. If there are questions related to the information contained within the note please contact the documented in this [facility]05-09-2023 Instructions* Patient Instructions* Yany Villareal - 08/06/2022 10:15 AM EDT YOUR APPOINTMENT TODAY WAS WITH THE [facility], COPD CLINIC, PULMONARY AND SLEEP MEDICINE OFFICE. PLEASE CALL OUR OFFICE AT [phone] for our [place] office location or [phone] for our [place] location, IF YOU HAVE NOT RECEIVED YOUR TEST RESULTS 7 DAYS AFTER TESTING IS COMPLETED. PLEASE REMEMBER TO REQUEST REFILLS AT YOUR OFFICE VISITS. PHONE/FAX REQUESTS REQUIRE 48-72 HOURS FOR RESPONSE. A FRIENDLY REMINDER COPAYS ARE DUE AT TIME OF SERVICE. THANK YOU. Our Patients Are Important! We want to improve and you can help. After your visit we want you to feel: Listened to, Respected and have your health care explained. You may receive a survey asking you about your visit. Please complete the survey. We will use your feedback to make improvements. COVID-19 VACCINATION INFORMATION: PH. [phone] [email or web address] [facility] Central Scheduling [phone] [facility] Sleep Scheduling [phone] documented in this [facility]05-09-2023 Miscellaneous Notes* Addendum Note - Yany Villareal - 08/06/2022 10:15 AM EDTAddended by: YANY VILLAREAL on: 08/06/2022 12:41 PM Modules accepted: Orders documented in this [facility]05-09-2023 Note* Addendum Note - Yany Villareal - 08/06/2022 10:15 AM EDTAddended by: YANY VILLAREAL on: 08/06/2022 12:41 PM Modules accepted: [id number] Telephone encounter Note* Telephone Encounter - Akanksha Gibson MA - 07/31/2022 6:53 AM EDT Rx loaded [id number] Miscellaneous Notes* Telephone Encounter - Akanksha Gibson MA - 07/31/2022 6:53 AM EDT Rx loaded * Telephone Encounter - Michelle Page LPN - 07/31/2022 6:47 AM EDT Last appointment 07/25/2022 , Next appointment is 08/09/2022 Last filled Amlodipine 10 mg 04/05/22 #90 with no refills Atorvastatin 20 mg 04/05/22 #90 with no refills Januvia 50 mg 04/05/22 #90 with no refills Lisinopril 40 mg 04/05/22 #90 with no refills Metoprolol XL 50 mg 04/05/22 #90 with no refills documented in this [facility]05-03-2023 Telephone encounter Note* Telephone Encounter - Michelle Page LPN - 07/31/2022 6:47 AM EDT Last appointment 07/25/2022 , Next appointment is 08/09/2022 Last filled Amlodipine 10 mg 04/05/22 #90 with no refills Atorvastatin 20 mg 04/05/22 #90 with no refills Januvia 50 mg 04/05/22 #90 with no refills Lisinopril 40 mg 04/05/22 #90 with no refills Metoprolol XL 50 mg 04/05/22 #90 with no refills [id number] History of Present illness Narrative* Enedina Truong PA-C - 07/25/2022 12:40 PM EDT Images from the original note were not included. [facility] [address] [facility] [address] Dept: [phone] Dept Loc: [phone] Visit type: Established Patient Reason for Visit: Shortness of Breath and Chest Pain Assessment and Plan 1. Shortness of breath Comments: Ongoing and progressive shortness of breath status post COVID unclear etiology we will order stat CT of the chest. Orders: - CT chest w IV contrast Follow up in about 3 months (around 10/24/2022), or if symptoms worsen or fail to improve, for Next scheduled follow-up. Patient has ongoing symptoms of generalized fatigue and shortness of breath states that he is doingwell on prednisone but since he comes off the prednisone his symptoms to be worse. He is best to follow-up with the post-COVID clinic he is already seen cardiology. Cardiology is try to expedite a stress echo to make sure is no signs of underlying cardiomyopathy or signs of acute abnormalities. On examination today there is no signs of peripheral edema or signs of failure I do not auscultate any sounds of heart murmurs at this point time he certainly does not appear to be in any acute heart failure he does appear generally fatigued his lungs are clear there is no signs of adventitial lung sounds but given his progression of symptoms and concern he has had several ER visits his work-up is been unremarkable his BNP has been negative. There is no signs of failure previously I do not think any further blood work is indicated his most recent was 2 weeks ago and this has been an ongoing issuebecause of the symptoms a stat CT was ordered for today. Subjective HPI this is a 37-year-old male with underlying history of hypertension DM 2, and hyperlipidemia with recent COVID infection in May of this year who also suffers from obesity who is presents with a cough congestion states he has persistent shortness of breath and wheezing and cough symptoms that he presented ever since he had COVID over a month ago. He states had COVID nonetheless he was treatedwith several rounds of antibiotics as well as a Medrol Dosepak. Patient was seen 2 weeks ago for the same, contact the [facility] today and fearful his symptoms are worsening and doesn't have pulmonology appointment and echo ordered for another 2 weeks. called and is concerned and wants the patient admitted to the hospital to get these test done sooner however did not want to go to the ER to have this expedited. Was breathing better, while on prednisone, now chest pain coming back shortness of breath is getting worse. Review of Systems Constitutional: Negative for chills and fever. HENT: Negative for congestion and sore throat. Respiratory: Positive for chest tightness and shortness of breath. Negative for apnea, cough and choking. Cardiovascular: Positive for chest pain and leg swelling. Gastrointestinal: Negative for abdominal pain, diarrhea, nausea and vomiting. Genitourinary: Negative for difficulty urinating. Musculoskeletal: Negative for back pain and neck pain. Neurological: Negative for dizziness and light-headedness. All other systems reviewed and are negative. Allergies Allergen Reactions Mustard Seed Anaphylaxis Penicillins Hives Outpatient Medications Prior to Visit Medication Sig Dispense Refill albuterol 0.63 MG/3ML nebulizer solution Take 0.63 mg by nebulization every 6 hours as needed for wheezing. albuterol 108 (90 Base) MCG/ACT inhaler Inhale 2 puffs every 6 hours as needed. amLODIPine (Norvasc) 10 MG tablet Take 1 tablet (10 mg) by mouth every morning. 90 tablet 0 atorvastatin (Lipitor) 20 MG tablet Take 1 tablet (20 mg) by mouth Nightly. 90 tablet 0 benzoyl peroxide 5 % external wash Apply topically to cleanse the skin once per day. Rinse well after cleansing. co-enzyme Q-10 30 MG capsule Take 30 mg by mouth daily. Glucose Blood (Blood Glucose Test) strip Test 3 x times a day & as needed for symptoms of irregular blood glucose. Dispense sufficient amount for indicated testing frequency plus additional to accommodate PRN testing needs. Januvia 50 MG tablet Take 1 tablet (50 mg) by mouth daily. 90 tablet 0 KRILL OIL PO Take by mouth. lisinopril 40 MG tablet Take 1 tablet (40 mg) by mouth every morning. 90 tablet 0 metFORMIN (Glucophage) 850 MG tablet TAKE 1 TABLET BY MOUTH IN THE MORNING AND 1 IN THE EVENING WITH MEALS 180 tablet 0 metoclopramide (Reglan) 5 MG tablet Take 5 mg by mouth every 8 hours as needed. metoprolol succinate XL (Toprol-XL) 50 MG 24 hr tablet Take 1 tablet (50 mg) by mouth every morning. 90 tablet 0 Multiple Vitamins-Minerals (multivitamin with minerals) tablet Take 1 tablet by mouth daily. ondansetron (Zofran) 4 MG tablet Take 4 mg by mouth every 8 hours as needed. Probiotic Product (PROBIOTIC-10 PO) Take by mouth. No facility-administered medications prior to visit. Past Medical History: Diagnosis Date Allergic rhinitis Asthma COVID 02/2020 COVID 05/29/2022 DM (diabetes mellitus), type 2 (HCC) Gastroparesis Hyperlipidemia Hypertension Sleep apnea needs new cpap Social History Tobacco Use Smoking status: Never Smokeless tobacco: Never Substance Use Topics Alcohol use: Not Currently Alcohol/week: 2.0 standard drinks Types: 2 Standard drinks or equivalent per week Past Surgical History: Procedure Laterality Date ATRIAL ABLATION SURGERY 08/14/2021 COLONOSCOPY COLONOSCOPY MYRINGOTOMY AND TYMPANOSTOMY TUBE PLACEMENT (HISTORICAL) Bilateral NASAL POLYP SURGERY DVT SEPTOPLASTY SKIN BIOPSY scalp- benign TONSILLECTOMY (HISTORICAL) Family History Problem Relation Name Age of Onset Arthritis Mother psoriatic Asthma Mother Thyroid disease Mother Diabetes Mother Hypertension Father Diabetes Father Cancer Mother's Sister skin cancer- NMSC Cancer Maternal Grandmother skin cancer NMSC Asthma Maternal Grandmother Lung disease Maternal Grandmother Heart attack Maternal Grandmother Other ([id number]) Maternal Grandfather Objective BP 128/80 (BP Location: Left arm, Patient Position: Sitting, BP Cuff Size: Large adult) Pulse 72 Temp 36.8 C (98.2 F) (Temporal) Ht 6' 2 (1.88 m) Wt (!) 315 lb (143 kg) SpO2 96% BMI 40.44 kg/m Physical Exam Vitals reviewed. Constitutional: General: He is not in acute distress. Appearance: Normal appearance. He is not toxic-appearing. Eyes: General: No scleral icterus. Conjunctiva/sclera: Conjunctivae normal. Pupils: Pupils are equal, round, and reactive to light. Cardiovascular: Rate and Rhythm: Normal rate and regular rhythm. Heart sounds: Normal heart sounds. No murmur heard. Pulmonary: Effort: Pulmonary effort is normal. No respiratory distress. Breath sounds: Normal breath sounds. No wheezing or rales. Abdominal: General: Bowel sounds are normal. Palpations: Abdomen is soft. Tenderness: There is no abdominal tenderness. Musculoskeletal: Cervical back: Normal range of motion and neck supple. Tenderness present. No rigidity. Right lower leg: No edema. Left lower leg: No edema. Lymphadenopathy: Cervical: No cervical adenopathy. Skin: General: Skin is warm and dry. Neurological: Mental Status: He is alert. Psychiatric: Mood and Affect: Mood normal. Data Reviewed and Summarized Labs: Imaging/Testing: Enedina Truong PA-C 07/25/2022 Please note that portions of this note may have been completed with voice recognition software. Documentation reviewed prior to signing but minor errors in engineer systems may have occurred. documented in this encounterSOhioHealth Shelby [id number] Telephone encounter Note* Telephone Encounter - Dave Smith - 07/12/2022 2:18 PM EDT Updated orders needed to sched pt. Orders pended for dx and doctor's signature [id number] Note* Addendum Note - Dave Smith - 07/12/2022 2:18 PM EDTAddended by: DAVE SMITH on: 07/12/2022 02:18 PM Modules accepted: Orders [place] [id number] Note* Addendum Note - Dave Smith - 07/12/2022 2:18 PM EDTAddended by: DAVE SMITH on: 07/12/2022 02:18 PM Modules accepted: Orders [id number] Note* Addendum Note - Davedarshan Cruze - 07/12/2022 2:18 PM EDTAddended by: DAVE SMITH on: 07/12/2022 02:18 PM Modules accepted: Orders [id number] Note* Addendum Note - Dave Smith - 07/12/2022 2:18 PM EDTAddended by: DAVE SMITH on: 07/12/2022 02:18 PM Modules accepted: Orders [id number] Miscellaneous Notes* Addendum Note - Davedarshan Cruze - 07/12/2022 2:18 PM EDTAddended by: DAVE SMITH on: 07/12/2022 02:18 PM Modules accepted: Orders * Addendum Note - Dave Smith - 07/12/2022 2:14 PM EDTAddended by: DAVE SMITH on: 07/12/2022 02:14 PM Modules accepted: Orders * Telephone Encounter - Dave Cruze - 07/12/2022 11:19 AM EDT Updated orders needed to sched pt. Orders pended for dx and doctor's signature documented in this [place] [id number] Miscellaneous Notes* Telephone Encounter - Dave Smith - 07/12/2022 2:18 PM EDT Updated orders needed to sched pt. Orders pended for dx and doctor's signature documented in this [place] [id number] Note* Addendum Note - Davedarshan Smith - 07/12/2022 2:14 PM EDTAddended by: DAVE SMITH on: 07/12/2022 02:14 PM Modules accepted: Orders [id number] Note* Addendum Note - Dave Smith - 07/12/2022 2:14 PM EDTAddended by: DAVE SMITH on: 07/12/2022 02:14 PM Modules accepted: Orders [id number] Note* Addendum Note - Dave Smith - 07/12/2022 2:14 PM EDTAddended by: DAVE SMITH on: 07/12/2022 02:14 PM Modules accepted: Orders [id number] Note* Addendum Note - Dave Smith - 07/12/2022 2:14 PM EDTAddended by: DAVE SMITH on: 07/12/2022 02:14 PM Modules accepted: Orders [place] [id number] Telephone encounter Note* Telephone Encounter - Dave Smith - 07/12/2022 11:19 AM EDT Updated orders needed to sched pt. Orders pended for dx and doctor's signature [place] [id number] History of Present illness Narrative* Enedina Truong PA-C - 07/11/2022 8:00 AM EDT Images from the original note were not included. [facility] [address] [facility] [address] Dept: [phone] Dept Loc: [phone] Visit type: Established Patient Reason for Visit: Shortness of Breath and Cough (Had covid in may and not getting better. ) Assessment and Plan 1. Shortness of breath Comments: Given the persistence of the symptoms could represent long-haul COVID we will order echocardiogram to rule out cardiomyopathy. Orders: - Transesophageal echocardiogram (ALONSO) with contrast and 3D PRN - [facility] - CT chest w IV contrast Follow up in about 1 month (around 08/10/2022). Patient clinically looks that he does not feel well. He endorses ongoing shortness of breath and intermittent chest discomfort or chest tightness. Has had several ER visits. He is ruled out for DVT and PE D-dimer recently was negative. He was seen in urgent care recent placed on 2 different antibiotics of unclear treatment course at this point time given that the problem of having recent COVID will order CT of the chest to rule out underlying empyema or undiagnosed pneumonia versus long-haul COVID and sequelae secondary to COVID. However given the persistence of the shortness of breath given his multiple comorbidities being overweight hypertensive diabetic concern to be developing cardiomyopathy for this stat echocardiogram will be ordered as well. Encouraged to report any new symptoms deni referred over to cardiology as well. Subjective HPI this is a 37-year-old male with underlying history of hypertension DM 2, and hyperlipidemia with recent COVID infection in May of this year who also suffers from obesity who is presents with a cough congestion states he has persistent shortness of breath and wheezing and cough symptoms that he presented ever since he had COVID over a month ago. He states had COVID nonetheless he was treatedwith several rounds of antibiotics as well as a Medrol Dosepak he is just finished his up this pastSat. Went back to the urgent care on Friday with persistent cough congestion shortness of breath. He has previously been placed on antibiotics. He followed up at the ER yesterday for the same symptoms at that time his blood work was completely unremarkable troponin was negative D- dimer was negative chest x-ray was normal rest of his blood work was signs was unremarkable. This all started in may, had chest pain and went to ER at that time, and this has continued intermittently, occasionally will have one day that felt maybe things are turning the corner. With increasing WANG, just feel like can't get a deep breath in. Persistent coughing fits and this causes dizziness, got steroids in ER yesterday, and refill Rx for prednisone. Currently still taking omnicef and clindamycin. Review of Systems Constitutional: Negative for chills and fever. HENT: Negative for congestion and sore throat. Respiratory: Positive for cough, chest tightness, shortness of breath and wheezing (periodic and intermittent). Does endorse ongoing dyspnea on exertion and some mild orthopnea. With persistent shortness of breath and coughing episodes. No hemoptysis or hematemesis. Cardiovascular: Negative for chest pain. Gastrointestinal: Negative for abdominal pain, diarrhea, nausea and vomiting. Genitourinary: Negative for difficulty urinating and dysuria. Musculoskeletal: Negative for back pain and neck pain. Neurological: Positive for dizziness. Negative for light-headedness. Dizziness seems to be primarily induced with coughing episodes. There is no appreciable sputum production with this. All other systems reviewed and are negative. Allergies Allergen Reactions Mustard Seed Anaphylaxis Penicillins Hives Outpatient Medications Prior to Visit Medication Sig Dispense Refill albuterol 108 (90 Base) MCG/ACT inhaler Inhale 2 puffs. amLODIPine (Norvasc) 10 MG tablet Take 1 tablet (10 mg) by mouth every morning. 90 tablet 0 aspirin 81 MG chewable tablet Chew 1 tablet (81 mg) daily for 21 days. 21 tablet 0 atorvastatin (Lipitor) 20 MG tablet Take 1 tablet (20 mg) by mouth Nightly. 90 tablet 0 benzoyl peroxide 5 % external wash Apply topically to cleanse the skin once per day. Rinse well after cleansing. qgumrrikrrymtge-dacnczdbbslkhkc-IV 30-2-10 MG/5ML syrup Take 5 mL by mouth 3 times daily as needed for cough or congestion for up to 10 days. 150 mL 0 cefdinir (Omnicef) 300 MG capsule Take 1 capsule (300 mg) by mouth 2 times daily for 7 days. 14 capsule 0 clindamycin (Cleocin) 300 MG capsule Take 1 capsule (300 mg) by mouth 3 times daily for 7 days. 21 capsule 0 Januvia 50 MG tablet Take 1 tablet (50 mg) by mouth daily. 90 tablet 0 lisinopril 40 MG tablet Take 1 tablet (40 mg) by mouth every morning. 90 tablet 0 metFORMIN (Glucophage) 850 MG tablet TAKE 1 TABLET BY MOUTH IN THE MORNING AND 1 IN THE EVENING WITH MEALS 180 tablet 0 metoclopramide (Reglan) 5 MG tablet Take 5 mg by mouth. metoprolol succinate XL (Toprol-XL) 50 MG 24 hr tablet Take 1 tablet (50 mg) by mouth every morning. 90 tablet 0 ondansetron (Zofran) 4 MG tablet Take 4 mg by mouth every 8 hours as needed. predniSONE (Deltasone) 10 MG tablet Take 4 tablets (40 mg) by mouth daily for 3 days, THEN 3 tablets (30 mg) daily for 3 days, THEN 2 tablets (20 mg) daily for 3 days, THEN 1 tablet (10 mg) daily for3 days. 30 tablet 0 Glucose Blood (Blood Glucose Test) strip Test 3 x times a day & as needed for symptoms of irregular blood glucose. Dispense sufficient amount for indicated testing frequency plus additional to accommodate PRN testing needs. methylPREDNISolone (Medrol Dospak) 4 MG tablets Follow schedule on package instructions (Patient not taking: Reported on 07/11/2022) 21 tablet 0 benzonatate (Tessalon) 100 MG capsule Take 1 capsule (100 mg) by mouth in the morning and 1 capsule(100 mg) at noon and 1 capsule (100 mg) before bedtime. Do all this for 7 days. Do not crush or chew. . (Patient not taking: Reported on 07/11/2022) 21 capsule 0 doxycycline (Vibramycin) 100 MG capsule Take 1 capsule (100 mg) by mouth 2 times daily for 7 days. Take with at least 8 ounces (large glass) of water, do not lie down for 30 minutes after (Patient not taking: Reported on 07/11/2022) 14 capsule 0 potassium chloride CR (Klor-Con M20) 20 MEQ ER tablet Take 1 tablet (20 mEq) by mouth 2 times daily. Do not crush or chew. (Patient not taking: Reported on 07/11/2022) 6 tablet 0 No facility-administered medications prior to visit. Past Medical History: Diagnosis Date Allergic rhinitis Asthma COVID 02/2020 COVID 05/29/2022 DM (diabetes mellitus), type 2 (HCC) Gastroparesis Hyperlipidemia Hypertension Sleep apnea needs new cpap Social History Tobacco Use Smoking status: Never Smokeless tobacco: Never Substance Use Topics Alcohol use: Not Currently Alcohol/week: 2.0 standard drinks Types: 2 Standard drinks or equivalent per week Past Surgical History: Procedure Laterality Date ATRIAL ABLATION SURGERY 08/14/2021 COLONOSCOPY COLONOSCOPY MYRINGOTOMY AND TYMPANOSTOMY TUBE PLACEMENT (HISTORICAL) Bilateral NASAL POLYP SURGERY DVT SEPTOPLASTY SKIN BIOPSY scalp- benign TONSILLECTOMY (HISTORICAL) Family History Problem Relation Name Age of Onset Arthritis Mother psoriatic Cancer Maternal Grandmother skin cancer NMSC Asthma Mother Hypertension Father Diabetes Father Asthma Maternal Grandmother Thyroid disease Mother Other ([id number]) Maternal Grandfather Diabetes Mother Lung disease Maternal Grandmother Cancer Mother's Sister skin cancer- NMSC Objective BP (!) 145/91 (BP Location: Right arm, Patient Position: Sitting, BP Cuff Size: Large adult) Pulse 80 Temp 36.8 C (98.3 F) (Temporal) Ht 6' 2 (1.88 m) Wt (!) 313 lb (142 kg) SpO2 97% BMI40.19 kg/m Physical Exam Vitals reviewed. Constitutional: General: He is not in acute distress. Appearance: Normal appearance. He is not toxic-appearing. HENT: Right Ear: Tympanic membrane and ear canal normal. Left Ear: Tympanic membrane and ear canal normal. Mouth/Throat: Mouth: Mucous membranes are moist. Pharynx: Oropharynx is clear. No oropharyngeal exudate. Eyes: General: No scleral icterus. Conjunctiva/sclera: Conjunctivae normal. Pupils: Pupils are equal, round, and reactive to light. Cardiovascular: Rate and Rhythm: Normal rate and regular rhythm. Heart sounds: No murmur heard. No gallop. Pulmonary: Effort: Pulmonary effort is normal. No respiratory distress. Breath sounds: Normal breath sounds. No wheezing or rales. Abdominal: General: Bowel sounds are normal. There is no distension. Palpations: Abdomen is soft. Tenderness: There is no abdominal tenderness. There is no guarding. Musculoskeletal: Cervical back: Normal range of motion and neck supple. Right lower leg: No edema. Left lower leg: No edema. Skin: General: Skin is warm and dry. Neurological: Mental Status: He is alert. Psychiatric: Mood and Affect: Mood normal. Data Reviewed and Summarized Labs: Imaging/Testing: Enedina Truong PA-C 07/11/2022 Please note that portions of this note may have been completed with voice recognition software. Documentation reviewed prior to signing but minor errors in engineer systems may have occurred. documented in this encounterSOhioHealth Shelby [id number] Telephone encounter Note* Telephone Encounter - Kathe Covarrubias LPN - 07/10/2022 3:46 PM EDT Triage message reviewed with clinical staff. Patient appointment confirmed. PCP will assess at appointment visit. [id number] Miscellaneous Notes* Telephone Encounter - Kathe Covarrubias LPN - 07/10/2022 3:46 PM EDT Triage message reviewed with clinical staff. Patient appointment confirmed. PCP will assess at appointment visit. * Telephone Encounter - Celestina Rodriguez RN - 07/10/2022 1:09 PM EDT S: Patient's Zenaida, spoke with [facility] nurse regarding patient continued shortness of breath and cough B: Onset of symptoms/concern ongoing since Covid from early May. A: calls as she and patient are leaving the ED with this call. States patient is having ongoing shortness of breath even at rest and has been to ED and C without resolve of this issue. Asking for appointment with Dr. Hernadez for evaluation of same. R: Insurance verified. Appointment scheduled for Pedro Pablo Truong for 07/11 at 8 AM. Advised to bring ID and insurance cards and list of current medications. Patient understands care advice. No further needsat this time. Patient instructed to call back with new or worsening symptoms. Reason for Disposition MODERATE difficulty breathing (e.g., speaks in phrases, SOB even at rest, pulse 100-120) of new-onset or worse than normal Protocols used: Breathing [id number] * Telephone Encounter - Faith Coles RN - 07/10/2022 8:46 AM EDT Reason for Disposition MODERATE difficulty breathing (e.g., speaks in phrases, SOB even at rest, pulse 100-120) of new-onset or worse than normal Protocols used: Breathing [id number] * Telephone Encounter - Faith Coles RN - 07/10/2022 8:25 AM EDT S: spoke with [facility] nurse regarding shortness of breath, coughing, history of COVID in May B: Onset of symptoms/concern 06/20 A: endorses cough and shortness 06/20/22 when he seen in ED for chest pressure . endorses patient with increasing shortness of breath with rest, fatigue, yellow productive cough. Pt advised to go to ED last evening. wanting to see doctor in office today. Paxlovid took 05/29/22 due to COVID. requesting sooner office visit. R: Pt advised to go to ED at this time since now improvement and has been on antibiotics for over three days. verbalizes understanding. No further needs at this time. instructed to call back with new or worsening symptoms. documented in this [facility]04-12-2023 Telephone encounter Note* Telephone Encounter - Celestina Rodriguez RN - 07/10/2022 1:09 PM EDT S: Patient's Zenaida, spoke with [facility] nurse regarding patient continued shortness of breath and cough B: Onset of symptoms/concern ongoing since Covid from early May. A: calls as she and patient are leaving the ED with this call. States patient is having ongoing shortness of breath even at rest and has been to ED and [facility] without resolve of this issue. Asking for appointment with Dr. Hernadez for evaluation of same. R: Insurance verified. Appointment scheduled for Pedro Pablo Truong for 07/11 at 8 AM. Advised to bring ID and insurance cards and list of current medications. Patient understands care advice. No further needsat this time. Patient instructed to call back with new or worsening symptoms. Reason for Disposition MODERATE difficulty breathing (e.g., speaks in phrases, SOB even at rest, pulse 100-120) of new-onset or worse than normal Protocols used: Breathing Ghjshnsiuc-EOXAL-KB [facility] [id number] Emergency department Note* Javier Marion DO - 07/10/2022 10:21 AM EDT EMERGENCY DEPARTMENT ENCOUNTER Pt Name: Evin Cardoza Birthdate 1985 Date of evaluation: 07/10/2022 ED Provider: Javier Marion DO CHIEF COMPLAINT Chief Complaint Patient presents with Shortness of Breath Pt c/o SOB and cough x 2 wks. Pt states he had covid at the beginning of may. Pt states he has been seen at urgent care. Pt states he has taken abx and steroids. Pt states he is taking clindamycin,ceftin. HISTORY OF PRESENT ILLNESS (Location/Symptom, Timing/Onset, Context/Setting, Quality, Duration, Modifying Factors, Severity) Note limiting factors. I wore appropriate PPE for the entirety of this encounter. HPI Evin Cardoza is a 37 y.o. male who presents to the emergency department persistent green productive cough, shortness of breath after being diagnosed with COVID-19 last month. Has been on 2 rounds of antibiotics as well as Medrol Dosepak from urgent care for concerns for asthma exacerbation and pneumonia. Denies any fevers. Denies any other chest pain, abdominal pain, nausea, vomiting. Nursing Notes were reviewed. REVIEW OF SYSTEMS 14 systems reviewed and otherwise acutely negative except as in the [place]. PAST MEDICAL HISTORY Past Medical History: Diagnosis Date Allergic rhinitis Asthma COVID DM (diabetes mellitus), type 2 (HCC) Gastroparesis Hyperlipidemia Hypertension Sleep apnea needs new cpap SURGICAL HISTORY Past Surgical History: Procedure Laterality Date ATRIAL ABLATION SURGERY 08/14/2021 COLONOSCOPY COLONOSCOPY MYRINGOTOMY AND TYMPANOSTOMY TUBE PLACEMENT (HISTORICAL) Bilateral NASAL POLYP SURGERY DVT SEPTOPLASTY SKIN BIOPSY scalp- benign TONSILLECTOMY (HISTORICAL) CURRENT MEDICATIONS Discharge Medication List as of 07/10/2022 12:54 PM CONTINUE these medications which have NOT CHANGED Details albuterol 108 (90 Base) MCG/ACT inhaler Inhale 2 puffs., Starting 07/18/2021, Historical Med amLODIPine (Norvasc) 10 MG tablet Take 1 tablet (10 mg) by mouth every morning., Starting Fri04/05/2022, Normal aspirin 81 MG chewable tablet Chew 1 tablet (81 mg) daily for 21 days., Starting Fri06/20/2022, Until Fri07/11/2022, Normal atorvastatin (Lipitor) 20 MG tablet Take 1 tablet (20 mg) by mouth Nightly., Starting Fri04/05/2022,Normal benzoyl peroxide 5 % external wash Apply topically to cleanse the skin once per day. Rinse well after cleansing., Historical Med cefdinir (Omnicef) 300 MG capsule Take 1 capsule (300 mg) by mouth 2 times daily for 7 days., Starting 07/07/2022, Until 07/14/2022, Print clindamycin (Cleocin) 300 MG capsule Take 1 capsule (300 mg) by mouth 3 times daily for 7 days., Starting 07/07/2022, Until 07/14/2022, Print Glucose Blood (Blood Glucose Test) strip Test 3 x times a day & as needed for symptoms of irregular blood glucose. Dispense sufficient amount for indicated testing frequency plus additional to accommodate PRN testing needs., Historical Med Januvia 50 MG tablet Take 1 tablet (50 mg) by mouth daily., Starting Fri04/05/2022, Normal lisinopril 40 MG tablet Take 1 tablet (40 mg) by mouth every morning., Starting Fri04/05/2022, Normal metFORMIN (Glucophage) 850 MG tablet TAKE 1 TABLET BY MOUTH IN THE MORNING AND 1 IN THE EVENING WITH MEALS, Normal methylPREDNISolone (Medrol Dospak) 4 MG tablets Follow schedule on package instructions, Normal metoclopramide (Reglan) 5 MG tablet Take 5 mg by mouth., Historical Med metoprolol succinate XL (Toprol-XL) 50 MG 24 hr tablet Take 1 tablet (50 mg) by mouth every morning., Starting Fri04/05/2022, Normal ondansetron (Zofran) 4 MG tablet Take 4 mg by mouth every 8 hours as needed., Historical Med potassium chloride CR (Klor-Con M20) 20 MEQ ER tablet Take 1 tablet (20 mEq) by mouth 2 times daily. Do not crush or chew., Starting Fri06/20/2022, Normal ALLERGIES Mustard seed and Penicillins FAMILY HISTORY Family History Problem Relation Name Age of Onset Arthritis Mother psoriatic Cancer Maternal Grandmother skin cancer NMSC Asthma Mother Hypertension Father Diabetes Father Asthma Maternal Grandmother Thyroid disease Mother Other ([id number]) Maternal Grandfather Diabetes Mother Lung disease Maternal Grandmother Cancer Mother's Sister skin cancer- NMSC SOCIAL HISTORY Social History Socioeconomic History Marital status: Tobacco Use Smoking status: Never Smokeless tobacco: Never Vaping Use Vaping Use: Never used Substance and Sexual Activity Alcohol use: Not Currently Alcohol/week: 2.0 standard drinks Types: 2 Standard drinks or equivalent per week Drug use: Never SCREENINGS PHYSICAL EXAM ED Triage Vitals [07/10/22 1025] Temp Heart Rate Resp BP 36.2 C (97.1 F) 82 20 132/87 SpO2 Temp Source Heart Rate Source Patient Position 99 % Temporal Monitor -- BP Location FiO2 (%) -- -- CONSTITUTIONAL: AOx4, no apparent distress, appears stated age HEAD: normocephalic, atraumatic EYES: PERRL, EOMI ENT: moist mucous membranes, uvula midline NECK: supple, symmetric BACK: symmetric LUNGS: Faint scattered wheezing, no wheeze rales or rhonchi or distress CARDIOVASCULAR: regular rate and rhythm, no murmurs, rubs or gallops ABDOMEN: soft, non-tender, non-distended with normal active bowel sounds : deferred NEUROLOGIC: MAEx4, no focal sensory or motor deficits MUSCULOSKELETAL: no clubbing, cyanosis or edema SKIN: no exposed rash DIAGNOSTIC RESULTS Procedures/EKG: EKG was reviewed by myself. Physician EKG interpretation can be found in [facility] RADIOLOGY (Per Emergency Physician): Interpretation per the Radiologist below, if available at the time of this note: XR chest 1 view Final Result No acute process. Report Dictated on Electronically Signed By: Carlito Soliz Electronically Signed Date/Time: 07/10/2022 11:54 AM EDT ED BEDSIDE ULTRASOUND: Performed by ED Physician - none LABS: Labs Reviewed BASIC METABOLIC PANEL - Abnormal Result Value SODIUM 135 POTASSIUM 4.0 CHLORIDE 104 CARBON DIOXIDE 26 UREA NITROGEN 20 CREATININE 0.72 GLUCOSE 218 (*) CALCIUM 8.7 ANION GAP 5 eGFR >90.0 CBC WITH AUTO DIFFERENTIAL - Abnormal Auto WBC 8.4 RBC 5.17 Hemoglobin 15.1 Hematocrit 44.7 MCV 86.5 MCH 29.2 MCHC 33.7 RDW 14.6 (*) Platelets 247 MPV 8.7 nRBC 0.1 Neutrophils Relative 75.3 Lymphocytes Relative 18.3 (*) Monocytes Relative 4.6 Eosinophils Relative 1.0 Basophils Relative 0.8 Neutrophils Absolute 6.3 Lymphocytes Absolute 1.5 Monocytes Absolute 0.4 Eosinophils Absolute 0.1 Basophils Absolute 0.1 SARS-COV-2, FLU A/B, AND RSV COMBO - Normal SARS-CoV-2 Not Detected Respiratory Syncytial Virus Not Detected Influenza A Not Detected Influenza B Not Detected Narrative: Methodology: real-time, RT-PCR The SARS-CoV-2, Flu A/B, and RSV Combo assay is intended for in vitro diagnostic use under the FDA Emergency Use Authorization (EUA). This test has not been FDA cleared or approved. In compliance with this authorization, please visit www.fda.gov/media/570168/download or www.fda.gov/media/842533/download to access the applicable information sheets. TROPONIN I - Normal TROPONIN I <0.012 Narrative: Patients with high levels of Biotin oral intake (ie >5 mg/day) may have falsely decreased Troponin levels. NT PRO BNP - Normal NT PRO BNP 36 D-DIMER,QUANTITATIVE - Normal D-DIMER, INNOVANCE 0.23 Narrative: Innovance D-Dimer values of <0.50 mg/L FEU can be used in combination with a pre-test probability model (e.g. Well's) to exclude pulmonary embolism (PE) disease, as well as an aid in the diagnosisof deep vein thrombosis (DVT). All other labs were within normal range or not returned as of this dictation. EMERGENCY DEPARTMENT COURSE and DIFFERENTIAL DIAGNOSIS/MDM: Vitals: Vitals: 07/10/22 1025 07/10/22 1125 07/10/22 1303 BP: 132/87 134/73 Pulse: 82 82 76 Resp: 20 18 16 Temp: 36.2 C (97.1 F) TempSrc: Temporal SpO2: 99% 99% 98% EMERGENCY DEPARTMENT COURSE and DIFFERENTIAL DIAGNOSIS/MDM: Vitals: Vitals: 07/10/22 1025 07/10/22 1125 07/10/22 1303 BP: 132/87 134/73 Pulse: 82 82 76 Resp: 16 Temp: 36.2 C (97.1 F) TempSrc: Temporal SpO2: 99% 99% 98% The patient presented with a chief complaint of shortness of breath wheezing cough symptoms have been rather persistent since he had COVID 1 month ago. Patient went to an urgent care, completed a round of antibiotics as well as a Medrol Dosepak which she just finished Friday. Went back to an urgent care Friday with persistent cough and shortness of breath. Placed on 2 additional antibiotics. The differential diagnosis associated with this patient's presentation includes pneumonia, viral URI, heart failure, pulmonary embolism, ACS. Our workup consisted of ordering/reviewing lab work which shows negative COVID flu and RSV. Troponin D-dimer and BNP are also normal so low suspicion for ACS pulmonary embolism heart failure. CBC and CMP are also normal. Patient has been saturating 98 to 99% on room air. Did give him a breathing treatment steroids due to wheezing which did improve. On reevaluation the patient is sleeping comfortably in the room. We will trial the patient on a more prolonged course of prednisone taper as well as give a prescription for Tessalon Perles for his cough. Patient is already on 2 antibiotics given to him by urgent care which I informed him to complete. Stressed close outpatient PCP follow-up.. Diagnoses as of 07/10/22 1401 Mild intermittent asthma with exacerbation Diagnostic tests considered but not performed: External records reviewed: none Diagnostics interpreted by me: Xray(s) no acute process Discussions with other clinicians: none Chronic conditions impacting care: Asthma Social determinants of health affecting care: none ED Medications managed: Medications methylPREDNISolone sodium succinate (PF) (SOLU-Medrol) injection 125 mg (125 mg IntraVENous Given 07/10/22 1122) ipratropium-albuterol (Duo-Neb) 0.5-2.5 mg/3 mL nebulizer solution 3 mL (3 mL Nebulization Given 07/10/22 1125) CONSULTS: None PROCEDURES: Unless otherwise noted below, none Procedures Patients symptoms are consistent with sepsis, severe sepsis, or septic shock (If yes use .sepsiscoremeasure ): FINAL IMPRESSION 1. Mild intermittent asthma with exacerbation DISPOSITION/PLAN dc PATIENT REFERRED TO: Leonides Sibley DO [address] [place], [place] [id number] Schedule an appointment as soon as possible for a visit DISCHARGE MEDICATIONS: Discharge Medication List as of 07/10/2022 12:54 PM START taking these medications Details predniSONE (Deltasone) 10 MG tablet Multiple Dosages:Starting 07/10/2022, Until Fri07/12/2022 [id number], THEN Starting 07/13/2022, Until 07/15/2022 at 2359, THEN Starting 07/16/2022, Until [place] 07/18/2022 at 2359, THEN Starting 07/19/2022, Until 07/21/2022 at 2359Take 4 tablets (40 mg) by mouth daily for 3 days, THEN 3 tablets (30 mg) daily for 3 days, THEN 2 tablets (20 mg) daily for 3 days, THEN 1 tablet (10 mg) daily for 3 days., Normal (Comment: Please note this report has been produced using speech recognition software and may contain errors related to that system including errors in grammar, punctuation, and spelling, as well as words and phrases that may be inappropriate. If there are any questions or concerns please feel freeto contact the dictating provider for clarification.) Javier Marion DO (electronically signed) Emergency Medicine Provider Javier Marion DO 07/10/22 1403 documented in this [facility]04-12-2023 Physician Emergency department Note* Javier Marion DO - 07/10/2022 10:21 AM EDT EMERGENCY DEPARTMENT ENCOUNTER Pt Name: Evin Cardoza Birthdate 1985 Date of evaluation: 07/10/2022 ED Provider: Javier Marion DO CHIEF COMPLAINT Chief Complaint Patient presents with Shortness of Breath Pt c/o SOB and cough x 2 wks. Pt states he had covid at the beginning of may. Pt states he has been seen at urgent care. Pt states he has taken abx and steroids. Pt states he is taking clindamycin,ceftin. HISTORY OF PRESENT ILLNESS (Location/Symptom, Timing/Onset, Context/Setting, Quality, Duration, Modifying Factors, Severity) Note limiting factors. I wore appropriate PPE for the entirety of this encounter. HPI Evin Cardoza is a 37 y.o. male who presents to the emergency department persistent green productive cough, shortness of breath after being diagnosed with COVID-19 last month. Has been on 2 rounds of antibiotics as well as Medrol Dosepak from urgent care for concerns for asthma exacerbation and pneumonia. Denies any fevers. Denies any other chest pain, abdominal pain, nausea, vomiting. Nursing Notes were reviewed. REVIEW OF SYSTEMS 14 systems reviewed and otherwise acutely negative except as in the [place]. PAST MEDICAL HISTORY Past Medical History: Diagnosis Date Allergic rhinitis Asthma COVID DM (diabetes mellitus), type 2 (HCC) Gastroparesis Hyperlipidemia Hypertension Sleep apnea needs new cpap SURGICAL HISTORY Past Surgical History: Procedure Laterality Date ATRIAL ABLATION SURGERY 08/14/2021 COLONOSCOPY COLONOSCOPY MYRINGOTOMY AND TYMPANOSTOMY TUBE PLACEMENT (HISTORICAL) Bilateral NASAL POLYP SURGERY DVT SEPTOPLASTY SKIN BIOPSY scalp- benign TONSILLECTOMY (HISTORICAL) CURRENT MEDICATIONS Discharge Medication List as of 07/10/2022 12:54 PM CONTINUE these medications which have NOT CHANGED Details albuterol 108 (90 Base) MCG/ACT inhaler Inhale 2 puffs., Starting 07/18/2021, Historical Med amLODIPine (Norvasc) 10 MG tablet Take 1 tablet (10 mg) by mouth every morning., Starting Fri04/05/2022, Normal aspirin 81 MG chewable tablet Chew 1 tablet (81 mg) daily for 21 days., Starting Marimar 06/20/2022, Until Marimar 07/11/2022, Normal atorvastatin (Lipitor) 20 MG tablet Take 1 tablet (20 mg) by mouth Nightly., Starting Fri04/05/2022,Normal benzoyl peroxide 5 % external wash Apply topically to cleanse the skin once per day. Rinse well after cleansing., Historical Med cefdinir (Omnicef) 300 MG capsule Take 1 capsule (300 mg) by mouth 2 times daily for 7 days., Starting 07/07/2022, Until 07/14/2022, Print clindamycin (Cleocin) 300 MG capsule Take 1 capsule (300 mg) by mouth 3 times daily for 7 days., Starting 07/07/2022, Until 07/14/2022, Print Glucose Blood (Blood Glucose Test) strip Test 3 x times a day & as needed for symptoms of irregular blood glucose. Dispense sufficient amount for indicated testing frequency plus additional to accommodate PRN testing needs., Historical Med Januvia 50 MG tablet Take 1 tablet (50 mg) by mouth daily., Starting Fri04/05/2022, Normal lisinopril 40 MG tablet Take 1 tablet (40 mg) by mouth every morning., Starting Fri04/05/2022, Normal metFORMIN (Glucophage) 850 MG tablet TAKE 1 TABLET BY MOUTH IN THE MORNING AND 1 IN THE EVENING WITH MEALS, Normal methylPREDNISolone (Medrol Dospak) 4 MG tablets Follow schedule on package instructions, Normal metoclopramide (Reglan) 5 MG tablet Take 5 mg by mouth., Historical Med metoprolol succinate XL (Toprol-XL) 50 MG 24 hr tablet Take 1 tablet (50 mg) by mouth every morning., Starting Fri04/05/2022, Normal ondansetron (Zofran) 4 MG tablet Take 4 mg by mouth every 8 hours as needed., Historical Med potassium chloride CR (Klor-Con M20) 20 MEQ ER tablet Take 1 tablet (20 mEq) by mouth 2 times daily. Do not crush or chew., Starting Marimar 06/20/2022, Normal ALLERGIES Mustard seed and Penicillins FAMILY HISTORY Family History Problem Relation Name Age of Onset Arthritis Mother psoriatic Cancer Maternal Grandmother skin cancer NMSC Asthma Mother Hypertension Father Diabetes Father Asthma Maternal Grandmother Thyroid disease Mother Other ([phone]) Maternal Grandfather Diabetes Mother Lung disease Maternal Grandmother Cancer Mother's Sister skin cancer- NMSC SOCIAL HISTORY Social History Socioeconomic History Marital status: Tobacco Use Smoking status: Never Smokeless tobacco: Never Vaping Use Vaping Use: Never used Substance and Sexual Activity Alcohol use: Not Currently Alcohol/week: 2.0 standard drinks Types: 2 Standard drinks or equivalent per week Drug use: Never SCREENINGS PHYSICAL EXAM ED Triage Vitals [07/10/22 1025] Temp Heart Rate Resp BP 36.2 C (97.1 F) 82 20 132/87 SpO2 Temp Source Heart Rate Source Patient Position 99 % Temporal Monitor -- BP Location FiO2 (%) -- -- CONSTITUTIONAL: AOx4, no apparent distress, appears stated age HEAD: normocephalic, atraumatic EYES: PERRL, EOMI ENT: moist mucous membranes, uvula midline NECK: supple, symmetric BACK: symmetric LUNGS: Faint scattered wheezing, no wheeze rales or rhonchi or distress CARDIOVASCULAR: regular rate and rhythm, no murmurs, rubs or gallops ABDOMEN: soft, non-tender, non-distended with normal active bowel sounds : deferred NEUROLOGIC: MAEx4, no focal sensory or motor deficits MUSCULOSKELETAL: no clubbing, cyanosis or edema SKIN: no exposed rash DIAGNOSTIC RESULTS Procedures/EKG: EKG was reviewed by myself. Physician EKG interpretation can be found in [facility] RADIOLOGY (Per Emergency Physician): Interpretation per the Radiologist below, if available at the time of this note: XR chest 1 view Final Result No acute process. Report Dictated on Electronically Signed By: Carlito Soliz Electronically Signed Date/Time: 07/10/2022 11:54 AM EDT ED BEDSIDE ULTRASOUND: Performed by ED Physician - none LABS: Labs Reviewed BASIC METABOLIC PANEL - Abnormal Result Value SODIUM 135 POTASSIUM 4.0 CHLORIDE 104 CARBON DIOXIDE 26 UREA NITROGEN 20 CREATININE 0.72 GLUCOSE 218 (*) CALCIUM 8.7 ANION GAP 5 eGFR >90.0 CBC WITH AUTO DIFFERENTIAL - Abnormal Auto WBC 8.4 RBC 5.17 Hemoglobin 15.1 Hematocrit 44.7 MCV 86.5 MCH 29.2 MCHC 33.7 RDW 14.6 (*) Platelets 247 MPV 8.7 nRBC 0.1 Neutrophils Relative 75.3 Lymphocytes Relative 18.3 (*) Monocytes Relative 4.6 Eosinophils Relative 1.0 Basophils Relative 0.8 Neutrophils Absolute 6.3 Lymphocytes Absolute 1.5 Monocytes Absolute 0.4 Eosinophils Absolute 0.1 Basophils Absolute 0.1 SARS-COV-2, FLU A/B, AND RSV COMBO - Normal SARS-CoV-2 Not Detected Respiratory Syncytial Virus Not Detected Influenza A Not Detected Influenza B Not Detected Narrative: Methodology: real-time, RT-PCR The SARS-CoV-2, Flu A/B, and RSV Combo assay is intended for in vitro diagnostic use under the FDA Emergency Use Authorization (EUA). This test has not been FDA cleared or approved. In compliance with this authorization, please visit www.fda.gov/media/378790/download or www.fda.gov/media/745853/download to access the applicable information sheets. TROPONIN I - Normal TROPONIN I <0.012 Narrative: Patients with high levels of Biotin oral intake (ie >5 mg/day) may have falsely decreased Troponin levels. NT PRO BNP - Normal NT PRO BNP 36 D-DIMER,QUANTITATIVE - Normal D-DIMER, INNOVANCE 0.23 Narrative: Innovance D-Dimer values of <0.50 mg/L FEU can be used in combination with a pre-test probability model (e.g. Well's) to exclude pulmonary embolism (PE) disease, as well as an aid in the diagnosisof deep vein thrombosis (DVT). All other labs were within normal range or not returned as of this dictation. EMERGENCY DEPARTMENT COURSE and DIFFERENTIAL DIAGNOSIS/MDM: Vitals: Vitals: 07/10/22 1025 07/10/22 1125 07/10/22 1303 BP: 132/87 134/73 Pulse: 82 82 76 Resp: 20 18 16 Temp: 36.2 C (97.1 F) TempSrc: Temporal SpO2: 99% 99% 98% EMERGENCY DEPARTMENT COURSE and DIFFERENTIAL DIAGNOSIS/MDM: Vitals: Vitals: 07/10/22 1025 07/10/22 1125 07/10/22 1303 BP: 132/87 134/73 Pulse: 82 82 76 Resp: 20 18 16 Temp: 36.2 C (97.1 F) TempSrc: Temporal SpO2: 99% 99% 98% The patient presented with a chief complaint of shortness of breath wheezing cough symptoms have been rather persistent since he had COVID 1 month ago. Patient went to an urgent care, completed a round of antibiotics as well as a Medrol Dosepak which she just finished Friday. Went back to an urgent care Friday with persistent cough and shortness of breath. Placed on 2 additional antibiotics. The differential diagnosis associated with this patient's presentation includes pneumonia, viral URI, heart failure, pulmonary embolism, ACS. Our workup consisted of ordering/reviewing lab work which shows negative COVID flu and RSV. Troponin D-dimer and BNP are also normal so low suspicion for ACS pulmonary embolism heart failure. CBC and CMP are also normal. Patient has been saturating 98 to 99% on room air. Did give him a breathing treatment steroids due to wheezing which did improve. On reevaluation the patient is sleeping comfortably in the room. We will trial the patient on a more prolonged course of prednisone taper as well as give a prescription for Tessalon Perles for his cough. Patient is already on 2 antibiotics given to him by urgent care which I informed him to complete. Stressed close outpatient PCP follow-up.. Diagnoses as of 07/10/22 1401 Mild intermittent asthma with exacerbation Diagnostic tests considered but not performed: External records reviewed: none Diagnostics interpreted by me: Xray(s) no acute process Discussions with other clinicians: none Chronic conditions impacting care: Asthma Social determinants of health affecting care: none ED Medications managed: Medications methylPREDNISolone sodium succinate (PF) (SOLU-Medrol) injection 125 mg (125 mg IntraVENous Given 07/10/22 1122) ipratropium-albuterol (Duo-Neb) 0.5-2.5 mg/3 mL nebulizer solution 3 mL (3 mL Nebulization Given 07/10/22 1125) CONSULTS: None PROCEDURES: Unless otherwise noted below, none Procedures Patients symptoms are consistent with sepsis, severe sepsis, or septic shock (If yes use .sepsiscoremeasure ): FINAL IMPRESSION 1. Mild intermittent asthma with exacerbation DISPOSITION/PLAN dc PATIENT REFERRED TO: Leonides Sibley DO [address] [place] [id number] Schedule an appointment as soon as possible for a visit DISCHARGE MEDICATIONS: Discharge Medication List as of 07/10/2022 12:54 PM START taking these medications Details predniSONE (Deltasone) 10 MG tablet Multiple Dosages:Starting 07/10/2022, Until 07/12/2022 [id number], THEN Starting 07/13/2022, Until 07/15/2022 at 2359, THEN Starting 07/16/2022, Until Marimar 07/18/2022 at 2359, THEN Starting 07/19/2022, Until 07/21/2022 at 2359Take 4 tablets (40 mg) by mouth daily for 3 days, THEN 3 tablets (30 mg) daily for 3 days, THEN 2 tablets (20 mg) daily for 3 days, THEN 1 tablet (10 mg) daily for 3 days., Normal (Comment: Please note this report has been produced using speech recognition software and may contain errors related to that system including errors in grammar, punctuation, and spelling, as well as words and phrases that may be inappropriate. If there are any questions or concerns please feel freeto contact the dictating provider for clarification.) Javier Marion DO (electronically signed) Emergency Medicine Provider Javier Marion DO 07/10/22 1403 [id number] Telephone encounter Note* Telephone Encounter - Faith Coles RN - 07/10/2022 8:46 AM EDT Reason for Disposition MODERATE difficulty breathing (e.g., speaks in phrases, SOB even at rest, pulse 100-120) of new-onset or worse than normal Protocols used: Breathing [id number] [facility] [id number] Telephone encounter Note* Telephone Encounter - Faith Coles RN - 07/10/2022 8:25 AM EDT S: spoke with [facility] nurse regarding shortness of breath, coughing, history of COVID in May B: Onset of symptoms/concern 06/20 A: endorses cough and shortness 06/20/22 when he seen in ED for chest pressure . endorses patient with increasing shortness of breath with rest, fatigue, yellow productive cough. Pt advised to go to ED last evening. wanting to see doctor in office today. Paxlovid took 05/29/22 due to COVID. requesting sooner office visit. R: Pt advised to go to ED at this time since now improvement and has been on antibiotics for over three days. verbalizes understanding. No further needs at this time. instructed to call back with new or worsening symptoms. T [id number] History of Present illness Narrative* Leonides Bloom DO - 07/07/2022 1:25 PM EDT Subjective: Chief Complaint Patient presents with URI Was seen 06/27/2022 - was put no RX - felt better - sxs started back up 2 days ago - pt states it feels worse than it did when he was last seen In office - was DX with covid the begining of May - pt hasnt felt 100% since Patient: Evin Cardoza is a 37 y.o. male Patient presenting to urgent care with an over 10-day duration of URI symptoms including cough, rhinitis/rhinorrhea (yellow/green nasal discharge), and dyspnea. +sick contacts (, bronchitis). No fevers or chills. Of note, patient seen on June 27 for the symptoms. He was diagnosed with acute bacterial sinusitis and bronchitis as well as an asthma exacerbation at that time. He finished a course of doxycycline as well as a Medrol Dosepak. Started to feel better, but Friday night, became worse. He was diagnosed with COVID last month. is here and is worried about dyspnea. Has been using GEOVANY more often. This has not been helping for the past 24 hours. No history of PNA before. Patient b canelo he has had Keflex before without issues. He does have type 2 diabetes. Review of Systems Constitutional: Negative for fever. +fatigue. Respiratory: +cough. +shortness of breath. Cardiovascular: Negative for chest pain, palpitations and leg swelling. Gastrointestinal: Negative for abdominal pain, blood in stool, constipation and diarrhea. Neurological: Negative for dizziness, light-headedness and headaches. Allergies Allergen Reactions Mustard Seed Anaphylaxis Penicillins Hives Current Outpatient Medications on File Prior to Visit Medication Sig Dispense Refill albuterol 108 (90 Base) MCG/ACT inhaler Inhale 2 puffs. amLODIPine (Norvasc) 10 MG tablet Take 1 tablet (10 mg) by mouth every morning. 90 tablet 0 aspirin 81 MG chewable tablet Chew 1 tablet (81 mg) daily for 21 days. 21 tablet 0 atorvastatin (Lipitor) 20 MG tablet Take 1 tablet (20 mg) by mouth Nightly. 90 tablet 0 benzoyl peroxide 5 % external wash Apply topically to cleanse the skin once per day. Rinse well after cleansing. rjcthrjpozdcbit-bnyallqncstbhsz-TI 30-2-10 MG/5ML syrup Take 5 mL by mouth 3 times daily as needed for cough or congestion for up to 10 days. 150 mL 0 Glucose Blood (Blood Glucose Test) strip Test 3 x times a day & as needed for symptoms of irregular blood glucose. Dispense sufficient amount for indicated testing frequency plus additional to accommodate PRN testing needs. Januvia 50 MG tablet Take 1 tablet (50 mg) by mouth daily. 90 tablet 0 lisinopril 40 MG tablet Take 1 tablet (40 mg) by mouth every morning. 90 tablet 0 metFORMIN (Glucophage) 850 MG tablet TAKE 1 TABLET BY MOUTH IN THE MORNING AND 1 IN THE EVENING WITH MEALS 180 tablet 0 methylPREDNISolone (Medrol Dospak) 4 MG tablets Follow schedule on package instructions 21 tablet 0 metoclopramide (Reglan) 5 MG tablet Take 5 mg by mouth. metoprolol succinate XL (Toprol-XL) 50 MG 24 hr tablet Take 1 tablet (50 mg) by mouth every morning. 90 tablet 0 ondansetron (Zofran) 4 MG tablet Take 4 mg by mouth every 8 hours as needed. potassium chloride CR (Klor-Con M20) 20 MEQ ER tablet Take 1 tablet (20 mEq) by mouth 2 times daily. Do not crush or chew. 6 tablet 0 [] doxycycline (Vibramycin) 100 MG capsule Take 1 capsule (100 mg) by mouth 2 times daily for 7 days. Take with at least 8 ounces (large glass) of water, do not lie down for 30 minutes after 14 capsule 0 No current facility-administered medications on file prior to visit. Past Medical History: Diagnosis Date Allergic rhinitis Asthma COVID DM (diabetes mellitus), type 2 (HCC) Gastroparesis Hyperlipidemia Hypertension Sleep apnea needs new cpap Social History Tobacco Use Smoking status: Never Smokeless tobacco: Never Substance Use Topics Alcohol use: Not Currently Alcohol/week: 2.0 standard drinks Types: 2 Standard drinks or equivalent per week Objective: BP (!) 146/83 (BP Location: Left arm, Patient Position: Sitting, BP Cuff Size: Adult) Pulse 83 Temp 36.6 C (97.8 F) (Temporal) Ht 6' 2 (1.88 m) Wt (!) 320 lb (145 kg) SpO2 97% BMI 41.09 kg/m Physical Exam Constitutional: Oriented to person, place, and time. Appears well-developed and well-nourished. No distress. Eyes: EOM are normal. No scleral icterus. Neck: Normal range of motion. Neck supple. Cardiovascular: Normal rate, regular rhythm, normal heart sounds and intact distal pulses. No murmur heard. Pulmonary/Chest: No wheezes, rales, or rhonchi. Decreased BSs throughout but greatest bilaterally. Tachypnea to the mid-20s. Conversationally dyspneic. Abdominal: Soft. Bowel sounds are normal. Exhibits no distension and no masses. No hepatosplenomegaly. No tenderness. No rebound and no guarding. Musculoskeletal: Normal range of motion. No edema. Lymphadenopathy: No cervical adenopathy. Neurological: Alert and oriented to person, place, and time. No cranial nerve deficits. Gait normal. Skin: Skin is warm and dry. Psychiatric: Normal mood and affect. Speech is normal and behavior is normal. Judgment and thought content normal. Assessment 1. Acute bacterial rhinosinusitis 2. Dyspnea, unspecified type Plan Diagnoses and all orders for this visit: Acute bacterial rhinosinusitis - cefdinir (Omnicef) 300 MG capsule; Take 1 capsule (300 mg) by mouth 2 times daily for 7 days. - clindamycin (Cleocin) 300 MG capsule; Take 1 capsule (300 mg) by mouth 3 times daily for 7 days. Dyspnea, unspecified type - XR chest 2 views Patient presenting to urgent care this afternoon with an over 10-day duration of URI symptoms. He is hemodynamically stable today without hypoxia or tachycardia. He has recently finished a course of doxy as well as steroids. Given that he has had incomplete improvement with these and is conversationally dyspneic today, along with decreased breath sounds and tachypnea, I am clinically concerned for possible pneumonia particularly given his immunocompromise status (diabetes). We will therefore check a chest x-ray to assess for possible pneumonia. Chest x-ray per radiology shows no pneumonia, no pneumothorax, and no pleural effusion. Chest x-ray also personally reviewed and negative for infiltrate/pneumonia. Patient does have an allergy to penicillin (hives). Potential alternative treatment options include third-generation cephalosporin plus clinda versus fluoroquinolone versus another course of doxy for ABRS. We will try to avoid fluoroquinolone per IDSA guidelines. Given his recent doxy plus allergies, recommended beginning alternative antibiotic therapy per IDSA guidelines for ABRS since he does meet this criteria. Recommended against another course of steroids given his baseline underlying type 2 diabetes since he does not have any wheezes on exam today. Discussed with patient and that he may return back to work tomorrow as long as he has been afebrile without the use offever reducing medications for 24 hours which she has been. Offered work note; however, patient declined. No concern for PE given no tachycardia or hypoxia. No prior DVT/PE. No questions or concerns at the conclusion of our visit. Leonides Bloom DO 07/07/22 2:17 PM If symptoms do not improve, worsen, or new symptoms develop, see PCP for further evaluation. (Please note: Portions of this note were completed with a voice recognition program, [employer] deisy for [employer] Efforts were made to edit the dictations but occasionally words and phrases are mis-transcribed.) documented in this [facility]03-30-2023 History of Present illness Narrative* Robina Holm MA - 06/27/2022 6:30 PM EDT Pt verified by name and . Hands clean before retrieving vitals. * Gretel Evans DO - 06/27/2022 6:30 PM EDT Chief Complaint Patient presents with Nasal Congestion Cough Dayquil, Nightquil Nausea Zofran No LMP for male patient. History: Past Medical History: Diagnosis Date Allergic rhinitis Asthma COVID DM (diabetes mellitus), type 2 (HCC) Gastroparesis Hyperlipidemia Hypertension Sleep apnea needs new cpap Past Surgical History: Procedure Laterality Date ATRIAL ABLATION SURGERY 08/14/2021 COLONOSCOPY COLONOSCOPY MYRINGOTOMY AND TYMPANOSTOMY TUBE PLACEMENT (HISTORICAL) Bilateral NASAL POLYP SURGERY DVT SEPTOPLASTY SKIN BIOPSY scalp- benign TONSILLECTOMY (HISTORICAL) Family History Problem Relation Name Age of Onset Arthritis Mother psoriatic Cancer Maternal Grandmother skin cancer NMSC Asthma Mother Hypertension Father Diabetes Father Asthma Maternal Grandmother Thyroid disease Mother Other ([phone]) Maternal Grandfather Diabetes Mother Lung disease Maternal Grandmother Cancer Mother's Sister skin cancer- NMSC Social History Socioeconomic History Marital status: Tobacco Use Smoking status: Never Smokeless tobacco: Never Vaping Use Vaping Use: Never used Substance and Sexual Activity Alcohol use: Not Currently Alcohol/week: 2.0 standard drinks Types: 2 Standard drinks or equivalent per week Drug use: Never Allergies: Allergies Allergen Reactions Mustard Seed Anaphylaxis Penicillins Hives Medications: Current Outpatient Medications on File Prior to Visit Medication Sig Dispense Refill albuterol 108 (90 Base) MCG/ACT inhaler Inhale 2 puffs. amLODIPine (Norvasc) 10 MG tablet Take 1 tablet (10 mg) by mouth every morning. 90 tablet 0 aspirin 81 MG chewable tablet Chew 1 tablet (81 mg) daily for 21 days. 21 tablet 0 atorvastatin (Lipitor) 20 MG tablet Take 1 tablet (20 mg) by mouth Nightly. 90 tablet 0 benzoyl peroxide 5 % external wash Apply topically to cleanse the skin once per day. Rinse well after cleansing. Glucose Blood (Blood Glucose Test) strip Test 3 x times a day & as needed for symptoms of irregular blood glucose. Dispense sufficient amount for indicated testing frequency plus additional to accommodate PRN testing needs. Januvia 50 MG tablet Take 1 tablet (50 mg) by mouth daily. 90 tablet 0 lisinopril 40 MG tablet Take 1 tablet (40 mg) by mouth every morning. 90 tablet 0 metFORMIN (Glucophage) 850 MG tablet TAKE 1 TABLET BY MOUTH IN THE MORNING AND 1 IN THE EVENING WITH MEALS 180 tablet 0 metoclopramide (Reglan) 5 MG tablet Take 5 mg by mouth. metoprolol succinate XL (Toprol-XL) 50 MG 24 hr tablet Take 1 tablet (50 mg) by mouth every morning. 90 tablet 0 ondansetron (Zofran) 4 MG tablet Take 4 mg by mouth every 8 hours as needed. potassium chloride CR (Klor-Con M20) 20 MEQ ER tablet Take 1 tablet (20 mEq) by mouth 2 times daily. Do not crush or chew. (Patient not taking: Reported on 06/27/2022) 6 tablet 0 No current facility-administered medications on file prior to visit. HPI: Cough Associated symptoms include chills and postnasal drip. Pertinent negatives include no fever or rhinorrhea. At end of May, beginning of may had covid [place] better but not completely better, sick on/off Last , woke up with chest pressure Seen in ED - no [place] Also woke up with cough and nasal congestion that day Cough and congestion has worsened Has tight breathing from time to time States that lab work has white count was elevated Has asthma, needing inhaler daily over last week ROS: Review of Systems Constitutional: Positive for chills. Negative for fever. HENT: Positive for congestion and postnasal drip. Negative for rhinorrhea. Respiratory: Positive for cough. exam: BP (!) 146/85 Pulse 77 Temp 37 C (98.6 F) Ht 6' 2 (1.88 m) Wt (!) 315 lb (143 kg) SpO2 97% BMI 40.44 kg/m Physical Exam Vitals reviewed. Constitutional: General: He is not in acute distress. Appearance: Normal appearance. He is ill-appearing. He is not toxic-appearing or diaphoretic. HENT: Head: Normocephalic and atraumatic. Right Ear: Tympanic membrane and ear canal normal. Left Ear: Tympanic membrane and ear canal normal. Nose: Congestion and rhinorrhea present. Mouth/Throat: Mouth: Mucous membranes are moist. Pharynx: Oropharynx is clear. No oropharyngeal exudate or posterior oropharyngeal erythema. Comments: Grade 1 tonsils without erythema or exudate Eyes: Conjunctiva/sclera: Conjunctivae normal. Cardiovascular: Rate and Rhythm: Normal rate and regular rhythm. Pulses: Normal pulses. Heart sounds: Normal heart sounds. No murmur heard. No friction rub. No gallop. Pulmonary: Effort: Pulmonary effort is normal. No respiratory distress. Breath sounds: Normal breath sounds. No wheezing, rhonchi or rales. Comments: Good air movement throughout all lung archer Able to speak clearly and in complete sentences without evidence of distress or dyspnea Musculoskeletal: Cervical back: Normal range of motion and neck supple. Skin: General: Skin is warm. Capillary Refill: Capillary refill takes less than 2 seconds. Neurological: Mental Status: He is alert and oriented to person, place, and time. Assessment and Plan: Evin was seen today for nasal congestion, cough, dayquil, nightquil and nausea. Diagnoses and all orders for this visit: Acute bacterial sinusitis (Primary) - doxycycline (Vibramycin) 100 MG capsule; Take 1 capsule (100 mg) by mouth 2 times daily for 7 days. Take with at least 8 ounces (large glass) of water, do not lie down for 30 minutes after - tznpgfxxicyxrhg-kokvjyqsnglkyam-GB 30-2-10 MG/5ML syrup; Take 5 mL by mouth 3 times daily as needed for cough or congestion for up to 10 days. Bronchitis - methylPREDNISolone (Medrol Dospak) 4 MG tablets; Follow schedule on package instructions - zyjkxhuxttkaxhp-uxdqrpilrjhilxj-GI 30-2-10 MG/5ML syrup; Take 5 mL by mouth 3 times daily as needed for cough or congestion for up to 10 days. Asthma exacerbation, mild - methylPREDNISolone (Medrol Dospak) 4 MG tablets; Follow schedule on package instructions Patient presents today for URI symptoms over the last 8 days. Patient and state that symptoms are not improving despite supportive treatment at home. Of note patient was evaluated in the emergency room 1 week ago as he woke up with URI symptoms and chest pressure. ED evaluation was unremarkable. Since that time patient has had persistent cough and congestion and reports needing to utilize his rescue inhaler at least 2 times daily. Exam today with normal oxygen saturation and clear lung sounds throughout. Patient is able to speak clearly and in complete sentences without evidence of distress. It was discussed with patient and that given persistent symptoms may be dealing with sinusitis as well as bronchitis/asthma exacerbation. Prescription for doxycycline sent to pharmacy as patient does have an allergy to penicillins. Had risk-benefit conversation with patient regarding steroids as he does have a diagnosis of diabetes; however, most recent A1c in March 01, 2002 2 was 5.9 indicating appropriate control. We will utilize Medrol Dosepak over prednisone to minimize blood sugar elevation. Prescription also sent for Bromfed to manage cough and congestion. Okay for patient tocontinue to utilize supportive treatments including honey, tea, cough drops as needed. For any worsening symptoms including chest pain, shortness of breath, difficulty breathing or persistent increased albuterol inhaler use patient to be evaluated in the emergency room. Patient and both voicedunderstanding and are agreeable. documented in this [facility]03-30-2023 Instructions* Patient Instructions* Gretel Evans DO - 06/27/2022 6:30 PM EDT Encouraged supportive treatment including increased hydration, cough drops, honey, tea, warm salt water gargles, and tylenol or motrin as needed. Patient to follow up with PCP if symptoms do not improve. If you develop chest pain, shortness of breath or difficulty breathing, unable to drink fluids and maintain oral hydration, or increasing fatigue or lethargy - please be evaluated in the emergency room as soon as possible * Attachments The following attachments cannot be sent through Care Everywhere. * Sinusitis in Adults (Japanese) documented in this [facility]03-23-2023 Emergency department Note* Eugenia Matthews RN - 06/20/2022 7:34 AM EDT Pt is diaphoretic and is pale in the face at this time. Eugenia Matthews RN 06/20/22 0734 [id number] Emergency [facility] Note* Eugenia Matthews RN - 06/20/2022 7:34 AM EDT Pt is diaphoretic and is pale in the face at this time. Eugenia Matthews RN 06/20/22 0734 * Latasha Payne - 06/20/2022 7:25 AM EDT #20 left forearm IV established on the second attempt.blood drawn from site and labeled at bedside awaiting orders. Prior to IV start, pt noted to be pale and diaphoretic. During IV start, pt became even more diaphoretic and stated i'm going to pass out. Pt noted to be closing eyes. Pt's visitor woke pt and pt sts I'm losing it. Pt eyes appeared to begin rolling back and pt was having difficulty finding his words. reservations manager notified, pt assisted to a standing position and then seated in wheelchair. BGL obtained and 134. Pt taken to room 21. Labs and EKG taken with pt. Latasha Payne 06/20/22 0727 * Eugenia Matthews RN - 06/20/2022 7:23 AM EDT Pt presents to ED with c/o CP that started when he woke up this morning. Describes the pain as a pressure like sensation with throbbing. Started in his mid chest and now is radiating to both sides ofhis chest. States he has recently gotten over COVID, tested POS for COVID on 05/28 and completed Paxlovid. Eugenia Matthews RN 06/20/22 0725 * Shanice Bullock MD - 06/20/2022 6:55 AM EDT EMERGENCY DEPARTMENT ENCOUNTER Pt Name: Evin Cardoza Birthdate 1985 Date of evaluation: 06/20/2022 CHIEF COMPLAINT Chief Complaint Patient presents with Chest Pain Since 0445 today - heavy pressure HISTORY OF PRESENT ILLNESS HPI Evin Cardoza is a 37 y.o. male who presents to the emergency department with chest pain, pressuresensation, he has nasal congestion, nausea, fatigue. Symptoms started today. He was diagnosed with COVID 23 days ago. He was initially improving and then got worse again. REVIEW OF SYSTEMS Review of Systems CURRENT MEDICATIONS Previous Medications ALBUTEROL 108 (90 BASE) MCG/ACT INHALER Inhale 2 puffs. AMLODIPINE (NORVASC) 10 MG TABLET Take 1 tablet (10 mg) by mouth every morning. ATORVASTATIN (LIPITOR) 20 MG TABLET Take 1 tablet (20 mg) by mouth Nightly. BENZOYL PEROXIDE 5 % EXTERNAL WASH Apply topically to cleanse the skin once per day. Rinse well after cleansing. GLUCOSE BLOOD (BLOOD GLUCOSE TEST) STRIP Test 3 x times a day & as needed for symptoms of irregular blood glucose. Dispense sufficient amount for indicated testing frequency plus additional to accommodate PRN testing needs. JANUVIA 50 MG TABLET Take 1 tablet (50 mg) by mouth daily. LISINOPRIL 40 MG TABLET Take 1 tablet (40 mg) by mouth every morning. METFORMIN (GLUCOPHAGE) 850 MG TABLET TAKE 1 TABLET BY MOUTH IN THE MORNING AND 1 IN THE EVENING WITH MEALS METOCLOPRAMIDE (REGLAN) 5 MG TABLET Take 5 mg by mouth. METOPROLOL SUCCINATE XL (TOPROL-XL) 50 MG 24 HR TABLET Take 1 tablet (50 mg) by mouth every morning. ONDANSETRON (ZOFRAN) 4 MG TABLET Take 4 mg by mouth every 8 hours as needed. ALLERGIES Mustard seed and Penicillins FAMILY HISTORY Family History Problem Relation Name Age of Onset Arthritis Mother psoriatic Cancer Maternal Grandmother skin cancer NMSC Asthma Mother Hypertension Father Diabetes Father Asthma Maternal Grandmother Thyroid disease Mother Other ([id number]) Maternal Grandfather Diabetes Mother Lung disease Maternal Grandmother Cancer Mother's Sister skin cancer- NMSC SOCIAL HISTORY Social History Socioeconomic History Marital status: Tobacco Use Smoking status: Never Smokeless tobacco: Never Substance and Sexual Activity Alcohol use: Yes Alcohol/week: 2.0 standard drinks Drug use: Never SCREENINGS Desirae Coma Scale Best Eye Response: Spontaneous Best Verbal Response: Oriented Best Motor Response: Follows commands [place] Coma Scale Score: 15 HEART Score History: Slightly suspicious ECG: Normal Age: <45 Risk Factors: >2 risk factors or hx of atherosclerotic disease Troponin: Less than or equal to normal limit HEART Score: 2 PHYSICAL EXAM Vitals: 06/20/22 0658 06/20/22 0723 06/20/22 0726 BP: (!) 165/103 (!) 137/97 BP Location: Right arm Patient Position: Sitting Pulse: 82 73 Resp: 18 16 Temp: 36.9 C (98.4 F) TempSrc: Temporal SpO2: 97% 98% 98% Weight: (!) 147 kg (325 lb) Physical Exam Vitals and nursing note reviewed. Constitutional: Appearance: He is obese. He is not toxic-appearing. HENT: Head: Atraumatic. Neck: Vascular: No JVD. Cardiovascular: Rate and Rhythm: Normal rate and regular rhythm. Pulses: Radial pulses are 2+ on the right side and 2+ on the left side. Dorsalis pedis pulses are 2+ on the right side and 2+ on the left side. Posterior tibial pulses are 2+ on the right side and 2+ on the left side. Heart sounds: Normal heart sounds. Pulmonary: Effort: Pulmonary effort is normal. Breath sounds: Normal breath sounds. Musculoskeletal: Right lower leg: No tenderness. No edema. Left lower leg: No tenderness. No edema. Skin: General: Skin is warm. Neurological: Mental Status: He is alert. Psychiatric: Behavior: Behavior normal. Medical decision making Medical Decision Making Problems Addressed: Chest pain, unspecified type: complicated acute illness or injury Amount and/or Complexity of Data Reviewed Labs: ordered. Radiology: ordered. ECG/medicine tests: ordered. Risk OTC drugs. Prescription drug management. DIAGNOSTIC RESULTS Procedures/EKG: Physician EKG interpretation can be found in [facility] if done RADIOLOGY (Per Emergency Physician): Interpretation per the Radiologist below, if available at the time of this note: XR chest 2 views Final Result No acute cardiopulmonary disease. Report Dictated on Electronically Signed By: Casey Salinas Electronically Signed Date/Time: 06/20/2022 8:16 AM EDT LABS: Labs Reviewed BASIC METABOLIC PANEL - Abnormal Result Value SODIUM 139 POTASSIUM 3.4 (*) CHLORIDE 105 CARBON DIOXIDE 27 UREA NITROGEN 15 CREATININE 0.69 GLUCOSE 141 (*) CALCIUM 9.3 ANION GAP 7 eGFR >90.0 CBC WITH AUTO DIFFERENTIAL - Abnormal Auto WBC 13.7 (*) RBC 5.49 Hemoglobin 15.7 Hematocrit 46.6 MCV 84.9 MCH 28.7 MCHC 33.7 RDW 14.2 Platelets 266 MPV 8.4 nRBC 0.1 Neutrophils Relative 82.3 (*) Lymphocytes Relative 10.0 (*) Monocytes Relative 5.3 Eosinophils Relative 2.0 Basophils Relative 0.4 Neutrophils Absolute 11.3 (*) Lymphocytes Absolute 1.4 Monocytes Absolute 0.7 Eosinophils Absolute 0.3 Basophils Absolute 0.1 POCT GLUCOSE METER UNSOLICITED RESULTS - Abnormal Glucose 134 (*) Narrative: [facility]formed by: [facility], [address] [place], [place] [id number] CLIA ID: [id number] TROPONIN I - Normal TROPONIN I <0.012 Narrative: Patients with high levels of Biotin oral intake (ie >5 mg/day) may have falsely decreased Troponin levels. Medications potassium chloride CR (Klor-Con M20) ER tablet 40 mEq (has no administration in time range) ondansetron ODT (Zofran-ODT) disintegrating tablet 4 mg (has no administration in time range) aspirin chewable tablet 162 mg (162 mg Oral Given 06/20/22 0750) acetaminophen (Tylenol) tablet 1,000 mg (1,000 mg Oral Given 06/20/22 0750) famotidine (Pepcid) tablet 40 mg (40 mg Oral Given 06/20/22 0750) Diagnoses as of 06/20/22 0854 Chest pain, unspecified type Heart score =2 REVAL: CRITICAL CARE TIME CONSULTS: None PROCEDURES: Procedures FINAL IMPRESSION 1. Chest pain, unspecified type DISPOSITION/PLAN DISPOSITION Discharge 06/20/2022 08:50:19 AM PATIENT REFERRED TO: Leonides Sibley DO [address] [place], [place] [id number] In 2 days I prescribed: New Prescriptions ASPIRIN 81 MG CHEWABLE TABLET Chew 1 tablet (81 mg) daily for 21 days. POTASSIUM CHLORIDE CR (KLOR-CON M20) 20 MEQ ER TABLET Take 1 tablet (20 mEq) by mouth 2 times daily. Do not crush or chew. (Comment: this report has been produced using speech recognition software and may contain errors related to that system including errors in grammar, punctuation, and spelling, as well as words and phrases that may be inappropriate) SHANICE BULLOCK MD (electronically signed) Shanice Bullock MD 06/20/22 0854 documented in this [facility]03-23-2023 Emergency department Note* Latasha Payne - 06/20/2022 7:25 AM EDT #20 left forearm IV established on the second attempt.blood drawn from site and labeled at bedside awaiting orders. Prior to IV start, pt noted to be pale and diaphoretic. During IV start, pt became even more diaphoretic and stated i'm going to pass out. Pt noted to be closing eyes. Pt's visitor woke pt and pt sts I'm losing it. Pt eyes appeared to begin rolling back and pt was having difficulty finding his words. reservations manager notified, pt assisted to a standing position and then seated in wheelchair. BGL obtained and 134. Pt taken to room 21. Labs and EKG taken with pt. Latasha Payne 06/20/22 0779 [id number] Emergency department Note* Eugenia Matthews RN - 06/20/2022 7:23 AM EDT Pt presents to ED with c/o CP that started when he woke up this morning. Describes the pain as a pressure like sensation with throbbing. Started in his mid chest and now is radiating to both sides ofhis chest. States he has recently gotten over COVID, tested POS for COVID on 05/28 and completed Paxlovid. Eugenia Matthews RN 06/20/22 0725 [id number] Physician Emergency department Note* Shanice Bullock MD - 06/20/2022 6:55 AM EDT EMERGENCY DEPARTMENT ENCOUNTER Pt Name: Evin Cardoza Birthdate 1985 Date of evaluation: 06/20/2022 CHIEF COMPLAINT Chief Complaint Patient presents with Chest Pain Since 0445 today - heavy pressure HISTORY OF PRESENT ILLNESS HPI Evin Cardoza is a 37 y.o. male who presents to the emergency department with chest pain, pressuresensation, he has nasal congestion, nausea, fatigue. Symptoms started today. He was diagnosed with COVID 23 days ago. He was initially improving and then got worse again. REVIEW OF SYSTEMS Review of Systems CURRENT MEDICATIONS Previous Medications ALBUTEROL 108 (90 BASE) MCG/ACT INHALER Inhale 2 puffs. AMLODIPINE (NORVASC) 10 MG TABLET Take 1 tablet (10 mg) by mouth every morning. ATORVASTATIN (LIPITOR) 20 MG TABLET Take 1 tablet (20 mg) by mouth Nightly. BENZOYL PEROXIDE 5 % EXTERNAL WASH Apply topically to cleanse the skin once per day. Rinse well after cleansing. GLUCOSE BLOOD (BLOOD GLUCOSE TEST) STRIP Test 3 x times a day & as needed for symptoms of irregular blood glucose. Dispense sufficient amount for indicated testing frequency plus additional to accommodate PRN testing needs. JANUVIA 50 MG TABLET Take 1 tablet (50 mg) by mouth daily. LISINOPRIL 40 MG TABLET Take 1 tablet (40 mg) by mouth every morning. METFORMIN (GLUCOPHAGE) 850 MG TABLET TAKE 1 TABLET BY MOUTH IN THE MORNING AND 1 IN THE EVENING WITH MEALS METOCLOPRAMIDE (REGLAN) 5 MG TABLET Take 5 mg by mouth. METOPROLOL SUCCINATE XL (TOPROL-XL) 50 MG 24 HR TABLET Take 1 tablet (50 mg) by mouth every morning. ONDANSETRON (ZOFRAN) 4 MG TABLET Take 4 mg by mouth every 8 hours as needed. ALLERGIES Mustard seed and Penicillins FAMILY HISTORY Family History Problem Relation Name Age of Onset Arthritis Mother psoriatic Cancer Maternal Grandmother skin cancer NMSC Asthma Mother Hypertension Father Diabetes Father Asthma Maternal Grandmother Thyroid disease Mother Other ([phone]) Maternal Grandfather Diabetes Mother Lung disease Maternal Grandmother Cancer Mother's Sister skin cancer- NMSC SOCIAL HISTORY Social History Socioeconomic History Marital status: Tobacco Use Smoking status: Never Smokeless tobacco: Never Substance and Sexual Activity Alcohol use: Yes Alcohol/week: 2.0 standard drinks Drug use: Never SCREENINGS [place] Coma Scale Best Eye Response: Spontaneous Best Verbal Response: Oriented Best Motor Response: Follows commands [place] Coma Scale Score: 15 HEART Score History: Slightly suspicious ECG: Normal Age: <45 Risk Factors: >2 risk factors or hx of atherosclerotic disease Troponin: Less than or equal to normal limit HEART Score: 2 PHYSICAL EXAM Vitals: 06/20/22 0658 06/20/22 0723 06/20/22 0726 BP: (!) 165/103 (!) 137/97 BP Location: Right arm Patient Position: Sitting Pulse: 82 73 Resp: 18 16 Temp: 36.9 C (98.4 F) TempSrc: Temporal SpO2: 97% 98% 98% Weight: (!) 147 kg (325 lb) Physical Exam Vitals and nursing note reviewed. Constitutional: Appearance: He is obese. He is not toxic-appearing. HENT: Head: Atraumatic. Neck: Vascular: No JVD. Cardiovascular: Rate and Rhythm: Normal rate and regular rhythm. Pulses: Radial pulses are 2+ on the right side and 2+ on the left side. Dorsalis pedis pulses are 2+ on the right side and 2+ on the left side. Posterior tibial pulses are 2+ on the right side and 2+ on the left side. Heart sounds: Normal heart sounds. Pulmonary: Effort: Pulmonary effort is normal. Breath sounds: Normal breath sounds. Musculoskeletal: Right lower leg: No tenderness. No edema. Left lower leg: No tenderness. No edema. Skin: General: Skin is warm. Neurological: Mental Status: He is alert. Psychiatric: Behavior: Behavior normal. Medical decision making Medical Decision Making Problems Addressed: Chest pain, unspecified type: complicated acute illness or injury Amount and/or Complexity of Data Reviewed Labs: ordered. Radiology: ordered. ECG/medicine tests: ordered. Risk OTC drugs. Prescription drug management. DIAGNOSTIC RESULTS Procedures/EKG: Physician EKG interpretation can be found in [facility] if done RADIOLOGY (Per Emergency Physician): Interpretation per the Radiologist below, if available at the time of this note: XR chest 2 views Final Result No acute cardiopulmonary disease. Report Dictated on Electronically Signed By: Casey Salinas Electronically Signed Date/Time: 06/20/2022 8:16 AM EDT LABS: Labs Reviewed BASIC METABOLIC PANEL - Abnormal Result Value SODIUM 139 POTASSIUM 3.4 (*) CHLORIDE 105 CARBON DIOXIDE 27 UREA NITROGEN 15 CREATININE 0.69 GLUCOSE 141 (*) CALCIUM 9.3 ANION GAP 7 eGFR >90.0 CBC WITH AUTO DIFFERENTIAL - Abnormal Auto WBC 13.7 (*) RBC 5.49 Hemoglobin 15.7 Hematocrit 46.6 MCV 84.9 MCH 28.7 MCHC 33.7 RDW 14.2 Platelets 266 MPV 8.4 nRBC 0.1 Neutrophils Relative 82.3 (*) Lymphocytes Relative 10.0 (*) Monocytes Relative 5.3 Eosinophils Relative 2.0 Basophils Relative 0.4 Neutrophils Absolute 11.3 (*) Lymphocytes Absolute 1.4 Monocytes Absolute 0.7 Eosinophils Absolute 0.3 Basophils Absolute 0.1 POCT GLUCOSE METER UNSOLICITED RESULTS - Abnormal Glucose 134 (*) Narrative: [facility]formed by: [facility], [address] [place], [place] [id number] CLIA ID: [id number] TROPONIN I - Normal TROPONIN I <0.012 Narrative: Patients with high levels of Biotin oral intake (ie >5 mg/day) may have falsely decreased Troponin levels. Medications potassium chloride CR (Klor-Con M20) ER tablet 40 mEq (has no administration in time range) ondansetron ODT (Zofran-ODT) disintegrating tablet 4 mg (has no administration in time range) aspirin chewable tablet 162 mg (162 mg Oral Given 06/20/22 0750) acetaminophen (Tylenol) tablet 1,000 mg (1,000 mg Oral Given 06/20/22 0750) famotidine (Pepcid) tablet 40 mg (40 mg Oral Given 06/20/22 0750) Diagnoses as of 06/20/22 0854 Chest pain, unspecified type Heart score =2 REVAL: CRITICAL CARE TIME CONSULTS: None PROCEDURES: Procedures FINAL IMPRESSION 1. Chest pain, unspecified type DISPOSITION/PLAN DISPOSITION Discharge 06/20/2022 08:50:19 AM PATIENT REFERRED TO: Leonides Sibley DO [address] [place] [address] In 2 days I prescribed: New Prescriptions ASPIRIN 81 MG CHEWABLE TABLET Chew 1 tablet (81 mg) daily for 21 days. POTASSIUM CHLORIDE CR (KLOR-CON M20) 20 MEQ ER TABLET Take 1 tablet (20 mEq) by mouth 2 times daily. Do not crush or chew. (Comment: this report has been produced using speech recognition software and may contain errors related to that system including errors in grammar, punctuation, and spelling, as well as words and phrases that may be inappropriate) SHANICE BULLOCK MD (electronically signed) Shanice Bullock MD 06/20/2254 [facility] [id number] NoteOPERATIVE NOTE DATE OF PROCEDURE: 08/14/2021 SURGEON: JUSTO DAVIS M.D., [facility] DIRECTOR OF COMMUNICATIONS: see chart PREOPERATIVE DIAGNOSIS: Chronic cholecystitis POSTOPERATIVE DIAGNOSIS: Same OPERATION: Laparoscopic cholecystectomy ANESTHESIA: General anesthesia ESTIMATED BLOOD LOSS: less than 50 COMPLICATIONS: None SPECIMENS: Gallbladder HISTORY: The patient is a 36 y.o. year old male with history of above preop diagnosis. I explained the risk, benefits, expected outcome, and alternatives to the procedure. Patient understands and is in agreement to proceed with operation. PROCEDURE: Patient taken to the operating room and placed supine on the operating table. After adequate anesthesia and timeout protocol was completed. The surgical area was prepped and draped in standard sterile fashion. Local anesthetic was placed at each incision site prior to making each incision. 5mm infraumbilical incision made and Veress needle placed intraabdominal with proper placement confirmed by normal flush saline. Pneumoperitoneum was established with CO2 gas to pressure of 15 mm Hg and 5mm non-bladed infraumbilical port then placed. Under direct vision, a 10/12 mm non-bladed trocar/port was inserted in the epigastrium just to the right of the midline. Two 5mm non-bladed trocars/ports were placed in the right upper quadrant under direct visualization. Patient then placed in reverse trendelenburg and rotated to the left. The gallbladder was grasped at the fundus with grasper through the right lateral canula and at the neck with a grasper through the right mid canula. The neck of the gallbladder was retracted laterally. Dissection in the region of the triangle of Calot revealed the cystic duct and cystic artery.We isolated the cystic duct and cystic artery and dissected the posterior aspect of the gallbladder from the gallbladder fossa. There were only 2 structures noted, the cystic duct and the cystic artery. We placed 3 clips on the stay side of the cystic duct and 1 clip on the gallbladder side and the cystic duct was divided. We placed 2 clips on the stay side of the cystic artery, 1 clip on the gallbladder side and the cystic artery was divided. Hook electrocautery was used to remove the gallbladder from the gallbladder fossa. Prior to amputating the gallbladder, we again re-evaluated our clip structures, there was no evidence of bleeding or bilious extravasation. The right upper quadrant was irrigated until clear. Epigastric fascia closed with 2-0 vicryl suture. Hemostasis was observed. The abdomen was then desulflated and cannulas removed. The wounds were irrigated and the skin incisions closed with interrupted 4-0 Vicryl subcuticular sutures. Benzoin, steri strips, and sterile dressings were applied. The sponge and needle count were correct. The patient tolerated the procedure well and was sent to PACU in stable condition. Justo Davis M.D., [facility]05-17-2022 History of Present illness Narrative* Nemo Gomez RN - 08/14/2021 9:48 AM EDT SCD's applied documented in this [facility] Work Phone: [phone] 697-895805-13-2022 Hospital Discharge instructions* Instructions* Roro Mchugh RN - 08/10/2021 ..PLEASE BE AWARE THAT VISITORS UNDER THE AGE OF 12 AND FOOD/DRINKS ARE NO LONGER PERMITTED IN THE SAME DAY SURGERY DEPARTMENT. IF YOU USE A CPAP MACHINE OR RESCUE INHALER AT HOME PLEASE BRING THESE ITEMS WITH YOU THE DAY OF SURGERY. MEDICATION INSTRUCTIONS PRIOR TO SURGERY PLEASE BRING PROVIDED LIST BACK WITH YOU THE DAY OF SURGERY WITH DATE/TIME LAST DOSE OF MEDICATIONSTAKEN. MEDICATIONS TO HOLD STARTING NOW- vitamins, supplements, aspirin, stop nsaids 24 hours before surgery MEDICATIONS THAT YOU SHOULD NOT TAKE THE MORNING OF SURGERY- as above, lisinopril, metformin MEDICATIONS THAT YOU SHOULD TAKE THE MORNING OF SURGERY-inhaler, amlodipine, atorvastatin, reglan, metoprolol, zofran, pantoprazole * Attachments The following attachments cannot be sent through Care Everywhere. * Cholecystectomy: Pre-op (Japanese) * Cholecystectomy: Post-op (Japanese) [facility] Phone: [phone]) 612-196305-26-2021 Hospital Discharge instructions* Instructions* Anali Mack APRN - SAFETY ADMINISTRATOR - 08/23/2020 Please make sure that you consider taking your medications as prescribed. Please follow-up closely with the attending provider. If your symptoms worsen in any way please come back to the emergency department. * Attachments The following attachments cannot be sent through Care Everywhere. * Migraine Headache (Japanese) [facility]: evaluation note* Diagnosis Other migraine without status migrainosus, intractable- Primary Essential hypertension Unspecified essential hypertension documented in this encounter [facility] Work Phone: Evaluation note* Diagnosis Blinding headache Headache documented in this encounter [facility] Work Phone: Evaluation note* Diagnosis Abdominal pain, unspecified abdominal location- Primary Biliary sludge Other specified disorders of biliary tract documented in this encounter [facility] Work Phone: Evaluation note* Diagnosis Biliary colic- Primary Calculus of gallbladder without mention of cholecystitis or obstruction documented in this encounter [facility] Work Phone: Evaluation note* Diagnosis Chest pain, unspecified type- Primary documented in [facility]* Diagnosis Acute bacterial sinusitis- Primary Acute sinusitis, unspecified Bronchitis Bronchitis, not specified as acute or chronic Asthma exacerbation, mild documented in this encounter [facility] note* Diagnosis Type 2 diabetes mellitus with hyperglycemia ([facility]) ([facility])- Primary Pure hypercholesterolemia, unspecified documented in this encounter [facility] note* Diagnosis Acute bacterial rhinosinusitis- Primary Dyspnea, unspecified type documented in this encounter [facility] note* Diagnosis Mild intermittent asthma with exacerbation- Primary Unspecified asthma, with exacerbation documented in this encounter [facility] note* Diagnosis Shortness of breath- Primary documented in this encounter [facility] note* Diagnosis Shortness of breath- Primary documented in this encounter [facility] note* Diagnosis Shortness of breath- Primary documented in this encounter [facility] note* Diagnosis Shortness of breath- Primary documented in this encounter [facility] note* Diagnosis Shortness of breath Shortness of breath- Primary documented in this encounter [facility] note* Diagnosis Shortness of breath documented in this encounter [facility] note* Diagnosis Change in bowel habit- Primary Diarrhea, unspecified documented in this encounter [facility] note* Diagnosis COVID-19- Primary Shortness of breath Moderate persistent asthma without complication SOB (shortness of breath) Shortness of breath CATHY (obstructive sleep apnea) Obstructive sleep apnea (adult) (pediatric) Morbid obesity with body mass index (BMI) of 40.0 to 44.9 in adult ([facility]) documented in this encounter [facility] note* Diagnosis Shortness of breath Other chest pain documented in this encounter [facility] note* Diagnosis SOB (shortness of breath)- Primary Shortness of breath Hypercholesterolemia Pure hypercholesterolemia Type 2 diabetes mellitus without complication, without long-term current use of insulin ([facility]) ([facility]) Morbid obesity with body mass index (BMI) of 40.0 to 44.9 in adult ([facility]) documented in this encounter [facility] note* Diagnosis Anxiety- Primary Anxiety state, unspecified Essential hypertension Unspecified essential hypertension Type 2 diabetes mellitus without complication, without long-term current use of insulin ([facility]) ([facility]) Mixed hyperlipidemia Morbid obesity with body mass index (BMI) of 40.0 to 44.9 in adult ([facility]) documented in this encounter [facility] note* Diagnosis Near syncope documented in this encounter [facility] note* Diagnosis SOB (shortness of breath)- Primary Shortness of breath Moderate persistent asthma without complication CATHY (obstructive sleep apnea) Obstructive sleep apnea (adult) (pediatric) Morbid obesity with body mass index (BMI) of 40.0 to 44.9 in adult ([facility]) COVID-19 [facility] Diagnosis Dermatitis- Primary Contact dermatitis and other eczema, due to unspecified cause Anxiety Anxiety state, unspecified Type 2 diabetes mellitus without complication, without long-term current use of insulin ([facility]) ([facility]) [facility]* Diagnosis SOB (shortness of breath)- Primary Shortness of breath Moderate persistent asthma without complication CATHY (obstructive sleep apnea) Obstructive sleep apnea (adult) (pediatric) Morbid obesity with body mass index (BMI) of 40.0 to 44.9 in adult ([facility]) COVID-19 [facility]* Diagnosis Essential hypertension- Primary Unspecified essential hypertension Chest pain, unspecified type Change in bowel habit Diarrhea, unspecified [facility]* Diagnosis Essential hypertension Unspecified essential hypertension Change in bowel habit Diarrhea, unspecified [facility]* Diagnosis Essential hypertension- Primary Unspecified essential hypertension Palpitations Change in bowel habit Diarrhea, unspecified [facility]* Diagnosis Shortness of breath- Primary Moderate persistent asthma without complication CATHY (obstructive sleep apnea) Obstructive sleep apnea (adult) (pediatric) Morbid obesity with body mass index (BMI) of 40.0 to 44.9 in adult ([facility]) Essential hypertension Unspecified essential hypertension Change in bowel habit Diarrhea, unspecified [facility]* Diagnosis Essential (primary) hypertension Unspecified essential hypertension Change in bowel habit Diarrhea, unspecified [facility]* Diagnosis Change in bowel habit Diarrhea, unspecified [facility]* Diagnosis Essential (primary) hypertension- Primary Unspecified essential hypertension [facility]* Diagnosis Essential (primary) hypertension- Primary Unspecified essential hypertension Essential (primary) hypertension Unspecified essential hypertension [facility]* Diagnosis Essential (primary) hypertension- Primary Unspecified essential hypertension [facility]* Diagnosis Essential (primary) hypertension- Primary Unspecified essential hypertension documented in this encounter [facility] note* Diagnosis COVID- Primary Type 2 diabetes mellitus without complication, without long-term current use of insulin ([facility]) (HCC) documented in this encounter [facility] note* Diagnosis Steroid-induced hyperglycemia- Primary documented in this encounter [facility] note* Diagnosis Transient alteration of awareness- Primary COVID Nausea Nausea alone [facility] Instructions* Katiuska Guerrier DO - 07/26/2021 Please continue to take [id number] medications as we discussed. I will prescribe you a new prescription for Protonix. Please follow-up with a general surgeon as we discussed as well as your primary care doctor. * Attachments The following attachments cannot be sent through Care Everywhere. * Abdominal Pain (Japanese) * Viral Infections (Japanese) documented in this [facility] Work Phone: Hoital Discharge instructions* Instructions* Justo Davis MD - 08/14/2021 POST-OPERATIVE INSTRUCTIONS LAPAROSCOPIC/ROBOTIC SURGERY Thank you very much for allowing me to participate in your care, it is truly a privilege. Below please see discharge orders that will help you during your recovery. Please do not hesitate to call theoffice at [phone] for any questions. After hours, the same number will allow you to reach the on-call surgeon. ? Call the office to schedule your post-operative appointment with Dr. Davis or PA/SAP HANA DEVELOPER for 2 weeks if not already scheduled. o (May need to be seen before 2 weeks if stitches and/or drains present) ? Change bandages daily or more frequently if needed. o Keep incisions clean with soap/ water daily. (Peroxide OK as well) o Cover incision(s) as needed. o Please remove the Steri-Strips as instructed 5 days after your date of surgery, they will not fall off on their own. This includes any clear bandages and gauze placed in the navel, if applicable. o If you have skin glue this will come off on its own ? May place an ice pack over your incisions on and off (15min) at a time for the next 24-48 hours. ? Resume regular diet as tolerated (recommend starting with liquids) ? General guidelines for activity: Avoid strenuous activity or lifting anything heavier than 15 pounds. It is OK to be up and walking around. Going up and down stairs is also OK. Do what is comfortable: stop and rest when you feel tired. It is OK to shower after 24 hours ? You will have pain medicine ordered. Take as directed/needed. ? Some discomfort, mild bruising, and swelling are not unusual; please call my office if you have any severe pain, hemorrhage, or high fever (over 101 F) ? During the laparoscopic procedure that you had, gas is pumped into the abdominal cavity. You may feel abdominal, shoulder, or rib pain for a few days due to this. ? Resume home medications (see medication reconciliation sheet) ? Do NOT drive for one day and while taking your narcotic pain medicine. ? Watch for signs of infection: Excessive warmth or bright redness around your incisions Leakage of bloody or cloudy fluid from you incisions Fever over 100.5 ? If you experience constipation o Increase your water intake. o Increase your activity; walking is best. o An over the counter stool softener or mild laxative may be necessary if you still have not had a bowel movement after several days. Please call the office at [phone] for any questions and too make your post op appointment if needed. Thank you again for allowing me to participate in your care, and get well soon! Justo Davis MD FACS documented in this [facility] Work Phone: Hospital Discharge instructions* Attachments The following attachments cannot be sent through Care Everywhere. * Chest Pain, Adult ED (Japanese) documented in this [facility] Discharge instructions* Attachments The following attachments cannot be sent through Care Everywhere. * Asthma, Adult ED (Japanese) documented in this [facility] Discharge instructions* Attachments The following attachments cannot be sent through Care Everywhere. * Diarrhea in Adolescents and Adults (Japanese) * Colonoscopy Discharge Instructions (Japanese) [facility] Attachments The following attachments cannot be sent through Care Everywhere. * Sinusitis in Adults (Japanese) [facility] Consultation (Urgent) - Pending Review Specialty Diagnoses / Procedures Referred By Contac t Referred To Contact Cardiology Diagnoses Chest pain, unspecified type Procedures HI OFFICE/OUTPATIENT NEW HIGH MDM 60-74 MINUTES Shanice Bullock MD [address] [place] [address] [facility] [address] [facility] [address] [place] [address] Referral ID Status Reason Start Date Expiration Date Visits Requested Visits Authorized [id number] Pending Review Specialty Services Required 06/20/2022 06/20/2023 1 1 [facility] Reason for Referral Status Reason Specialty Diagnoses / Procedures Referre d By Contact Referred To Contact Closed Radiology Diagnoses Blinding headache Procedures MRI BRAIN WO CONTRAST Luz Jenkins, PLATFORM ENGINEER - SAP HANA DEVELOPER [address] [place] [address] Specialty Diagnoses / Procedures Referred By Contac t Referred To Contact General Surgery Diagnoses Biliary sludge Nes[place], Katiuska G, DO [address] [place] [address] [facility] [address] [facility] [address] [place] [address] Referral ID Status Reason Start Date Expiration Date V isits Requested Visits Authorized [id number] Open Specialty Services Required 07/26/2021 07/26/2022 1 1 Scheduling Instructions [facility] General Surgery [address] [place] [address] [address] [place], [place] [address] Specialty Diagnoses / Procedures Referred By Contac t Referred To Contact Radiology Diagnoses Shortness of breath Procedures CT chest w IV contrast Enedina Truong PA-C [address] [place] [address] Referral ID Status Reason Start Date Expiration Date V isits Requested Visits Authorized [id number] Pending Review 07/11/2022 01/07/2023 1 1 Specialty Diagnoses / Procedures Referred By Contac t Referred To Contact Cardiology Diagnoses Shortness of breath Procedures HI OFFICE/OUTPATIENT NEW HIGH MDM 60-74 MINUTES Enedina Truong PA-C [address] [place] [address] [facility] Card [address] [place] [address] Referral ID Status Reason Start Date Expiration Date Visits Requested Visits Authorized [id number] Pending Review Specialty Services Required 07/11/2022 07/11/2023 1 1 Specialty Diagnoses / Procedures Referred By Maddieac t Referred To Contact Cardiology Diagnoses Shortness of breath Procedures Transesophageal echocardiogram (ALONSO) with contrast and 3D PRN HI ECHO TRANSESOPHAG R-T 2D W/PRB IMG ACQUISJ I&R HI DOP ECHOCARD COLOR FLOW VELOCITY MAPPING HI DOPPLER ECHOCARD PULSE WAVE W/SPECTRAL DISPLAY Enedina Truong PA-C [address] [place] [address] Referral ID Status Reason Start Date Expiration Date Visits Requested Visits Authorized [id number] Pending Review Perform Procedure 07/11/2022 01/07/2023 1 1 Specialty Diagnoses / Procedures Referred By Contac t Referred To Contact Cardiology Diagnoses Shortness of breath Procedures Transthoracic echocardiogram (TTE) complete with contrast, bubble, strain, and 3D PRN HI ECHO TTHRC R-T 2D W/WOM-MODE COMPL SPEC&COLR D HI TTE W OR WO FOL WCON,DOPPLER Enedina Truong PA-C [address] [place] [address] Referral ID Status Reason Start Date Expiration Date Visits Requested Visits Authorized [id number] Pending Review Perform Procedure 07/13/2022 01/09/2023 1 1 Specialty Diagnoses / Procedures Referred By Contac t Referred To Contact Radiology Diagnoses Shortness of breath Procedures CT chest angiogram w and/or wo IV contrast Enedina Truong PA-C [address] [place] [address] Referral ID Status Reason Start Date Expiration Date V isits Requested Visits Authorized [id number] Pending Review 07/25/2022 01/21/2023 1 1 Referral ID Status Reason Start Date Expiration Date V isits Requested Visits Authorized [id number] Canceled 07/25/2022 01/21/2023 1 1 Specialty Diagnoses / Procedures Referred By Contac t Referred To Contact Pulmonology Diagnoses Shortness of breath Moderate persistent asthma without complication Procedures Complete PFT pre and post bronchodilator Young Robbins MD [address] [place] [address] Referral ID Status Reason Start Date Expiration Date V isits Requested Visits Authorized [id number] Authorized 08/06/2022 02/02/2023 1 1 Specialty Diagnoses / Procedures Referred By Contac t Referred To Contact Cardiology Diagnoses Shortness of breath Other chest pain Procedures Stress echocardiogram (TTE) exercise with contrast, bubble, strain, and 3D PRN HI ECHO TTHRC R-T 2D W/WO M-MODE COMPLETE REST&ST HI ECHO TTHRC R-T 2D W/WO M-MODE REST&STRS CONT ECG HI DOPPLER ECHOCARD PULSE WAVE W/SPECTRAL DISPLAY HI DOP ECHOCARD COLOR FLOW VELOCITY MAPPING HI CV STRS TST XERS&/OR RX CONT ECG W/O I&R HI CV STRS TST XERS&/OR RX CONT ECG TRCG ONLY HI CV STRS TST XERS&/OR RX CONT ECG I&R ONLY Carlos Villar MD [address] [facility] [address] [place] [address] Referral ID Status Reason Start Date Expiration Date V isits Requested Visits Authorized [id number] Closed Perform Procedure 07/16/2022 01/12/2023 1 1 Specialty Diagnoses / Procedures Referred By Contac t Referred To Contact Cardiology Diagnoses Near syncope Procedures Cardiac event monitor Pelon Ochoa, ZARIA - SAFETY ADMINISTRATOR [address] [facility] [address] [place] [address] Referral ID Status Reason Start Date Expiration Date Visits Re quested Visits Authorized [id number] Closed 08/21/2022 02/17/2023 1 1 Specialty Diagnoses / Procedures Referred By Contac t Referred To Contact Sleep Medicine Diagnoses CATHY (obstructive sleep apnea) Procedures Sleep study with pap titration Young Robbins MD [address] [place] [address] Referral ID Status Reason Start Date Expiration Date V isits Requested Visits Authorized [id number] Authorized 09/05/2022 03/04/2023 1 1 Specialty Diagnoses / Procedures Referred By Contac t Referred To Contact Cardiology Diagnoses Essential (primary) hypertension Procedures Vascular US renal artery duplex complete Jamil Cummins MD [address] [place] [address] Referral ID Status Reason Start Date Expiration Date V isits Requested Visits Authorized [id number] Closed Perform Procedure 10/25/2022 04/23/2023 1 1 Summary Purpose Family History No Family History Records FoundNo Family History Records FoundNo Family History Records FoundNo Family History Records FoundNo Family History Records Found Advance Directives No Advanced Directives Records FoundLatest Code Status on File Code Status Date Activated Date Inactivated Comments Full Code 08/14/2021 9:16 AM Latest Code Status on File Code Status Date Activated Date Inactivated Comments Full Code 08/19/2022 11:16 PM 08/21/2022 4:56 PM Latest Code Status on File Code Status Date Activated Date Inactivated Comments Full Code 08/19/2022 11:16 PM 08/21/2022 4:56 PM Documents on File Type Date Recorded Patient Sleeve Wheel Maker Expl anation Power of Automatic Glove Turner And Former 10/02/2022 4:06 PM Advance Directives and Livin g Will 10/02/2022 4:06 PM Documents on File Type Date Recorded Patient Sleeve Wheel Maker Expl anation Power of Automatic Glove Turner And Former 10/02/2022 4:06 PM Advance Directives and Livin g Will 10/02/2022 4:06 PM Additional Source Comments Reason for Visit (unrecogniz ed section and content) Reason Comments Abdominal Pain Reason Comments Chest Pain Since 0445 today - h eavy pressure Reason Comments Nasal Congestion Cough Dayquil, Nightquil Nausea Zofran Reason Comments URI Was seen 06/27/2022 - was put no RX - felt better - sxs started back up 2 days ago - pt states it feels worse than it did when he was last seen In office - was DX with covid the begining of May - pt hasnt felt 100% since Reason Comments Shortness of Breath Pt c/o SOB and cough x 2 wks. Pt states he had covid at the beginning of may. Pt states he has been seen at urgent care. Pt states he has taken abx and steroids. Pt states he is taking clindamycin, ceftin. Reason Onset Date Comments Shortness of Breath 07/10/2022 Reason Comments Shortness of Breath Cough Had covid in may a nd not getting better. Reason Onset Date Comments Orders 07/12/2022 ECHO Reason Onset Date Comments Orders 07/12/2022 ECHO Reason Comments Shortness of Breath Chest Pain Specialty Diagnoses / Procedures Referred By Katerin t Referred To Contact Radiology Diagnoses Shortness of breath Procedures CT chest w IV contrast Enedina Truong PA-C [address] [place] [address] Referral ID Status Reason Start Date Expiration Date V isits Requested Visits Authorized [id number] Canceled 07/25/2022 01/21/2023 1 1 Reason Onset Date Comments Med Refill 07/30/2022 Reason Comments New Patient Shortness of Breath Asthma Specialty Diagnoses / Procedures Referred By Katerin mederos Referred To Contact Pulmonology Diagnoses Post covid-19 condition, unspecified Procedures HI OFFICE/OUTPATIENT NEW MODERATE MDM 45-59 MINUTES Fredo Rothman MD [address] [address] [facility] [place] [facility] [address] [place] [address] Referral ID Status Reason Start Date Expiration Date V isits Requested Visits Authorized [id number] Pending Review 07/15/2022 07/15/2023 1 1 Specialty Diagnoses / Procedures Referred By Katerin t Referred To Contact Diagnoses Shortness of breath Procedures HI ECHO TTHRC R-T 2D W/WO M-MODE REST&STRS CONT ECG [facility] [address] [place] [address] [facility] Non-Invasive Cardiology [address] [place] [address] Referral ID Status Reason Start Date Expiration Date Visits Re quested Visits Authorized [id number] 1 1 Reason Comments Follow-up 1 month Reason Comments Hospital Follow-up Weak sob Specialty Diagnoses / Procedures Referred By Contmaykel t Referred To Contact Cardiology Diagnoses Near syncope Procedures Cardiac event monitor Pelon Ochoa, PLATFORM ENGINEER - SAFETY ADMINISTRATOR [address] [facility] [address] [place] [address] Referral ID Status Reason Start Date Expiration Date Visits Re quested Visits Authorized [id number] Closed 08/21/2022 02/17/2023 1 1 Reason Comments Asthma 2-MONTH APPT. CATHY.PF T RESULTS Reason Comments Follow-up 4 wk Reason Comments 3 Month Follow Up Shortness of Breath Hypertension Specialty Diagnoses / Procedures Referred By Contmaykel t Referred To Contact Cardiology Diagnoses Chest pain, unspecified type Procedures HI OFFICE/OUTPATIENT NEW HIGH MDM 60-74 MINUTES Shanice Bullock MD [address] [place] [address] [facility] Card [address] [facility] [address] [place] [address] Referral ID Status Reason Start Date Expiration Date V isits Requested Visits Authorized [id number] Closed Specialty Services Required 06/20/2022 06/20/2023 1 1 Reason Onset Date Comments Results 10/03/2022 Labs/BP checks Reason Comments Hypertension Reason Comments Follow-up Asthma 2-MONTH APPTOSA Reason Onset Date Comments Other 10/17/2022 PT REQUESTING RE FILL ON TRELEGY 200 Specialty Diagnoses / Procedures Referred By Contac t Referred To Contact Cardiology Diagnoses Essential (primary) hypertension Procedures Vascular US renal artery duplex complete Jamil Cummins MD [address] [place] [address] Referral ID Status Reason Start Date Expiration Date V isits Requested Visits Authorized [id number] Closed Perform Procedure 10/25/2022 04/23/2023 1 1 Specialty Diagnoses / Procedures Referred By Contac t Referred To Contact Diagnoses Change in bowel habit Diarrhea, unspecified Change in bowel habit [R19.4] Diarrhea, unspecified [R19.7] Procedures HI COLONOSCOPY FLX DX W/COLLJ SPEC WHEN PFRMD HI ESOPHAGOGASTRODUODENOSCOPY TRANSORAL DIAGNOSTIC COLONOSCOPY, EGD EGD DIAGNOSTIC Abel Contreras MD [address] [facility] [address] [place] [address] [facility] Endoscopy [address] [place] [address] Referral ID Status Reason Start Date Expiration Date Visits Re quested Visits Authorized [id number] 1 1 Reason Onset Date Comments Med Refill 11/20/2022 Reason Comments Shortness of Breath Tested positive for covid Reason Onset Date Comments Medication Problem 04/26/2023 Blood Sugar Problem 04/26/2023 Reason Comments Hyperglycemia Reason Comments Nausea This morning Vomiting nausea/vomiting/chil ls post covid Shortness of Breath Scheduled Active and Recently Administ ered Medications (unrecognized section and content) Linked Groups Order Group 1: Saline lock IV Routine, CONTINUOUS, Starting on Fri08/23/20 at 1545, Until Specified And sodium chloride flush 0.9 % injection 3 mLJump to med 3 mL, Intravenous, EVERY 8 HOURS, First dose on Fri08/23/20 at 1539
Flush line with 3-5 mL
Scheduled Medication Order 07/24/2021 07/25/2021 07/26/2021 0.9 % sodium chloride bolus 1,000 mL (6.87 mL/kg), IntraVENous, at 1,935.5 mL/hr, Administer over 31 Minutes, ONCE, On [place] 07/26/21 at 0855, For 1 dose 1347 (Not Given - Pr ovider: Tala Benson RN - Reason: Patient/family refused) morphine sulfate (PF) injection 4 mg (COMPLETED) 4 mg, IntraVENous, ONCE, 1 dose, On [place] 07/26/21 at 0855, If oral and IV narcotics ordered, use oral first and only use IV if oral is ineffective or cannot take oral. Do Not give oral and IV within 1 hour of each other unless specifically ordered. 0902 (Given - Provid er: Erica Elizalde RN) ondansetron (ZOFRAN) injection 4 mg (COMPLETED) 4 mg, IntraVENous, ONCE, 1 dose, On [place] 07/26/21 at 0855 0902 (Given - Provid er: Erica Elizalde RN) sodium chloride flush 0.9 % injection 3 mL(Linked Group 1) 3 mL, IntraVENous, EVERY 8 HOURS, First dose on [place] 07/26/21 at 0855, Until Discontinued, Flush line with 3-5 mL 0855 (Due)1655 (Due) PRN Medication Order 07/24/2021 07/25/2021 07/26/2021 iopamidol (ISOVUE-370) 76 % injection 75 mL (COMPLETED) 75 mL, IntraVENous, IMG ONCE PRN, 1 dose, Starting on [place] 07/26/21 at 1103, Until [place] 07/26/21 at 1110, Other 1110 (Given - Provid er: Sandra Vizcarra) Linked Groups Order Group 1: Saline lock IV (COMPLETED) Routine, CONTINUOUS, Starting on [place] 07/26/21 at 0900, Until Specified And sodium chloride flush 0.9 % injection 3 mLJump to med 3 mL, IntraVENous, EVERY 8 HOURS, First dose on [place] 07/26/21 at 0855, Until Discontinued
Flush line with 3-5 mL
Scheduled Medication Order 08/12/2021 08/13/2021 08/14/2021 acetaminophen (TYLENOL) tablet 1,000 mg (COMPLETED) 1,000 mg, Oral, ONCE, 1 dose, On 08/14/21 at 0945, Maximum dose of acetaminophen is 4000 mg from all sources in 24 hours. Do not administer if patient has taken tylenol <4 hours earlier. Do not give if contraindicated ie. patient has active liver disease or cirrhosis., Pre-op (day of surgery) 0945 (Given - Provid er: Nemo Gomez RN) ceFAZolin (ANCEF) 3000 mg in sodium chloride 0.9% 100 mL IVPB (COMPLETED) 3,000 mg, IntraVENous, CAN SEALER TO O.R., 1 dose, On 08/14/21 at 0945, Antimicrobial Indications: Surgical Prophylaxis, Administer within 1 hour prior to incision. Recommend to repeat in 3-4 hours after initial dose if still intra-op., Pre-op (day of surgery) 1101 ([facility] - Prov ider: Kathi Castillo RN - Comment: IN OR)1131 (Due: Stopped - Provider: Kathi Castillo RN) famotidine (PEPCID) tablet 20 mg (COMPLETED) 20 mg, Oral, ONCE, 1 dose, On Fri08/14/21 at 0945, Pre-op (day of surgery) 0945 (Given - Provid er: Nemo Gomez RN) gabapentin (NEURONTIN) capsule 100 mg (COMPLETED) 100 mg, Oral, ONCE, 1 dose, On Fri08/14/21 at 0945, For Age >69, or Low GFR, Pre-op (day of surgery) 0945 (Given - Provid er: Nemo Gomez RN) LORazepam (ATIVAN) injection 0.5 mg 0.5 mg, IntraVENous, ONCE, 1 dose, On Fri08/14/21 at 1200, PACU only 1200 (Due) sodium chloride flush 0.9 % injection 5-40 mL 5-40 mL, IntraVENous, EVERY 12 HOURS SCHEDULED (2 times per day), First dose on Fri08/14/21 at 0945, Until Discontinued, For Line Patency: Peripheral IV = 5 mL; Midline or Central Line = 10 mL/lumen. If following IV push medication, administer flush at same rate as the IV push. Flush volume is determined by type of infusion therapy being given. For non-viscous solutions use: Peripheral IV = 5 mL Midline or Central Line = 10 mL/lumen For viscous solutions (i.e. blood components, parenteral nutrition, contrast media, or after obtaining blood sample) use: Peripheral IV = 10 mL Midline or Central Line = 20 mL/lumen, Pre-op (day of surgery) 0945 (Due)2100 (Due) sodium chloride flush 0.9 % injection 5-40 mL 5-40 mL, IntraVENous, EVERY 12 HOURS SCHEDULED (2 times per day), First dose on Fri08/14/21 at 2100, Until Discontinued, For Line Patency: Peripheral IV = 5 mL; Midline or Central Line = 10 mL/lumen. If following IV push medication, administer flush at same rate as the IV push. Flush volume is determined by type of infusion therapy being given. For non-viscous solutions use: Peripheral IV = 5 mL Midline or Central Line = 10 mL/lumen For viscous solutions (i.e. blood components, parenteral nutrition, contrast media, or after obtaining blood sample) use: Peripheral IV = 10 mL Midline or Central Line = 20 mL/lumen, PACU only 2100 (Due) Continuous Medication Order 08/12/2021 08/13/2021 08/14/2021 lactated ringers infusion IntraVENous, at 50 mL/hr, CONTINUOUS, Starting on Fri08/14/21 at 0945, Upon admission to sameday - please start iv if patient does not have iv access. Use 500ml NS for patients on dialysis., Pre-op (day of surgery) 0945 (Due) lactated ringers infusion IntraVENous, at 50 mL/hr, CONTINUOUS, Starting on Fri08/14/21 at 1200, PACU only 1200 (Due) PRN Medication Order 08/12/2021 08/13/2021 08/14/2021 0.9 % sodium chloride bolus 500 mL (3.35 mL/kg), IntraVENous, at 1,000 mL/hr, Administer over 0.5 Hours, PRN, Anti-nausea, Starting on Fri08/14/21 at 1143, PACU only 0.9 % sodium chloride infusion IntraVENous, at 5-250 mL/hr, PRN, if patient receiving piggyback infusions and maintenance fluids are not ordered OR KVO fluids to protect IV site / prevent frequent line interruptions/ long duration, Starting on Fri08/14/21 at 0916, For piggyback infusion, administer at same rate as piggyback for a total of 25 mL. Enter 25 mL into dose field and piggyback rate into rate field of order. If piggyback is infusing at a rate less than 100 mL/hr, enter 25 mL into dose field and 100 mL/hr into rate field of order. For KVO fluids, enter rate of 20 mL/hr or less into rate field of order., Pre-op (day of surgery) ALPRAZolam (NIRAVAM) dissolvable tablet 0.25 mg 0.25 mg, Oral, PRN, Starting on Fri08/14/21 at 0916, Until Discontinued, Anxiety, Pre-op (day of surgery) diphenhydrAMINE (BENADRYL) injection 12.5 mg 12.5 mg, IntraVENous, ONCE PRN, 1 dose, Starting on Fri08/14/21 at 1143, Until Fri08/14/21 at 2359, Itching, PACU only hydrALAZINE (APRESOLINE) injection 5 mg (COMPLETED) 5 mg, IntraVENous, EVERY 10 MIN PRN, 2 doses, Starting on Fri08/14/21 at 1143, Until Discontinued, High Blood Pressure, for SBP greater than 160 mmHg for 2 consecutive measurements taken from different sites, PRN for SBP > 160 for 2 consecutive measurements, and if one of the following conditions is met: 1) If IV labetolol is ineffective. 2) If HR is under 60. 3) If patient has heart block, COPD or asthma. If both labetalol and hydralazine ineffective, notify anesthesiologist. for use Sameday and, PACU only 1154 (See Alternativ e - Provider: Kathi Castillo RN)1213 (Given - Provider: Kathi Castillo RN - Comment: HR 66) HYDROmorphone (DILAUDID) injection 0.25 mg HYDROmorphone (DILAUDID) 1.5mg IV is equivalent to morphine 10mg IV, 0.25 mg, IntraVENous, EVERY 5 MIN PRN, 4 doses, Starting on Fri08/14/21 at 1143, Until Discontinued, Pain Moderate (4-6), Phase I and Phase II- Initial therapy for moderate pain (4-6). Restricted to a 90 minute time frame starting when the patient can verbally state their pain score. If oral meds are utilized, do not return to initial therapy medications. SDS and, PACU only HYDROmorphone (DILAUDID) injection 0.5 mg HYDROmorphone (DILAUDID) 1.5mg IV is equivalent to morphine 10mg IV, 0.5 mg, IntraVENous, EVERY 5 MIN PRN, 4 doses, Starting on Fri08/14/21 at 1143, Until Discontinued, Pain Severe (7-10), Phase I or Phase II- Initial therapy for severe pain (7-10). Restricted to a 90 minute time frame starting when the patient can verbally state their pain score. If oral meds are utilized, do not return to initial therapy medications. SDS and, PACU only 1205 (Given - Provid er: Kathi Castillo RN)1227 (Given - Provider: Kathi Castillo RN) insulin lispro (HUMALOG) injection vial 0-12 Units 0-12 Units, SubCUTAneous, PRN, 3 doses, Starting on Fri08/14/21 at 0916, Until Discontinued, Based on Glucose results, Corrective Low Dose Algorithm Glucose: Dose: If <180 No Insulin 181-240 4 Units 241-300 6 Units 301-350 8 Units 350-340 10 Units Over 400 12 Units, Pre-op (day of surgery) labetalol (NORMODYNE;TRANDATE) injection 5 mg (COMPLETED) 5 mg, IntraVENous, EVERY 10 MIN PRN, 2 doses, Starting on Fri08/14/21 at 1143, Until Discontinued, High Blood Pressure, for SBP greater than 160 mmHg for 2 consecutive measurements taken from different sites., PRN for SBP >160 for 2 consecutive measurements, if HR is 60 or greater. If beta mitali is contraindicated (HR less than 60, heart block, COPD or asthma) use hydralazine IV order. for use Sameday and, PACU only 1154 (Given - Provid er: Kathi Castillo RN - Comment: [phone] hr)1213 (See Alternative - Provider: Kathi Castillo RN) lidocaine PF 1 % injection 1 mL 1 mL, IntraDERmal, ONCE PRN, 1 dose, Starting on Fri08/14/21 at 0916, Until Fri08/14/21 at 2359, IV start, Pre-op (day of surgery) meperidine (DEMEROL) injection 12.5 mg 12.5 mg, IntraVENous, EVERY 5 MIN PRN, 4 doses, Starting on Fri08/14/21 at 1143, Until Discontinued, Shivering, , May give every 5 minutes to max of 50mg., PACU only ondansetron (ZOFRAN) injection 4 mg 4 mg, IntraVENous, ONCE PRN, 1 dose, Starting on Fri08/14/21 at 1143, Until Fri08/14/21 at 2359, Nausea, Initial antiemetic therapy., PACU only oxyCODONE (ROXICODONE) immediate release tablet 5 mg (COMPLETED) 5 mg, Oral, PRN, 1 dose, Starting on Fri08/14/21 at 1143, Until Fri08/14/21 at 2359, Pain Moderate (4-6), PHASE II, PACU only 1309 (Given - Provid er: Kathi Castillo RN) sodium chloride flush 0.9 % injection 5-40 mL 5-40 mL, IntraVENous, PRN, Starting on Fri08/14/21 at 0916, Until Discontinued, Line Care, After every IV line use, For Line Patency: Peripheral IV = 5 mL; Midline or Central Line = 10 mL/lumen. If following IV push medication, administer flush at same rate as the IV push. Flush volume is determined by type of infusion therapy being given. For non-viscous solutions use: Peripheral IV = 5 mL Midline or Central Line = 10 mL/lumen For viscous solutions (i.e. blood components, parenteral nutrition, contrast media, or after obtaining blood sample) use: Peripheral IV = 10 mL Midline or Central Line = 20 mL/lumen, Pre-op (day of surgery) sodium chloride flush 0.9 % injection 5-40 mL 5-40 mL, IntraVENous, PRN, Starting on Fri08/14/21 at 1143, Until Discontinued, Line Care, After every IV line use, For Line Patency: Peripheral IV = 5 mL; Midline or Central Line = 10 mL/lumen. If following IV push medication, administer flush at same rate as the IV push. Flush volume is determined by type of infusion therapy being given. For non-viscous solutions use: Peripheral IV = 5 mL Midline or Central Line = 10 mL/lumen For viscous solutions (i.e. blood components, parenteral nutrition, contrast media, or after obtaining blood sample) use: Peripheral IV = 10 mL Midline or Central Line = 20 mL/lumen, PACU only Scheduled Medication Order 06/18/2022 06/19/2022 06/20/2022 acetaminophen (Tylenol) tablet 1,000 mg (COMPLETED) 1,000 mg, Oral, Once, On [place] 06/20/22 at 0750, For 1 dose, Maximum dose of acetaminophen is 4000 mg from all sources in 24 hours. 0750 (Given - Provid er: Eugenia Matthews RN) aspirin chewable tablet 162 mg (COMPLETED) 162 mg, Oral, Once, On [place] 06/20/22 at 0750, For 1 dose 0750 (Given - Provid er: Eugenia Matthews RN) famotidine (Pepcid) tablet 40 mg (COMPLETED) 40 mg, Oral, Once, On Fri06/20/22 at 0750, For 1 dose 0750 (Given - Provid er: Eugenia Matthews RN) ondansetron ODT (Zofran-ODT) disintegrating tablet 4 mg (COMPLETED) 4 mg, Oral, Once, On Fri06/20/22 at 0855, For 1 dose 0900 (Given - Provid er: Eugenia Matthews RN) potassium chloride CR (Klor-Con M20) ER tablet 40 mEq (COMPLETED) 40 mEq, Oral, Once, On Fri06/20/22 at 0850, For 1 dose, Best given with food and plenty of water to minimize gastric irritation. Do not crush or chew. 0900 (Given - Provid er: Eugenia Matthews RN) Scheduled Medication Order 07/08/2022 07/09/2022 07/10/2022 ipratropium-albuterol (Duo-Neb) 0.5-2.5 mg/3 mL nebulizer solution 3 mL (COMPLETED) 3 mL, Nebulization, Once, On Fri07/10/22 at 1050, For 1 dose 1125 (Given - Provid er: Roro Mcmanus RCP) methylPREDNISolone sodium succinate (PF) (SOLU-Medrol) injection 125 mg (COMPLETED) 125 mg, IntraVENous, Once, On Fri07/10/22 at 1050, For 1 dose 1122 (Given - Provid er: Rosamaria Resendez RN) Continuous Medication Order 11/18/2022 11/19/2022 11/20/2022 sodium chloride 0.9 % infusion 125 mL/hr, IntraVENous, Continuous, Starting on Fri11/20/22 at 0700, Preprocedure 0709 (New Bag - Prov ider: Rosario Davis RN)0718 (Continued by Anesthesia - Provider: ZARIA Dupree CRNA)0720 (Rate/Dose Change - Provider: ZARIA Dupree CRNA)0743 (Stopped - Provider: ZARIA Dupree CRNA) Scheduled Medication Order 04/25/2023 04/26/2023 04/27/2023 sodium chloride 0.9 % bolus 1,000 mL (COMPLETED) 1,000 mL, IntraVENous, at 2,000 mL/hr, Administer over 0.5 Hours, Once, On 04/27/23 at 0105, For 1 dose 0202 (New Bag - Prov ider: Lulu Dominguez, LYNDSEY)0232 (Stopped - Provider: Lulu Dominguez RN) (unrecognized sect ion and content) No Status Records FoundNo Status Records FoundNo Status Records FoundNo Status Records FoundNo Status Records Found INFORMATION SOURCE (unrecogn ized section and content) DATE CREATED AUTHOR AUTHOR'S ORGANIZ ATION 08/22/2021 [facility] DATE CREATED AUTHOR AUTHOR'S ORGANIZ ATION 12/12/2021 [facility] DATE CREATED AUTHOR AUTHOR'S ORGANIZ ATION 01/08/2022 [facility] DATE CREATED AUTHOR AUTHOR'S ORGANIZ ATION 05/03/2023 [facility] Ordered Prescriptions (unrec ognized section and content) Prescription Sig Dispensed Refills Start Date End Da te oxyCODONE-acetaminophen (PERCOCET) 5-325 MG per tabletIndications:Biliary colic Take 1 tablet by mouth every 6 hours as needed for Pain for up to 5 days. 10 tablet 0 08/14/2021 08/19/2021 Care Teams (unrecognized sec tion and content) Manual Winder Relationship Specialty Start Date End Date Leonides Sibley DO [address], [place] [id number] PCP - General Family Medicine 08/18/20 Manual Winder Relationship Specialty Start Date End Date Leonides Sibley DO [address], [place] [id number] PCP - General Family Medicine 08/18/20 Manual Winder Relationship Specialty Start Date End Date Leonides Sibely DO [address], [place] [id number] PCP - General 08/18/20 Manual Winder Relationship Specialty Start Date End Date Leonides Sibley DO [address], [place] [id number] PCP - General 08/18/20 Manual Winder Relationship Specialty Start Date End Date Leonides Silbey, DO [address] [place] [address] PCP - General 08/18/20 Manual Winder Relationship Specialty Start Date End Date Leonides Sibley, DO [address] [place] [address] PCP - General 08/18/20 Manual Winder Relationship Specialty Start Date End Date Leonides Sibley, DO [address] [place] [address] PCP - General 08/18/20 Manual Winder Relationship Specialty Start Date End Date Leonides Sibley, DO [address] [place] [address] PCP - General 08/18/20 Manual Winder Relationship Specialty Start Date End Date Leonides Sibley, DO [address] [place] [address] PCP - General 08/18/20 Manual Winder Relationship Specialty Start Date End Date Leonides Sibley, DO [address] [place] [address] PCP - General 08/18/20 Manual Winder Relationship Specialty Start Date End Date Leonides Sibley, DO [address] [place] [address] PCP - General 08/18/20 Manual Winder Relationship Specialty Start Date End Date Leonides Sibley, DO [address] [place] [address] PCP - General 08/18/20 Manual Winder Relationship Specialty Start Date End Date Leonides Sibley, DO [address] [facility] [place] [address] PCP - General 08/18/20 Manual Winder Relationship Specialty Start Date End Date Leonides Sibley, DO [address] [place] [address] PCP - General 08/18/20 Manual Winder Relationship Specialty Start Date End Date Leonides Sibley DO [address] [place] [address] PCP - General 08/18/20 Manual Winder Relationship Specialty Start Date End Date Leonides Sibley DO [address] [place] [address] PCP - General 08/18/20 07/30/22 Enedina Truong PA-C [address] [place] [address] PCP - General Physician Relay Tester Helper 07/31/22 Manual Winder Relationship Specialty Start Date End Date Enedina Truong PA-C [address] [place] [address] PCP - General Physician Relay Tester Helper 07/31/22 Manual Winder Relationship Specialty Start Date End Date Enedina Truong PA-C [address] [place] [address] PCP - General Physician Relay Tester Helper 07/31/22 Manual Winder Relationship Specialty Start Date End Date Enedina Truong PA-C [address] [place] [address] PCP - General Physician Relay Tester Helper 07/31/22 Manual Winder Relationship Specialty Start Date End Date Tereso Hernadez, DO [address] [place] [address] PCP - General Family Medicine 08/29/22 Manual Winder Relationship Specialty Start Date End Date Tereso Hernadez, DO [address] [place], [place] [id number] PCP - General Family Medicine 08/29/22 Manual Winder Relationship Specialty Start Date End Date Tereso Hernadez, DO [address] [place] [address] PCP - General Family Medicine 08/29/22 Manual Winder Relationship Specialty Start Date End Date Tereso Hernadez, DO [address] [place] [address] PCP - General Family Medicine 08/29/22 Manual Winder Relationship Specialty Start Date End Date Tereso Hernadez, DO [address] [place] [address] PCP - General Family Medicine 08/29/22 Manual Winder Relationship Specialty Start Date End Date Tereso Hernadez, DO [address] [place] [address] PCP - General Family Medicine 08/29/22 Manual Winder Relationship Specialty Start Date End Date Tereso Hernadez, DO [address] [place] [address] PCP - General Family Medicine 08/29/22 Manual Winder Relationship Specialty Start Date End Date Tereso Hernadez, DO [address] [place] [address] PCP - General Family Medicine 08/29/22 Manual Winder Relationship Specialty Start Date End Date Tereso Hernadez, DO [address] [place] [address] PCP - General Family Medicine 08/29/22 Manual Winder Relationship Specialty Start Date End Date Tereso Hernadez, DO [address] [place] [address] PCP - General Family Medicine 08/29/22 Manual Winder Relationship Specialty Start Date End Date Tereso Hernadez, DO [address] [place] [address] PCP - General Family Medicine 08/29/22 Manual Winder Relationship Specialty Start Date End Date Tereso Hernadez, DO [address], [place] [id number] PCP - General Family Medicine 08/29/22 Manual Winder Relationship Specialty Start Date End Date Tereso Hernadez, DO [address], [place] [id number] PCP - General Family Medicine 08/29/22 Manual Winder Relationship Specialty Start Date End Date Tereso Hernadez, DO [address] [place] [phone] PCP - General Family Medicine 08/29/22 Manual Winder Relationship Specialty Start Date End Date Tereso Hernadez, DO [address] [place] [phone] PCP - General Family Medicine 08/29/22 Manual Winder Relationship Specialty Start Date End Date Tereso Hernadez, DO [address] [place] [phone] PCP - General Family Medicine 08/29/22 Manual Winder Relationship Specialty Start Date End Date Tereso Hernadez DO [address] [place] [address] PCP - General [facility] 08/29/22 Manual Winder Relationship Specialty Start Date End Date Tereso Hernadez DO [address] [place] [address] PCP - General Family Medicine 08/29/22 Manual Winder Relationship Specialty Start Date End Date Tereso Hernadez DO [address] [place] [address] PCP - General [facility] 08/29/22 Manual Winder Relationship Specialty Start Date End Date Tereso Hernadez, DO [address] [place] [address] PCP - General [facility] Medicine 08/29/22 Manual Winder Relationship Specialty Start Date End Date Tereso Hernadez DO [address] [place] [address] PCP - General Family [facility] 08/29/22 FOR RECORDS PERTAINING TO PATIENTS WHO ARE OR HAVE BEEN ENROLLED IN A CHEMICAL DEPENDENCY/SUBSTANCEABUSE PROGRAM, SOME INFORMATION MAY BE OMITTED. This clinical summary was aggregated from multiple sources. Caution should be exercised in using it in the provision of clinical care. This summary normalizes information from multiple sources, and as a consequence, information in this document may materially change the coding, format and clinical context of patient data. In addition, data may be omitted in some cases. CLINICAL DECISIONS SHOULD BE BASED ON THE PRIMARY CLINICAL RECORDS. [facility] [email or web address] [facility]. provides no warranty or guarantee of the accuracy or completeness of information in this document.
--- NOTE | 2023-05-05 21:05 | EX.ED.DYSGE1 ---
HPI History of Present Illness Chief Complaint: General Illness Informant: patient Onset/Context/Timing Onset: Today Context: Gradual Onset Timing: Waxes and wanes Quality: Lightheaded, exhausted Location: Generalized Worsened by: Exertion Relieved by: Nothing Narrative Narrative: Patient presents with lightheadedness and near syncope that occurred today. Patient states she was diagnosed with COVID approximately 2 weeks ago. Patient states he completed a course of Paxil bid and prednisone. Patient states he feels lightheaded like he is going to pass out. Patient also admits to some generalized sweats. Patient states he also feels exhausted when he does limited activities. Patient states his symptoms have been waxing and waning. Patient states it is worse with any exertion. Patient admits to chills with a temperature of 95.1. Patient also admits to some subjective fevers and sweats. 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 manifesting chronic decreased mobility and endurance Gastroparesis H/O nasal polyp Hypertension Migraines Mixed hyperlipidemia Morbid obesity with BMI of 40.0-44.9, adult Obstructive sleep apnea of adult Type 2 diabetes mellitus without complications Home Medications amlodipine 10 mg tablet 10 mg PO DAILY 08/07/20 [History Last Taken Unknown] cholecalciferol (vitamin D3) 10 mcg (400 unit) capsule (Vitamin D3) 10 mcg PO DAILY 08/07/20 [History Last Taken Unknown] coenzyme Q10 100 mg capsule (CoQ-10) 100 mg PO DAILY 08/07/20 [History Last Taken Unknown] garlic extract 500 mg capsule 1,000 mg PO DAILY 08/07/20 [History Last Taken Unknown] levocarnitine tartrate 500 mg capsule 500 mg PO DAILY 08/07/20 [History Last Taken Unknown] lisinopril 40 mg tablet 40 mg PO DAILY 08/07/20 [History Last Taken Unknown] Lactobacillus acidophilus-Bifidobac.animalis 2.5 billion cell capsule (Daily Probiotic) cap PO 09/09/22 [History Last Taken Unknown] albuterol sulfate 2.5 mg/3 mL (0.083 %) solution for nebulization 2.5 mg inhalation Q4H PRN Shortness Of Breath Or Wheezing 09/09/22 [History Last Taken Unknown] albuterol sulfate 90 mcg/actuation aerosol inhaler 2 puff inhalation Q2H PRN Shortness Of Breath Or Wheezing 09/09/22 [History Last Taken Unknown] atorvastatin 20 mg tablet (Lipitor) 20 mg PO DAILY 09/09/22 [History Last Taken Unknown] fluticasone fur. 100 mcg-umeclid 62.5 mcg-vilant 25 mcg inhalat.powder (Trelegy Ellipta) 1 inh inhalation Q24H 09/09/22 [History Last Taken Unknown] krill 500 mg-omega-3 150 mg-dha 45 mg-epa 75 [id number] capsule (krill oil) 1 cap PO DAILY 09/09/22 [History Last Taken Unknown] loperamide 2 mg capsule 2 mg PO DAILY 09/09/22 [History Last Taken Unknown] metoprolol succinate 50 mg tablet,extended release 24 hr 50 mg PO DAILY 09/09/22 [History Last Taken Unknown] ondansetron HCl 4 mg tablet 4 mg PO Q8H PRN Nausea 09/09/22 [History Last Taken Unknown] sitagliptin phosphate 50 mg tablet (Januvia) 50 mg PO DAILY 09/09/22 [History Last Taken Unknown] ciprofloxacin HCl 500 mg tablet 500 mg PO BID #6 TABLETS 05/05/23 [Rx Last Taken Unknown] Allergy/AdvReac Type Severity Reaction Status Date / Time mustard Allergy Other Verified 05/05/23 19:15 Penicillins Allergy Hives Verified 05/05/23 19:15 Surgical History H/O colonoscopy H/O myringotomy H/O nasal septoplasty H/O tympanostomy History of cholecystectomy History of tonsillectomy Status post biopsy of skin Social History Smoking Status: Never smoker ROS ROS ED Constitutional Constitutional ED: Reports chills, fever(s) and sweats Eyes Eyes: Denies blurry vision or change in vision ENT ENT ED: Denies rhinorrhea or sore throat Cardiovascular Cardiovascular: Denies chest pain or palpitations Respiratory/Chest Respiratory/Chest: Reports dyspnea; Denies cough Gastrointestinal Gastrointestinal: Reports nausea and vomiting Genitourinary Genitourinary ED: Reports urinary frequency; Denies dysuria or hematuria Musculoskeletal Musculoskeletal: Reports back pain; Denies neck pain Integumentary Denies abscess or rash Neurologic Neurologic: Reports headache(s); Denies weakness Allergic/Immunologic Allergic/Immunologic ED: Denies mouth swelling or urticaria EXAM Physical Exam Const Vital Signs: 05/05/23 19:15 05/05/23 21:36 05/05/23 21:43 Temperature 97.5 F L Temperature Source Temporal Pulse Rate 93 Pulse Rate [Lying] 98 Pulse Rate [Sitting (for 1 minute prior to obtaining)] 72 Pulse Rate [Standing (for 1 minute prior to obtaining)] 91 Respiratory Rate 18 Respiratory Effort Normal Blood Pressure 140/97 H Blood Pressure [Lying] 122/69 H Blood Pressure [Sitting (for 1 minute prior to obtaining)] 128/73 H Blood Pressure [Standing (for 1 minute prior to obtaining)] 132/80 H Blood Pressure Mean 111 Blood Pressure Mean [Lying] 86 Blood Pressure Mean [Sitting (for 1 minute prior to obtaining)] 91 Blood Pressure Mean [Standing (for 1 minute prior to obtaining)] 97 Pulse Ox 98 Oxygen Delivery Method Room Air Positive well nourished, well developed and obese General Appearance ED: well developed Nutritional Appearance: obese HEENT Reports moist mucous membranes Neck supple and no JVD Resp normal respiratory effort and clear to auscultation bilaterally Cardio regular rate and regular rhythm GI non-tender and non-distended Palpation: soft Neuro oriented x3, CN's II-XII intact bilaterally and no sensory deficits noted Sensorium / Orientation: alert Motor Exam: strength 5/5 throughout Psych mental status grossly normal MDM MDM MDM Narrative Medical decision making narrative: Differential diagnosis includes pneumonia, urinary tract infection, electrolyte abnormality, dehydration, sepsis, cardiac dysrhythmia, cardiac ischemia. EKG will be obtained to assess for cardiac dysrhythmia and cardiac ischemia. Chest x-ray will be obtained to assess for pneumonia and pneumothorax. CBC will be obtained to assess for leukocytosis and anemia. Basic metabolic profile will be obtained to assess for electrolyte abnormality and renal function. Serum lactate will be obtained to assess for sepsis. Lab Data Attestation: I reviewed the patient's lab results. Lab results narrative: CBC was reviewed. There is a mild leukocytosis of 11.8. Hemoglobin was slightly increased at 17.0. Basic metabolic profile was reviewed. BUN was slightly elevated at 26. Glucose was normal at 108. Serum lactate was reviewed and was normal at 1.0. Urinalysis was reviewed. Leukocyte esterase was 25 but there were 10-25 white blood cells and 1+ bacteria seen. There were 10-25 hyaline casts noted. Labs: Laboratory Results - last 24 hr 05/05/23 21:44 WBC 11.8 H RBC 5.92 Hgb 17.0 H Hct 50.2 MCV 84.8 MCH 28.7 MCHC 33.9 RDW Std Deviation 39.6 RDW Coeff of Dominguez 12.8 Plt Count 314 MPV 9.8 Immature Gran % (Auto) 0.200 Neut % (Auto) 60.7 Lymph % (Auto) 28.4 [place] % (Auto) 8.8 Eos % (Auto) 1.4 Baso % (Auto) 0.5 Absolute Neuts (auto) 7.2 Absolute Lymphs (auto) 3.35 Nucleated RBC % 0 Sodium 135 L Potassium 3.5 Chloride 102 Carbon Dioxide 26.0 Anion Gap 7 BUN 26 H Creatinine 1.05 Estim Creat Clear Calc 141.80 Est GFR (MDRD) Af Amer 101 Est GFR (MDRD) Non-Af 83 BUN/Creatinine Ratio 24.8 H Glucose 108 H Lactic Acid 1.0 Calcium 10.3 H Urine Color Yellow Urine Clarity Sl. Cloudy Urine pH 5.0 Ur Specific [place] 1.025 Urine Protein 30 H Urine Glucose (UA) Normal Urine Ketones 50 H Urine Occult Blood Negative Urine Nitrite Negative Urine Bilirubin Negative Urine Urobilinogen Normal Ur Leukocyte Esterase 25 H Urine RBC 0 SEEN Urine WBC 10-25 SEEN Ur Squamous Epith Cells 0-5 SEEN Urine Bacteria 1+ Hyaline Casts 10-25 SEEN Urine Mucus 0 SEEN Radiography Chest X-Ray - ED: 2 View, Read by ED Physician, Read by Radiologist and No Acute Disease Diagnostic Testing: Clinical Impression(s) from Imaging Studies Chest X-Ray 05/05/23 23:21 IMPRESSION: Chest with no acute disease. Electronically Signed: Abelino Dang MD at 23:47 EST , [place] and lateral chest x-ray was obtained. There are 2 views. On my independent interpretation, lung archer are clear. There is normal cardiac silhouette. Bony thorax is normal. There is no acute process noted. Radiologist also interpreted the x-ray and agrees. EKG Initial EKG: Attestation: I personally reviewed and interpreted this EKG as follows: Interpretation: Sinus Rhythm (81) and Non-Specific ST Changes Comments: EKG was obtained. On my independent interpretation, it shows a normal sinus rhythm with a rate of 81. AL interval was normal at 168 ms. QRS interval was normal at 100 ms. QTc interval was normal at 420 ms. There is left axis deviation at -34. There is evidence of left ventricular hypertrophy. There are nonspecific ST-T wave changes related to the left ventricular hypertrophy. There are no prior EKGs available for comparison. Prior EKG tracings: not available for review Prior: No Prior Additional Tests and Interventions Additional Tests or Interventions: Urine culture was ordered. Treatment and Re-Evaluation :: Patient was given IV fluids and Zofran. Patient was feeling somewhat better on reevaluation. Patient was advised of his findings. Patient was given a dose of Cipro here. Patient was given a prescription for Cipro. Patient was instructed to drink plenty of fluids. Patient was instructed take Tylenol or ibuprofen as needed for any pain or fevers. Patient was instructed to follow-up with his primary care physician in 5 to 7 days. Patient understood and was agreeable with the plan. All questions were answered. Discharge Plan Triage Chief Complaint: General Illness ED Provider: Cosmo Cotton Dx/Rx/DC Orders Clinical Impression: Urinary tract infection, Elevated blood pressure reading Instructions: ED Bladder Infection, Male (Adult) Prescriptions: New ciprofloxacin HCl [ciprofloxacin HCl] 500 mg tablet 500 mg PO BID Qty: 6 0RF No Action amlodipine 10 mg Tablet 10 mg PO DAILY lisinopril 40 mg Tablet 40 mg PO DAILY cholecalciferol (vitamin D3) [Vitamin D3] 10 mcg (400 unit) Capsule 10 mcg PO DAILY coenzyme Q10 [CoQ-10] 100 mg Capsule 100 mg PO DAILY garlic extract 500 mg Capsule 1,000 mg PO DAILY levocarnitine tartrate [L-Carnitine] 500 mg Capsule 500 mg PO DAILY atorvastatin [Lipitor] 20 mg Tablet 20 mg PO DAILY albuterol sulfate 2.5 mg /3 mL (0.083 %) Solution For Nebulization 2.5 mg INHALATION Q4H PRN (Reason: Shortness Of Breath Or Wheezing) loperamide [Imodium] 2 mg Capsule 2 mg PO DAILY Rx Instructions: administer after each loose stool until symptoms controlled; do not exceed 8 mg per 24 hrs metoprolol succinate 50 mg Tablet Extended Release 24 Hr 50 mg PO DAILY ondansetron HCl [Zofran] 4 mg Tablet 4 mg PO Q8H PRN (Reason: Nausea) albuterol sulfate 90 mcg/actuation Hfa Aerosol Inhaler 2 puff INHALATION Q2H PRN (Reason: Shortness Of Breath Or Wheezing) Januvia 50 mg Tablet 50 mg PO DAILY krill oil [id number] mg Capsule 1 cap PO DAILY Daily Probiotic 2.5 billion cell Capsule PO Trelegy Ellipta 100-62.5-25 mcg Blister With Device 1 inh INHALATION Q24H Primary Care Provider: Tereso Hernadez Referrals: Tereso Hernadez DO [Primary Care Provider] - [facility] appointment Disposition Disposition: Home, Self Care
[2023-05-05 21:43] VITALS: BP 122/69; BP 128/73; BP 132/80; PULSE 72; PULSE 91; PULSE 98
[2023-05-05] MEDS: Ondansetron 4 MG/2 ML Vial IV (21:48)
[2023-05-05] MEDS: 0.9% Normal Saline (1000mL) 1,000 ML 1000 ML IV (21:48)
[2023-05-05 21:51] LABS: Mucous, Urine 0 SEEN /hpf (<or=2+); Red Blood Cells-Urine 0 SEEN /hpf (0-5)
[2023-05-05 21:52] LABS: Absolute Lymphocyte Count 3.35 X10^3/uL (0.83-4.51); Absolute Neutrophil Count 7.2 X10^3/uL (2.0-7.7); Basophil# 0.06 X10^3/uL; Basophil% 0.5 % (0-1); Eosinophil# 0.16 X10^3/uL; Eosinophils% 1.4 % (0-5); Hematocrit 50.2 % (40-54); Lymphocyte # 3.35 X10^3/ul (0.83-4.51); Lymphocyte % 28.4 % (19-41); Mean Corp Hgb Conc 33.9 g/dL (32-36); Mean Corpuscular Hgb 28.7 pg (27.0-32.0); Mean Corpuscular Volume 84.8 fL (80-94); Mean Platelet Vol. 9.8 fl (6.2-12.0); Monocyte# 1.04 X10^3/uL; Monocyte% 8.8 % (0-10); NRBC Flagged by Analyzer 0 % (0-5); Neutrophil # 7.17 X10^3/uL (2.7-7.7); Neutrophil % 60.7 % (47-70); Platelet Count 314 K/mm3 (150-450); RBC Distribution Width CV 12.8 % (11.6-14.6); RBC Distribution Width SD 39.6 fl (35.1-43.9); Red Blood Count 5.92 M/mm3 (4.6-6.2); White Blood Count 11.8 K/mm3 (4.4-11.0)
[2023-05-05 21:53] LABS: Color, Urine Yellow (Yellow); Glucose, Dipstick Normal (Normal); Ketone-Dipstick 50 mg/dl (Negative); Leukocyte Esterase-Dipstick 25 /ul (Negative); Nitrite-Dipstick Negative (Negative); Occult Blood-Urine Negative /ul (Negative); Protein-Dipstick 30 mg/dl (Negative); Specific Gravity, Urine 1.025 (1.002-1.030); Urine Bilirubin Dipstick Negative (Negative); Urine Clarity Sl. Cloudy (Clear); Urine Urobilinogen Normal (Normal)
[2023-05-05 21:58] LABS: Hyaline Cast 10-25 SEEN /lpf (0-5)
[2023-05-05 21:59] LABS: Bacteria 1+ /hpf (None Seen); White Blood Cells 10-25 SEEN /hpf (0-5)
[2023-05-05 22:00] LABS: Squamous Epithelial Cells - UA 0-5 SEEN /hpf (0-5)
[2023-05-05 22:07] LABS: Anion Gap 7 (5-15); BUN 26 mg/dL (7-18); BUN/Creat Ratio 24.8 RATIO (10-20); Calcium,Total 10.3 mg/dL (8.5-10.1); Chloride 102 mmol/L (98-107); Creatinine, Serum 1.05 mg/dL (0.70-1.30); EST Glomerular Filtration Rate 83 mL/min (>60); Est Glom Filt Rate - Afr Amer 101 mL/min (>60); Glucose 108 mg/dL (74-106); Potassium 3.5 mmol/L (3.5-5.1); Sodium Level 135 mmol/L (136-145)
--- NOTE | 2023-05-05 23:21 | RAD_ITS ---
INDICATION: Cough EXAMINATION/TECHNIQUE: X-RAY - XR Chest 2 Views COMPARISON: None. Findings: Frontal and lateral views of the chest. LUNG PARENCHYMA: No acute focal airspace disease or mass lesion. PLEURA: No pleural effusion. No pneumothorax. HEART/GREAT VESSELS: Cardiomediastinal silhouette is unremarkable. BONES: Osseous structures are unremarkable for age. RAD/Chest PA and Lateral IMPRESSION: Chest with no acute disease. Electronically Signed: Abelino Dang MD at 23:47 EST ,
[2023-05-06] MEDS: Ciprofloxacin 500 MG Tablet PO (00:09)
[2023-05-06 00:10] VITALS: BP 136/75; PULSE 72; RESP 18; TEMP 36.6; O2SAT 99
[2023-05-06 00:15] VITALS: BP 136/75; PULSE 72; RESP 18; TEMP 36.6; O2SAT 99
== END 2023-05-06 00:16 | disposition home or self-care (01) ==
PROVIDERS: Emergency Provider Emergency Medicine; PCP Family Medicine; Visit Provider Emergency Medicine
DX: N39.0 Urinary tract infection, site not specified (principal); E66.01 Morbid (severe) obesity due to excess calories; Z68.41 Body mass index [BMI] 40.0-44.9, adult; E11.9 Type 2 diabetes mellitus without complications; R03.0 Elevated blood-pressure reading, without diagnosis of hypertension; Z79.84 Long term (current) use of oral hypoglycemic drugs; Z79.899 Other long term (current) drug therapy; Z86.16 Personal history of COVID-19
CPT/HCPCS: 71046; 80048; 81001; 83605; 85025; 87086; 93005; 96361; 96374; 99284; J7030; J2405

== ENCOUNTER 2023-08-11 19:47 | Emergency (ER) | payer BC, SELFPAY ==
[2022-11-08 08:32] VITALS: BMI 40.6
[2023-08-11 19:48] VITALS: BP 229/119; PULSE 89; RESP 18; TEMP 36.3; O2SAT 99; BMI 42.4
--- NOTE | 2023-08-11 20:42 | US_ITS ---
INDICATION: Left testicular pain EXAMINATION: Ultrasound US Scrotum (Contents) TECHNIQUE: Realtime ultrasound of the testicles was performed with grayscale, Color Doppler and spectral Doppler analysis. COMPARISON: None. FINDINGS: RIGHT: TESTIS: 3.7 x 2.5 x 2.0 cm. Normal in size and echotexture, without focal lesion. COLOR DOPPLER: Normal arterial flow present in the testicle with monophasic waveforms. EPIDIDYMIS: Normal in size and echotexture, 4 mm spermatocele. [Normal color Doppler flow pattern in the epididymis. HYDROCELE: Small. VARICOCELE: None. LEFT: TESTIS: 4.2 x 2.5 x 1.9 cm. Normal in size and echotexture, without focal lesion. COLOR DOPPLER: Normal arterial flow present in the testicle with monophasic waveforms. EPIDIDYMIS: Normal in size and echotexture, 9 mm spermatocele. [Normal color Doppler flow pattern in the epididymis. HYDROCELE: Small. VARICOCELE: None. US/Testicular with Arterial Flow IMPRESSION: Normal testes bilaterally. Electronically Signed: Juan C Hernandez MD at 21:32 EDT ,
--- NOTE | 2023-08-11 21:09 | CT_ITS ---
STUDY: CT ABDOMEN AND PELVIS WITHOUT CONTRAST REASON FOR EXAM: Male, 38 years old. Pain RADIATION DOSAGE (If Supplied By Facility): CTDIvol = ( 33.39 ) mGy, DLP = ( 1985.27 ) mGycm TECHNIQUE: Transaxial images were obtained from the dome of the diaphragm to the symphysis pubis without oral contrast, and without intravenous contrast. Sagittal and coronal images were reconstructed. Individualized dose optimization techniques were used for this CT. COMPARISON: None. FINDINGS: The visualized lung bases are unremarkable. The visualized portions of the heart are within normal limits. Nonspecific fatty infiltrated liver without mass or bile duct dilatation. Gallbladder has been removed surgically. Normal spleen. Normal pancreas. Normal bilateral adrenal glands. Normal right kidney. Normal left kidney. There is a tiny nonobstructing calculus in the distal left ureter just proximal to the ureterovesical junction measuring approximately 2 mm in size Normal visualized stomach. Normal small intestine. Normal colon. The appendix is visualized and appears normal. Normal abdominal aorta. Normal inferior vena cava. Normal retroperitoneum. Normal urinary bladder. Multiple tiny subcentimeter bilateral inguinal nodes. Lumbar spine demonstrates mild spondylosis. CT/Abdomen/Pelvis without Cont IMPRESSION: Tiny nonobstructing distal left ureteral calculus Electronically Signed: Ariel Calderon MD at 22:33 EDT ,
--- NOTE | 2023-08-11 21:23 | EX.ED.GUMALE ---
HPI <JIMENA Cervantes - Last Filed: 08/11/23 22:14> History of Present Illness Chief Complaint: Male Pain/Injury Narrative Narrative: Patient is a 38-year-old male with history of hypertension, hyperlipidemia, diabetes who presents to the emergency department with sudden onset of left-sided testicular pain, back pain. Patient states he was rolling around on a chair at work, when he thinks his boxers caught one of his testicles. He heard a pop and then had significant pain to his left side of his testicle. Patient states the pain did not get better, got worse and started rating up into his back. Patient is he felt nauseous, sweaty, and is here for evaluation. Patient dates he does have history of kidney stones however this was greater than 15 to 20 years ago. Denies any difficulty urinating. 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 hauler manifesting chronic decreased mobility and endurance Gastroparesis H/O nasal polyp Hypertension Migraines Mixed hyperlipidemia Morbid obesity with BMI of 40.0-44.9, adult Obstructive sleep apnea of adult Type 2 diabetes mellitus without complications Home Medications amlodipine 10 mg tablet 10 mg PO DAILY 08/07/20 [History Last Taken Unknown] cholecalciferol (vitamin D3) 10 mcg (400 unit) capsule (Vitamin D3) 10 mcg PO DAILY 08/07/20 [History Last Taken Unknown] coenzyme Q10 100 mg capsule (CoQ-10) 100 mg PO DAILY 08/07/20 [History Last Taken Unknown] levocarnitine tartrate 500 mg capsule 500 mg PO DAILY 08/07/20 [History Last Taken Unknown] lisinopril 40 mg tablet 40 mg PO DAILY 08/07/20 [History Last Taken Unknown] Lactobacillus acidophilus-Bifidobac.animalis 2.5 billion cell capsule (Daily Probiotic) 1 cap PO DAILY 09/09/22 [History Last Taken Unknown] albuterol sulfate 2.5 mg/3 mL (0.083 %) solution for nebulization 2.5 mg inhalation Q4H PRN Shortness Of Breath Or Wheezing 09/09/22 [History Last Taken Unknown] albuterol sulfate 90 mcg/actuation aerosol inhaler 2 puff inhalation Q2H PRN Shortness Of Breath Or Wheezing 09/09/22 [History Last Taken Unknown] atorvastatin 20 mg tablet (Lipitor) 20 mg PO DAILY 09/09/22 [History Last Taken Unknown] loperamide 2 mg capsule 2 mg PO DAILY 09/09/22 [History Last Taken Unknown] ondansetron HCl 4 mg tablet 4 mg PO Q8H PRN Nausea 09/09/22 [History Last Taken Unknown] carvedilol 12.5 mg tablet 12.5 mg PO DAILY 08/11/23 [History Last Taken Unknown] glimepiride 2 mg tablet 2 mg PO BID 08/11/23 [History Last Taken Unknown] hydralazine 25 mg tablet 25 mg PO DAILY 08/11/23 [History Last Taken Unknown] ketorolac 10 mg tablet 10 mg PO TID PRN pain 5 days #15 tabs 08/11/23 [Rx Last Taken Unknown] metformin 850 mg tablet 850 mg PO DAILY 08/11/23 [History Last Taken Unknown] oxycodone-acetaminophen 5 mg-325 mg tablet (Percocet) 1 tab PO Q6H PRN pain 3 days #12 tabs 08/11/23 [Rx Last Taken Unknown] tamsulosin 0.4 mg capsule (Flomax) 0.4 mg PO DAILY #10 caps 08/11/23 [Rx Last Taken Unknown] trazodone 50 mg tablet 50 mg PO QHS PRN PRN insomnia 08/11/23 [History Last Taken Unknown] venlafaxine 37.5 mg capsule,extended release 24 hr 37.5 mg PO DAILY 08/11/23 [History Last Taken Unknown] Allergy/AdvReac Type Severity Reaction Status Date / Time mustard Allergy Other Verified 08/11/23 19:47 Penicillins Allergy Hives Verified 08/11/23 19:47 Surgical History H/O colonoscopy H/O myringotomy H/O nasal septoplasty H/O tympanostomy History of cholecystectomy History of tonsillectomy Status post biopsy of skin Social History (Updated 08/11/23 @ 21:02 by Marisel Fang) household members: spouse housing: house Smoking Status: Never smoker ROS <JIMENA Cervantes - Last Filed: 08/11/23 22:14> ROS ED ROS Narrative Constitutional: Negative for fever, chills, weight loss, weakness. Positive for diaphoresis Eyes: Negative for vision loss, vision change, double vision ENT: Negative for any sore throat, ear pain, congestion Cardiovascular: Negative for any chest pain, tightness, palpitations Respiratory: Negative for any cough, sputum production, hemoptysis, dyspnea, dyspnea on exertion, orthopnea Gastrointestinal: Negative for any vomiting, diarrhea, constipation, blood in stool, blood in vomit. Positive left lower abdominal pain, nausea : Negative for any urinary frequency, dysuria, retention, blood in urine. Positive left-sided testicular pain Muscle skeletal: Negative for any neck pain, back pain Neurological: Negative for any headache, syncope, dizziness Skin: Negative for any rashes, itching, abrasions, lacerations Psychiatric: Negative for any depression, anxiety, stress, suicidal ideation, homicidal ideation Hematologic: Negative for any excessive bruising, easy bleeding EXAM <JIMENA Cervantes - Last Filed: 08/11/23 22:14> Physical Exam Narrative Exam Narrative: Vital signs reviewed. HEET: Head normocephalic atraumatic, TMs clear bilaterally. Posterior pharynx is clear, moist mucous membranes. Nares clear bilaterally. Neck: Supple with no lymphadenopathy or tenderness. No signs of meningismus. Cardiac: Regular rate and rhythm no murmurs gallops or rubs, equal peripheral pulses bilaterally. Respiratory: Lungs clear to auscultation bilaterally. No chest tenderness. Abdomen: Soft nondistended. No abdominal bruit or pulsatile masses. No hepatosplenomegaly. Patient has pain to the left lower abdomen Extremities: No peripheral edema, no signs of gross trauma or deformity. Active full range of motion of all extremities. Neuro: Cranial nerves II through XII intact, no focal neurological deficits. Skin: Clean dry and intact with no rash, purpura, petechiae, vesicles or pustules. Backs/flank: No CVA tenderness, no midline spinal tenderness, no deformity. Psych: Normal mood and affect. No SI, HI or acute psychosis. : Testicular exam was completed, there is no erythema, edema. Testicles were symmetrical. Patient did have some tenderness to the left posterior testicle. Patient pain to the left lower abdomen. No hernia noted. Const Vital Signs: 08/11/23 19:48 08/11/23 21:35 08/11/23 23:00 Temperature 97.3 F L Temperature Source Temporal Pulse Rate 89 70 79 Respiratory Rate 18 17 16 Blood Pressure 229/119 H 177/84 H Blood Pressure Mean 155 115 Pulse Ox 99 98 Oxygen Delivery Method Room Air Room Air 08/11/23 23:02 Temperature 97.1 F L Temperature Source Pulse Rate 82 Respiratory Rate 16 Blood Pressure 177/84 H Blood Pressure Mean 115 Pulse Ox 98 Oxygen Delivery Method Positive well nourished and well developed General Appearance ED: well developed <Adarsh Marlow MD - Last Filed: 08/11/23 23:55> Physical Exam Const Vital Signs: 08/11/23 19:48 08/11/23 21:35 08/11/23 23:00 Temperature 97.3 F L Temperature Source Temporal Pulse Rate 89 70 79 Respiratory Rate 18 17 16 Blood Pressure 229/119 H 177/84 H Blood Pressure Mean 155 115 Pulse Ox 99 98 Oxygen Delivery Method Room Air Room Air 08/11/23 23:02 Temperature 97.1 F L Temperature Source Pulse Rate 82 Respiratory Rate 16 Blood Pressure 177/84 H Blood Pressure Mean 115 Pulse Ox 98 Oxygen Delivery Method MDM <JIMENA Cervantes - Last Filed: 08/11/23 22:14> [facility] Lab Data Labs: Laboratory Results - last 24 hr 08/11/23 08/11/23 21:40 22:21 WBC 9.5 RBC 5.25 Hgb 15.0 Hct 45.5 MCV 86.7 MCH 28.6 MCHC 33.0 RDW Std Deviation 42.5 RDW Coeff of Dominguez 13.5 Plt Count 274 MPV 10.0 Immature Gran % (Auto) 0.300 Neut % (Auto) 71.3 H Lymph % (Auto) 16.9 L [place] % (Auto) 8.3 Eos % (Auto) 2.7 Baso % (Auto) 0.5 Absolute Neuts (auto) 6.7 Absolute Lymphs (auto) 1.60 Nucleated RBC % 0 Sodium 138 Potassium 3.9 Chloride 108 H Carbon Dioxide 25.0 Anion Gap 5 BUN 14 Creatinine 1.03 Estim Creat Clear Calc 147.41 Est GFR (MDRD) Af Amer 103 Est GFR (MDRD) Non-Af 85 BUN/Creatinine Ratio 13.6 Glucose 142 H Calcium 9.2 Total Bilirubin 0.40 AST 24 ALT 46 Alkaline Phosphatase 64 Total Protein 6.8 Albumin 3.5 Globulin 3.3 Albumin/Globulin Ratio 1.1 Lipase 28 Urine Color Yellow Urine Clarity Clear Urine pH 6.0 Ur Specific Triangle 1.010 Urine Protein Negative Urine Glucose (UA) Normal Urine Ketones Negative Urine Occult Blood 150 H Urine Nitrite Negative Urine Bilirubin Negative Urine Urobilinogen Normal Ur Leukocyte Esterase Negative Urine RBC 0-5 SEEN Urine WBC 0 SEEN Ur Squamous Epith Cells 0 SEEN Urine Bacteria 0 SEEN Urine Mucus 0 SEEN Radiography Diagnostic Testing: Clinical Impression(s) from Imaging Studies Testicular Ultrasound 08/11/23 20:42 IMPRESSION: Normal testes bilaterally. Electronically Signed: Juan C Hernandez MD at 21:32 EDT , Abdomen/Pelvis CT 08/11/23 21:09 IMPRESSION: Tiny nonobstructing distal left ureteral calculus Electronically Signed: Ariel Calderon MD at 22:33 EDT , Treatment and Re-Evaluation Narrative: Differential diagnosis includes however is not limited to: Testicular torsion, epididymitis, obstructing kidney stone, muscle skeletal pain, testicle trauma. Patient does appear to be uncomfortable, patient has pain in the left testicle, left flank. Patient appears nontoxic, patient is hypertensive I believe this is related to pain. Presenting to the emerged part with left testicle pain, left lower back pain. Patient did receive a testicle ultrasound while the patient was waiting for room, secondary to the patient's pain. After evaluating the patient, I do believe the patient would benefit from abdominal pelvis CT without contrast concerning for any obstructing uropathy. Urinalysis, basic laboratory will be ordered. IV fluids, Zofran, Toradol, morphine will be ordered. Patient will be reevaluated. All radiologic examinations were read, reviewed by the emergency department attending. From these reads, a plan of care will be put in place. Patient's testicular ultrasound was negative for any acute process. Patient's laboratory values showed a normal CBC, chemistries were unremarkable, glucose 142, patient's history of diabetes. Creatinine is 1.03 which is baseline. <Adarsh Marlow MD - Last Filed: 08/11/23 23:55> [facility] Narrative Medical decision making narrative: Dr. Marlow: I have personally performed a face to face assessment of the patient and have reviewed the DEISY Note. I performed a substantive portion of the visit including all aspects of the following. My oates findings include: History is left testicular pain, with standing and now left flank pain. Exam is afebrile. Vital signs noted. Regular rate and rhythm. Lungs clear to auscultation bilaterally. Abdomen soft nontender with normoactive bowel sounds. No CVA tenderness to percussion. Medical Decision Making: Check ultrasound of scrotum. I reviewed the radiology report for the ultrasound which shows no evidence of testicular fracture, normal testes bilaterally. Given his left testicular pain, and the differential was testicular fracture versus now with flank pain left ureterolithiasis. I reviewed his laboratory work and he has normal white count 9.5, hemoglobin normal at 15.0, hematocrit 45.5, platelet count normal at 274. Chloride is slightly elevated at 108 which I think is nonspecific, BUN of 14 and creatinine 1.03. Urinalysis was reviewed and is negative for infection. I do not feel antibiotics are indicated. I reviewed the radiology report of the CT of the abdomen and pelvis without contrast and while there is no hydronephrosis, there is a 2 mm obstructing stone in the left distal ureter near the vicinity of the ureterovesicular junction. At this point in time, upon repeat examination at approximately 10:55 PM, patient is feeling improved. His blood pressure will be rechecked. I feel he can be discharged safely home with follow-up to urology. He states that when he was in his 20s he had history of kidney stones/ureteral stones and this feels similar. He was written prescriptions for Percocet, Toradol, and Flomax. Return instructions to the emergency department were reviewed. Disposition is discharged home in stable condition. Other additions or changes: [None] History & Record Review Discussion w/independent historian: Patient and Family (Spouse) Lab Data Attestation: I reviewed the patient's lab results. Labs: Laboratory Results - last 24 hr 08/11/23 08/11/23 21:40 22:21 WBC 9.5 RBC 5.25 Hgb 15.0 Hct 45.5 MCV 86.7 MCH 28.6 MCHC 33.0 RDW Std Deviation 42.5 RDW Coeff of Dominguez 13.5 Plt Count 274 MPV 10.0 Immature Gran % (Auto) 0.300 Neut % (Auto) 71.3 H Lymph % (Auto) 16.9 L [place] % (Auto) 8.3 Eos % (Auto) 2.7 Baso % (Auto) 0.5 Absolute Neuts (auto) 6.7 Absolute Lymphs (auto) 1.60 Nucleated RBC % 0 Sodium 138 Potassium 3.9 Chloride 108 H Carbon Dioxide 25.0 Anion Gap 5 BUN 14 Creatinine 1.03 Estim Creat Clear Calc 147.41 Est GFR (MDRD) Af Amer 103 Est GFR (MDRD) Non-Af 85 BUN/Creatinine Ratio 13.6 Glucose 142 H Calcium 9.2 Total Bilirubin 0.40 AST 24 ALT 46 Alkaline Phosphatase 64 Total Protein 6.8 Albumin 3.5 Globulin 3.3 Albumin/Globulin Ratio 1.1 Lipase 28 Urine Color Yellow Urine Clarity Clear Urine pH 6.0 Ur Specific Triangle 1.010 Urine Protein Negative Urine Glucose (UA) Normal Urine Ketones Negative Urine Occult Blood 150 H Urine Nitrite Negative Urine Bilirubin Negative Urine Urobilinogen Normal Ur Leukocyte Esterase Negative Urine RBC 0-5 SEEN Urine WBC 0 SEEN Ur Squamous Epith Cells 0 SEEN Urine Bacteria 0 SEEN Urine Mucus 0 SEEN Radiography Diagnostic Testing: Clinical Impression(s) from Imaging Studies Testicular Ultrasound 08/11/23 20:42 IMPRESSION: Normal testes bilaterally. Electronically Signed: Juan C Hernandez MD at 21:32 EDT , Abdomen/Pelvis CT 08/11/23 21:09 IMPRESSION: Tiny nonobstructing distal left ureteral calculus Electronically Signed: Ariel Calderon MD at 22:33 EDT , Discharge Plan Triage Chief Complaint: Male Pain/Injury ED Midlevel Provider: Leonides Wagner ED Provider: Adarsh Marlow Dx/Rx/DC Orders Clinical Impression: Testicle pain, Ureteral calculus, left Instructions: ED Kidney Stone with Pain, ED Testicular Pain, Unclear Cause Prescriptions: New tamsulosin [Flomax] 0.4 mg capsule 0.4 mg PO DAILY Qty: 10 0RF oxycodone-acetaminophen [Percocet] 5-325 mg tablet 1 tab PO Q6H PRN (Reason: pain) 3 Days Qty: 12 0RF ketorolac 10 mg tablet 10 mg PO TID PRN (Reason: pain) 5 Days Qty: 15 0RF No Action amlodipine 10 mg Tablet 10 mg PO DAILY lisinopril 40 mg Tablet 40 mg PO DAILY cholecalciferol (vitamin D3) [Vitamin D3] 10 mcg (400 unit) Capsule 10 mcg PO DAILY coenzyme Q10 [CoQ-10] 100 mg Capsule 100 mg PO DAILY levocarnitine tartrate [L-Carnitine] 500 mg Capsule 500 mg PO DAILY atorvastatin [Lipitor] 20 mg Tablet 20 mg PO DAILY albuterol sulfate 2.5 mg /3 mL (0.083 %) Solution For Nebulization 2.5 mg INHALATION Q4H PRN (Reason: Shortness Of Breath Or Wheezing) loperamide [Imodium] 2 mg Capsule 2 mg PO DAILY Rx Instructions: administer after each loose stool until symptoms controlled; do not exceed 8 mg per 24 hrs ondansetron HCl [Zofran] 4 mg Tablet 4 mg PO Q8H PRN (Reason: Nausea) albuterol sulfate 90 mcg/actuation Hfa Aerosol Inhaler 2 puff INHALATION Q2H PRN (Reason: Shortness Of Breath Or Wheezing) Daily Probiotic 2.5 billion cell Capsule 1 cap PO DAILY venlafaxine 37.5 mg capsule,extended release 24hr 37.5 mg PO DAILY metformin 850 mg tablet 850 mg PO DAILY carvedilol 12.5 mg tablet 12.5 mg PO DAILY trazodone 50 mg tablet 50 mg PO QHS PRN PRN (Reason: insomnia) glimepiride 2 mg tablet 2 mg PO BID hydralazine 25 mg tablet 25 mg PO DAILY Primary Care Provider: Tereso Hernadez Referrals: Tereso Hernadez DO [Primary Care Provider] - Brandon Lee MD [Med Staff - Active Staff] - 3-5 Days Disposition Disposition: Home, Self Care Discharge Date/Time: 08/11/23 23:07
[2023-08-11 21:35] VITALS: PULSE 70; RESP 17
[2023-08-11] MEDS: 0.9% Normal Saline (1000mL) 1,000 ML 1000 ML IV (21:36)
[2023-08-11] MEDS: Ketorolac 15 MG/ML Vial IV (21:37)
[2023-08-11] MEDS: Ondansetron 4 MG/2 ML Vial IV (21:37)
[2023-08-11] MEDS: Morphine 4 MG/ML Syringe IV (21:38)
[2023-08-11 21:45] LABS: Absolute Neutrophil Count 6.7 X10^3/uL (2.0-7.7); Basophil# 0.05 X10^3/uL; Basophil% 0.5 % (0-1); Eosinophil# 0.26 X10^3/uL; Eosinophils% 2.7 % (0-5); Hematocrit 45.5 % (40-54); Lymphocyte % 16.9 % (19-41); Mean Corpuscular Hgb 28.6 pg (27.0-32.0); Mean Corpuscular Volume 86.7 fL (80-94); Monocyte# 0.79 X10^3/uL; Monocyte% 8.3 % (0-10); NRBC Flagged by Analyzer 0 % (0-5); Neutrophil # 6.74 X10^3/uL (2.7-7.7); Neutrophil % 71.3 % (47-70); Platelet Count 274 K/mm3 (150-450); RBC Distribution Width CV 13.5 % (11.6-14.6); RBC Distribution Width SD 42.5 fl (35.1-43.9); Red Blood Count 5.25 M/mm3 (4.6-6.2); White Blood Count 9.5 K/mm3 (4.4-11.0)
[2023-08-11 22:13] LABS: ALB/GLOB Ratio 1.1 RATIO (0.9-2.4); AST(SGOT) 24 U/L (15-37); Alanine Aminotransfer ALT/SGPT 46 U/L (16-61); Albumin, Serum 3.5 g/dL (3.2-5.0); Alkaline Phosphatase 64 U/L (45-117); Anion Gap 5 (5-15); BUN 14 mg/dL (7-18); BUN/Creat Ratio 13.6 RATIO (10-20); Calcium,Total 9.2 mg/dL (8.5-10.1); Chloride 108 mmol/L (98-107); Creatinine, Serum 1.03 mg/dL (0.70-1.30); EST Glomerular Filtration Rate 85 mL/min (>60); Est Glom Filt Rate - Afr Amer 103 mL/min (>60); Estimated Creatinine Clearance 147.41 ml/min; Globulin 3.3 g/dL (2.2-4.2); Glucose 142 mg/dL (74-106); Lipase 28 U/L (13-75); Potassium 3.9 mmol/L (3.5-5.1); Protein, Total 6.8 g/dL (6.4-8.2); Sodium Level 138 mmol/L (136-145)
[2023-08-11 22:29] LABS: Bacteria 0 SEEN /hpf (None Seen); Mucous, Urine 0 SEEN /hpf (<or=2+); Squamous Epithelial Cells - UA 0 SEEN /hpf (0-5); White Blood Cells 0 SEEN /hpf (0-5)
[2023-08-11 22:30] LABS: Color, Urine Yellow (Yellow); Glucose, Dipstick Normal (Normal); Ketone-Dipstick Negative (Negative); Leukocyte Esterase-Dipstick Negative /ul (Negative); Nitrite-Dipstick Negative (Negative); Occult Blood-Urine 150 /ul (Negative); Protein-Dipstick Negative (Negative); Urine Bilirubin Dipstick Negative (Negative); Urine Clarity Clear (Clear); Urine Urobilinogen Normal (Normal)
[2023-08-11 22:44] LABS: Red Blood Cells-Urine 0-5 SEEN /hpf (0-5)
[2023-08-11 23:00] VITALS: BP 177/84; PULSE 79; RESP 16; O2SAT 98
[2023-08-11 23:02] VITALS: BP 177/84; PULSE 82; RESP 16; TEMP 36.2; O2SAT 98
== END 2023-08-11 23:07 | disposition home or self-care (01) ==
PROVIDERS: Nurse Practitioner; Emergency Provider Emergency Medicine; PCP Family Medicine; Visit Provider Emergency Medicine
DX: N50.812 Left testicular pain (principal); E11.43 Type 2 diabetes mellitus with diabetic autonomic (poly)neuropathy; I10 Essential (primary) hypertension; N20.1 Calculus of ureter; Z90.49 Acquired absence of other specified parts of digestive tract; Z86.16 Personal history of COVID-19; G47.33 Obstructive sleep apnea (adult) (pediatric); E78.5 Hyperlipidemia, unspecified; Z87.442 Personal history of urinary calculi
CPT/HCPCS: 74176; 76870; 80053; 81001; 83690; 85025; 93976; 96361; 96374; 96375; 99283; J7030; A4216; J2405

== ENCOUNTER 2023-11-12 12:27 | Emergency (ER) | payer BC, SELFPAY ==
[2022-11-08 08:32] VITALS: BMI 40.6
[2023-11-12 12:28] VITALS: BP 202/114; PULSE 84; RESP 16; TEMP 36.2; O2SAT 99; BMI 41.5
--- NOTE | 2023-11-12 12:56 | CT_ITS ---
STUDY: CT ABDOMEN AND PELVIS WITH CONTRAST REASON FOR EXAM: Male, 38 years old. RLQ abd pain RADIATION DOSAGE (If Supplied By Facility): CTDIvol = ( 18.73 ) mGy, DLP = ( 24020.13 ) mGycm TECHNIQUE: IV 100mL Isovue-300 was administered. Transaxial images were obtained from the dome of the diaphragm to the symphysis pubis. Multiplanar coronal and sagittal images were reformatted. The protocol utilizes one or more of the following dose reduction techniques: automated exposure control, adjustment of mA and/or kV according to patient size,and/or use of iterative reconstruction technique. COMPARISON: Prior study dated: 08/11/2023 FINDINGS: The visualized lung bases are unremarkable. The visualized portions of the heart are within normal limits. There is decreased attenuation of the liver consistent with steatosis. There are surgical clips in the gallbladder fossa consistent with a prior cholecystectomy. Normal spleen. Normal pancreas. Normal bilateral adrenal glands. Normal visualized stomach. Normal in caliber small bowel loops. No evidence of acute diverticulitis. The appendix is visualized and appears normal. Normal abdominal aorta. No retroperitoneal adenopathy. Normal right kidney. Normal left kidney. Previously noted distal left ureteral stone has passed. Normal urinary bladder. There is a small umbilical hernia containing fat. No demonstrated acute osseous changes. CT/Abdomen/Pelvis W IV Cont ONLY IMPRESSION: 1. No focal acute inflammatory process. 2. Hepatic steatosis. Electronically Signed: Efren Ceballos MD at 14:42 EDT ,
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
[2023-11-12] MEDS: Morphine 4 MG/ML Syringe 6 MG IV (13:12)
[2023-11-12] MEDS: 0.9% Normal Saline (1000mL) 1,000 ML 999 ML IV (13:13)
[2023-11-12] MEDS: Ondansetron 4 MG/2 ML Vial IV (13:13)
[2023-11-12 13:25] LABS: Absolute Lymphocyte Count 1.24 X10^3/uL (0.83-4.51); Absolute Neutrophil Count 4.5 X10^3/uL (2.0-7.7); Basophil# 0.02 X10^3/uL; Basophil% 0.3 % (0-1); Eosinophil# 0.21 X10^3/uL; Eosinophils% 3.1 % (0-5); Hematocrit 45.6 % (40-54); Hemoglobin 15.2 g/dL (13.0-16.5); Lymphocyte # 1.24 X10^3/ul (0.83-4.51); Lymphocyte % 18.3 % (19-41); Mean Corp Hgb Conc 33.3 g/dL (32-36); Mean Corpuscular Hgb 28.4 pg (27.0-32.0); Mean Corpuscular Volume 85.1 fL (80-94); Mean Platelet Vol. 9.6 fl (6.2-12.0); Monocyte# 0.82 X10^3/uL; Monocyte% 12.1 % (0-10); NRBC Flagged by Analyzer 0 % (0-5); Neutrophil # 4.48 X10^3/uL (2.7-7.7); Neutrophil % 66.1 % (47-70); Platelet Count 209 K/mm3 (150-450); RBC Distribution Width CV 13.7 % (11.6-14.6); RBC Distribution Width SD 42.4 fl (35.1-43.9); Red Blood Count 5.36 M/mm3 (4.6-6.2); White Blood Count 6.8 K/mm3 (4.4-11.0)
[2023-11-12 13:44] LABS: AST(SGOT) 26 U/L (15-37); Alanine Aminotransfer ALT/SGPT 61 U/L (16-61); Albumin, Serum 3.4 g/dL (3.2-5.0); Alkaline Phosphatase 67 U/L (45-117); Anion Gap 4 (5-15); BUN 10 mg/dL (7-18); BUN/Creat Ratio 13.8 RATIO (10-20); Calcium,Total 8.5 mg/dL (8.5-10.1); Chloride 107 mmol/L (98-107); Creatinine, Serum 0.73 mg/dL (0.70-1.30); EST Glomerular Filtration Rate 127 mL/min (>60); Est Glom Filt Rate - Afr Amer 153 mL/min (>60); Estimated Creatinine Clearance 205.65 ml/min; Globulin 3.3 g/dL (2.2-4.2); Glucose 134 mg/dL (74-106); Lipase 22 U/L (13-75); Potassium 3.3 mmol/L (3.5-5.1); Protein, Total 6.7 g/dL (6.4-8.2); Sodium Level 140 mmol/L (136-145)
[2023-11-12 14:28] VITALS: BP 175/100; PULSE 76; RESP 18; O2SAT 98
[2023-11-12 15:46] VITALS: BP 175/84; PULSE 69; RESP 18; TEMP 36.8; O2SAT 100
== END 2023-11-12 15:47 | disposition home or self-care (01) ==
PROVIDERS: Emergency Provider Emergency Medicine; PCP Family Medicine; Visit Provider Emergency Medicine
DX: A08.4 Viral intestinal infection, unspecified (principal); J44.9 Chronic obstructive pulmonary disease, unspecified; E11.43 Type 2 diabetes mellitus with diabetic autonomic (poly)neuropathy; I10 Essential (primary) hypertension; G47.33 Obstructive sleep apnea (adult) (pediatric); Z86.16 Personal history of COVID-19
CPT/HCPCS: 74177; 80053; 83690; 85025; 96361; 96374; 96375; 99283; J7030; Q9967; A4216; J2405

== ENCOUNTER 2024-05-17 11:55 | Emergency (ER) | payer BC, SELFPAY ==
[2022-11-08 08:32] VITALS: BMI 40.6
[2024-05-17 11:57] VITALS: BP 223/152; PULSE 78; RESP 18; TEMP 36.9; O2SAT 98; BMI 42.7
[2024-05-17 13:21] LABS: Color, Urine Yellow (Yellow); Glucose, Dipstick Normal (Normal); Ketone-Dipstick Negative (Negative); Leukocyte Esterase-Dipstick Negative /ul (Negative); Nitrite-Dipstick Negative (Negative); Occult Blood-Urine 25 /ul (Negative); Protein-Dipstick 100 mg/dl (Negative); Specific Gravity, Urine 1.025 (1.002-1.030); Urine Bilirubin Dipstick Negative (Negative); Urine Clarity Clear (Clear); Urine Urobilinogen Normal (Normal)
[2024-05-17 13:29] LABS: Bacteria 1+ /hpf (None Seen); Mucous, Urine 1+ /hpf (<or=2+); Red Blood Cells-Urine 0-5 SEEN /hpf (0-5); Squamous Epithelial Cells - UA 0-5 SEEN /hpf (0-5); White Blood Cells 0-5 SEEN /hpf (0-5)
== END 2024-05-17 13:00 | disposition left against medical advice (07) ==
LOC: ED 13:09
PROVIDERS: PCP Family Medicine
DX: Z53.21 Procedure and treatment not carried out due to patient leaving prior to being seen by health care provider (principal)
CPT/HCPCS: 81001